=== PATIENT | female | born 1980 | race Caucasian/White ===

== ENCOUNTER 2019-12-24 16:45 | Emergency (ER) | payer SELFPAY ==
[2019-12-24 17:07] VITALS: BP 245/173; PULSE 89; RESP 20; TEMP 36.9; O2SAT 98; BMI 44.1
[2019-12-24 17:27] VITALS: O2SAT 95
--- NOTE | 2019-12-24 17:38 | ED_ITS ---
Entered by Melissa Rocha, acting as scribe for Nava Emmanuel MD, [facility] Dec 24, 2019 16:45 HPI - General Adult General: Chief complaint: General Medical Stated complaint: HIGH BLOOD PRESSURE Time Seen by Provider: 12/24/19 17:36 Source: patient Mode of arrival: ambulatory Limitations: no limitations History of Present Illness: HPI narrative: 39 yo Female presents to ED with complaint of elevated blood pressure and anxiety. Pt states that she went to the doctor today because of sciatic pain. Pt states that she hasn't had blood pressure medication since the last time she was in the ED but she lost her insurance and ran out of refills. Pt states that she was given clonidine at the clinic today. Pt states that she is also off of her depression and anxiety m edications for the same reason. Pt states that today is the 3 year anniversary of when her friend shot and killed themselves. Pt states that she has a headache right now and sees floaters. complaint: Elevated blood pressure Onset (ago): month(s) Location: head Radiation: non-radiation Quality: aching Pain Consistency: intermittent Relieving factors: none Exacerbating factors: none Associated symptoms: Reports headache(s); Deny chest pain, dyspnea, nausea, rash, palpitations or vomiting Treatments prior to arrival: other (clonidine) Review of Systems General: Reports: 10 or more systems reviewed and unremarkable except in HPI and below Const: Denies: fever, chills or body aches Eyes: Reports: floaters; Denies: change in vision or blurry vision ENMT: Denies: throat pain, enlarged tonsils, painful swallowing, hoarseness, mouth pain or swelling of lips/tongue Card: Denies: chest pain, palpitations, irregular heart rhythm, edema or swelling of feet/ankles Resp: Denies: shortness of breath, productive cough or non-productive cough GI: Denies: abdominal pain, nausea or vomiting : Denies: flank pain, difficulty urinating, painful urination, urinary frequency, urinary urgency or urinary hesitancy Musc: Denies: neck pain, back pain or extremity swelling Skin/Breast: Denies: rash, itching or redness Neuro: Reports: headache Endo: Denies: excessive urination, excessive thirst or tired all the time [facility] ED PFSH: Social History Smoking and tobacco status: former smoker Physical Exam Const: COMMON NORMALS: no apparent distress, average body habitus, oriented x3, no limitations, healthy appearing, alert and well nourished HENMT: COMMON NORMALS: normocephalic, head/scalp atraumatic and moist oral mucous membranes HEAD & SCALP: normocephalic and atraumatic Eye: COMMON NORMALS: PERRL, EOMs intact bilaterally, conjunctivae normal and no scleral icterus CONJUNCTIVA: Yes conjunctivae normal PUPIL: Yes PERRL Neck/C-Spine: COMMON NORMALS: full ROM, supple, no meningeal signs, no JVD and no carotid bruits Chest: COMMONS NORMALS: inspection of chest normal and palpation of chest normal Resp: COMMON NORMALS: normal respiratory effort, no retractions, no use of accessory muscles, clear to auscultation bilaterally and percussion normal AUSCULTATION: clear to auscultation bilaterally PERCUSSION: percussion normal Cardio: COMMON NORMALS: no JVD, regular rate, regular rhythm, S1 normal heart sound, S2 normal heart sound, no gallops, no clicks, no murmurs, no rub and peripheral pulses 2+ throughout RATE: regular rate RHYTHM: regular rhythm HEART SOUNDS: S1 normal and S2 normal PERIPHERAL PULSES: pulses 2+ throughout GI: COMMON NORMALS: normal to inspection, nondistended, normoactive bowel sounds, soft to palpation, non-tender, no hepatosplenomegaly, no masses and no bruits PALPATION: Yes soft and Yes no hepatosplenomegaly : COMMON NORMALS: Yes no CVA tenderness BLADDER/KIDNEY EXAM: Yes no CVA tenderness and No CVA tenderness Back/Pelvis: COMMON NORMALS: no CVA tenderness GENERAL BACK: No CVA tenderness LUMBAR SPINE/LOWER BACK: Yes lumbar spinal tenderness, Yes paraspinal muscle tenderness and No straight leg raise negative bilaterally Extremity: COMMON NORMALS: normal to inspection, full ROM, normal capillary refill, no calf tenderness and no pedal edema Neuro: COMMON NORMALS: oriented x3 SENSORIUM/ORIENTATION: Yes alert MENINGEAL SIGNS: Yes no meningeal signs Skin: COMMON NORMALS: no rashes or lesions noted, no wounds, skin turgor normal, no jaundice, no petechiae and no mottling GENERAL SKIN EXAM: no rashes or lesions noted and turgor normal Course Vital Signs: Vital signs: Vital Signs Temperature 98.4 F 12/24/19 17:07 Pulse Rate 73 12/24/19 21:00 Respiratory Rate 16 12/24/19 21:00 Blood Pressure 165/101 12/24/19 21:00 Pulse Oximetry 98 12/24/19 21:00 MDM - General Adult MDM Narrative: Medical decision making narrative: 39-year-old female patient who presented to the emergency department with markedly elevated blood pressure. In her primary care provider's office she had blood pressures with systolics in the 260s. After clonidine her blood pressure needed change much so she was sent to the emergency department for evaluation. She has been out of her antihypertensives for at least 2 to 3 months. She also run out of her antianxiety medications, due to losing insurance. In the emergency department evaluation was unremarkable. She required multiple doses of intravenous antihypertensives to bring her blood pressure down which she says usually is what happens. She is discharged home with a new prescription for amlodipine which is what she used to take. She is encouraged to follow-up with her primary care provider Medical Records: Attestation: I reviewed the patient's medical records. Lab Data: Attestation: I reviewed the patient's lab results. Labs: Lab Results 12/24/19 12/24/19 Range/Units 18:15 18:15 WBC 12.4 H (4.0-10.0) 10^3/ uL RBC 5.21 (4.1-5.3) 10^6/u L Hgb 14.4 (11.5-15.3) g/dL Hct 44.0 (37.0-47.0) % MCV 84.5 (81-99) fL MCH 27.6 L (28.0-34.0) pg MCHC 32.7 (30.0-36.0) g/dL RDW 12.3 (12.1-15.1) % Plt Count 387 (130-400) 10^3/c mm MPV 10.1 (7.4-10.4) fL Neut % (Auto) 69.9 % Lymph % (Auto) 23.6 % [place] % (Auto) 5.2 % Eos % (Auto) 0.8 % Baso % (Auto) 0.3 % Neut # (Auto) 8.7 H (1.8-7.7) 10^3/u L Lymph # (Auto) 2.9 (0.8-4.8) 10^3/u L [place] # (Auto) 0.6 (0.2-0.9) 10^3/u L Eos # (Auto) 0.1 (0.0-0.8) 10^3/u L Baso # (Auto) 0.0 (0.0-0.1) 10^3/u L Nucleated RBC % (a uto) 0 % Nucleated RBCs # 0.0 /100WBC Sodium 136 (136-145) mmol/L Potassium 3.7 (3.5-5.1) mmol/L Chloride 100 (98-107) mmol/L Carbon Dioxide 25 (22-29) mmol/L Anion Gap 14.7 (5-19) BUN 16 (6-20) mg/dL Creatinine 0.8 (0.5-0.9) mg/dL GFR Calculation 80.7 L (90-130) mL/min Glucose 111 (65-115) mg/dL Calcium 10.0 (8.5-10.5) mg/dL Total Bilirubin 0.3 (0.15-1.2) mg/dL AST 23 (0-32) U/L ALT 24 (0-33) U/L Alkaline Phosphata se 89 (35-105) IU/L Total Protein 8.1 (6.6-8.7) g/dL Albumin 4.3 (3.5-5.2) g/dL Globulin 3.8 (1.3-4.6) g/dL TSH 2.48 (0.27-4.20) uIU/ mL Discharge Plan Discharge Patient Disposition: Home, Self-Care Clinical Impression: Asymptomatic hypertensive urgency, Anxiety Back pain Qualifiers: Back pain location: low back pain Chronicity: chronic Back pain laterality: unspecified Sciatica presence: without sciatica Qualified Code(s): M54.5 - Low back pain Condition: Stable Prescriptions: New amlodipine 10 mg tablet 10 mg PO DAILY Qty: 30 RF: 0 [place] 5-325 mg tablet 1 tab PO Q8H PRN (Reason: pain) Qty: 10 RF: 0 promethazine 12.5 mg tablet 6.25 mg PO QID PRN (Reason: nausea and vomiting) Qty: 30 RF: 0 Klonopin 0.5 mg tablet 0.5 mg PO DAILY PRN (Reason: anxiety) Qty: 5 RF: 0 Continued ibuprofen 200 mg Tablet 600 mg PO Q4D PRN (Reason: Pain) RF: 0 Discharge Orders: Discharge Order (Routine); Ordered 12/24/19 Ordered By: Nava Emmanuel Referrals: Farida Carpio MD [Family Provider] - 4-7 days Patient Instructions: Hypertensive Crisis (ED), Back Pain (ED), Anxiety (ED) Activity Restrictions/Additional Instructions: Return for any new or worsening symptoms. Follow-up with your primary care provider within 1 week. Follow-up with [facility] as soon as possible. Take your medications as prescribed. It is important to take your blood pressure medicines to keep your blood pressure under control. Discharge Date/Time: 12/24/19 21:59 Coding Level of Care Code ED Market Research Interviewer for Chg Fwd Exam Comprehensive The documentation recorded by the Josefina basurto Carmen, accurately reflects the service I personally performed and the decisions made by Lien redding Adegoke I, MD, [facility] Dec 24, 2019 16:45
[2019-12-24] MEDS: hyDRALAzine 20 mg/mL INJ 1 mL 10 MG IVP (18:18)
[2019-12-24 18:21] VITALS: PULSE 88; RESP 15
[2019-12-24 18:39] LABS: Basophils % 0.3 %; Eosinophils # 0.1 10^3/uL (0.0-0.8); Eosinophils % 0.8 %; Hemoglobin 14.4 g/dL (11.5-15.3); Lymphocytes # 2.9 10^3/uL (0.8-4.8); Lymphocytes % 23.6 %; Mean Corpuscular HGB Conc 32.7 g/dL (30.0-36.0); Mean Corpuscular Hemoglobin 27.6 pg (28.0-34.0); Mean Corpuscular Volume 84.5 fL (81-99); Mean Platelet Volume 10.1 fL (7.4-10.4); Monocytes # 0.6 10^3/uL (0.2-0.9); Monocytes % 5.2 %; Neutrophils # 8.7 10^3/uL (1.8-7.7); Neutrophils % 69.9 %; Nucleated Red Blood Cells % 0 %; Platelet Count 387 10^3/cmm (130-400); Red Blood Count 5.21 10^6/uL (4.1-5.3); Red Cell Distribution Width 12.3 % (12.1-15.1); White Blood Count 12.4 10^3/uL (4.0-10.0)
[2019-12-24] MEDS: LORazepam 2 mg/mL INJ 1 mL 1 MG IVP (18:52)
[2019-12-24] MEDS: labetalol 5 mg/mL SDV 20mL 20 MG IVP ×2 (18:52→20:01)
[2019-12-24 19:02] LABS: Alanine Aminotransferase 24 U/L (0-33); Albumin Level 4.3 g/dL (3.5-5.2); Alkaline Phosphatase 89 IU/L (35-105); Anion Gap 14.7 (5-19); Aspartate Amino Transferase 23 U/L (0-32); Blood Urea Nitrogen 16 mg/dL (6-20); Carbon Dioxide 25 mmol/L (22-29); Chloride 100 mmol/L (98-107); Globulin 3.8 g/dL (1.3-4.6); Glomerular Filtration Rate 80.7 mL/min (90-130); Glucose 111 mg/dL (65-115); Potassium 3.7 mmol/L (3.5-5.1); Sodium 136 mmol/L (136-145); Thyroid Stimulating Hormone 2.48 uIU/mL (0.27-4.20); Total Bilirubin 0.3 mg/dL (0.15-1.2); Total Protein 8.1 g/dL (6.6-8.7)
--- NOTE | 2019-12-24 19:27 | PC.NURSE ---
Introduced self to patient and initiated vital signs. Patient presents A&O x 4. NAD, ABCs intact, MAEW and agreeable to treatment. Respirations are even and unlabored. Pt states that the chief complaint for the ER visit today is due to high blood pressure. Pt also complaining of back pain. IV observed in right AC. Pt denies any vision disturbances or lightheadedness. Bed left in lowest position in semi-fowlers with side rails up.Reassured patient of needs and will continue to monitor.
[2019-12-24 19:55] VITALS: RESP 18
[2019-12-24] MEDS: morphine 4 mg/mL SDV 1 mL 6 MG IVP (19:55)
[2019-12-24] MEDS: ondansetron 2 mg/ML SDV 2 mL 4 MG IVP (19:59)
[2019-12-24 20:00] VITALS: BP 194/101; PULSE 80; O2SAT 98
[2019-12-24] MEDS: metoclopramide 5 mg/mL SDV 2 mL 10 MG IVP (20:53)
[2019-12-24 21:00] VITALS: BP 165/101; PULSE 73; RESP 16; O2SAT 98
== END 2019-12-24 21:20 | disposition home or self-care (01) ==
PROVIDERS: Emergency Provider Family Medicine; Family Provider Family Medicine
DX: I16.0 Hypertensive urgency (principal); F41.9 Anxiety disorder, unspecified; Z87.891 Personal history of nicotine dependence
CPT/HCPCS: 36415; 80053; 84443; 85025; 96374; 96375; 96376; 99283; J0360; J2060; J2270; J2405; J2765; J3490

== ENCOUNTER 2020-01-01 15:16 | Outpatient (CLI) | payer SELFPAY ==
--- NOTE | 2020-01-01 15:26 | XR_ITS ---
WS: [id number] Lumbar spine, 5 views, 01/01/2020 Clinical Data: CHRONIC BACK PAIN, LUMBAGO WITH SCIATICA Comparison: None. Findings: No compression fractures or subluxation is seen. There is degenerative disc narrowing at L5-S1. Minim al anterior osteoarthritic spurring at this level is seen.. The transverse processes and SI joints ar e normal. The oblique films show no spondylolysis. There is an IUD in the region of the uterus. XR/XR lumbar spine min 4V [id number] Impression: 1. Degenerative disc disease at L5-S1. 2. Minimal osteoarthritic spurring at L5-S1.
== END 2020-01-01 15:17 | disposition home or self-care (01) ==
LOC: RADWPI 15:24
PROVIDERS: Family Provider Family Medicine; PCP Family Medicine; Visit Provider Nurse Practitioner Family
DX: M54.40 Lumbago with sciatica, unspecified side (principal); M47.897 Other spondylosis, lumbosacral region; M77.8 Other enthesopathies, not elsewhere classified
CPT/HCPCS: 72114

== ENCOUNTER 2020-03-29 22:11 | Emergency (ER) | payer SELFPAY ==
[2020-03-29] VITALS (7 sets, daily range): BP systolic 179; BP diastolic 130; PULSE 74–92; RESP 13–21; TEMP 36.4; O2SAT 94–96; BMI 43.2
--- NOTE | 2020-03-29 23:11 | XR_ITS ---
WS: [id number] PORTABLE CHEST HISTORY: sob COMPARISON: 10/17/2019 Slight elevation of the RIGHT hemidiaphragm is unchanged. No pneumonia. There is very mild bronchial thickening centrally, greatest on the LEFT. No pleural effusion or pneumothorax. Cardiac size: Normal. Mediastinum/Aorta: Normal mediastinum. No osseous abnormality seen. XR/XR chest 1V portable [id number] IMPRESSION: Mild bronchial wall thickening in the hilar regions, LEFT greater than RIGHT. M ay be related to bronchitis or smoking.
--- NOTE | 2020-03-29 23:12 | ECG_ITS ---
Measurements Intervals [place] Rate: 72 P: 38 NM: 149 QRS: 3 QRSD: 92 T: 6 QT: 389 QTc: 428 SINUS RHYTHM Compared to ECG 10/17/2019 23:08:32 No significant changes Electronically Signed On 03-30-2020 22:04:33 CDT by Yany Bhagat M.D. [id number]
--- NOTE | 2020-03-29 23:18 | ED_ITS ---
HPI - General Adult General: Chief complaint: General Medical Stated complaint: swelling in feet Time Seen by Provider: 03/29/20 23:11 History of Present Illness: HPI narrative: Patient is come back from a trip to [place] where she knows she started have swelling in her feet going down there and never to go away and is still present she has not weighed herself to see if she is actually gained weight but she is at high blood pressure for 10 to 15 years and this first time in her feet has stayed swollen like this MD complaint: Feet swelling Onset (ago): day(s) Associated symptoms: Deny chest pain, dyspnea, headache(s), nausea, rash or vomiting Review of Systems Const: Denies: fever(s), chills or body aches Eyes: Denies: change in vision or blurry vision ENMT: Denies: throat pain or nasal congestion Card: Reports: swelling of feet/ankles and other (Edema in feet, no signif icant shortness of breath); Denies: chest pain or dyspnea on exertion Resp: Denies: dyspnea, productive cough or non-productive cough GI: Denies: abdominal pain, nausea or vomiting Musc: Denies: extremity pain Skin/Breast: Denies: rash Neuro: Denies: headache(s) Psych: Denies: anxiety or depression [place]/Lymph: Denies: easy bruising PFS ED PFSH: Social History Smoking and tobacco status: never smoked Female Reproductive History: Date of last menstrual period: 03/22/20 Physical Exam Const: COMMON NORMALS: no acute distress, average body habitus and patient oriented x3 HENMT: COMMON NORMALS: normocephalic HEAD & SCALP: normal to inspection and normocephalic FACE & SINUS: normal facial exam Eye: COMMON NORMALS: conjunctivae normal GENERAL EYE: appearance normal, both eyes and all related structures CONJUNCTIVA: Yes conjunctivae normal Neck/C-Spine: COMMON NORMALS: no JVD Chest: COMMONS NORMALS: normal inspection of the chest Resp: COMMON NORMALS: normal respiratory effort and clear to auscultation bilaterally AUSCULTATION: clear to auscultation bilaterally Cardio: COMMON NORMALS: no JVD, regular rate and regular rhythm RATE: regular rate RHYTHM: regular rhythm PERIPHERAL PULSES: other (Does have swelling in her feet but not pitting) GI: COMMON NORMALS: Normal to inspection, nondistended, normoactive bowel sounds present Extremity: COMMON NORMALS: normal to inspection and full ROM Neuro: COMMON NORMALS: patient oriented x3 Course Vital Signs: Vital signs: Vital Signs Temperature 97.5 F L 03/29/20 22:53 Pulse Rate 74 03/29/20 23:35 Respiratory Rate 21 H 03/29/20 23:35 Blood Pressure 179/130 03/29/20 22:53 Pulse Oximetry 95 03/29/20 23:35 MDM - General Adult MDM Narrative: Medical decision making narrative: Discussed patient's blood pressure with her and her diastolic In 120s 130s she said that her blood pressure stays like that all the time Dr. Carpio is working with her and she is not concerned about it is wanting get on home and pick her son up from his friends Lab Data: Labs: Lab Results 03/29/20 03/29/20 Range/Units 23:30 23:30 WBC 12.7 H (4.0-10.0) 10^3/ uL RBC 4.53 (4.1-5.3) 10^6/u L Hgb 12.7 (11.5-15.3) g/dL Hct 39.3 (37.0-47.0) % MCV 86.8 (81-99) fL MCH 28.0 (28.0-34.0) pg MCHC 32.3 (30.0-36.0) g/dL RDW 12.7 (12.1-15.1) % Plt Count 391 (130-400) 10^3/c mm MPV 9.4 (7.4-10.4) fL Neut % (Auto) 62.8 % Lymph % (Auto) 29.9 % [place] % (Auto) 4.7 % Eos % (Auto) 2.1 % Baso % (Auto) 0.3 % Neut # (Auto) 8.0 H (1.8-7.7) 10^3/u L Lymph # (Auto) 3.8 (0.8-4.8) 10^3/u L [place] # (Auto) 0.6 (0.2-0.9) 10^3/u L Eos # (Auto) 0.3 (0.0-0.8) 10^3/u L Baso # (Auto) 0.0 (0.0-0.1) 10^3/u L Nucleated RBC % (a uto) 0 % Nucleated RBCs # 0.0 /100WBC Sodium 138 (136-145) mmol/L Potassium 4.0 (3.5-5.1) mmol/L Chloride 103 (98-107) mmol/L Carbon Dioxide 24 (22-29) mmol/L Anion Gap 15.0 (5-19) BUN 17 (6-20) mg/dL Creatinine 0.7 (0.5-0.9) mg/dL GFR Calculation 94.2 (90-130) mL/min Glucose 98 (65-115) mg/dL Calculated Osmolal ity 282 L (285-295) mOsm/k g Calcium 9.5 (8.5-10.5) mg/dL Total Bilirubin 0.2 (0.15-1.2) mg/dL AST 19 (0-32) U/L ALT 25 (0-33) U/L Alkaline Phosphata se 76 (35-105) IU/L NT-Pro-B Natriuret Pep 135 H (0-125) pg/mL Total Protein 7.3 (6.6-8.7) g/dL Albumin 4.0 (3.5-5.2) g/dL Globulin 3.3 (1.3-4.6) g/dL EKG Data^: EKG 1: EKG interpretation date: 03/29/20 EKG interpretation time: 23:24 Interpretation: Normal sinus rhythm 72 bpm NM interval is 149 ms QRS duration is 82 ms Discharge Plan Discharge Patient Disposition: Home, Self-Care Clinical Impression: HTN (hypertension) Qualifiers: Hypertension type: essential hypertension Qualified Code(s): I10 - Essential (primary) hypertension Condition: Stable Prescriptions: No Action ibuprofen 200 mg Tablet 600 mg PO Q4D PRN (Reason: Pain) RF: 0 amlodipine 10 mg tablet 10 mg PO DAILY Qty: 30 RF: 0 [place] 5-325 mg tablet 1 tab PO Q8H PRN (Reason: pain) Qty: 10 RF: 0 promethazine 12.5 mg tablet 6.25 mg PO QID PRN (Reason: nausea and vomiting) Qty: 30 RF: 0 Klonopin 0.5 mg tablet 0.5 mg PO DAILY PRN (Reason: anxiety) Qty: 5 RF: 0 Discharge Orders: Discharge Order (Routine); Ordered 03/30/20 Ordered By: Scott Reis Referrals: Farida Carpio MD [Primary Care Provider] - Discharge Diet: Low Salt Discharge Activity: Increase activity as tolerated Patient Instructions: Chronic Hypertension (ED), Leg Edema (ED) Activity Restrictions/Additional Instructions: Follow-up with medical provider as directed. Take medications as prescribed. Return to the ER or your medical provider if condition worsens. Please read and understand discharge instructions. If any questions ask please. Follow-up Dr. Carpio concerning blood pressure Coding Level of Care Code ED Senior J2E[employer] Developer for Chg Fwd Exam Comprehensive
[2020-03-29 23:36] LABS: Basophils % 0.3 %; Eosinophils # 0.3 10^3/uL (0.0-0.8); Eosinophils % 2.1 %; Hematocrit 39.3 % (37.0-47.0); Hemoglobin 12.7 g/dL (11.5-15.3); Lymphocytes # 3.8 10^3/uL (0.8-4.8); Lymphocytes % 29.9 %; Mean Corpuscular HGB Conc 32.3 g/dL (30.0-36.0); Mean Corpuscular Volume 86.8 fL (81-99); Mean Platelet Volume 9.4 fL (7.4-10.4); Monocytes # 0.6 10^3/uL (0.2-0.9); Monocytes % 4.7 %; Neutrophils % 62.8 %; Nucleated Red Blood Cells % 0 %; Platelet Count 391 10^3/cmm (130-400); Red Blood Count 4.53 10^6/uL (4.1-5.3); Red Cell Distribution Width 12.7 % (12.1-15.1); White Blood Count 12.7 10^3/uL (4.0-10.0)
[2020-03-29] MEDS: cloNIDine 0.1 mg Tablet 0.3 MG PO (23:54)
[2020-03-30] VITALS: BP 202/120; PULSE 75; RESP 19
[2020-03-30 00:05] VITALS: BP 202/120; PULSE 73; RESP 19; O2SAT 95
[2020-03-30 00:09] LABS: Alanine Aminotransferase 25 U/L (0-33); Alkaline Phosphatase 76 IU/L (35-105); Aspartate Amino Transferase 19 U/L (0-32); Blood Urea Nitrogen 17 mg/dL (6-20); Calcium 9.5 mg/dL (8.5-10.5); Carbon Dioxide 24 mmol/L (22-29); Chloride 103 mmol/L (98-107); Globulin 3.3 g/dL (1.3-4.6); Glomerular Filtration Rate 94.2 mL/min (90-130); Glucose 98 mg/dL (65-115); NT Pro B Type Natriuretic Pept 135 pg/mL (0-125); Osmolality Calculated 282 mOsm/kg (285-295); Sodium 138 mmol/L (136-145); Total Bilirubin 0.2 mg/dL (0.15-1.2); Total Protein 7.3 g/dL (6.6-8.7)
[2020-03-30 00:10] VITALS: BP 202/120; PULSE 73; RESP 17; O2SAT 96
[2020-03-30 00:15] VITALS: BP 187/132; PULSE 75; RESP 21; O2SAT 97
[2020-03-30 00:20] VITALS: BP 187/132; PULSE 74; RESP 21; O2SAT 96
[2020-03-30 00:25] VITALS: BP 187/132; PULSE 76; RESP 17; O2SAT 96
== END 2020-03-30 00:30 | disposition home or self-care (01) ==
PROVIDERS: Emergency Provider Nurse Practitioner Family; PCP Family Medicine
DX: I10 Essential (primary) hypertension (principal)
CPT/HCPCS: 12345; 36415; 71045; 80053; 83880; 85025; 93005; 99283

== ENCOUNTER 2021-04-05 15:38 | Emergency (ER) | payer SELFPAY ==
--- NOTE | 2021-04-05 15:58 | ECG_ITS ---
[facility] Test Date: 2021-04-05 Pat Name: Katey Romeo Department: Room: Gender: Female Rigger Up: : 1980 Requested By: Akash Ortez Order Number: [id number] Rj MD: Marcelino Lanza M.D. Measurements Intervals [place] Rate: 92 P: 32 AL: 137 QRS: 35 QRSD: 114 T: 19 QT: 386 QTc: 478 Interpretive Statements SINUS RHYTHM INCOMPLETE RIGHT BUNDLE BRANCH BLOCK [90+ ms QRS DURATION, TERMINAL R IN V1/V2, 40+ ms S IN I/aVL/V4/V5/V6] NONSPECIFIC T-WAVE ABNORMALITY Compared to ECG 03/29/2020 23:26:03 Incomplete right bundle-branch block now present T-wave abnormality now present Electronically Signed On 04-05-2021 18:55:31 CDT by Marcelino Lanza M.D. [id number]
[2021-04-05 16:24] VITALS: BP 221/150; PULSE 91; RESP 18; TEMP 37; O2SAT 98; BMI 41.2
--- NOTE | 2021-04-05 17:26 | PC.PHAR ---
pt states she takes no rx or otc medications-pt states she was taking metoprolol tartrate 100mg 50mg bid,mobic 15mg daily prn,amlodipine 10mg daily and hctz 25mg daily but hasnt taken since dec 2020-ext med history shows last filled on 11/19/20 30d/s
[2021-04-05] MEDS: sodium chloride 0.9% 1,000 ML 999 ML IV (17:42)
--- NOTE | 2021-04-05 17:46 | W.ED.GENADLT ---
Documented by User: Akash Mancia DO 04/06/21 14:38 HPI - General Adult General: Chief complaint: General Medical Stated complaint: HIGH BLOOD PRESSURE HEADACHE CHEST TIGHT Time Seen by Provider: 04/05/21 16:56 History of Present Illness: HPI narrative: 40-year-old female with a history of hypertension comes in with accelerated hypertension headache and chest tightness. The past she has been on hydrochlorothiazide amlodipine lisinopril she stopped taking them due to logistical and financial concerns. She has not noticed any precipitating or relieving factors. She does have a bit of a headache initial blood pressure 221/150. No vomiting or diarrhea no visual changes no focal neurologic deficits noted. Associated symptoms: Reports nausea; Deny chest pain, dyspnea, malaise, rash or vomiting Review of Systems Const: Denies: fever(s), chills, body aches, change in appetite, fatigue or malaise ENMT: Denies: throat pain, ear or mastoid pain, nasal discharge or nasal congestion Card: Denies: chest pain, edema, dyspnea on exertion or orthopnea Resp: Denies: dyspnea, productive cough or non-productive cough GI: Reports: nausea and bloating; Denies: abdominal pain, vomiting, hematemesis, coffee ground emesis, diarrhea, constipation, hematochezia or melena : Denies: flank pain, difficulty voiding, dysuria, urinary frequency or urinary urgency Skin/Breast: Denies: rash or pruritus [facility] ED PFSH: Medical History (Updated 04/06/21 @ 14:37 by Akash Mancia DO) Hypertension Social History Smoking and tobacco status: never smoked Female Reproductive History: Date of last menstrual period: 03/22/20 Course Vital Signs: Vital signs: Vital Signs Temperature 98.6 F 04/05/21 16:24 Pulse Rate 89 04/05/21 20:50 Respiratory Rate 18 04/05/21 20:50 Blood Pressure 179/112 04/05/21 20:50 Pulse Oximetry 97 04/05/21 20:50 MDM - General Adult MDM Narrative: Medical decision making narrative: Care turned over to Dr. Prabhakar at change shift see his notes from diagnosis disposition Lab Data: Labs: Lab Results 04/05/21 04/05/2104/05/21 Range/Units 17:38 17:38 17:38 WBC Cancelled Corrected WBC Cancelled RBC Cancelled Hgb Cancelled Hct Cancelled MCV Cancelled MCH Cancelled MCHC Cancelled RDW Cancelled Plt Count Cancelled MPV Cancelled Gran % Cancelled Neut % (Auto) Cancelled Lymph % (Auto) Cancelled [place] % (Auto) Cancelled Eos % (Auto) Cancelled Baso % (Auto) Cancelled Neut # (Auto) Cancelled Lymph # (Auto) Cancelled [place] # (Auto) Cancelled Eos # (Auto) Cancelled Baso # (Auto) Cancelled Absolute Gran (aut o) Cancelled Nucleated RBC % (a uto) Cancelled Nucleated RBCs # Cancelled Sodium 137 (136-145) mmol/L Potassium 4.1 (3.5-5.1) mmol/L Chloride 100 (98-107) mmol/L Carbon Dioxide 27 (22-29) mmol/L Anion Gap 14.1 (5-19) BUN 12 (6-20) mg/dL Creatinine 0.6 (0.5-0.9) mg/dL GFR Calculation 111.9 (90-130) mL/min Glucose 101 (65-115) mg/dL Calculated Osmolal ity 284 L (285-295) mOsm/k g Calcium 9.1 (8.5-10.5) mg/dL Total Bilirubin 0.3 (0.15-1.2) mg/dL AST 21 (0-32) U/L ALT 20 (0-33) U/L Alkaline Phosphata se 92 (35-105) IU/L Troponin T Baselin e Cancelled Troponin T 120 Min [place] (0-10) ng/L Delta Troponin T (0-10) ABS# Total Protein 6.8 (6.6-8.7) g/dL Albumin 4.1 (3.5-5.2) g/dL Globulin 2.7 (1.3-4.6) g/dL 04/05/21 04/05/21 04/05/21 Range/Units 18:12 18:12 19:35 WBC 14.7 H Corrected WBC RBC 5.29 Hgb 15.0 Hct 45.4 MCV 85.8 MCH 28.4 MCHC 33.0 RDW 12.4 Plt Count 377 MPV 10.0 Gran % Neut % (Auto) 68.6 Lymph % (Auto) 24.9 [place] % (Auto) 5.1 Eos % (Auto) 0.7 Baso % (Auto) 0.3 Neut # (Auto) 10.07 H Lymph # (Auto) 3.7 [place] # (Auto) 0.8 Eos # (Auto) 0.1 Baso # (Auto) 0.1 Absolute Gran (aut o) Nucleated RBC % (a uto) 0 Nucleated RBCs # 0.0 Sodium (136-145) mmol/L Potassium (3.5-5.1) mmol/L Chloride (98-107) mmol/L Carbon Dioxide (22-29) mmol/L Anion Gap (5-19) BUN (6-20) mg/dL Creatinine (0.5-0.9) mg/dL GFR Calculation (90-130) mL/min Glucose (65-115) mg/dL Calculated Osmolal ity (285-295) mOsm/k g Calcium (8.5-10.5) mg/dL Total Bilirubin (0.15-1.2) mg/dL AST (0-32) U/L ALT (0-33) U/L Alkaline Phosphata se (35-105) IU/L Troponin T Baselin e 6 Troponin T 120 Min [place] 6.00 (0-10) ng/L Delta Troponin T 0 (0-10) ABS# Total Protein (6.6-8.7) g/dL Albumin (3.5-5.2) g/dL Globulin (1.3-4.6) g/dL Discharge Plan Discharge Patient Disposition: Home Clinical Impression: Hypertension Qualifiers: Hypertension type: essential hypertension Qualified Code(s): I10 - Essential (primary) hypertension Vomiting Qualifiers: Vomiting type: unspecified Condition: Stable Prescriptions: New ondansetron 4 mg tablet,disintegrating 4 mg PO Q6H PRN (Reason: nausea and vomiting) Qty: 14 RF: 0 metoprolol succinate 100 mg tablet extended release 24 hr 100 mg PO DAILY Qty: 60 RF: 0 amlodipine 10 mg tablet 10 mg PO DAILY Qty: 60 RF: 0 hydrochlorothiazide 25 mg tablet 25 mg PO BID Qty: 120 RF: 0 Discharge Orders: Discharge ED (Routine); Ordered 04/05/21 Ordered By: Korby Aki Referrals: Farida Carpio MD [Primary Care Provider] - Discharge Diet: Advance as tolerated Discharge Activity: Resume usual activity Patient Instructions: Acute Nausea and Vomiting (ED), Hypertension (ED) Coding Level of Care Code ED Spray Machine Operator for Chg Fwd Exam Comprehensive Documented by User: Johnny Prabhakar MD 04/05/21 20:42 HPI - General Adult General: Chief complaint: General Medical Stated complaint: HIGH BLOOD PRESSURE HEADACHE CHEST TIGHT Time Seen by Provider: 04/05/21 16:56 PFSH ED PFSH: Medical History (Updated 04/06/21 @ 14:37 by Akash Mancia DO) Hypertension Social History Smoking and tobacco status: never smoked Physical Exam Const: COMMON NORMALS: no acute distress, patient oriented x3 and healthy appearing HENMT: COMMON NORMALS: normocephalic and atraumatic HEAD & SCALP: normocephalic and atraumatic Eye: COMMON NORMALS: Equal, round and reactive pupils present and EOMs intact bilaterally PUPIL: Yes Equal, round and reactive pupils present Neck/C-Spine: COMMON NORMALS: full ROM and supple Chest: COMMONS NORMALS: normal inspection of the chest and normal palpation of entire chest wall Resp: COMMON NORMALS: normal respiratory effort, No retractions, No use of accessory muscles and clear to auscultation bilaterally AUSCULTATION: clear to auscultation bilaterally Cardio: COMMON NORMALS: regular rate, regular rhythm and No murmurs present (Cardio) RATE: regular rate RHYTHM: regular rhythm GI: COMMON NORMALS: Normal to inspection, nondistended, normoactive bowel sounds present, Soft to palpation, non-tender and no masses PALPATION: Yes Soft to palpation Extremity: COMMON NORMALS: normal to inspection and full ROM Neuro: COMMON NORMALS: patient oriented x3, moves all extremities and no focal motor deficits Psych: COMMON NORMALS: mental status grossly normal, Normal thought process present and cooperative THOUGHT PROCESS: Normal thought process present Skin: COMMON NORMALS: no rashes or lesions noted and no wounds GENERAL SKIN EXAM: no rashes or lesions noted Course Vital Signs: Vital signs: Vital Signs Temperature 98.6 F 04/05/21 16:24 Pulse Rate 89 04/05/21 20:50 Respiratory Rate 18 04/05/21 20:50 Blood Pressure 179/112 04/05/21 20:50 Pulse Oximetry 97 04/05/21 20:50 MDM - General Adult MDM Narrative: Medical decision making narrative: Patient presents with hypertension due to noncompliance. She has not been taking her meds for months. We will refill her medicines. Her blood work here is all normal and her blood pressure is improved here. She is to follow-up with PCP in 2 to 3 days return to ER if worsening. She is to log her blood pressures at home. She understands agrees to plan. Lab Data: Labs: Lab Results 04/05/21 04/05/21 04/05/21 Range/Units 17:38 17:38 17:38 WBC Cancelled Corrected WBC Cancelled RBC Cancelled Hgb Cancelled Hct Cancelled MCV Cancelled MCH Cancelled MCHC Cancelled RDW Cancelled Plt Count Cancelled MPV Cancelled Gran % Cancelled Neut % (Auto) Cancelled Lymph % (Auto) Cancelled [place] % (Auto) Cancelled Eos % (Auto) Cancelled Baso % (Auto) Cancelled Neut # (Auto) Cancelled Lymph # (Auto) Cancelled [place] # (Auto) Cancelled Eos # (Auto) Cancelled Baso # (Auto) Cancelled Absolute Gran (aut o) Cancelled Nucleated RBC % (a uto) Cancelled Nucleated RBCs # Cancelled Sodium 137 (136-145) mmol/L Potassium 4.1 (3.5-5.1) mmol/L Chloride 100 (98-107) mmol/L Carbon Dioxide 27 (22-29) mmol/L Anion Gap 14.1 (5-19) BUN 12 (6-20) mg/dL Creatinine 0.6 (0.5-0.9) mg/dL GFR Calculation 111.9 (90-130) mL/min Glucose 101 (65-115) mg/dL Calculated Osmolal ity 284 L (285-295) mOsm/k g Calcium 9.1 (8.5-10.5) mg/dL Total Bilirubin 0.3 (0.15-1.2) mg/dL AST 21 (0-32) U/L ALT 20 (0-33) U/L Alkaline Phosphata se 92 (35-105) IU/L Troponin T Baselin e Cancelled Troponin T 120 Min [place] (0-10) ng/L Delta Troponin T (0-10) ABS# Total Protein 6.8 (6.6-8.7) g/dL Albumin 4.1 (3.5-5.2) g/dL Globulin 2.7 (1.3-4.6) g/dL 04/05/21 04/05/21 04/05/21 Range/Units 18:12 18:12 19:35 WBC 14.7 H Corrected WBC RBC 5.29 Hgb 15.0 Hct 45.4 MCV 85.8 MCH 28.4 MCHC 33.0 RDW 12.4 Plt Count 377 MPV 10.0 Gran % Neut % (Auto) 68.6 Lymph % (Auto) 24.9 [place] % (Auto) 5.1 Eos % (Auto) 0.7 Baso % (Auto) 0.3 Neut # (Auto) 10.07 H Lymph # (Auto) 3.7 [place] # (Auto) 0.8 Eos # (Auto) 0.1 Baso # (Auto) 0.1 Absolute Gran (aut o) Nucleated RBC % (a uto) 0 Nucleated RBCs # 0.0 Sodium (136-145) mmol/L Potassium (3.5-5.1) mmol/L Chloride (98-107) mmol/L Carbon Dioxide (22-29) mmol/L Anion Gap (5-19) BUN (6-20) mg/dL Creatinine (0.5-0.9) mg/dL GFR Calculation (90-130) mL/min Glucose (65-115) mg/dL Calculated Osmolal ity (285-295) mOsm/k g Calcium (8.5-10.5) mg/dL Total Bilirubin (0.15-1.2) mg/dL AST (0-32) U/L ALT (0-33) U/L Alkaline Phosphata se (35-105) IU/L Troponin T Baselin e 6 Troponin T 120 Min [place] 6.00 (0-10) ng/L Delta Troponin T 0 (0-10) ABS# Total Protein (6.6-8.7) g/dL Albumin (3.5-5.2) g/dL Globulin (1.3-4.6) g/dL EKG Data^: EKG 1: Attestation: I personally reviewed and interpreted this EKG as follows: EKG interpretation date: 04/05/21 EKG interpretation time: 18:58 Interpretation: nsr hr [address] or t wave abnormalities qrs 93 qtc 423 Discharge Plan Discharge Patient Disposition: Home Clinical Impression: Hypertension Qualifiers: Hypertension type: essential hypertension Qualified Code(s): I10 - Essential (primary) hypertension Vomiting Qualifiers: Vomiting type: unspecified Condition: Stable Prescriptions: New ondansetron 4 mg tablet,disintegrating 4 mg PO Q6H PRN (Reason: nausea and vomiting) Qty: 14 RF: 0 metoprolol succinate 100 mg tablet extended release 24 hr 100 mg PO DAILY Qty: 60 RF: 0 amlodipine 10 mg tablet 10 mg PO DAILY Qty: 60 RF: 0 hydrochlorothiazide 25 mg tablet 25 mg PO BID Qty: 120 RF: 0 Discharge Orders: Discharge ED (Routine); Ordered 04/05/21 Ordered By: Johnny Prabhakar Referrals: Farida Carpio MD [Primary Care Provider] - Discharge Diet: Advance as tolerated Discharge Activity: Resume usual activity Patient Instructions: Acute Nausea and Vomiting (ED), Hypertension (ED) Coding Level of Care Code ED Spray Machine Operator for Chg Fwd Exam Comprehensive
--- NOTE | 2021-04-05 17:58 | ECG_ITS ---
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 Measurements Intervals [place] Rate: 81 P: 10 RI: 136 QRS: 22 QRSD: 93 T: 62 QT: 385 QTc: 449 Interpretive Statements SINUS RHYTHM NONSPECIFIC T-WAVE ABNORMALITY Compared to ECG 04/05/2021 16:54:25 Incomplete right bundle-branch block no longer present T-wave abnormality still present Electronically Signed On 04-05-2021 19:12:09 CDT by Marcelino Lanza M.D. [id number]
[2021-04-05] MEDS: amlodipine 10 mg Tablet PO (18:07)
[2021-04-05] MEDS: lisinopril 10 mg Tablet 20 MG PO (18:08)
[2021-04-05] MEDS: hyDRALAzine 20 mg/mL INJ 1 mL IVP (18:09)
[2021-04-05] MEDS: labetalol 5 mg/mL SDV 20mL 10 MG IVP (18:10)
[2021-04-05 18:11] LABS: Alanine Aminotransferase 20 U/L (0-33); Albumin Level 4.1 g/dL (3.5-5.2); Alkaline Phosphatase 92 IU/L (35-105); Blood Urea Nitrogen 12 mg/dL (6-20); Calcium 9.1 mg/dL (8.5-10.5); Carbon Dioxide 27 mmol/L (22-29); Chloride 100 mmol/L (98-107); Globulin 2.7 g/dL (1.3-4.6); Glomerular Filtration Rate 111.9 mL/min (90-130); Glucose 101 mg/dL (65-115); Osmolality Calculated 284 mOsm/kg (285-295); Sodium 137 mmol/L (136-145); Total Bilirubin 0.3 mg/dL (0.15-1.2); Total Protein 6.8 g/dL (6.6-8.7)
[2021-04-05] MEDS: nitroglycerin 1 gm/inch oint Pkt 1 INCH TOPICAL (18:12)
[2021-04-05 18:14] LABS: Anion Gap 14.1 (5-19); Aspartate Amino Transferase 21 U/L (0-32); Potassium 4.1 mmol/L (3.5-5.1)
[2021-04-05 18:22] LABS: Basophils # 0.1 10^3/uL (0.0-0.1); Basophils % 0.3 %; Eosinophils # 0.1 10^3/uL (0.0-0.8); Eosinophils % 0.7 %; Hematocrit 45.4 % (37.0-47.0); Lymphocytes # 3.7 10^3/uL (0.8-4.8); Lymphocytes % 24.9 %; Mean Corpuscular Hemoglobin 28.4 pg (28.0-34.0); Mean Corpuscular Volume 85.8 fL (81-99); Monocytes # 0.8 10^3/uL (0.2-0.9); Monocytes % 5.1 %; Neutrophils # 10.07 10^3/uL (1.8-7.7); Neutrophils % 68.6 %; Nucleated Red Blood Cells % 0 %; Platelet Count 377 10^3/cmm (130-400); Red Blood Count 5.29 10^6/uL (4.1-5.3); Red Cell Distribution Width 12.4 % (12.1-15.1); White Blood Count 14.7 10^3/uL (4.0-10.0)
[2021-04-05 18:36] LABS: Troponin(5th) Baseline 6 ng/L (0-10)
[2021-04-05] MEDS: metoprolol succinate ER (24 HR) 50 mg Tablet PO (18:37)
[2021-04-05] MEDS: LORazepam 2 mg/mL INJ 1 mL IVP (19:48)
[2021-04-05] MEDS: labetalol 5 mg/mL SDV 20mL 20 MG IVP (19:53)
[2021-04-05 19:58] LABS: Troponin 5 2HR Delta 0 ABS# (0-10)
[2021-04-05 20:24] VITALS: PULSE 87; RESP 16; O2SAT 97
[2021-04-05 20:25] VITALS: BP 151/110; PULSE 86; RESP 18; O2SAT 98
[2021-04-05 20:50] VITALS: BP 179/112; PULSE 89; RESP 18; O2SAT 97
== END 2021-04-05 20:51 | disposition home or self-care (01) ==
PROVIDERS: Family Medicine; Emergency Provider Emergency Medicine; PCP Family Medicine
DX: R11.2 Nausea with vomiting, unspecified (principal); I10 Essential (primary) hypertension; Z91.14 Patient's other noncompliance with medication regimen
CPT/HCPCS: 36415; 80053; 84484; 85025; 93005; 96361; 96374; 96375; 96376; 99284; J0360; J2060; J3490; J7030

== ENCOUNTER 2021-05-09 00:18 | Emergency (ER) | payer SELFPAY ==
[2021-05-09 01:04] VITALS: BP 235/135; PULSE 85; RESP 17; TEMP 36.6; O2SAT 95; BMI 43.0
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
[2021-05-09 02:33] VITALS: BP 184/92; PULSE 86; RESP 16; O2SAT 96
--- NOTE | 2021-05-09 02:37 | PC.NURSE ---
approx 2cm strip of steri-strip applied by JOANNE
== END 2021-05-09 02:37 | disposition home or self-care (01) ==
PROVIDERS: Emergency Provider Nurse Practitioner Family; PCP Family Medicine
DX: S01.511A Laceration without foreign body of lip, initial encounter (principal); I10 Essential (primary) hypertension; Y04.2XXA Assault by strike against or bumped into by another person, initial encounter
CPT/HCPCS: 12011; 99281

== ENCOUNTER 2022-01-17 20:56 | Observation (INO) | payer MEDICAID, SELFPAY ==
[2022-01-17 21:01] VITALS: PULSE 91; RESP 18; TEMP 36.6; O2SAT 97; BMI 38.0
[2022-01-17 21:10] VITALS: BP 210/130
--- NOTE | 2022-01-17 21:11 | XRR_ITS ---
PROCEDURE INFORMATION: Exam: XR Chest Exam date and time: 01/17/2022 9:11 PM Age: 41 years old Clinical indication: Pain; Angina pectoris; Additional info: Chest pain TECHNIQUE: Imaging protocol: XR of the chest. Views: 1 view. COMPARISON: CR XR chest 1V portable [id number] 03/29/2020 11:49 PM FINDINGS: Lungs: Lungs are clear bilaterally. Pleural spaces: No pleural effusion. No pneumothorax. Heart/Mediastinum: Stable mild enlargement of the cardiac silhouette. Mediastinal contours are unremarkable. Bones/joints: Unremarkable for age. XR/XR chest 1V portable [id number] IMPRESSION: 1. No acute cardiopulmonary process. 2. Stable mild enlargement of the cardiac silhouette.
--- NOTE | 2022-01-17 21:11 | ECG_ITS ---
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 Measurements Intervals [place] Rate: 68 P: 15 SC: 151 QRS: 1 QRSD: 112 T: -2 QT: 381 QTc: 407 Interpretive Statements SINUS RHYTHM MODERATE INTRAVENTRICULAR CONDUCTION DELAY [110+ ms QRS DURATION] NONSPECIFIC T-WAVE ABNORMALITY Compared to ECG 04/05/2021 18:58:29 Intraventricular conduction delay now present T-wave abnormality still present Electronically Signed On 01-17-2022 22:19:16 CDT by Marcelino Lanza M.D. [id number]
[2022-01-17 21:27] LABS: Basophils # 0.1 10^3/uL (0.0-0.1); Basophils % 0.4 %; Eosinophils # 0.3 10^3/uL (0.0-0.8); Hematocrit 45.7 % (37.0-47.0); Hemoglobin 15.3 g/dL (11.5-15.3); Lymphocytes # 4.6 10^3/uL (0.8-4.8); Mean Corpuscular HGB Conc 33.5 g/dL (30.0-36.0); Mean Corpuscular Hemoglobin 29.7 pg (28.0-34.0); Mean Corpuscular Volume 88.7 fl (81-99); Mean Platelet Volume 9.7 fL (7.4-10.4); Monocytes # 0.8 10^3/uL (0.2-0.9); Monocytes % 5.8 %; Neutrophils # 8.18 10^3/uL (1.8-7.7); Neutrophils % 58.5 %; Nucleated Red Blood Cells % 0 %; Platelet Count 321 10^3/cmm (130-400); Red Blood Count 5.15 10^6/uL (4.1-5.3); Red Cell Distribution Width 12.4 % (12.1-15.1)
--- NOTE | 2022-01-17 21:27 | W.ED.GENADLT ---
HPI - General Adult General: Chief complaint: Anxiety Stated complaint: Panic Attack\ High Blood Pressure Time Seen by Provider: 01/17/22 20:58 History of Present Illness: CC: Chest Pain HPI: This is a 41yo patient hx of HTN not currently on medication presenting to the ED complaining of acute sudden onset intermittent sharp chest pain and pressure like x 1 week with radiation to the left arm and left back. Patient has associated with shortness of breath, chest pain or dyspnea on exertion. Pain is not tearing in nature and does not radiate to the back. Pain not associated with vomiting or PO intake. Denies any recent sympathomimetic drug use. Patient denies any cough. Denies palpitations, dysphagia, diaphoresis, radiation of pain to bilateral arms, jaw. Denies F/N/V/D. Patient denies any recent immobility, surgery, unilateral leg swelling, or prior PE. Patient denies any orthopnea. Patient reports a family history of cardiac issues. Patient reports smoking. Onset: 1 week ago Duration: ongoing for the last 7 days Location: home Severity: moderate Associated symptoms: Reports chest pain; Deny dyspnea, nausea, rash, palpitations or vomiting Review of Systems Const: Denies: fever(s) or chills Eyes: Denies: change in vision ENMT: Denies: mouth pain Card: Reports: chest pain; Denies: palpitations Resp: Denies: dyspnea or non-productive cough GI: Denies: abdominal pain, nausea, vomiting or diarrhea : Denies: dysuria Musc: Denies: extremity pain Skin/Breast: Denies: rash or new lesions Neuro: Denies: weakness in extremities Psych: Reports: other (Normal mood) Jackson/Lymph: Denies: easy bruising PFS ED PFSH: Medical History Hypertension Smoking addiction Surgical History History of Social History Smoking and tobacco status: current every day smoker Alcohol intake: never Substance/Drug Use: never Household members: significant other Marital status: Life Partner Marital status details: Fiance Female Reproductive History: Date of last menstrual period: 03/22/20 Physical Exam Const: COMMON NORMALS: alert HENMT: COMMON NORMALS: atraumatic HEAD & SCALP: atraumatic MOUTH: moist mucous membranes not abnormal Eye: COMMON NORMALS: EOMs intact bilaterally and conjunctivae normal CONJUNCTIVA: Yes conjunctivae normal Neck/C-Spine: COMMON NORMALS: full ROM and supple Resp: COMMON NORMALS: normal respiratory effort and clear to auscultation bilaterally AUSCULTATION: clear to auscultation bilaterally Cardio: COMMON NORMALS: regular rate RATE: regular rate OTHER: 2+ radial pulses b/l GI: COMMON NORMALS: Soft to palpation and non-tender PALPATION: Yes Soft to palpation Extremity: COMMON NORMALS: full ROM Neuro: SENSORIUM/ORIENTATION: Yes alert MOTOR EXAM: No Abnormal motor strength present and Other motor observations present (no focal motor deficits) Psych: COMMON NORMALS: speech normal SPEECH: Yes normal speech MOOD & AFFECT: Yes euthymic mood Course Vital Signs: Vital signs: Vital Signs Temperature 97.6 F 01/18/22 07:49 Pulse Rate 77 01/18/22 11:16 Respiratory Rate 18 01/18/22 07:49 Blood Pressure 199/108 01/18/22 11:16 Pulse Oximetry 90 01/18/22 07:49 MDM - General Adult Medical Decision Making [41]yo patient w/ hx of HTN, smoking presenting to the ED with evaluation of new onset sharp/ pressure like chest pain x 7 days now present at rest and with exertion. HDS, pulse 2+ radially bilaterally, no signs of fluid overload, AAOx3, neuro exam intact. Given History and Exam today I have no suspicion for ACS, Pneumothorax, Pneumonia, Pulmonary Embolus, Tamponade, Aortic Dissection or other emergent problems as a cause for this presentation. Workup: ECG, CXR, CBC, BMP, Troponin Interventions: ASA, nitro, labetolol, hydraalzine, nifedipine Findings: ECG: No overt evidence of STEMI, hyperacute T waves, localizable STD or T wave inversions. No evidence of Brugada?s sign, delta wave, epsilon wave, significantly prolonged QTc, or malignant arrhythmia. No Q waves. Other Labs unremarkable for emergent problems. CXR: Without PTX, PNA, or widened mediastinum Last Stress Test: never Last Heart Catheterization: never Dimer: wnl [9:30pm] On reassessment, the patient is HDS, no complaints of persistent chest pain in the ED after evaluation. ECG is non-ischemic, but shows LVH. Given the fact the patient has uncontrolled blood pressure with diastolic greater than 135, we given patient labetalol, nifedipine, and hydralazine with significant improvement in blood pressure. Patient has a normal D-dimer, 2+ radial pulses bilaterally, systolic blood pressure difference of less than 20 mmHg in the upper arms, I do not suspect the patient has an acute dissection. However, given no anginal-like chest pain now present at rest, smoking history, high blood pressure which is uncontrolled uncontrolled, patient will be admitted to hospital for further work-up for ACS. Disposition: admission Lab Data : 01/18/22 03:14 01/18/22 03:14 Radiology Impressions Chest X-Ray 01/17/22 21:11 IMPRESSION: 1. No acute cardiopulmonary process. 2. Stable mild enlargement of the cardiac silhouette. Laboratory Results WBC 14.0 10^3/uL (4.0-10.0) H 01/17/22 21:18 RBC 5.15 10^6/uL (4.1-5.3) 01/17/22 21:18 Hgb 15.3 g/dL (11.5-15.3) 01/17/22 21:18 Hct 45.7 % (37.0-47.0) 01/17/22 21:18 MCV 88.7 fl (81-99) 01/17/22 21:18 MCH 29.7 pg (28.0-34.0) 01/17/22:18 MCHC 33.5 g/dL (30.0-36.0) 01/17/22 21:18 RDW 12.4 % (12.1-15.1) 01/17/22 21:18 Plt Count 321 10^3/cmm (130-400) 01/17/22 21:18 MPV 9.7 fL (7.4-10.4) 01/17/22 21:18 Neut % (Auto) 58.5 % 01/17/22 21:18 Lymph % (Auto) 33.0 % 01/17/22 21:18 [place] % (Auto) 5.8 % 01/17/22 21:18 Eos % (Auto) 2.0 % 01/17/22 21:18 Baso % (Auto) 0.4 % 01/17/22 21:18 Neut # (Auto) 8.18 10^3/uL (1.8-7.7) H 01/17/22 21:18 Lymph # (Auto) 4.6 10^3/uL (0.8-4.8) 01/17/22 21:18 [place] # (Auto) 0.8 10^3/uL (0.2-0.9) 01/17/22 21:18 Eos # (Auto) 0.3 10^3/uL (0.0-0.8) 01/17/22 21:18 Baso # (Auto) 0.1 10^3/uL (0.0-0.1) 01/17/22 21:18 Nucleated RBC % (auto) 0 % 01/17/22 21:18 Nucleated RBCs # 0.0 /100WBC 01/17/22 21:18 D-Dimer 0.29 ug/mIFEU (0-0.59) 01/17/22 21:34 Sodium 137 mmol/L (136-145) 01/17/22 21:18 Potassium 3.9 mmol/L (3.5-5.1) 01/17/22 21:18 Chloride 103 mmol/L (98-107) 01/17/22 21:18 Carbon Dioxide 24 mmol/L (22-29) 01/17/22 21:18 Anion Gap 13.9 (5-19) 01/17/22 21:18 BUN 14 mg/dL (6-20) 01/17/22 21:18 Creatinine 0.8 mg/dL (0.5-0.9) 01/17/22 21:18 GFR Calculation 79.9 mL/min (90-130) L 01/17/22 21:18 Glucose 80 mg/dL (65-115) 01/17/22 21:18 Estimat Average Glucose 105 01/17/22 21:18 Hemoglobin A1c 5.3 % (4.0-6.0) 01/17/22 21:18 Calculated Osmolality 283 mOsm/kg (285-295) L 01/17/22 21:18 Calcium 9.2 mg/dL (8.5-10.5) 01/17/22 21:18 Troponin T Baseline 7 ng/L (0-10) 01/17/22 21:18 HCG, Qual Negative (Negative) 01/17/22 21:18 Imaging Data Other Imaging: Radiologist's impression: [email or web address] [address] XRay Report Signed Patient: Katey Romeo Unit #: [id number] : 1980 Age/Sex: 41 / F ADM Date: 01/17/22 Loc: ER Room/Bed: Attending Dr: Ordering Provider/Ordering MD: Rolando Moura MD Date of Service: 01/17/22 Procedure(s): XR chest 1V portable [id number] Accession Number(s): [id number] Report Number: [id number] PROCEDURE INFORMATION: Exam: XR Chest Exam date and time: 01/17/2022 9:11 PM Age: 41 years old Clinical indication: Pain; Angina pectoris; Additional info: Chest pain TECHNIQUE: Imaging protocol: XR of the chest. Views: 1 view. COMPARISON: CR XR chest 1V portable [id number] 03/29/2020 11:49 PM FINDINGS: Lungs: Lungs are clear bilaterally. Pleural spaces: No pleural effusion. No pneumothorax. Heart/Mediastinum: Stable mild enlargement of the cardiac silhouette. Mediastinal contours are unremarkable. Bones/joints: Unremarkable for age. XR/XR chest 1V portable [id number] IMPRESSION: 1. No acute cardiopulmonary process. 2. Stable mild enlargement of the cardiac silhouette. ? Dictated By: Natali Jimenez MD Signed By: Natali Jimenez MD Signed Date/Time: 01/17/222154 DD/ 10 Discharge Plan Discharge Admit Provider: Agapito Nguyen Condition: Stable Coding Level of Care Code ED Collection Development Librarian for Chg Fwd Exam Comprehensive
[2022-01-17] MEDS: sodium chloride 0.9% 1,000 ML 999 ML IV (21:47)
[2022-01-17] MEDS: acetaminophen 500 mg Tablet PO (21:47)
[2022-01-17] MEDS: NIFEdipine ER (24 hr) 30 mg Tablet 60 MG PO (21:47)
[2022-01-17 21:50] LABS: Anion Gap 13.9 (5-19); Blood Urea Nitrogen 14 mg/dL (6-20); Calcium 9.2 mg/dL (8.5-10.5); Carbon Dioxide 24 mmol/L (22-29); Chloride 103 mmol/L (98-107); Creatinine Clr Calc Pharmacy 105.0005; Glomerular Filtration Rate 79.9 mL/min (90-130); Glucose 80 mg/dL (65-115); Osmolality Calculated 283 mOsm/kg (285-295); Potassium 3.9 mmol/L (3.5-5.1); Sodium 137 mmol/L (136-145)
[2022-01-17 21:51] LABS: Troponin(5th) Baseline 7 ng/L (0-10)
[2022-01-17 22:03] VITALS: BP 232/138; PULSE 78; RESP 16; O2SAT 97
[2022-01-17] MEDS: aspirin 325 mg Tablet PO (22:03)
[2022-01-17] MEDS: hyDRALAzine 20 mg/mL INJ 1 mL IVP (22:03)
[2022-01-17 22:09] LABS: D Dimer 0.29 ug/mIFEU (0-0.59)
[2022-01-17] MEDS: labetalol 5 mg/mL SDV 20mL 20 MG IVP (22:24)
[2022-01-17 22:27] VITALS: BP 176/96; PULSE 85; RESP 16; O2SAT 98
[2022-01-17 23:28] LABS: Troponin 5 2HR 7.49 ng/L (0-10)
[2022-01-17 23:34] LABS: Troponin 5 2HR Delta 0.49 ABS# (0-10)
[2022-01-17 23:35] VITALS: BP 172/96; PULSE 87; RESP 16; O2SAT 98
[2022-01-17 23:41] VITALS: BMI 40.6
[2022-01-17 23:56] VITALS: PULSE 83
--- NOTE | 2022-01-17 23:56 | P.HP_ITS ---
Providers/Chief Complaint Admitting Physician: Agapito Nguyen Primary Care Provider: Farida Carpio MD Chief Complaint: Panic Attack\ High Blood Pressure History of Present Illness 41-year-old lady with history of hypertension, current smoker, with history of CAD in her family, reports her father had an NV at age 55, presented to the hospital due to recurrent pain in the left side of the chest, left arm, radiating to the left side neck at rest or with exertion. In ER noted very hypertensive, as high as 238/148, required multiple medications with blood pressure improved after nitroglycerin, 2 doses of labetalol, clonidine, hydralazine, nifedipine. She reports she had taken amlodipine at home, does not take other medications. Reports blood pressures have been running high at home. Denies past known history of NV, denies ever having a stress test. In ER she is also having chills, which she reports started just now after receiving IV infusions and feels it was due to cold IV fluids. She otherwise denies shortness of breath, cough, any headache, any GI symptoms. She is convinced that she is not having Covid and has not had any exposure. Her chest pain has gone away, she is still having some discomfort in the left arm. She is left-handed. She denies, however, that the pain is related to her shoulder. She denies any pain on movement of the shoulder or the arm. Has not had any erythema, fever, or other signs of infection. Review of Systems Const: Reports: chills (after IVs); Denies: fever(s), body aches or malaise Eyes: Denies: change in vision or eye redness ENMT: Denies: throat pain, oral sores or ear or mastoid pain Card: Reports: chest pain; Denies: edema or pre-syncope Resp: Denies: dyspnea, productive cough, change in phlegm color or hemoptysis GI: Denies: abdominal pain, nausea, vomiting, diarrhea, constipation, hematochezia or melena : Denies: flank pain, urinary frequency or hematuria Musc: Denies: back pain, joint swelling or joint redness Skin/Breast: Denies: rash, sores or new lesions Neuro: Denies: headache(s), numbness in extremities, weakness in extremities, dizziness, confusion or seizure-like activity Endo: Denies: polyuria or polydipsia Jackson/Lymph: Denies: easy bleeding or purpura All/Imm: Denies: urticaria, throat swelling or tongue swelling Medications/Allergies Home Medications Medication Instructions Recorded Confirmed Last Taken Type amlodipine 10 mg tablet 10 mg PO DAILY #60 tab 04/05/21 Unknown Rx hydrochlorothiazide 25 mg tablet 25 mg PO BID #120 tab 04/05/21 Unknown Rx metoprolol succinate 100 mg 100 mg PO DAILY #60 tab 04/05/21 Unknown Rx tablet,extended release 24 hr ondansetron 4 mg disintegrating 4 mg PO Q6H PRN #14 tab 04/05/21 Unknown Rx tablet Allergies Allergy/AdvReac Type Severity Reaction Status Date / Time Penicillins Allergy ALGY-Rash Verified 04/05/21 17:24 PFSH Acute PFSH: Medical History Hypertension Smoking addiction Surgical History History of Social History Smoking and tobacco status: current every day smoker Alcohol intake: never Substance/Drug Use: never Household members: significant other Marital status: Life Partner Marital status details: Fiance Female Reproductive History: Date of last menstrual period: 03/22/20 Vitals/I&O/Wt Last Vital Signs Temp 97.8 F 01/17/22 21:01 Pulse 87 01/17/22 23:35 Resp 16 01/17/22 23:35 BP 172/96 01/17/22 23:35 Pulse Ox 98 01/17/22 23:35 Weight last 48 hrs Weight 97.522 kg Physical Exam Narrative: Fianc? at bedside Const: COMMON NORMALS: no acute distress and patient oriented x3 GENERAL APPEARANCE: anxious NUTRITIONAL APPEARANCE: overweight HENMT: COMMON NORMALS: oropharynx normal Neck/C-Spine: COMMON NORMALS: no JVD Resp: COMMON NORMALS: normal respiratory effort and clear to auscultation bilaterally AUSCULTATION: clear to auscultation bilaterally Cardio: COMMON NORMALS: no JVD, regular rhythm, S1 normal heart sound present, S2 normal heart sound present and No murmurs present (Cardio) RHYTHM: regular rhythm HEART SOUNDS: S1 normal heart sound present and S2 normal heart sound present GI: COMMON NORMALS: Normal to inspection, nondistended, normoactive bowel sounds present, Soft to palpation and non-tender PALPATION: Yes Soft to palpation Extremity: COMMON NORMALS: no joint enlargement and no pedal edema Neuro: COMMON NORMALS: patient oriented x3 and moves all extremities Skin: COMMON NORMALS: no rashes or lesions noted GENERAL SKIN EXAM: no rashes or lesions noted Data : 01/17/22 21:18 01/17/22 21:18 A&P Assessment and plan (1) Chest pain: Your chest pain, left side, radiating into the left arm, into the left side neck. He has been having some left arm pain for some time. She is convinced she is not having any problems with her left shoulder. Denies any pain on movement of the arm. Has been trying to sleep on her left side thinking it may help reduce the blood pressure. Risk factors of CAD include current smoking, hypertension, obesity, family history of NV in her father at age 55. Complete troponin EKG series. Will assess by TTE. She is currently doing better in terms of her symptoms, discussed with her also additional assessment by stress testing tomorrow. Check lipid profile, A1c. She denies any mobilization. D-dimer low. Discussed with her and her fianc? low probability of PE. BPs checked in both arms reported within 20 mmHg of each other. Great vessel dissection was considered and excluded per discussion with ER physician. Status: Acute (2) Left arm pain: Status: Acute (3) Leukocytosis: Leukocytosis noted in ER, 14,000. Chest x-ray not suggestive of pneumonia, she denies respiratory symptoms. She reports chills after receiving IV fluids which she attributes to IVs being cold. She is afebrile, monitor for change in symptoms. We will also assess UA. In case spiking fever, consider additional assessment including COVID-19. She is adamant she is not having Covid symptoms currently and has not had any exposure. Requested blood cultures. Status: Acute (4) Chills: In ER report started after infusions. Status: Acute (5) Hypertensive urgency: On presentation blood pressure as high as 232/148. CV nitroglycerin, labetalol x2, clonidine, hydralazine, nifedipine. Blood pressure down to 172/96. Hold off any additional treatment. Resume amlodipine. She previously was also on HCTZ and metoprolol, but says is no longer taking those. Discussed with her blood pressure medication likely will need to be escalated depending on her blood pressures. Monitor. Status: Acute (6) Smoking addiction: Discussed with her smoking cessation for 6 minutes. She states she did not feel it is a risk factor for her as she is smoking less than a pack a day. Discussed with her elevated cardiovascular risk with smoking, especially in the setting of her other risk factors, among other risks from smoking. Continue to encourage cessation. Nicotine replacement as needed for cravings. Status: Acute Attestations Medical Necessity Statement*: Place in observation for additional assessment of episodes of chest and left arm pain. Coding Level of Care Code Acute Radiator Tester for Desiree Gaxiola Diagnoses Chest pain R07.9 Left arm pain M79.602 Leukocytosis D72.829 Chills R68.83 Hypertensive urgency I16.0 Smoking addiction F17.200
[2022-01-18] VITALS (9 sets, daily range): BP systolic 128–199; BP diastolic 76–121; PULSE 70–99; RESP 17–22; TEMP 36.4–36.7; O2SAT 90–98
--- NOTE | 2022-01-18 00:16 | PC.NURSE ---
i reported high reps 22 to nurse
[2022-01-18 00:17] LABS: Chol HDL Ratio 3.92 mg/dL (0.0-4.40); Cholesterol 196 mg/dL (0-200); HDL Cholesterol 50 mg/dL (60-100); LDL Cholesterol Calculated 127 mg/dL (50-129); Triglycerides 97 mg/dL (0-150); VLDL Cholestrol Calculation 19 mg/dL (0-30)
--- NOTE | 2022-01-18 00:17 | USCV_ITS ---
Transthoracic Echo Katey Romeo Age: 41 Gender: F : 1980 Exam Date: 01/18/2022 00:31 Ordering Phys: Agapito Nguyen MD Technologist: Francisco Posey Exam Location: [facility] [place] Indication: chest pain, risk of CAD BP: 178 / 96 HR: 81 Rhythm: Sinus Technical Quality: Adequate MEASUREMENTS (Male / Female) Normal Values 2D ECHO LV Diastolic Diameter PLAX 3.6 cm 4.2 - 5.9 / 3.9 - 5.3 cm LV Systolic Diameter PLAX 2.5 cm IVS Diastolic Thickness 1.8 cm 0.6 - 1.0 / 0.6 - 0.9 cm IVS Systolic Thickness 2.0 cm LVPW Diastolic Thickness 2.0 cm 0.6 - 1.0 / 0.6 - 0.9 cm LVPW Systolic Thickness 2.6 cm LVOT Diameter 2.1 cm LV Ejection Fraction 2D Teich 56.2 % LV Ejection Fraction MOD 2C 57.2 % LV Ejection Fraction 2C AL 58.2 % LA Diameter 4.1 cm LA Width 3.5 cm LA Height 5.4 cm RA Width 3.7 cm RA Height 4.5 cm Aorta at Sinotubular Diameter 2.9 cm M-MODE Aortic Annulus Diameter 2.8 cm LA Ao Ratio MM 1.5 MV E Point Septal Separation 0.9 cm DOPPLER AV Peak Velocity 157.8 cm/s LVOT Peak Velocity 92.0 cm/s AV Area Cont Eq vti 2.0 cm squared AV Area Cont Eq pk 2.0 cm squared MV Peak Velocity 107.0 cm/s MV Area PHT 3.1 cm squared Mitral E to A Ratio 0.8 MV E' Velocity 45.5 cm/s Mitral E to MV E' Ratio 9.8 Mitral E to LV E' Lateral Ratio 10.3 Mitral E to LV E' Septal Ratio 9.5 TR Peak Velocity 157.8 cm/s TR Peak Gradient 10.0 mmHg TR Mean Velocity 140.1 cm/s TR Mean Gradient 8.3 mmHg TR Velocity Time Integral 43.2 cm Right Atrial Pressure 3.0 mmHg Pulmonary Artery Systolic Pressu 13.0 mmHg PV Peak Velocity 117.3 cm/s RV Acceleration Time 0.1 s RV Ejection Time 0.3 s RV AcT/ET 0.4 FINDINGS Left Ventricle Normal left ventricular size. LV systolic function is normal with EF of 55-60%.No regional wall motion abnormalities. Moderate left ventricular dysfunction. Grade 1 diastolic dysfunction Right Ventricle The right ventricle is normal in size and function. Right Atrium The right atrium is normal in size. Left Atrium The left atrium is normal in size. Mitral Valve Structurally normal mitral valve without significant stenosis or prolapse. There is no mitral regurgitation. Aortic Valve Structurally normal aortic valve without significant sclerosis or stenosis. There is no aortic regurgitation. Tricuspid Valve Structurally normal tricuspid valve without significant stenosis or regurgitation. Insufficient TR jet to calculate RVSP Pulmonic Valve Structurally normal pulmonic valve without significant stenosis. There is no pulmonic regurgitation. Pericardium Trivial Pericardial effusion is noted Aorta Normal ascending aorta dimension. CONCLUSIONS LV systolic function is normal with EF of 55-60% Moderate left ventricular dysfunction Grade 1 diastolic dysfunction Trivial pericardial effusion No comparison studies are avaialable Marcelino Lanza MD (Electronically Signed) Final Date: 18 January 2022 17:40 S
[2022-01-18 00:41] LABS: Estmated Average Glucose 105; Hemoglobin A1C 5.3 % (4.0-6.0)
[2022-01-18] MEDS: ALPRAZolam 0.5 mg Tablet PO ×5 (01:28→23:48)
--- NOTE | 2022-01-18 03:11 | ECG_ITS ---
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 Measurements Intervals [place] Rate: 73 P: 53 OH: 136 QRS: 46 QRSD: 109 T: -32 QT: 415 QTc: 459 Interpretive Statements SINUS RHYTHM MODERATE INTRAVENTRICULAR CONDUCTION DELAY [105+ ms QRS DURATION, 80+ ms Q/S IN V1/V2, NO Q AND 60+ ms R IN I/aVL/V5/V6] NONSPECIFIC T-WAVE ABNORMALITY Compared to ECG 01/17/2022 21:41:07 No significant changes Electronically Signed On 01-18-2022 18:54:17 CDT by Marcelino Lanza M.D. [id number]
[2022-01-18 03:25] LABS: Basophils # 0.1 10^3/uL (0.0-0.1); Basophils % 0.4 %; Eosinophils # 0.3 10^3/uL (0.0-0.8); Eosinophils % 1.9 %; Hematocrit 42.6 % (37.0-47.0); Hemoglobin 14.1 g/dL (11.5-15.3); Lymphocytes # 4.8 10^3/uL (0.8-4.8); Lymphocytes % 34.1 %; Mean Corpuscular HGB Conc 33.1 g/dL (30.0-36.0); Mean Corpuscular Hemoglobin 29.1 pg (28.0-34.0); Mean Platelet Volume 9.7 fL (7.4-10.4); Monocytes # 0.8 10^3/uL (0.2-0.9); Monocytes % 5.7 %; Neutrophils % 57.6 %; Nucleated Red Blood Cells % 0 %; Platelet Count 321 10^3/cmm (130-400); Red Blood Count 4.84 10^6/uL (4.1-5.3); Red Cell Distribution Width 12.5 % (12.1-15.1); White Blood Count 13.9 10^3/uL (4.0-10.0)
[2022-01-18 03:42] LABS: Troponin 5 6HR 9.36 ng/L (0-10)
[2022-01-18 03:44] LABS: Alanine Aminotransferase 8 U/L (0-33); Albumin Level 3.6 g/dL (3.5-5.2); Alkaline Phosphatase 69 IU/L (35-105); Anion Gap 12.5 (5-19); Aspartate Amino Transferase 16 U/L (0-32); Blood Urea Nitrogen 15 mg/dL (6-20); Calcium 8.9 mg/dL (8.5-10.5); Carbon Dioxide 23 mmol/L (22-29); Chloride 107 mmol/L (98-107); Globulin 3.4 g/dL (1.3-4.6); Glomerular Filtration Rate 111.3 mL/min (90-130); Glucose 98 mg/dL (65-115); Osmolality Calculated 289 mOsm/kg (285-295); Potassium 3.5 mmol/L (3.5-5.1); Sodium 139 mmol/L (136-145); Total Bilirubin 0.3 mg/dL (0.15-1.2)
[2022-01-18 04:04] LABS: Troponin 5 6HR Delta 2.36 ng/L (0-12)
[2022-01-18 06:07] LABS: HCG, Serum Qual Negative (Negative)
--- NOTE | 2022-01-18 08:00 | ECG_ITS ---
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 Interpretive Statements NAME OF STUDY: LEXISCAN SESTAMIBI STRESS TEST INDICATION: Chest Pain, PROCEDURE: At the baseline, the EKG revealed normal sinus rhythm both nonspecific T wave changes in the anterolateral and inferior leads. The baseline blood pressure was 193/106 mm Hg with a heart rate of 68 beats/min. Lexiscan was infused over a period of 20 seconds. A total of 0.4 milligrams of Lexiscan was infused. The stress phase was continued for a total of 5 minutes. Heart rate at the end of the stress phase was 95 with a blood pressure 230/113. The EKG at the peak infusion revealed no significant changes. Sestamibi was injected 20 seconds after the Lexiscan infusion. Blood pressure at the end of the recovery phase was 199/108 with a heart rate of 83 per minute. CONCLUSION: 1. No significant EKG changes with the LexiScan infusion 2. No LexiScan induced chest pain or cardiac arrhythmia 3. Normal blood pressure and heart rate response 4. Sestamibi/sestamibi perfusion scan pending; see separate report. Electronically Signed On 01-21-2022 13:13:25 CDT by Jose Beauchamp M.D. [id number]
[2022-01-18] MEDS: aspirin 325 mg Tablet PO (09:08)
[2022-01-18] MEDS: acetaminophen 325 mg Tablet 650 MG PO ×2 (09:46→23:19)
[2022-01-18] MEDS: regadenoson 0.4 Mg/5 ml Syringe IVP (10:57)
[2022-01-18] MEDS: ondansetron 2 mg/ML SDV 2 mL 4 MG IVP (11:18)
--- NOTE | 2022-01-18 12:13 | PC.CHAP ---
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 driver visit [] Patient/Family/Request visit [] Outpatient visit [] Follow-up visit [] Physician referral [] Code/Alert [x] Routine visit [] Staff referral [] Actively dying [] Patient sleeping [] Family support [] [] Out of room [] Palliative care [] [] Receiving care in room [] Pre-surgical visit [] Trauma [] Long length of stay [] ICU visit [] Other: Relational/Emotional Strength [x] Patient feels connected with others/family/visitors/staff [x] Distress [] Loneliness/isolation [] Abandonment Spirituality of Patient [x] Person of Lizbet [] Attends Episcopal of their [place] [x] Believes in Prayer [] Reads Bible or Jew materials [] There are Spiritual issues to be addressed Incident Coordinator Interventions [x] Prayer [x] Active listening [x] Non-anxious presence []x Spiritual/emotional support [x] Crisis/trauma care [] Spiritual counseling [] Bereavement support [] Provided bereavement packet [] Provided Bible/devotional materials [] Provided toy/stuffed animal, coloring book to patient or family member [] Provided Communion [] Anointing/[place] [] Salvation [] Completed spiritual assessment [] Other: Impact on Illness or Injury [] Angry []x Fearful [] Anxious [] Often cries [] Exhaustion [] Unable to work [] Unable to attend tenriism [] Unable to walk/stand [] Unable to read [] Unable to drive [] Unable to eat/drink [] Unable to sleep [] Unable to be with family [] Patient intubated [] Other: Summary Time spent with patient 10 min
[2022-01-18] MEDS: amlodipine 5 mg Tablet PO ×2 (14:01→16:40)
--- NOTE | 2022-01-18 18:14 | P.PN_ITS ---
Subjective Subjective: CP is less today. Had stress test today. Very anxious. Burnett a heated argument with her boy stephani in the room. Her BP became high after this.Wants to go home. 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 Stress Test pending. 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 ACS being r/o since pt has a h/o HTN, smoker. Stress test and ECHO are pending. D/C if they are neg for ACS Coding Level of Care Code Acute Wire Dropper for [facility] Fwd Diagnoses Hypertensive urgency I16.0 Chest pain R07.9 Left arm pain M79.602 Leukocytosis D72.829 Smoking addiction F17.200 Chills R68.83
[2022-01-18] MEDS: hyDRALAzine 20 mg/mL INJ 1 mL 10 MG IVP (20:04)
--- NOTE | 2022-01-18 23:57 | NMCV_ITS ---
NM vera perf SPECT r/s* [id number] Katey Romeo Age: 41 Gender: F : 1980 Exam Date: 01/18/2022 23:57 Ordering Phys: Agapito Nguyen MD Technologist: SLADE Christiansen Exam Location: [facility] Indications: CHEST PAIN STRESS TEST Please see separate stress test report in [facility] for full findings IMAGE PROTOCOL Rest/Stress 1 Radiopharmaceutical Dose (mCi) Administration Site Administered by Rest: Tc-99m 10.7 IV SLADE Christiansen Sestamibi Stress:Tc-99m 32.8 IV SLADE Hughes Sestamibi Rest: 18-Jan-2022 60 Discovery 630 Stress: 18-Jan-2022 30 Discovery 630 Images obtained in supine and prone position. Images obtained in supine and prone position. SPECT RESULTS Technical Quality: Excellent Raw Data Analysis: Normal Image Corrections: No attenuation or motion correction applied Summed Stress Score: 0 Summed Rest Score: 6 Summed Difference Score: 0 PERFUSION FINDINGS Patchy areas of decreased tracer uptake were noted in the anteroseptal and inferolateral lateral regions. No significant reversibility was noted in these regions. FUNCTIONAL RESULTS (calculated via Gated SPECT) Stress Image LV EF (%): 53 Stress EDV (mL):189 TID: 1.09 Stress ESV (mL):88 FUNCTIONAL FINDINGS: Segmental wall motion analysis revealing no gross wall motion normalities. IMPRESSIONS 1. Myocardial perfusion imaging revealing patchy areas of persistent decreased tracer uptake in the anteroseptal and inferolateral regions, most likely represent attenuation artifacts. 2. Normal LV ejection fraction 53%. 3. LV wall motion analysis revealing no gross wall motion abnormalities. 4. Normal LV volume. No significant coronary ischemia, based on the above findings Dr Jose Beauchamp MD FACC (Electronically Signed) Final Date: 18 January 2022 17:30 S
[2022-01-19] VITALS (12 sets, daily range): BP systolic 146–220; BP diastolic 82–123; PULSE 72–96; RESP 16–25; TEMP 36.6–36.9; O2SAT 95–100
--- NOTE | 2022-01-19 01:06 | ECG_ITS ---
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 Measurements Intervals Badger Rate: 103 P: 52 NC: 156 QRS: 10 QRSD: 100 T: 35 QT: 320 QTc: 420 Interpretive Statements SINUS TACHYCARDIA LEFT VENTRICULAR HYPERTROPHY AND ST-T CHANGE [VOLTAGE CRITERIA PLUS ST/T ABNORMALITY] INTERPRETATION BASED ON A DEFAULT AGE OF 40 YEARS Compared to ECG 01/18/2022 03:33:03 Left ventricular hypertrophy now present ST (T wave) deviation now present Sinus rhythm no longer present Intraventricular conduction delay no longer present T-wave abnormality no longer present Electronically Signed On 01-19-2022 21:43:48 CDT by Jose Beauchamp M.D. [id number]
[2022-01-19] MEDS: morphine 4 mg/mL SDV 1 mL IVP (01:12)
[2022-01-19] MEDS: ondansetron 2 mg/ML SDV 2 mL 4 MG IVP (01:12)
--- NOTE | 2022-01-19 01:14 | CTR_ITS ---
PROCEDURE INFORMATION: Exam: CTA Chest Without And With Contrast Exam date and time: 01/19/2022 1:14 AM Age: 41 years old Clinical indication: Other: Hypertensive; Chest pressure; Patient HX: Sudden onset of severe left sided chest pain with hypertension. ; Additional info: Assess for dissection TECHNIQUE: Imaging protocol: Computed tomographic angiography of the chest without and with contrast. 3D rendering (Not supervised by radiologist): MIP and/or 3D reconstructed images were created by the technologist. Radiation optimization: All CT scans at this facility use at least one of these dose optimization techniques: automated exposure control; mA and/or kV adjustment per patient size (includes targeted exams where dose is matched to clinical indication); or iterative reconstruction. Contrast material: OMNI 350; Contrast volume: 95 ml; Contrast route: INTRAVENOUS (IV); COMPARISON: CR (CHEST, ) 01/17/2022 8:16 PM RADIATION DOSE METRICS: Total DLP (mGy-cm): 1452.76 FINDINGS: Pulmonary arteries: No pulmonary embolus or aortic dissection. Aorta: See Pulmonary arteries finding. Lungs: See Lymph nodes finding. Pleural spaces: Unremarkable. No pneumothorax. No pleural effusion. Heart: Unremarkable. No cardiomegaly. No pericardial effusion. Lymph nodes: Calcified bilateral hilar nodes and/or mediastinal nodes and/or lung granulomas consistent with old granulomatous disease. Bones/joints: Unremarkable. No acute fracture. Soft tissues: Unremarkable. Other findings: Examination is limited secondary to motion artifact. CT/CT angio chest [id number] IMPRESSION: 1. Examination is limited secondary to motion artifact. 2. No pulmonary embolus or aortic dissection.
--- NOTE | 2022-01-19 01:26 | P.EN_ITS ---
Event Note Event Note: Response around 1 AM in the morning due to severe left-sided chest pain, left arm pain, numbness, tingling, pain radiating to the left neck. Good pulses noted in the arm. No cyanosis. Good oxygen saturation. Stat EKG obtained with noted intraventricular conduction delay, she declined to draw l abs. Blood pressure assessed and very high 220/123. She is in pain, very anxious. Requested morphine, Ativan for her, as well as Zofran. Reviewed results of stress test done earlier today with noted likely attenuation artifact with patchy areas of persistent decreased tracer uptake, LV wall motion without gross abnormalities. D-dimer and presentation noted normal with low likelihood of VTE. Discussed with lab, they will attempt to come back to draw the labs little bit later and she currently declines. We will reassess her blood pressure which may be contributing to her symptoms, although I think this is more reactive to her anxiety. Anticipate that she will improve with pain medication and diuretic. We will additional work-up for more life-threatening causes with CTA to exclude dissection. Discussed with her possible risks as well and she is in agreement to proceed.
[2022-01-19] MEDS: iohexol 350 mg/mL 100 mL Btl IV (01:39)
[2022-01-19] MEDS: LORazepam 2 mg/mL INJ 1 mL 1 MG IVP (02:09)
[2022-01-19 08:14] LABS: Basophils # 0.1 10^3/uL (0.0-0.1); Basophils % 0.6 %; Eosinophils # 0.2 10^3/uL (0.0-0.8); Eosinophils % 1.9 %; Hematocrit 44.9 % (37.0-47.0); Hemoglobin 14.8 g/dL (11.5-15.3); Lymphocytes % 28.2 %; Mean Corpuscular Hemoglobin 29.6 pg (28.0-34.0); Mean Corpuscular Volume 89.8 fl (81-99); Mean Platelet Volume 9.7 fL (7.4-10.4); Monocytes # 0.8 10^3/uL (0.2-0.9); Monocytes % 7.2 %; Neutrophils # 6.59 10^3/uL (1.8-7.7); Neutrophils % 61.8 %; Nucleated Red Blood Cells % 0 %; Platelet Count 329 10^3/cmm (130-400); Red Cell Distribution Width 12.6 % (12.1-15.1); White Blood Count 10.7 10^3/uL (4.0-10.0)
[2022-01-19] MEDS: aspirin 325 mg Tablet PO (08:23)
[2022-01-19] MEDS: lidocaine 5% Patch 1 PATCH TOPICAL (08:23)
[2022-01-19 08:32] LABS: Troponin T (5th) Once 14 ng/L (0-10)
[2022-01-19 08:35] LABS: Alanine Aminotransferase 10 U/L (0-33); Albumin Level 3.7 g/dL (3.5-5.2); Alkaline Phosphatase 71 IU/L (35-105); Aspartate Amino Transferase 12 U/L (0-32); Blood Urea Nitrogen 19 mg/dL (6-20); Calcium 9.3 mg/dL (8.5-10.5); Carbon Dioxide 21 mmol/L (22-29); Chloride 105 mmol/L (98-107); Globulin 3.3 g/dL (1.3-4.6); Glomerular Filtration Rate 93.2 mL/min (90-130); Glucose 88 mg/dL (65-115); Osmolality Calculated 282 mOsm/kg (285-295); Sodium 135 mmol/L (136-145); Total Bilirubin 0.4 mg/dL (0.15-1.2)
[2022-01-19] MEDS: amlodipine 10 mg Tablet PO (09:40)
[2022-01-19] MEDS: LORazepam 1 mg Tablet PO ×2 (09:40→18:09)
--- NOTE | 2022-01-19 13:00 | PC.NURSE ---
Notified Dr. Mast of BP 146/82. Dr. Mast said not to give losartan.
--- NOTE | 2022-01-19 16:29 | PM.DCS ---
Discharge Providers Date of Admission: 01/17/22 22:21 Date of Discharge: January 19, 2022 Attending Provider at Admission: Agapito Nguyen Attending Provider at Discharge: Aby Mast MD Primary Care Provider: Farida Carpio MD Diagnoses at Discharge Discharge Diagnosis (1) Hypertensive urgency: Details from hospital stay: improved. Status: Acute (2) Chest pain: Status: Acute (3) Left arm pain: Status: Acute (4) Leukocytosis: Status: Acute (5) Smoking addiction: Status: Acute (6) Chills: Status: Acute Reason for Visit Reason for Visit: Panic Attack\ High Blood Pressure Hospital Course Hospital Course 41-year-old lady with history of hypertension, current smoker, with history of CAD in her family, reports her father had an IA at age 55, presented to the hospital due to recurrent pain in the left side of the chest, left arm, radiating to the left side neck at rest or with exertion.? In ER noted very hypertensive, as high as 238/148, required multiple medications with blood pressure improved after nitroglycerin, 2 doses of labetalol, clonidine, hydralazine, nifedipine.? She reports she had taken amlodipine at home, does not take other medications.? Reports blood pressures have been running high at home.? Denies past known history of IA, denies ever having a stress test. In ER she is also having chills, which she reports started just now after receiving IV infusions and feels it was due to cold IV fluids.? She otherwise denies shortness of breath, cough, any headache, any GI symptoms.? She is convinced that she is not having Covid and has not had any exposure.? Her chest pain has gone away, she is still having some discomfort in the left arm.? She is left-handed.? She denies, however, that the pain is related to her shoulder.? She denies any pain on movement of the shoulder or the arm.? Has not had any erythema, fever, or other signs of infection Pt was admitted to [facility]. Pt continued to have intermittent Lt upper CP w/ associated rise in BP. The later was worse when she was stressed and anxious. Ativan did help to lower her BP some. Pt had a negative cardiac stress test, Pulm CT for PE, PNA. ECHO showed some lt ventricular wall motion abnormality. She had tenderness over lt upper costochondral area. My Most likely her CP was due to Ac Costochondritis. Has associated anxiety disorder. 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 echo complete* [id number] Routine Ultrasound 01/18/22 00:17 Completed Pending at discharge Category Date Time Status Blood Culture Stat Lab 01/17/22 23:56 Results Complete Blood Count w/Auto AM LABS Lab 01/20/22 04:00 Ordered Comprehensive Metabolic Panel AM LABS Lab 01/20/22 04:00 Ordered UA w/Reflex to Microscope [Urinalysis] Routine Lab 01/17/22 23:43 Uncollected Radiology Impressions Chest X-Ray 01/17/22 21:11 IMPRESSION: 1. No acute cardiopulmonary process. 2. Stable mild enlargement of the cardiac silhouette. Chest CTA 01/19/22 01:14 IMPRESSION: 1. Examination is limited secondary to motion artifact. 2. No pulmonary embolus or aortic dissection. Laboratory Results WBC 10.7 10^3/uL (4.0-10.0) H 01/19/22 08:06 RBC 5.00 10^6/uL (4.1-5.3) 01/19/22 08:06 Hgb 14.8 g/dL (11.5-15.3) 01/19/22 08:06 Hct 44.9 % (37.0-47.0) 01/19/22 08:06 MCV 89.8 fl (81-99) 01/19/22 08:06 MCH 29.6 pg (28.0-34.0) 01/19/22 08:06 MCHC 33.0 g/dL (30.0-36.0) 01/19/22 08:06 RDW 12.6 % (12.1-15.1) 01/19/22 08:06 Plt Count 329 10^3/cmm (130-400) 01/19/22 08:06 MPV 9.7 fL (7.4-10.4) 01/19/22 08:06 Neut % (Auto) 61.8 % 01/19/22 08:06 Lymph % (Auto) 28.2 % 01/19/22 08:06 [place] % (Auto) 7.2 % 01/19/22 08:06 Eos % (Auto) 1.9 % 01/19/22 08:06 Baso % (Auto) 0.6 % 01/19/22 08:06 Neut # (Auto) 6.59 10^3/uL (1.8-7.7) 01/19/22 08:06 Lymph # (Auto) 3.0 10^3/uL (0.8-4.8) 01/19/22 08:06 [place] # (Auto) 0.8 10^3/uL (0.2-0.9) 01/19/22 08:06 Eos # (Auto) 0.2 10^3/uL (0.0-0.8) 01/19/22 08:06 Baso # (Auto) 0.1 10^3/uL (0.0-0.1) 01/19/22 08:06 Nucleated RBC % (auto) 0 % 01/19/22 08:06 Nucleated RBCs # 0.0 /100WBC 01/19/22 08:06 D-Dimer 0.29 ug/mIFEU (0-0.59) 01/17/22 21:34 Sodium 135 mmol/L (136-145) L 01/19/22 08:06 Potassium 4.0 mmol/L (3.5-5.1) 01/19/22 08:06 Chloride 105 mmol/L (98-107) 01/19/22 08:06 Carbon Dioxide 21 mmol/L (22-29) L 01/19/22 08:06 Anion Gap 13.0 (5-19) 01/19/22 08:06 BUN 19 mg/dL (6-20) 01/19/22 08:06 Creatinine 0.7 mg/dL (0.5-0.9) 01/19/22 08:06 GFR Calculation 93.2 mL/min (90-130) 01/19/22 08:06 Glucose 88 mg/dL (65-115) 01/19/22 08:06 Estimat Average Glucose 105 01/17/22 21:18 Hemoglobin A1c 5.3 % (4.0-6.0) 01/17/22 21:18 Calculated Osmolality 282 mOsm/kg (285-295) L 01/19/22 08:06 Calcium 9.3 mg/dL (8.5-10.5) 01/19/22 08:06 Total Bilirubin 0.4 mg/dL (0.15-1.2) 01/19/22 08:06 AST 12 U/L (0-32) 01/19/22 08:06 ALT 10 U/L (0-33) 01/19/22 08:06 Alkaline Phosphatase 71 IU/L (35-105) 01/19/22 08:06 Troponin T Gen 5 ng/L 14 ng/L (0-10) H 01/19/22 08:06 Troponin T Baseline 7 ng/L (0-10) 01/17/22 21:18 Troponin T 120 Minute 7.49 ng/L (0-10) 01/17/22 23:02 Delta Troponin T 0.49 ABS# (0-10) 01/17/22 23:02 Troponin T Hi Sens 6Hr 9.36 ng/L (0-10) 01/18/22 03:14 Troponin T Hi Sens 6Hr Delta 2.36 ng/L (0-12) 01/18/22 03:14 Total Protein 7.0 g/dL (6.6-8.7) 01/19/22 08:06 Albumin 3.7 g/dL (3.5-5.2) 01/19/22 08:06 Globulin 3.3 g/dL (1.3-4.6) 01/19/22 08:06 Triglycerides 97 mg/dL (0-150) 01/17/22 23:02 Cholesterol 196 mg/dL (0-200) 01/17/22 23:02 LDL Cholesterol, Calc 127 mg/dL (50-129) 01/17/22 23:02 Total VLDL Cholesterol 19 mg/dL (0-30) 01/17/22 23:02 HDL Cholesterol 50 mg/dL (60-100) L 01/17/22 23:02 Cholesterol/HDL Ratio 3.92 mg/dL (0.0-4.40) 01/17/22 23:02 HCG, Qual Negative (Negative) 01/17/22 21:18 Vitals Last Vital Signs Temp 98.1 F 01/19/22 15:42 Pulse 75 01/19/22 15:42 Resp 16 01/19/22 15:42 BP 158/100 01/19/22 15:42 Pulse Ox 97 01/19/22 15:42 Discharge Plan Discharge Patient Disposition: Home Condition: Stable Prescriptions: New losartan 50 mg Tablet 50 mg PO DAILY 30 Days 0RF acetaminophen 325 mg Tablet 650 mg PO Q6H PRN (Reason: Mild/Mod Pain Or Temp >/= 101) 100 Days 0RF amlodipine 10 mg Tablet 10 mg PO DAILY 30 Days 0RF lorazepam 1 mg Tablet 1 mg PO BID 15 Days Qty: 30 0RF tramadol 50 mg tablet 50 mg PO Q8H PRN (Reason: pain) Qty: 20 0RF Discharge Orders: Discharge Order (Routine); Ordered 01/19/22 Ordered By: Aby Mast Referrals: Farida Carpio MD [Primary Care Provider] - 7-10 days ([facility] can make appointment ) Discharge Diet: Cardiac Discharge Activity: Resume usual activity Patient Instructions: Lorazepam (By mouth) (Ativan, Lorazepam Intensol, Loreev XR), Amlodipine (By mouth) (Hypertenipine-2.5, Norvasc), Tramadol (By mouth) (Ultram, Ultram ER, Ryzolt, Theratramadol-60, Qdolo), Losartan (By mouth) (Cozaar), Leukocytosis (DC), Hypertensive Crisis (DC), Opioid Safety Discharge Attestations Time Spent in Discharge Care*: greater than 30 min Quality Metrics Clinical Quality Measures [ No reported AMI, CVA or VTE this stay] Coding Level of Care Code Acute Chg FW DC note Diagnoses Hypertensive urgency I16.0 Chest pain R07.9 Left arm pain M79.602 Leukocytosis D72.829 Smoking addiction F17.200 Chills R68.83
[2022-01-19] MEDS: hydroCHLOROthiazide 25 mg Tablet PO (18:43)
--- NOTE | 2022-01-19 19:41 | PC.NURSE ---
pt discharged home at this time with significant other to transport. IV removed and discharge instructions reviewed with pt and SO prior to discharge with understanding verbalized and teach back given by pt regarding medications and home care instructions. BP at time of discharge 203/119. pt states intent to take prescribed medications upon arrival home after picking up meds from pharmacy and to follow up with PCP and other MDs as recommended.
--- NOTE | 2022-01-19 19:52 | PC.NURSE ---
Several conversations were made to Dr. Mast about patient, blood pressure and patient results on January 18 and . On January 19 at [address] Mast of patient upset because he had not been in to see her and her blood pressure was 186/[address] Mast ordered Losartan 50 mg qd. Order put in, went to give medication to patient and this nurse took patients blood pressure. Pressure was down to 146/82. Notified of pressure. He stated not to give medications. Dr. Mast put in discharge orders for patient and for her to see primary care physician. If primary care physician wants a licensed insurance agent consult, the primary care physician can refer her. Patient is very upset with Dr. Mast and not giving her diagnosis of what is going on. Vitals taken again at 1737 with BP of 164/102. Dr. Mast notified again of BP. This nurse stated that patient was not comfortable being discharged with pressure still high. Ask if it would be okay to put in a cardiology consult. Dr. Mast response, What are they going to address? She just started honey BP meds yesterday. It takes time for the body to adjust . This nurse stared, Okay, but BP is high. She is wanting a cardiology consult . Dr. Mast answered, Adding HCTZ should improve the diastolic. 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 I wll add HCTZ and can be d/c. Gvie her a dose of Hydrochlorothiazide 25 mg once now. This will improve her diastolic bp. I will also call it in . This nurse notified Lelia, Nurse [employer]oples[employer] Functional Analyst this am about the issue with patient and Dr. Mast. The frustration of not being told about test results and arguing with patient yesterday. This nurse also communicated with Lelia all day about patient. This nurse also communicated with patient as much as possible.
--- NOTE | 2022-01-20 10:37 | PC.NURSE ---
I called and spoke with [facility] Dr. Keenan's nurse, Avi, and she states that patient hasn't been seen since 11/2020. Dr. Keenan is out of office until Sunday, 01/24. I expressed the urgency of hospital follow up d/t hypertension and angina and was provided an appointment on 01/[address] Kwan at 1230. I spoke with the patient and informed her of this appointment. She verbalizes understanding.
--- NOTE | 2022-01-20 10:42 | PC.NURSE ---
I spoke with patient and she states that she didn't have any new BP medications. I spoke with Essence on behalf of [facility] pharmacy and the Rx for Losartan, Amlodipine, and HCTZ were not received electronically. I provided verbal order as written in the d/c instructions to [facility] pharmacist. I spoke with patient again and informed her of this. She verbalizes understanding and states she will pick those up when they are filled.
== END 2022-01-19 19:35 | disposition home or self-care (01) ==
LOC: ER 22:32 → ICU 22:46 → MEDSURG 22:53
PROVIDERS: Admitting Provider Internal Medicine; Emergency Provider Emergency Medicine; PCP Family Medicine; Visit Provider Internal Medicine
DX: I16.0 Hypertensive urgency (principal); R07.9 Chest pain, unspecified; M79.602 Pain in left arm; D72.829 Elevated white blood cell count, unspecified; F17.210 Nicotine dependence, cigarettes, uncomplicated; R68.83 Chills (without fever); Z82.49 Family history of ischemic heart disease and other diseases of the circulatory system
CPT/HCPCS: 36415; 71045; 71275; 78452; 80048; 80053; 80061; 83036; 84484; 84703; 85025; 85378; 87040; 93005; 93017; 93306; 96374; 96375; 99285; A9500; G0378; J0360; J2060; J2270; J2405; J2785; J3490; J7030; Q9967

== ENCOUNTER → 2022-04-04 16:05 | Outpatient (BNVA) | payer MEDICAID, SELFPAY | PROVIDERS: PCP Family Medicine; Visit Provider Internal Medicine Cardiovascular Disease | DX: R07.9 Chest pain, unspecified (principal); I10 Essential (primary) hypertension; R00.2 Palpitations; F17.210 Nicotine dependence, cigarettes, uncomplicated; R55 Syncope and collapse; I49.3 Ventricular premature depolarization; I49.1 Atrial premature depolarization | CPT/HCPCS: 93005; 93270; 99203; 99204 ==

== ENCOUNTER 2022-07-24 15:09 | Outpatient (CLI) | payer MEDICAID, SELFPAY ==
--- NOTE | 2022-07-24 15:27 | XRR_ITS ---
PROCEDURE INFORMATION: Exam: XR Lumbosacral Spine Exam date and time: 07/24/2022 3:36 PM Age: 42 years old Clinical indication: Pain and condition or disease; Disc degeneration; Lumbar region; Low back pain; Additional info: Degenerative disc disease TECHNIQUE: Imaging protocol: Radiologic exam of the lumbosacral spine. Views: 2 or 3 views. AP Lateral and [place] down lateral COMPARISON: CR XR lumbar spine min 4V [id number] 01/01/2020 3:46 PM FINDINGS: Bones/joints: There are 5 nonrib-bearing lumbar-type vertebrae. No radiographically evident fracture or subluxation. Unchanged degenerative facet disease changes are seen in the lumbar spine, severe at the L5-S1 level. The spinous processes and transverse processes appear unremarkable. Soft tissues: Paraspinal soft tissues are unremarkable. Worsened severe L5-S1 disc space narrowing is seen with vacuum phenomenon. Small anterior and tiny posterior degenerative osteophytes are seen. Other findings: The limited flexion and extension views show no abnormal motion. Notes: If there is further concern or neurological abnormalities on clinical exam, CT or MRI of the lumbar spine may be performed for complete assessment. XR/XR lumbar spine f/e only [id number] IMPRESSION: Worsened degenerative disc disease changes at the L5-S1 level, as noted above. Associated degenerative facet disease changes.
== END 2022-07-24 15:10 | disposition home or self-care (01) ==
LOC: RAD 15:14
PROVIDERS: PCP Family Medicine; Visit Provider Family Medicine
DX: M47.897 Other spondylosis, lumbosacral region (principal); M54.50 Low back pain, unspecified
CPT/HCPCS: 72120

== ENCOUNTER → 2022-07-25 15:02 | Outpatient (BNVA) | payer MEDICAID, SELFPAY | PROVIDERS: PCP Family Medicine; Visit Provider Nurse Practitioner Women's Health | DX: Z01.419 Encounter for gynecological examination (general) (routine) without abnormal findings (principal); N92.6 Irregular menstruation, unspecified; Z11.3 Encounter for screening for infections with a predominantly sexual mode of transmission; L73.2 Hidradenitis suppurativa; Z30.431 Encounter for routine checking of intrauterine contraceptive device | CPT/HCPCS: 81025; 86592; 86695; 86696; 86803; 87340; 87491; 87591; 87624; 87661; 87806 ==

== ENCOUNTER → 2022-08-08 13:42 | Outpatient (BNVA) | payer MEDICAID, SELFPAY | PROVIDERS: PCP Family Medicine; Visit Provider Orthopaedic Surgery | DX: M48.062 Spinal stenosis, lumbar region with neurogenic claudication (principal); M41.9 Scoliosis, unspecified | CPT/HCPCS: 72020 ==

== ENCOUNTER 2022-10-03 06:00 | Outpatient (RCR) | payer MEDICAID, SELFPAY | END 2022-10-04 23:59 | disposition home or self-care (01) | LOC: SPT 06:00 | PROVIDERS: PCP Family Medicine; Visit Provider Orthopaedic Surgery | DX: M54.50 Low back pain, unspecified (principal); G89.29 Other chronic pain | CPT/HCPCS: 97110; 97161 ==

== ENCOUNTER 2022-10-17 12:52 | Outpatient (CLI) | payer MEDICAID, SELFPAY ==
--- NOTE | 2022-10-17 13:00 | MR_ITS ---
WS: [id number] MRI LUMBAR SPINE NONCONTRAST HISTORY: pain COMPARISON: None available. TECHNIQUE: Sagittal and axial multisequence imaging is submitted. Small central disc protrusions at T6-7 and T7-8. Normal lumbar alignment with no compression fractures or marrow edema. Mild disc desiccation and narrowing at L5-S1. Conus terminates normally at L1-2 disc level. L1-L2: Normal. L2-L3: Mild annular disc bulging and osteophytic ridging. Central to LEFT paracentral disc protrusion with mild deformity the ventral thecal sac. Bilateral ligamentum flavum and facet arthritis. No sten osis. L3-L4: Mild facet and ligamentum flavum hypertrophy. L4-L5: Mild annular disc bulge with encroachment upon the ventral thecal sac and subarticular recesse s. Mild ligamentum flavum and facet arthritis. Mild bilateral foraminal narrowing. L5-S1: Mild osteophytic ridging and annular disc bulging. Slightly greater facet joint arthritis on t he LEFT. There is mild facet joint arthritis contacting the LEFT S1 nerve root. Mild bilateral forami nal stenosis. MR/MR lumbar spine wo con* [id number] IMPRESSION: 1. Mild degenerative disc disease at L5-S1. 2. Mild bilateral facet joint arthritis and foraminal stenosis at L5-S1. Very minimal contact on the LEFT S1 nerve root. 3. Mild bilateral foraminal stenosis at L4-5. 4. Central to LEFT paracentral disc protrusion at L2-3 without nerve root cont act.
--- NOTE | 2022-10-17 14:40 | XR_ITS ---
WS: [id number] Left hand, 2 views, 10/17/2022 Clinical Data: LEFT HAND PAIN Comparison: None. Findings: No fractures or dislocations are seen. The soft tissues are unremarkable. The joint spaces are normal No periarticular demineralization or calcifications are seen. XR/XR hand LT 2V [id number] Impression: Negative left hand.
== END 2022-10-17 12:53 | disposition home or self-care (01) ==
LOC: RAD 12:53
PROVIDERS: PCP Family Medicine; Visit Provider Orthopaedic Surgery
DX: M79.642 Pain in left hand (principal); M51.37 Other intervertebral disc degeneration, lumbosacral region; M48.07 Spinal stenosis, lumbosacral region; M48.061 Spinal stenosis, lumbar region without neurogenic claudication; M51.26 Other intervertebral disc displacement, lumbar region
CPT/HCPCS: 72148; 73120

== ENCOUNTER 2024-05-30 07:13 | Inpatient (IN) | payer SELFPAY ==
[2024-05-30] VITALS (73 sets, daily range): BP systolic 114–217; BP diastolic 70–120; PULSE 76–98; RESP 11–29; TEMP 36.3–37.4; O2SAT 90–99; BMI 37.8; BMI 36.4
[2024-05-30 07:20] LABS: Glucose Point of Care 163 mg/dL (70-110)
--- NOTE | 2024-05-30 07:20 | XR_ITS ---
WS: [id number] PORTABLE CHEST HISTORY: dyspnea/cough COMPARISON: 01/17/2022 Lungs are well aerated. There are a few scattered granulomata. No pleural effusion or pneumothorax. Cardiac size: Minimal enlargement of the heart. Mediastinum/Aorta: Normal mediastinum. No osseous abnormality seen. XR/XR chest 1V portable [id number] IMPRESSION: Stable chest. Minimal enlargement of the heart.
--- NOTE | 2024-05-30 07:21 | CTR_ITS ---
PROCEDURE INFORMATION: Exam: CT Head Without Contrast Exam date and time: 05/30/2024 7:25 AM Age: 44 years old Clinical indication: Stroke-like symptoms; Speech disturbance; Left facial droop; Additional info: Symptoms of acute stroke TECHNIQUE: Imaging protocol: Computed tomography of the head without contrast. Total images: 297 Radiation optimization: All CT scans at this facility use at least one of these dose optimization techniques: automated exposure control; mA and/or kV adjustment per patient size (includes targeted exams where dose is matched to clinical indication); or iterative reconstruction. Other technique: STROKE PROTOCOL was implemented. COMPARISON: Noncontrast head CT of 11/13/2017 RADIATION DOSE METRICS: Total DLP (mGy-cm): 1001.68 FINDINGS: Brain: No midline shift. The ventricular system is open . Within the brain parenchyma, there is diminished cormier-white matter differentiation within the left frontal lobe anteriorly at the centrum semiovale level, with no evidence of associated hemorrhage. Cerebral sulci are not effaced. No acute intra-axial hemorrhage identified. No extra-axial fluid collection is demonstrated. Cerebral ventricles: No Hydrocephalus. Paranasal sinuses: Visualized paranasal sinuses are clear. Mastoid air cells: Visualized mastoid air cells are clear. Bones: No acute osseous abnormality identified. Soft tissues: No acute abnormality identified. Notes: Please note CT does not detect all acute ischemic abnormalities; if indicated, consider MRI with diffusion, or follow-up Head CT CT/CT head thrombolytic [id number] IMPRESSION: Loss of cormier-white matter differentiation in the anterior left frontal lobe at the centrum semiovale level, concerning for acute ischemia. No evidence of associated hemorrhage. ASSESSMENT: ASPECTS ([place] Stroke Program Early CT Score) is 9.
--- NOTE | 2024-05-30 07:27 | ED_ITS ---
HPI - Neuro Symptoms/Deficit 2 General: Chief Complaint: Neuro Symptoms/Deficit Stated Complaint: high bp, slurring words, facial droop Time Seen by Provider: 05/30/24 07:15 History of Present Illness: 44-year-old female presents to the emerg ency room with complaints of left-sided facial droop that began yesterday morning when she first woke up her last known well would have been greater than 36 hours ago. Her blood pressure has been elevated she has a solitary left-sided facial droop some discomfort and odd sensation in her tongue and some watering of her left eye. She stated all initially began with some pain in her left ear. She has no vision changes. She has not taken her blood pressure medications this morning. She is not noticing difficulty with speech, vision or balance. Onset (ago): hour(s) (+36) Time: 07:13 Last Observed Normal: 21:00 (05/28) Location: left face On Anticoagulants: No Associated symptoms: Deny chest pain Review of Systems 2 Const: Denies: fever(s) or chills Card: Denies: chest pain Resp: Denies: dyspnea GI: Denies: abdominal pain : Denies: dysuria, urinary frequency or urinary urgency Musc: Denies: neck pain or back pain Skin/Breast: Denies: rash PFSH ED 2 PFSH: Medical History (Updated 05/30/24 @ 13:02 by Akash Mancia DO) GERD (gastroesophageal reflux disease) No pertinent past medical history neghx: dm,thyroid,dvt/pe PCP: Lupe Kwan Hx of hyperlipidemia Anxiety Smoking addiction Hypertension Surgical History Hx of section 06/17/2002 01/05/2010 Hx of laparoscopy (~07/30/12) Diagnostic Laparoscopy perfomed by Dr. Nabor Ernst at [facility] in [place], [place]. Diagnosis: abdominal pain, pelvic pain Family History Father CAD (coronary artery disease) quadruple bypass Stroke before 60 Heart disease Hypertension Mother CAD (coronary artery disease) DE and stents Stroke before the age of 60 Heart disease Hypertension Family/Other No problems noted. Denies family history of Colon cancer Ovarian cancer Diabetes Breast cancer Uterine cancer Thyroid disease Social History (Updated 05/30/24 @ 11:27 by Frantz Clark MD) Smoking and tobacco/nicotine status: current every day tobacco/nicotine user Alcohol intake: current Alcohol intake frequency: 0-2 Drinks per Day Substance/Drug Use: current Substance/Drug use type: Amphetamines NIH stroke score 2 NIHSS: Level Of Consciousness - 1a: 0 Level Of Consciousness Questions - 1b: Both Correct Level Of Consciousness Commands - 1c: Both Correct Best Gaze - 2: Normal Visual Mcgee - 3: No Visual Loss Facial Palsy - 4: P artial Paralysis Motor Arm Right - 5: No Drift Motor Arm Left - 5: No Drift Motor Leg Right - 6: No Drift Motor Leg Left - 6: No Drift Limb Ataxia - 7: Absent Sensory - 8: Normal Best Language - 9: No Aphasia D ysarthia - 10: Normal Extinction And Inattention - 11: 0 Score: Total Score: 2 Physical Exam 2 Const: COMMON NORMALS: no acute distress GENERAL APPEARANCE: cooperative and comfortable ORIENTATION/CONSCIOUSNESS: Yes awake, Yes oriented to person, Yes oriented to place and Yes oriented to time HENMT: COMMON NORMALS: normocephalic, atraumatic and hearing grossly normal bilaterally HEAD & SCALP: normocephalic and atraumatic OTHER: Left-sided facial droop Resp: COMMON NORMALS: normal respiratory effort, No retractions, No use of accessory muscles and clear to auscultation bilaterally AUSCULTATION: clear to auscultation bilaterally Cardio: COMMON NORMALS: regular rate, regular rhythm and No murmurs present (Cardio) RATE: regular rate RHYTHM: regular rhythm GI: COMMON NORMALS: Soft to palpation and No hepatosplenomegaly present A USCULTATION: Yes normoactive bowel sounds PALPATION: Yes Soft to palpation, No Tenderness to palpation present (GI), No Guarding due to palpation present (GI) and Yes No hepatosplenomegaly present Extremity: COMMON NORMALS: normal to inspection, capillary refill normal, no clubbing, cyanosis or edema, no calf tenderness and no pedal edema Neuro: SENSORIUM/ORIENTATION: Yes oriented to person, Yes oriented to place and Yes oriented to time Skin: COMMON NORMALS: no rashes or lesions noted GENERAL SKIN EXAM: no rashes or lesions noted Course 2 Vital Signs: Vital signs: Vital Signs Temperature 97.4 F L 05/30/24 07:33 Pulse Rate 90 07/26/24 12:17 Respiratory Rate 20 H 05/30/24 12:17 Blood Pressure 166/96 05/30/24 12:17 Pulse Oximetry 94 05/30/24 12:17 Oxygen Delivery Me thod Room Air 05/30/24 08:50 MDM - Neuro Symptoms/Deficit Medical Decision Making 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 On her CT she has a left frontal lobe area that appears to be a subacute stroke. Onset of symptoms is outside the window for any anticoagulants he is not a candidate for embolectomy because her stroke score is not high enough. Visit. 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 Additionally she has accelerated hypertension. Her usual blood pressure medications were given she continues to have elevated blood pressure. Will discuss with neurology and admit to hospitalist. CTA of the head and neck was compromised slightly by motion artifact but otherwise did not show any large vessel occlusion. Discussed with Dr. Duckworth. She is concerned about press syndrome possible other things including MS. The lesion she is on the CT does not correlate with her other symptoms and still believe the facial droop seems more likely associated with a Cassidy's palsy. Discussed Dr. Foley will admit we have started nicardipine for blood pressure control. Medical Records I reviewed the patient's medical records. Lab Data 05/30/24 08:09 05/30/24 08:09 Radiology Impressions Chest X-Ray 05/30/24 07:20 IMPRESSION: Stable chest. Minimal enlargement of the heart. Head CT 05/30/24 07:21 IMPRESSION: Loss of cormier-white matter differentiation in the anterior left frontal lobe at the centrum semiovale level, concerning for acute ischemia. No evidence of associated hemorrhage. ASSESSMENT: ASPECTS ([place] Stroke Program Early CT Score) is 9. ADDENDUM: 05/30/24 0754 COMMENT: THIS REPORT CONTAINS FINDINGS THAT MAY BE CRITICAL TO PATIENT CARE. The exam findings were verbally communicated via telephone by myself to AKASH MANCIA at 7:52 AM CDT on 05/30/2024. The findings were acknowledged and understood. Head/Neck CTA 05/30/24 07:54 IMPRESSION: 1. No significant cervical carotid artery stenosis at the bifurcation. 2. There is significant motion and breathing artifact through the thorax. The proximal carotid arteries are not adequately visualized. 3. Mild atherosclerosis of the distal intracranial carotid arteries and the M1 segments. No occlusions or thrombus identified. Laboratory Results WBC 11.96 10^3/uL (3.29-11.43) H 05/30/24 08:09 RBC 4.99 10^6/uL (3.85-5.65) 05/30/24 08:09 Hgb 15.10 g/dL (11.27-16.99) 05/30/24 08:09 Hct 45.1 % (36-47) 05/30/24 08:09 MCV 90.4 fl (85-98) 05/30/24 08:09 MCH 30.3 pg (27-33) 05/30/24 08:09 MCHC 33.5 g/dL (30-55) 05/30/24 08:09 RDW 13.1 % (12.1-15.1) 05/30/24 08:09 Plt Count 358 10^3/cmm (157-399) 05/30/24 08:09 MPV 10.4 fL (7.4-10.4) 05/30/24 08:09 Neut % (Auto) 69.5 % 05/30/24 08:09 Lymph % (Auto) 22.0 % 05/30/24 08:09 [place] % (Auto) 6.6 % 05/30/24 08:09 Eos % (Auto) 1.1 % 05/30/24 08:09 Baso % (Auto) 0.4 % 05/30/24 08:09 Neut # (Auto) 8.31 10^3/uL (1.8-7.7) H 05/30/24 08:09 Lymph # (Auto) 2.6 10^3/uL (0.8-4.8) 05/30/24 08:09 [place] # (Auto) 0.8 10^3/uL (0.2-0.9) 05/30/24 08:09 Eos # (Auto) 0.1 10^3/uL (0.0-0.8) 05/30/24 08:09 Baso # (Auto) 0.1 10^3/uL (0.0-0.1) 05/30/24 08:09 Nucleated RBC % (auto) 0 % 05/30/24 08:09 Nucleated RBCs # 0.0 /100WBC 05/30/24 08:09 PT 13.10 SECONDS (12.1-14.9) 05/30/24 08:09 INR 0.96 (0.8-1.2) 05/30/24 08:09 APTT 32.1 SECONDS (23.9-36.7) 05/30/24 08:09 Sodium 141 mmol/L (136-145) 05/30/24 08:09 Potassium 3.4 mmol/L (3.5-5.1) L 05/30/24 08:09 Chloride 103 mmol/L (98-107) 05/30/24 08:09 Carbon Dioxide 27 mmol/L (22-29) 05/30/24 08:09 Anion Gap 14.4 (5-19) 05/30/24 08:09 BUN 18 mg/dL (6-20) 05/30/24 08:09 Creatinine 0.8 mg/dL (0.5-0.9) 05/30/24 08:09 GFR Calculation 78.7 mL/min (90-130) L 05/30/24 08:09 Glucose 67 mg/dL (65-115) 05/30/24 08:09 POC Glucose 163 mg/dL (70-110) H 05/30/24 07:18 Estimat Average Glucose 108 05/30/24 08:09 Hemoglobin A1c 5.4 % (4.0-6.0) 05/30/24 08:09 Calculated Osmolality 292 mOsm/kg (285-295) 05/30/24 08:09 Calcium 9.0 mg/dL (8.5-10.5) 05/30/24 08:09 Total Bilirubin 0.4 mg/dL (0.15-1.2) 05/30/24 08:09 AST 14 U/L (0-32) 05/30/24 08:09 ALT 11 U/L (0-33) 05/30/24 08:09 Alkaline Phosphatase 72 U/L (35-105) 05/30/24 08:09 Total Protein 7.4 g/dL (6.6-8.7) 05/30/24 08:09 Albumin 4.1 g/dL (3.5-5.2) 05/30/24 08:09 Globulin 3.3 g/dL (1.3-4.6) 05/30/24 08:09 TSH 3.32 uIU/mL (0.27-4.20) 05/30/24 08:09 HCG, Qual Negative (Negative) 05/30/24 08:09 Urine Color Yellow (Yellow) 05/30/24 08:35 Urine Appearance Clear (CLEAR) 05/30/24 08:35 Urine pH 5 (5-7) 05/30/24 08:35 Ur Specific [place] 1.010 (1.005-1.030) 05/30/24 08:35 Urine Protein Trace (Negative) 05/30/24 08:35 Urine Glucose (UA) Norm (Normal) 05/30/24 08:35 Urine Ketones Negative (Negative) 05/30/24 08:35 Urine Blood Neg (Negative) 05/30/24 08:35 Urine Nitrate Negative (Negative) 05/30/24 08:35 Urine Bilirubin Neg (Negative) 05/30/24 08:35 Urine Urobilinogen Norm mg/dL (Negative) 05/30/24 08:35 Ur Leukocyte Esterase Negative (Negative) 05/30/24 08:35 Urine RBC None /hpf (0-2) 05/30/24 08:35 Urine WBC 0-4 /hpf (0-5) H 05/30/24 08:35 Ur Squamous Epith Cells 0-4 /hpf (0-5) H 05/30/24 08:35 Amorphous Sediment Not Reportable 05/30/24 08:35 Urine Bacteria Trace /hpf (NONE) 05/30/24 08:35 Urine Opiates Screen Negative ng/mL (Negative) 05/30/24 08:35 Ur Barbiturates Screen Negative ng/mL (Negative) 05/30/24 08:35 Ur Phencyclidine Scrn Negative ng/mL (Negative) 05/30/24 08:35 Ur Amphetamines Screen Positive ng/mL (Negative) H 05/30/24 08:35 U Benzodiazepines Scrn Negative ng/mL (Negative) 05/30/24 08:35 Urine Cocaine Screen Positive ng/mL (Negative) H 05/30/24 08:35 U Marijuana (THC) Screen Positive ng/mL (Negative) H 05/30/24 08:35 All radiology interpretation(s) finalized by discharge Discharge Plan Discharge Patient Disposition: Admitted As Inpatient Admit Provider: Frantz Clark Clinical Impression: PRES (posterior reversible encephalopathy syndrome), Cerebrovascular accident, Cassidy's palsy Condition: Stable Coding Level of Care Code ED Coupon Manifest Clerk for eDsiree Gaxiola
--- NOTE | 2024-05-30 07:46 | ECG_ITS ---
[facility] Test Date: 2024-05-30 Pat Name: Katey Romeo Department: Room: Gender: Female Adult Neuropsychologist: : 1980 Requested By: Akash Ortez Order Number: [id number] Rj MD: Jose Beauchamp M.D. Measurements Intervals [place] Rate: 80 P: 18 MA: 142 QRS: 16 QRSD: 92 T: 246 QT: 387 QTc: 448 Interpretive Statements SINUS RHYTHM MODERATE T-WAVE ABNORMALITY, CONSIDER LATERAL ISCHEMIA [-0.1+ mV T-WAVE IN I/aVL/V5/V6] MODERATE T-WAVE ABNORMALITY, CONSIDER INFERIOR ISCHEMIA [-0.1+ mV T-WAVE IN II/aVF] Compared to ECG 01/19/2022 01:00:11 T-wave abnormality now present Possible ischemia now present Sinus tachycardia no longer present Left ventricular hypertrophy no longer present ST (T wave) deviation no longer present Electronically Signed On 05-30-2024 9:18:52 CDT by Jose Beauchamp M.D. [id number]
--- NOTE | 2024-05-30 07:54 | CT_ITS ---
WS: [id number] CT ANGIOGRAM CEREBRAL AND CAROTID ARTERIES HISTORY: semi-acute CVA TECHNIQUE: CT angiogram is performed of the carotid and cerebral arteries. During arterial injection imaging is obtained from the skull vertex to the aortic arch in 1.25 mm imaging. Coronal and sagittal reformats are submitted. Additional multi planar reformats of the carotid and cerebral arteries are submitted, MIP imaging also reviewed. NASCET criteria utilized. [facility] at least one of these dose optimization techniques: automated exposure control; mA and/or kV adjust ment per patient size (includes targeted exams where dose is matched to clinical indication); or iter ative reconstruction. CONTRAST: Omnipaque 350; 100 mL IV. DLP: 468.71 mGy.cm COMPARISON: Noncontrast CT head 05/30/2024 Significant motion artifact involving the upper thorax and lower neck. Carotid Angiogram: Right carotid: Common carotid artery: There is a small portion of the proximal RIGHT cervical carotid artery which i s completely obscured by motion. Internal carotid artery: No plaque or stenosis. External carotid artery: Patent. Left carotid: Common carotid artery: Proximal cervical carotid artery is obscured by motion. There is significant a rtifact with variable density in the lumen. This may be due to artifact but thrombus or dissection ca nnot be excluded. Towards the distal cervical carotid artery there is a normal appearance. Internal carotid artery: No plaque or stenosis. External carotid artery: Patent. Right vertebral artery: Mildly dominant RIGHT vertebral artery. Patent. Left vertebral artery: Unremarkable. Arises normally from the subclavian artery. Subclavian arteries: No stenosis or significant abnormality. Upper thorax: Motion artifact. Thyroid gland: Normal. Osseous structures: Unremarkable. CEREBRAL ANGIOGRAM: Intracranial vertebral arteries: Normal with no significant atherosclerosis. Basilar artery: No significant stenosis or occlusion. No aneurysm. Intracranial Internal carotid arteries: Small amount of plaque in the cavernous sinuses with no occlu kirsten. Middle cerebral arteries: M1 segments bilaterally are slightly narrowed but patent. Anterior cerebral arteries and ACOM: Normal. Posterior cerebral arteries and PCOM's: Normal. Dural venous sinuses are normally enhancing. Mastoid air cells: Normal. Paranasal sinuses: Mucoperiosteal cysts LEFT sphenoid. No air-fluid levels in the sinuses. Calvarium: Normal. CT/CT angio headneck* [id number] IMPRESSION: 1. No significant cervical carotid artery stenosis at the bifurcation. 2. There is significant motion and breathing artifact through the thorax. The proximal carotid arteries are not adequately visualized. 3. Mild atherosclerosis of the distal intracranial carotid arteries and the M1 segments. No occlusions or thrombus identified.
[2024-05-30] MEDS: amlodipine 10 mg Tablet PO (07:57)
[2024-05-30] MEDS: losartan 50 mg Tablet 100 MG PO (07:57)
[2024-05-30] MEDS: chlorthalidone 25 mg Tablet PO (07:57)
[2024-05-30 08:17] LABS: Basophils # 0.1 10^3/uL (0.0-0.1); Basophils % 0.4 %; Eosinophils % 1.1 %; Nucleated Red Blood Cells % 0 %
[2024-05-30] MEDS: iohexol 350 mg/mL 500 mL Btl (per mL) IV (08:27)
[2024-05-30 08:32] LABS: INR 0.96 (0.8-1.2)
[2024-05-30 08:33] LABS: Partial Thromboplastin Time 32.1 SECONDS (23.9-36.7)
[2024-05-30 08:39] LABS: HCG, Serum Qual Negative (Negative)
[2024-05-30 08:40] LABS: Alanine Aminotransferase 11 U/L (0-33); Albumin Level 4.1 g/dL (3.5-5.2); Alkaline Phosphatase 72 U/L (35-105); Anion Gap 14.4 (5-19); Aspartate Amino Transferase 14 U/L (0-32); Blood Urea Nitrogen 18 mg/dL (6-20); Carbon Dioxide 27 mmol/L (22-29); Chloride 103 mmol/L (98-107); Creatinine Clr Calc Pharmacy 105.1894; Globulin 3.3 g/dL (1.3-4.6); Glomerular Filtration Rate 78.7 mL/min (90-130); Glucose 67 mg/dL (65-115); Osmolality Calculated 292 mOsm/kg (285-295); Potassium 3.4 mmol/L (3.5-5.1); Sodium 141 mmol/L (136-145); Total Bilirubin 0.4 mg/dL (0.15-1.2); Total Protein 7.4 g/dL (6.6-8.7)
--- NOTE | 2024-05-30 08:57 | PC.PHAR ---
PT STATES HER MEDICATIONS ARE OUT OF DATE BUT SHE HAD STOPPED TAKING THEM UNTIL LAST NIGHT.
[2024-05-30 09:02] LABS: Add Urine Culture? No; Add Urine Microscopic? YES; Bacteria Urine TRACE /hpf; Bilirubin Urine Neg (Negative); Blood Urine Neg (Negative); Glucose Urine UA Norm (Normal); Ketones Urine Negative (Negative); Leukocyte Esterase Urine Negative (Negative); Nitrate Urine Negative (Negative); Protein Urine Trace (Negative); Squamous Epithelial Cell Urine 0-4 /hpf (0-5); Urine Appearance Clear (CLEAR); Urine Color Yellow (Yellow); Urobilinogen Urine Norm (Negative); WBC Urine 0-4 /hpf (0-5); pH Urine 5 (5-7)
[2024-05-30 09:04] LABS: Eosinophils # 0.1 10^3/uL (0.0-0.8); Hematocrit 45.1 % (36-47); Lymphocytes # 2.6 10^3/uL (0.8-4.8); Mean Corpuscular HGB Conc 33.5 g/dL (30-55); Mean Corpuscular Hemoglobin 30.3 pg (27-33); Mean Corpuscular Volume 90.4 fl (85-98); Mean Platelet Volume 10.4 fL (7.4-10.4); Monocytes # 0.8 10^3/uL (0.2-0.9); Monocytes % 6.6 %; Neutrophils # 8.31 10^3/uL (1.8-7.7); Neutrophils % 69.5 %; Platelet Count 358 10^3/cmm (157-399); Red Blood Count 4.99 10^6/uL (3.85-5.65); Red Cell Distribution Width 13.1 % (12.1-15.1); White Blood Count 11.96 10^3/uL (3.29-11.43)
[2024-05-30 09:05] LABS: Amphetamines Screen Urine Positive (Negative); Barbiturates Screen Urine Negative (Negative); Benzodiazepines Screen Urine Negative (Negative); Cocaine Screen Urine Positive (Negative); Opiate Screen Urine Negative (Negative); PCP Screen Urine Negative (Negative); THC Screen Urine Positive (Negative)
[2024-05-30] MEDS: LORazepam 2 mg/mL INJ 1 mL 1 MG IVP (10:34)
--- NOTE | 2024-05-30 11:12 | PC.NURSE ---
THIS NURSE PRESENTED TO PATIENT ROOM ONCE BEFORE DUE TO DISRUPTION BY FAMILY MEMBER. FAMILY MEMBER YELLING AT PATIENT FROM THE DOOR WAY TO JUST LAY THERE AND BE QUIET. NURSE ASSESSED PATIENT AFTER FAMILY MEMBER LEFT. PATIENT STATED I'M UPSET AND I'M FREAKING OUT. NURSE VERBALIZED THAT SHE RECEIVED AN UNWANTED DIAGNOSIS AND THAT IT IS OK TO BE UPSET AND PANIC. FAMILY RE-ENTERED THE ROOM LATER AND THIS NURSE ENTERED THE ROOM AND CALMLY EXPLAINED THAT THIS IS AN AREA OF HEALING AND YELLING AT THE PATIENT IS DISRESPECTFUL TO BOTH THE PATIENT AND OTHER PATIENTS AND FAMILY MEMBERS. FAMILY MEMBER STATED THAT I'M NOT PUTTING UP WITH THIS FUCKING BULLSHIT AND WANTED TO BE LET OUT. NURSE RETURNED TO THE ROOM WITH PATIENT. PATIENT STATES THAT SHE IS ALONE IN HERE. THIS NURSE SPENT TIME WITH THE PATIENT AND TOLD HER THAT THIS IS HEALING ENVIRONMENT AND THAT DOES NOT HELP THE SITUATION. PATIENT BECAME TEARFUL. THIS NURSE STATED THAT HE IS ALLOWED BACK BUT IF HE YELLS AT THE PATIENT OR STAFF HE WILL BE ASKED TO LEAVE AND NOT ALLOWED BACK. NURSE ALSO STATED THAT FAMILY MEMBER BEHAVIOR WAS ALSO REPORTED TO STAFF ON THE NEXT FLOOR AND SECURITY. PATIENT VERBALIZED UNDERSTANDING.
--- NOTE | 2024-05-30 11:22 | P.HP_ITS ---
Providers/Chief Complaint 2 Admitting Physician: Frantz Clark MD, hospitalist Primary Care Provider: Audelia Kwan DO Chief Complaint: high bp, slurring words, facial droop History of Present Illness Katey Romeo is a 44 year old female who presents to the hospital worried about her left facial droop. She states she has had at least since Sunday p.m. She reports it is no better, no worse. Really no headache. Does use methamphetamine, with last use 3 to 4 days ago. No nausea, vomiting, peripheral weakness. No fever. Denies any IV drug use. Notes that her blood pressure is quite high at times, and previous hospital stay she was told she has diastolic dysfunction and required an IV medication to lower blood pressure in the ICU. NIHSS score in the ER was 2 Review of Systems 2 General: Reports: 10 or more systems reviewed and unremarkable except in HPI and below Card: Denies: chest pain Resp: Denies: dyspnea GI: Denies: abdominal pain, nausea or vomiting Medications/Allergies Home Medications Medication Instructions Recorded Confirmed Last Taken Type amlodipine 10 mg tablet 10 mg PO DAILY 04/05/22 05/30/24 05/29/24 History famotidine 20 mg tablet (Pepcid) 20 mg PO DAILY PRN Acid Reflux 04/05/22 05/30/24 Unknown History losartan 100 mg tablet 100 mg PO DAILY 04/05/22 05/30/24 05/29/24 History levonorgestrel 21 mcg/24 hr (up to 20 mcg intrauterine .Q7Y 07/25/22 05/30/24 Unknown History 8 years) 52 mg intrauterine device (Mirena) baclofen 10 mg tablet 10 mg PO BID PRN MUSCLE SPASMS 05/30/24 05/30/24 Unknown History chlorthalidone 25 mg tablet 25 mg PO DAILY 05/30/24 05/30/24 Unknown History Allergies Allergy/AdvReac Type Severity Reaction Status Date / Time morphine Allergy Severe vomiting Verified 03/23/23 12:54 Penicillins Allergy ALGY-Rash Verified 03/23/23 12:54 PFSH Acute 2 PFSH: Medical History (Updated 05/30/24 @ 11:33 by Frantz Clark MD) GERD (gastroesophageal reflux disease) No pertinent past medical history neghx: dm,thyroid,dvt/pe PCP: Lupe Kwan Hx of hyperlipidemia Anxiety Smoking addiction Hypertension Surgical History Hx of section 06/17/2002 01/05/2010 Hx of laparoscopy (~07/30/12) Diagnostic Laparoscopy perfomed by Dr. Nabor Ernst at [facility] in [place], [place]. Diagnosis: abdominal pain, pelvic pain Family History Father CAD (coronary artery disease) quadruple bypass Stroke before 60 Heart disease Hypertension Mother CAD (coronary artery disease) SD and stents Stroke before the age of 60 Heart disease Hypertension Family/Other No problems noted. Denies family history of Colon cancer Ovarian cancer Diabetes Breast cancer Uterine cancer Thyroid disease Social History (Updated 05/30/24 @ 11:27 by Frantz Clark MD) Smoking and tobacco/nicotine status: current every day tobacco/nicotine user Alcohol intake: current Alcohol intake frequency: 0-2 Drinks per Day Substance/Drug Use: current Vitals/I&O/Wt Last Vital Signs Temp 97.4 F L 05/30/24 07:33 Pulse 83 05/30/24 09:57 Resp 11 L 05/30/24 09:57 BP 200/110 05/30/24 09:57 Pulse Ox 96 05/30/24 09:57 O2 Del Method Room Air 05/30/24 08:50 Weight last 48 hrs Weight 99.79 kg Physical Exam 2 Narrative: General exam is an emotional white female, crying intermittently during the exam, asking repetitive questions of what is wrong. She calms down easily with reassurance. HEENT: Atraumatic normocephalic, oropharynx clear Neck is supple no lymphadenopathy thyromegaly Cardiovascular regular rate and rhythm, heart sounds distant, no murmur Lungs clear no wheezing or crackles Abdomen is soft with positive bowel sounds Extremities no cyanosis clubbing or edema, cap refill brisk Skin. Scattered seborrheic keratosis which she asked me about, concerned they might be skin cancer Neuro left facial droop. Some decrease sensation left cheek. Some weakness opening left eye all possibly consistent with Cassidy's but to be confirmed. Denies hyperacusis. No evidence of peripheral weakness, swallowing difficulty on observation with bedside swallowing. No cerebellar dysfunction. Data 05/30/24 08:09 05/30/24 08:09 Other Labs: Echo in 2021 demonstrated an EF of 55 to 60%, grade 1/4 diastolic dysfunction, nuclear imaging study at that time demonstrated no reversible ischemia and only attenuation artifact. Head CT which I reviewed demonstrated concern of acute ischemia left frontal lobe with loss of cormier-white matter differentiation Chest x-ray by my review no infiltrate Head neck CTA demonstrated no significant flow limitations but she did have mild atherosclerosis distal intracranial carotid arteries and M1 segments. No thrombus EKG by my review demonstrates sinus rhythm, normal axis, nonspecific ST-T wave changes with flipped T waves noted V5 through 6 as well as lead I. Micro: Microbiology 05/30/24 11:14 Blood Culture - Preliminary Blood SPECIMEN COLLECTED 05/30/24 11:10 Blood Culture - Preliminary Blood SPECIMEN COLLECTED A&P Assessment and plan (1) Hypertensive emergency: Patient with hypertensive emergency Has a left facial droop, but this does not correlate with her CT findings of concern of left frontal lobe ischemia. Therefore concern of neurologic symptoms secondary to this. Cannot completely rule out hypertensive emergency causing symptoms, as well as PRES, methamphetamine use ICU admission Nicardipine drip Goal blood pressure lowering to 180, no lower in the next 24 hours considering admission pressures. Neurologic checks every 4 hours Check TSH Check echocardiogram (2) Facial droop: Doubt CVA No evidence of any other neurologic deficits Await MR for further delineation of cause. Likely Cassidy's but could go along with documentation as above. In the interim low risk for aspirin, statin and will initiate. Lipid profile in the morning If MRI does not show any abnormalities, patient still with facial droop could consider treatment for Cassidy's. (3) Hypokalemia: Supplement (4) Amphetamine use: Encourage abstinence With no history of fever, no history of IV drug use patient admits to doubt bacteremia with embolization but blood culture was obtained (5) Anxiety: Ativan as needed Plan Hyperglycemia, check hemoglobin A1c Other medical problems as outlined in past medical history Full code Lovenox for DVT prophylaxis Attestations 2 Medical Necessity Statement*: Will require greater than 2 midnight stay for evaluation and treatment of hypertensive emergency with neurologic symptoms Critical Care Time: The high probability of a clinically significant, sudden or life threatening deterioration of the patient's [neurologic, vascular] system(s) required my full and direct attention, intervention and personal management. The critical care time is as shown. This time is in addition to time spent performing any reported procedures but includes the following: [x] Data and vital sign review and interpretation [x] Patient assessment, examination and intervention [x] Documentation [x] Medication orders and management Critical Care Time (min): 56 Coding Level of Care Code Critical Care >/= 30 minutes Diagnoses Hypertensive emergency I16.1 Facial droop R29.810 Hypokalemia E87.6 Amphetamine use F15.90 Anxiety F41.9
--- NOTE | 2024-05-30 11:34 | MR_ITS ---
WS: [id number] MRI HEAD WITH CONTRAST TECHNIQUE: Sagittal T1, T2 axial, T2 axial FLAIR, axial susceptibility weighted imaging, axial diffus ion weighted images, and coronal T2 images were obtained. Pre and post-T1 axial and post T1 coronal i mages. ADC and FSPGR images. CLINICAL INFORMATION: facial droop, severe hypertension COMPARISON: CT 05/30/2024 FINDINGS: Patchy restricted diffusion compatible with acute ischemia involving the RIGHT borrero radiata the lar gest focus measuring 8 mm compatible with acute ischemia. No significant mass effect or midline shift . No other foci of acute ischemia. Moderate patchy supratentorial white matter changes nonspecific in a patient this age but can be seen with hypertension, diabetes, collagen vascular disease, and small vessel disease. Less likely demyel inating disease. Advanced chronic white matter changes in the manuelito. No significant parenchymal volume loss. Normal vascular flow voids at the skull base. No extra-axial fluid collections. No evidence of mass or mass effect. Mild mucosal thickening in the paranasal sinuses. Retention cyst in the LEFT sp henoid sinus. Mastoid air cells are well aerated. No abnormal gadolinium enhancement. MR/MR head wo/w con [id number] IMPRESSION: 1. 2 foci of restricted diffusion compatible with acute ischemia in the RIGHT centrum semiovale the largest measuring 8 mm. Mild associated edema. 2. No mass effect or midline shift. 3. Moderate to advanced patchy supratentorial and pontine white matter changes advanced for patient this age likely due to hypertension and small vessel dise ase based on history. 4. No hemosiderin on the susceptibility weighted images. 5. No other acute findings. Notified Frantz Clark MD at 05/30/2024 4:26 PM.
--- NOTE | 2024-05-30 11:34 | MR_ITS ---
WS: [id number] MRA HEAD TECHNIQUE: Axial 3-D TOF images obtained with axial images and axial, sagittal, and coronal 2-D refor matted images. CLINICAL INFORMATION: severe tn, abnormal CT head FINDINGS: Distal vertebral arteries are patent. Basilar artery is patent. Normal vascularity to the BULL LADLE TENDER territo ry bilaterally. Patent posterior communicating arteries. Mild atheromatous disease in the bilateral P CA territories with mild segmental irregularity Both ICAs are patent at the skull base. Mild atheromatous disease in the distal supraclinoid ICAs. Mi ld atheromatous disease in the LEFT greater than RIGHT M1 segments with mild segmental stenosis. No e vidence of proximal flow-limiting stenosis. Distal SHIVAM and MCA vessels appear patent. MR/MR angio head wo con [id number] IMPRESSION: 1. Mild intracranial atheromatous disease more prominent in the distal supracl inoid ICAs and LEFT greater than RIGHT M1 segments. 2. No proximal flow-limiting stenosis. 3. No other acute findings.
[2024-05-30] MEDS: atorvastatin 40 mg Tablet PO (11:48)
[2024-05-30] MEDS: potassium chloride ER 20 mEq Tablet 40 MEQ PO (11:49)
[2024-05-30] MEDS: aspirin 81 mg EC Tablet PO (11:49)
[2024-05-30 12:10] LABS: Thyroid Stimulating Hormone 3.32 uIU/mL (0.27-4.20)
[2024-05-30] MEDS: nicardipine 20 MG/200 ML PREMIX 50 MG IV ×2 (12:13→15:22)
[2024-05-30 12:14] LABS: Estmated Average Glucose 108; Hemoglobin A1C 5.4 % (4.0-6.0)
--- NOTE | 2024-05-30 13:33 | USCV_ITS ---
Katey Romeo Age: 44 Gender: F : 1980 Exam Date: 05/30/2024 17:59 Ordering Phys: Frantz Clark MD Technologist: Joao Dhaliwal [place] [facility] [place]: htn BP: 124 / 72 HR: 79 Rhythm: Sinus Technical Quality: Adequate MEASUREMENTS (Male / Female) Normal Values 2D ECHO LV Diastolic Diameter PLAX 5.7 cm 4.2 - 5.9 / 3.9 - 5.3 cm IVS Diastolic Thickness 1.7 cm 0.6 - 1.0 / 0.6 - 0.9 cm IVS Systolic Thickness 1.9 cm LVPW Diastolic Thickness 1.7 cm 0.6 - 1.0 / 0.6 - 0.9 cm LVPW Systolic Thickness 2.9 cm LVOT Diameter 2.2 cm LV Ejection Fraction 2D Teich 56.4 % LV Ejection Fraction MOD 4C 63.8 % LV Ejection Fraction MOD 2C 53.2 % LV Ejection Fraction 2C AL 53.0 % LA Diameter 3.8 cm RA Systolic Volume 4C AL 40.1 ml RA Systolic Volume 4C MOD 41.2 ml Aorta at Sinotubular Diameter 2.3 cm IVC Diameter 1.8 cm M-MODE LA Ao Ratio MM 1.4 AV Cusp Separation MM 2.2 cm DOPPLER AV Peak Velocity 160.0 cm/s LVOT Peak Velocity 115.0 cm/s AV Area Cont Eq vti 2.8 cm squared AV Area Cont Eq pk 2.6 cm squared MV Peak Velocity 142.0 cm/s MV Area PHT 3.4 cm squared Mitral E to A Ratio 1.0 TV Peak Velocity 195.0 cm/s TR Peak Velocity 246.0 cm/s TR Peak Gradient 24.2 mmHg TR Mean Velocity 193.0 cm/s TR Mean Gradient 16.2 mmHg TR Velocity Time Integral 56.5 cm Right Atrial Pressure 3.0 mmHg Pulmonary Artery Systolic Pressu 27.2 mmHg PV Peak Velocity 121.0 cm/s RV Ejection Time 0.3 s FINDINGS Left Ventricle Moderate left ventricular hypertrophy. Normal LV systolic function. LVEF estimated normal at 60%. Right Ventricle Normal right ventricular size and systolic function. Right Atrium Normal right atrial size. Left Atrium Normal left atrial size. Mitral Valve Structurally normal mitral valve. No mitral valve regurgitation. Aortic Valve Structurally normal trileaflet aortic valve. No aortic valve stenosis. Tricuspid Valve Structurally normal tricuspid valve. Pulmonic Valve Structurally normal pulmonic valve. Trace pulmonary valve regurgitation. Pericardium No pericardial effusion. Aorta Normal size aortic root and proximal ascending aorta. IVC Normal inferior vena cava. CONCLUSIONS Moderate concentric LVH. Normal LV systolic function. Normal LVEF estimated at 60%. No significant valvular abnormality noted. Normal right heart and pulmonary pressures. Aby Mccauley MD (Electronically Signed) Final Date: 31 May 2024 18:04 S
[2024-05-30] MEDS: gadobenate dimeglumine 20 mL vial IV (15:27)
[2024-05-30] MEDS: sodium chloride 0.9% 1,000 ML 75 ML IV (16:45)
[2024-05-30] MEDS: LORazepam 2 mg/mL INJ 1 mL 0.5 MG IVP (16:53)
--- NOTE | 2024-05-30 19:05 | PC.NURSE ---
Charge nurse was notified that this nurse saw a cloud of smoke coming from the patient's mouth when they walked in the room. Patient was asked what they were smoking and they said that it was a vape pen. This nurse educated the patient on the policies of the hospital about not smoking in property and that they will either have to either send the vape pen home with their friend or that they would have to lock it up in the nurse's pyxis. They gave the pen to their friend and said they would send it home with them.
--- NOTE | 2024-05-30 20:09 | PC.NURSE ---
This nurse entered the patient's room to find patient with another vape pen in their hand. Charge nurse was notified and with the permission of the patient the room was searched for anymore paraphernalia. There was no more paraphernalia and the patient decided to put their vape pen in the nurse's station until the son came and picked it up.
[2024-05-31] VITALS (48 sets, daily range): BP systolic 114–204; BP diastolic 67–137; PULSE 73–107; RESP 0–42; TEMP 36.3–36.9; O2SAT 90–99; BMI 36.4
[2024-05-31] MEDS: LORazepam 2 mg/mL INJ 1 mL 0.5 MG IVP ×3 (01:12→15:21)
[2024-05-31 03:57] LABS: Basophils # 0.1 10^3/uL (0.0-0.1); Basophils % 0.5 %; Eosinophils # 0.2 10^3/uL (0.0-0.8); Eosinophils % 1.5 %; Hematocrit 43.8 % (36-47); Lymphocytes # 3.7 10^3/uL (0.8-4.8); Lymphocytes % 33.6 %; Mean Corpuscular HGB Conc 32.6 g/dL (30-55); Mean Corpuscular Hemoglobin 30.4 pg (27-33); Monocytes # 0.7 10^3/uL (0.2-0.9); Neutrophils # 6.41 10^3/uL (1.8-7.7); Nucleated Red Blood Cells % 0 %; Platelet Count 301 10^3/cmm (157-399); Red Blood Count 4.71 10^6/uL (3.85-5.65); Red Cell Distribution Width 13.2 % (12.1-15.1); White Blood Count 11.02 10^3/uL (3.29-11.43)
[2024-05-31 04:19] LABS: Chol HDL Ratio 3.76 mg/dL (0.0-4.40); Cholesterol 188 mg/dL (0-200); HDL Cholesterol 50 mg/dL (60-100); LDL Cholesterol Calculated 123 mg/dL (50-129); LDL HDL Ratio 2.46 RATIO (0.00-3.22); Triglycerides 76 mg/dL (0-150)
[2024-05-31 04:25] LABS: Alanine Aminotransferase 10 U/L (0-33); Albumin Level 3.4 g/dL (3.5-5.2); Alkaline Phosphatase 61 U/L (35-105); Anion Gap 12.2 (5-19); Aspartate Amino Transferase 12 U/L (0-32); Blood Urea Nitrogen 15 mg/dL (6-20); Calcium 8.9 mg/dL (8.5-10.5); Carbon Dioxide 25 mmol/L (22-29); Chloride 105 mmol/L (98-107); Creatinine Clr Calc Pharmacy 117.9112; Globulin 2.8 g/dL (1.3-4.6); Glomerular Filtration Rate 91.8 mL/min (90-130); Glucose 91 mg/dL (65-115); Magnesium 2.1 mg/dL (1.7-2.3); Osmolality Calculated 286 mOsm/kg (285-295); Potassium 4.2 mmol/L (3.5-5.1); Sodium 138 mmol/L (136-145); Total Bilirubin 0.2 mg/dL (0.15-1.2); Total Protein 6.2 g/dL (6.6-8.7)
[2024-05-31] MEDS: atorvastatin 40 mg Tablet PO (10:01)
[2024-05-31] MEDS: aspirin 81 mg EC Tablet PO (10:01)
[2024-05-31] MEDS: losartan 50 mg Tablet 100 MG PO (10:02)
[2024-05-31] MEDS: chlorthalidone 25 mg Tablet PO (10:03)
[2024-05-31] MEDS: pantoprazole DR 40 mg Tablet PO (10:03)
[2024-05-31] MEDS: amlodipine 10 mg Tablet PO (11:19)
[2024-05-31 11:33] LABS: Iron 49 ug/dL (37-145); Percent Saturation 19.1 % (20-50); Total Iron Binding Capacity 256 mcg/dl; Unsaturated Iron Binding 207 ug/dL (112-347)
[2024-05-31 11:49] LABS: Vitamin B12 232 pg/mL (232-1245)
--- NOTE | 2024-05-31 14:22 | P.PN_ITS ---
Subjective 2 Subjective: Hospital course, labs appreciated. On examination laying comfortably in bed. Patient states she is feeling pretty sluggish. Asking when can she go home. Overnight she has been on and off on nicardipine drip. Currently off nicardipine drip but systolic blood pressure of 170 mmHg. Complaining of mild headache. Asking for when her next dose of Ativan is due. Vitals/I&O/Wt Last Vital Signs Temp 98.2 F 05/31/24 13:30 Pulse 82 05/31/24 13:30 Resp 16 05/31/24 13:30 BP 164/110 05/31/24 13:30 Pulse Ox 91 05/31/24 13:30 O2 Del Method Room Air 05/31/24 13:30 05/30/24 05/31/24 05/31/24 22:59 06:59 14:59 Intake Total 591.250 / 204.787 7606.167 / 1564.167 Balance 591.250 / 790.486 2052.167 / 1564.167 Weight last 48 hrs Weight 96.303 kg Weight 96.303 kg Weight 96.303 kg Weight 99.79 kg Physical Exam 2 Narrative: General exam anxious female, no acute distress HEENT: Atraumatic normocephalic, oropharynx clear Neck is supple no lymphadenopathy thyromegaly Cardiovascular regular rate and rhythm, heart sounds distant, no murmur Lungs clear no wheezing or crackles Abdomen is soft with positive bowel sounds Extremities no cyanosis clubbing or edema, cap refill brisk Skin. Scattered seborrheic keratosis which she asked me about, concerned they might be skin cancer Neuro left facial droop. Some decrease sensation left cheek. Some weakness opening left eye all possibly consistent with Cassidy's but to be confirmed. Denies hyperacusis. No evidence of peripheral weakness, swallowing difficulty on observation with bedside swallowing. No cerebellar dysfunction. Data 05/31/24 03:40 05/31/24 03:40 Micro: Microbiology 05/30/24 11:14 Blood Culture - Preliminary Blood NEGATIVE TO DATE 05/30/24 11:10 Blood Culture - Preliminary Blood NEGATIVE TO DATE A&P Assessment and plan (1) Hypertensive emergency: Patient with hypertensive emergency. Off and on nicardipine drip. Has a left facial droop, but this does not correlate with her CT findings of concern of left frontal lobe ischemia. Therefore concern of neurologic symptoms secondary to this. Goal blood pressure less than 140/90 mmHg. Continue with home dose of losartan, chlorthalidone. Add home dose of amlodipine 10 mg oral daily. Hydralazine 10 mg every 4 hours as needed for systolic blood pressure more than 160 mmHg. Blood pressure remained elevated will add hydralazine oral 3 times a day as well. Urine drug screen from admission positive for amphetamines. Cannot rule out elevated blood pressure in setting of mild withdrawal. Continue with Ativan 0.5 every 8 hours as needed. Echocardiogram done. Results awaited. (2) Right sided cerebral hemisphere cerebrovascular accident: Appreciate MRI results. Concerning for acute ischemia in right centrum semiovale. PT/OT/speech evaluation. Aspirin 81 mg daily, statin. Appreciate A1c, lipid panel. (3) Facial droop: (4) Hypokalemia: Supplement (5) Amphetamine use: Encourage abstinence With no history of fever, no history of IV drug use patient admits to doubt bacteremia with embolization but blood culture was obtained (6) Anxiety: Ativan as needed (7) Cerebrovascular accident: Plan Full code Cardiac diet Lovenox for DVT prophylaxis Attestations 2 Medical Necessity Statement*: Requires further hospitalization for management of hypertensive emergency while nicardipine drip was weaned off, right cerebral stroke Critical Care Time: The high probability of a clinically significant, sudden or life threatening deterioration of the patient's [cardiac, neurological] system(s) required my full and direct attention, intervention and personal management. The critical care time is as shown. This time is in addition to time spent performing any reported procedures but includes the following: [x] Data and vital sign review and interpretation [x] Patient assessment, examination and intervention [x] Documentation [x] Medication orders and management Critical Care Time (min): 60 Coding Level of Care Code Acute Code for Chg Fwd Diagnoses Hypertensive emergency I16.1 Right sided cerebral hemisphere cerebrovascular accident I63.9 Facial droop R29.810 Hypokalemia E87.6 Amphetamine use F15.90 Anxiety F41.9 Cerebrovascular accident I63.9
[2024-05-31] MEDS: hyDRALAzine 25 mg Tablet 50 MG PO ×2 (15:21→21:14)
--- NOTE | 2024-05-31 18:25 | PC.NURSE ---
SHift SUmmary: uneventful shift. patient rested in bed throughout the day, but was up frequently to use the restroom, no assistance needed. SLight facial droop still present when patient smiles. Nicardipine drip stopped, started on PO losartan, amlodipine, and hydralazine. Blood pressures have decreased, but not yet to goal of less than 140/90. PRN hydralazine available.
[2024-06-01] VITALS (24 sets, daily range): BP systolic 129–189; BP diastolic 74–120; PULSE 67–105; RESP 15–30; TEMP 36.7–36.9; O2SAT 93–98; BMI 36.4
[2024-06-01] MEDS: hyDRALAzine 20 mg/mL INJ 1 mL 10 MG IVP (00:52)
[2024-06-01] MEDS: LORazepam 2 mg/mL INJ 1 mL 0.5 MG IVP ×2 (01:26→08:37)
--- NOTE | 2024-06-01 06:27 | PC.NURSE ---
Pt refused morning labs, states she is ready to go home and see her son. Dr. Crowley notified.
[2024-06-01] MEDS: atorvastatin 40 mg Tablet PO (08:05)
[2024-06-01] MEDS: aspirin 81 mg EC Tablet PO (08:05)
[2024-06-01] MEDS: hyDRALAzine 25 mg Tablet 50 MG PO (08:05)
[2024-06-01] MEDS: pantoprazole DR 40 mg Tablet PO (08:05)
[2024-06-01] MEDS: amlodipine 10 mg Tablet PO (08:05)
[2024-06-01] MEDS: losartan 50 mg Tablet 100 MG PO (08:05)
[2024-06-01] MEDS: chlorthalidone 25 mg Tablet PO (08:05)
[2024-06-01 08:35] LABS: Basophils % 0.4 %; Eosinophils # 0.1 10^3/uL (0.0-0.8); Eosinophils % 1.1 %; Hematocrit 46.4 % (36-47); Lymphocytes # 2.5 10^3/uL (0.8-4.8); Lymphocytes % 24.3 %; Mean Corpuscular HGB Conc 33.2 g/dL (30-55); Mean Corpuscular Hemoglobin 30.1 pg (27-33); Mean Corpuscular Volume 90.8 fl (85-98); Monocytes # 0.7 10^3/uL (0.2-0.9); Monocytes % 6.5 %; Neutrophils # 6.99 10^3/uL (1.8-7.7); Neutrophils % 67.4 %; Nucleated Red Blood Cells % 0 %; Platelet Count 328 10^3/cmm (157-399); Red Blood Count 5.11 10^6/uL (3.85-5.65); Red Cell Distribution Width 13.1 % (12.1-15.1); White Blood Count 10.36 10^3/uL (3.29-11.43)
[2024-06-01 08:54] LABS: Alanine Aminotransferase 10 U/L (0-33); Albumin Level 3.7 g/dL (3.5-5.2); Alkaline Phosphatase 73 U/L (35-105); Anion Gap 12.8 (5-19); Aspartate Amino Transferase 11 U/L (0-32); Blood Urea Nitrogen 15 mg/dL (6-20); Calcium 9.1 mg/dL (8.5-10.5); Carbon Dioxide 25 mmol/L (22-29); Chloride 104 mmol/L (98-107); Creatinine Clr Calc Pharmacy 117.9078; Globulin 3.3 g/dL (1.3-4.6); Glomerular Filtration Rate 91.8 mL/min (90-130); Glucose 88 mg/dL (65-115); Osmolality Calculated 286 mOsm/kg (285-295); Potassium 3.8 mmol/L (3.5-5.1); Sodium 138 mmol/L (136-145); Total Bilirubin 0.3 mg/dL (0.15-1.2)
[2024-06-01 09:17] LABS: Folate Level 5.4 ng/mL (4.8-37.3)
--- NOTE | 2024-06-01 10:53 | P.DS_ITS ---
Discharge Providers Date of Admission: 05/30/24 11:53 Date of Discharge: June 01, 2024 Attending Provider at Admission: Frantz Clark MD Attending Provider at Discharge: Sadi Nava MD Primary Care Provider: Audelia Kwan DO Diagnoses at Discharge Discharge Diagnosis (1) Hypertensive emergency: Status: Acute (2) Right sided cerebral hemisphere cerebrovascular accident: Status: Acute (3) Facial droop: Status: Acute (4) Hypokalemia: Status: Acute (5) Amphetamine use: Status: Acute (6) Anxiety: Status: Acute (7) Cerebrovascular accident: Status: Acute Reason for Visit Reason for Visit: high bp, slurring words, facial droop Brief History: History as per HPI: Katey Romeo is a 44 year old female who presents to the hospital worried about her left facial droop. She states she has had at least since Sunday p.m. She reports it is no better, no worse. Really no headache. Does use methamphetamine, with last use 3 to 4 days ago. No nausea, vomiting, peripheral weakness. No fever. Denies any IV drug use. Notes that her blood pressure is quite high at times, and previous hospital stay she was told she has diastolic dysfunction and required an IV medication to lower blood pressure in the ICU. NIHSS score in the ER was 2 Hospital Course Hospital Course Patient was admitted to the hospital further evaluation and management of symptoms concerning for possible stroke versus Cassidy's palsy along with hypertensive emergency. She was admitted to ICU on nicardipine drip. She gives history of stopping her medication since November. Neurology was consulted who requested for MRI which showed acute ischemia in right cerebral region. Her home antihypertensives were restarted after which nicardipine drip was discontinued. Her antihypertensive further adjusted. She worked well with speech and occupational therapy. Patient was yet to be seen by physical therapy though she was able to move around in the room by herself. Patient was advised to stay for physical therapy evaluation but she insisted on being discharged. She is been discharged home in hemodynamically stable condition on oral antihypertensive. Hydralazine 50 mg 3 times a day has been added to her medication list. She is to take aspirin atorvastatin along with oral medications. She will follow-up with a primary care provider within next 1 week and with neurologist within next 2 weeks. Patient was counseled in detail to make sure she continues to take her medications regularly with goal blood pressure of less than 140/90 mmHg. Physical Exam Narrative: General exam anxious female, no acute distress HEENT: Atraumatic normocephalic, oropharynx clear Neck is supple no lymphadenopathy thyromegaly Cardiovascular regular rate and rhythm, heart sounds distant, no murmur Lungs clear no wheezing or crackles Abdomen is soft with positive bowel sounds Extremities no cyanosis clubbing or edema, cap refill brisk Skin. Scattered seborrheic keratosis which she asked me about, concerned they might be skin cancer Neuro left facial droop. Some decrease sensation left cheek. Some weakness opening left eye all possibly consistent with Cassidy's but to be confirmed. Denies hyperacusis. No evidence of peripheral weakness, swallowing difficulty on observation with bedside swallowing. No cerebellar dysfunction. Discharge Data Studies Completed and Pending Completed Studies During Hospitalization Category Date Time Status CT head thrombolytic 46754 Stat Cat Scan 05/30/24 07:21 Completed CTA head neck [CT angio headneck* [id number]/54047] Stat Cat Scan 05/30/24 07:54 Completed XR chest 1V portable [id number] Stat Exams 05/30/24 07:20 Completed MR head wo/w con [id number] Routine MRI 05/30/24 11:34 Completed MRA head [MR angio head wo con [id number]] Routine MRI 05/30/24 11:34 Completed CV. echo complete* [id number] Routine Ultrasound 05/30/24 13:33 Completed Pending at discharge Category Date Time Status Blood Culture Stat Lab 05/30/24 11:14 Results MAG [Magnesium] AM LABS Lab 06/02/24 04:00 Ordered MAG [Magnesium] AM LABS Lab 06/03/24 04:00 Ordered Radiology Impressions Chest X-Ray 05/30/24 07:20 IMPRESSION: Stable chest. Minimal enlargement of the heart. Head CT 05/30/24 07:21 IMPRESSION: Loss of cormier-white matter differentiation in the anterior left frontal lobe at the centrum semiovale level, concerning for acute ischemia. No evidence of associated hemorrhage. ASSESSMENT: ASPECTS ([place] Stroke Program Early CT Score) is 9. ADDENDUM: 05/30/24 0754 COMMENT: THIS REPORT CONTAINS FINDINGS THAT MAY BE CRITICAL TO PATIENT CARE. The exam findings were verbally communicated via telephone by myself to MCKENZIE SARGENT at 7:52 AM CDT on 05/30/2024. The findings were acknowledged and understood. Head/Neck CTA 05/30/24 07:54 IMPRESSION: 1. No significant cervical carotid artery stenosis at the bifurcation. 2. There is significant motion and breathing artifact through the thorax. The proximal carotid arteries are not adequately visualized. 3. Mild atherosclerosis of the distal intracranial carotid arteries and the M1 segments. No occlusions or thrombus identified. Head MRI 05/30/24 11:34 IMPRESSION: 1. 2 foci of restricted diffusion compatible with acute ischemia in the RIGHT centrum semiovale the largest measuring 8 mm. Mild associated edema. 2. No mass effect or midline shift. 3. Moderate to advanced patchy supratentorial and pontine white matter changes advanced for patient this age likely due to hypertension and small vessel disease based on history. 4. No hemosiderin on the susceptibility weighted images. 5. No other acute findings. Notified Frantz Clark MD at 05/30/2024 4:26 PM. Head MRA 05/30/24 11:34 IMPRESSION: 1. Mild intracranial atheromatous disease more prominent in the distal supraclinoid ICAs and LEFT greater than RIGHT M1 segments. 2. No proximal flow-limiting stenosis. 3. No other acute findings. Laboratory Results WBC 10.36 10^3/uL (3.29-11.43) 06/01/24 08:24 RBC 5.11 10^6/uL (3.85-5.65) 06/01/24 08:24 Hgb 15.40 g/dL (11.27-16.99) 06/01/24 08:24 Hct 46.4 % (36-47) 06/01/24 08:24 MCV 90.8 fl (85-98) 06/01/24 08:24 MCH 30.1 pg (27-33) 06/01/24 08:24 MCHC 33.2 g/dL (30-55) 06/01/24 08:24 RDW 13.1 % (12.1-15.1) 06/01/24 08:24 Plt Count 328 10^3/cmm (157-399) 06/01/24 08:24 MPV 10.0 fL (7.4-10.4) 06/01/24 08:24 Neut % (Auto) 67.4 % 06/01/24 08:24 Lymph % (Auto) 24.3 % 06/01/24 08:24 [place] % (Auto) 6.5 % 06/01/24 08:24 Eos % (Auto) 1.1 % 06/01/24 08:24 Baso % (Auto) 0.4 % 06/01/24 08:24 Neut # (Auto) 6.99 10^3/uL (1.8-7.7) 06/01/24 08:24 Lymph # (Auto) 2.5 10^3/uL (0.8-4.8) 06/01/24 08:24 [place] # (Auto) 0.7 10^3/uL (0.2-0.9) 06/01/24 08:24 Eos # (Auto) 0.1 10^3/uL (0.0-0.8) 06/01/24 08: Baso # (Auto) 0.0 10^3/uL (0.0-0.1) 06/01/24 08:24 Nucleated RBC % (auto) 0 % 06/01/24 08:24 Nucleated RBCs # 0.0 /100WBC 06/01/24 08:24 PT 13.10 SECONDS (12.1-14.9) 05/30/24 08:09 INR 0.96 (0.8-1.2) 05/30/24 08:09 APTT 32.1 SECONDS (23.9-36.7) 05/30/24 08:09 Sodium 138 mmol/L (136-145) 06/01/24 08:24 Potassium 3.8 mmol/L (3.5-5.1) 06/01/24 08:24 Chloride 104 mmol/L (98-107) 06/01/24 08:24 Carbon Dioxide 25 mmol/L (22-29) 06/01/24 08:24 Anion Gap 12.8 (5-19) 06/01/24 08:24 BUN 15 mg/dL (6-20) 06/01/24 08:24 Creatinine 0.7 mg/dL (0.5-0.9) 06/01/24 08:24 GFR Calculation 91.8 mL/min (90-130) 06/01/24 08:24 Glucose 88 mg/dL (65-115) 06/01/24 08:24 POC Glucose 163 mg/dL (70-110) H 05/30/24 07:18 Estimat Average Glucose 108 05/30/24 08:09 Hemoglobin A1c 5.4 % (4.0-6.0) 05/30/24 08:09 Calculated Osmolality 286 mOsm/kg (285-295) 06/01/24 08:24 Calcium 9.1 mg/dL (8.5-10.5) 06/01/24 08:24 Magnesium 2.0 mg/dL (1.7-2.3) 06/01/24 08:24 Iron 49 ug/dL (37-145) 05/31/24 03:40 TIBC 256 mcg/dl 05/31/24 03:40 % Saturation 19.1 % (20-50) L 05/31/24 03:40 Unsat Iron Binding 207 ug/dL (112-347) 05/31/24 03:40 Total Bilirubin 0.3 mg/dL (0.15-1.2) 06/01/24 08:24 AST 11 U/L (0-32) 06/01/24 08:24 ALT 10 U/L (0-33) 06/01/24 08:24 Alkaline Phosphatase 73 U/L (35-105) 06/01/24 08:24 Total Protein 7.0 g/dL (6.6-8.7) 06/01/24 08:24 Albumin 3.7 g/dL (3.5-5.2) 06/01/24 08:24 Globulin 3.3 g/dL (1.3-4.6) 06/01/24 08:24 Triglycerides 76 mg/dL (0-150) 05/31/24 03:40 Cholesterol 188 mg/dL (0-200) 05/31/24 03:40 LDL Cholesterol, Calc 123 mg/dL (50-129) 05/31/24 03:40 HDL Cholesterol 50 mg/dL (60-100) L 05/31/24 03:40 LDL/HDL Ratio 2.46 RATIO (0.00-3.22) 05/31/24 03:40 Cholesterol/HDL Ratio 3.76 mg/dL (0.0-4.40) 05/31/24 03:40 Vitamin B12 232 pg/mL (232-1245) 05/31/24 03:40 Folate 5.4 ng/mL (4.8-37.3) 06/01/24 08:24 TSH 3.32 uIU/mL (0.27-4.20) 05/30/24 08:09 HCG, Qual Negative (Negative) 05/30/24 08:09 Urine Color Yellow (Yellow) 05/30/24 08:35 Urine Appearance Clear (CLEAR) 05/30/24 08:35 Urine pH 5 (5-7) 05/30/24 08:35 Ur Specific [place] 1.010 (1.005-1.030) 05/30/24 08:35 Urine Protein Trace (Negative) 05/30/24 08:35 Urine Glucose (UA) Norm (Normal) 05/30/24 08:35 Urine Ketones Negative (Negative) 05/30/24 08:35 Urine Blood Neg (Negative) 05/30/24 08:35 Urine Nitrate Negative (Negative) 05/30/24 08:35 Urine Bilirubin Neg (Negative) 05/30/24 08:35 Urine Urobilinogen Norm mg/dL (Negative) 05/30/24 08:35 Ur Leukocyte Esterase Negative (Negative) 05/30/24 08:35 Urine RBC None /hpf (0-2) 05/30/24 08:35 Urine WBC 0-4 /hpf (0-5) H 05/30/24 08:35 Ur Squamous Epith Cells 0-4 /hpf (0-5) H 05/30/24 08:35 Amorphous Sediment Not Reportable 05/30/24 08:35 Urine Bacteria Trace /hpf (NONE) 05/30/24 08:35 Urine Opiates Screen Negative ng/mL (Negative) 05/30/24 08:35 Ur Barbiturates Screen Negative ng/mL (Negative) 05/30/24 08:35 Ur Phencyclidine Scrn Negative ng/mL (Negative) 05/30/24 08:35 Ur Amphetamines Screen Positive ng/mL (Negative) H 05/30/24 08:35 U Benzodiazepines Scrn Negative ng/mL (Negative) 05/30/24 08:35 Urine Cocaine Screen Positive ng/mL (Negative) H 05/30/24 08:35 U Marijuana (THC) Screen Positive ng/mL (Negative) H 05/30/24 08:35 Vitals Last Vital Signs Temp 98.4 F 06/01/24 08:00 Pulse 98 06/01/24 09:30 Resp 18 06/01/24 09:30 BP 153/82 06/01/24 10:30 Pulse Ox 93 06/01/24 10:30 O2 Del Method Room Air 06/01/24 06:00 Discharge Plan Discharge Patient Disposition: Home Condition: Stable Prescriptions: New atorvastatin 40 mg Tablet 40 mg PO DAILY Qty: 30 0RF hydralazine 25 mg Tablet 50 mg PO TID 30 Days Qty: 180 0RF aspirin 81 mg Tablet,Delayed Release (Dr/Ec) 81 mg PO DAILY Qty: 30 0RF Continued Mirena 20 mcg/24 hours (7 yrs) 52 mg intrauterine device 20 mcg intrauterine .Q7Y Rx Instructions: 7 YEAR DOSE GIVEN 07/25/22 famotidine [Pepcid] 20 mg tablet 20 mg PO DAILY PRN (Reason: Acid Reflux) amlodipine 10 mg tablet 10 mg PO DAILY losartan 100 mg tablet 100 mg PO DAILY chlorthalidone 25 mg tablet 25 mg PO DAILY baclofen 10 mg tablet 10 mg PO BID PRN (Reason: MUSCLE SPASMS) Discharge Orders: Discharge Order (Routine); Ordered 06/01/24 Ordered By: Sadi Nava Referrals: Fiona Duckworth MD [Physician] - 2 weeks Audelia Kwan DO [Primary Care Provider] - 1 week Discharge Diet: Cardiac Discharge Activity: Resume usual activity and Increase activity as tolerated Patient Instructions: Opioid Safety Discharge Attestations Time Spent in Discharge Care*: greater than 30 min Specific Discharge Activities: educating patient, discussing with pcp/other providers, discussing with showcase maker/social workers/dc planners, documenting/other paperwork and evaluating patient/reviewing data Status at Discharge: Cognitive status at discharge: cognitively intact , Behavioral status at discharge: cooperative , Functional status at discharge: independent ambulation , Overall status at discharge: patient is progressing back to baseline Quality Metrics Clinical Quality Measures [ No reported AMI, CVA or VTE this stay] Coding Level of Care Code 25318 Total time (in minutes) for Discharge: 60 Diagnoses Hypertensive emergency I16.1 Right sided cerebral hemisphere cerebrovascular accident I63.9 Facial droop R29.810 Hypokalemia E87.6 Amphetamine use F15.90 Anxiety F41.9 Cerebrovascular accident I63.9
--- NOTE | 2024-06-01 11:26 | PC.NURSE ---
Discharge Note Patient discharged to home accompanied by self. Discharge instructions reviewed with patient, verbalized understanding of teaching. Prescriptions sent to the patient preferred pharmacy. Belongings sent home with patient upon discharge. Upon discharge patient is alert/oriented x4 on room air. No wounds or skin issues noted upon discharge.
== END 2024-06-01 11:18 | disposition home or self-care (01) | DRG 65 ==
LOC: ER 09:48 → ICU 11:53
PROVIDERS: Admitting Provider Internal Medicine; Emergency Provider Family Medicine; PCP Family Medicine; Visit Provider Student in an Organized Health Care Education/Training Program
DX: I63.9 Cerebral infarction, unspecified (principal); I16.1 Hypertensive emergency; R29.810 Facial weakness; I10 Essential (primary) hypertension; R29.702 NIHSS score 2; Z72.0 Tobacco use; E87.6 Hypokalemia; F15.90 Other stimulant use, unspecified, uncomplicated; F41.9 Anxiety disorder, unspecified; R73.9 Hyperglycemia, unspecified; K21.9 Gastro-esophageal reflux disease without esophagitis
CPT/HCPCS: 36415; 36416; 70450; 70496; 70498; 70544; 70553; 71045; 80053; 80061; 80306; 81001; 82607; 82746; 82962; 83036; 83540; 83550; 83735; 84443; 84703; 85025; 85610; 85730; 87040; 92523; 92610; 93005; 93306; 96374; 96375; 96376; 97110; 97165; 99285; A9577; J0360; J2060; J7030; Q9967

== ENCOUNTER 2025-03-11 10:20 | Emergency (ER) | payer SELFPAY ==
[2025-03-11] VITALS (12 sets, daily range): BP systolic 184–210; BP diastolic 130–159; PULSE 82–99; RESP 16–33; TEMP 36.4; O2SAT 93; BMI 34.7
--- NOTE | 2025-03-11 10:27 | ECG_ITS ---
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 Measurements Intervals [place] Rate: 94 P: 15 AR: 127 QRS: 53 QRSD: 94 T: 78 QT: 388 QTc: 487 Interpretive Statements SINUS RHYTHM NONSPECIFIC T-WAVE ABNORMALITY Compared to ECG 05/30/2024 07:46:35 Possible ischemia no longer present T-wave abnormality still present Electronically Signed On 03-11-2025 17:41:15 CDT by Jose Beauchamp M.D. [id number] [id number]
--- NOTE | 2025-03-11 10:30 | PC.NURSE ---
pt very hateful, agitated after arriving to room. raising voice to nurse, stating to be fucking easy during IV insertion; demanding the blood pressure cuff be taken off and refusing to keep on. pt did not cooperate with IV insertion, forcefully removed arm from nurse during IV stick. pt family cooperative, assisting nurse. pt continuously removing monitor leads, b/p cuff.
--- NOTE | 2025-03-11 10:35 | PC.NURSE ---
pt refusing to keep pulse ox on
--- NOTE | 2025-03-11 10:42 | CT_ITS ---
WS: [id number] CT HEAD TECHNIQUE: Noncontrast CT of the head obtained from the skullbase to the vertex. CLINICAL INFORMATION: Symptoms of acute stroke COMPARISON: MR 05/30/2024 DLP: [address] scans at [facility] use at least one of these dose optimization techniques: automated exposure control; mA and/or kV adjustment per patient size (includes targeted exams where dose is matched to clinical indication); or iterative reconstruction. FINDINGS: No evidence of intracranial hemorrhage or mass effect. Ventricular system and basal cisterns are patent. No extra-axial fluid collections. No evidence of mass or mass effect. Chronic lacunar infarcts in the RIGHT borrero radiata described on the prior MRI Paranasal sinuses and mastoid air cells are well aerated. .Normal visualized soft tissues. CT/CT head thrombolytic [id number] IMPRESSION: 1. No evidence of intracranial hemorrhage or mass effect. 2. Chronic infarcts in the RIGHT borrero radiata previously described. 3. Vascular calcification. 4. No acute intracranial findings. Notified Akahs Mancia DO at 03/11/2025 1058AM.
--- NOTE | 2025-03-11 10:42 | XR_ITS ---
WS: [id number] XR chest 1V portable [id number] REASON FOR EXAM: chest pain FINDINGS: Mild tortuosity of the thoracic aorta. Moderate cardiomegaly. Central pulmonary vein congestion. Reticular interstitial lung opacities in both lower lung rivas with JOHNSON B lines. Accentuation of the minor fissure on the right. No focal lung abnormality. Bony thorax intact without significant focal abnormality. XR/XR chest 1V portable [id number] IMPRESSION: Congestive heart failure.
--- NOTE | 2025-03-11 10:43 | ED_ITS ---
HPI - Chest Pain 2 General: Chief Complaint: Chest Pain Stated Complaint: chest pain Time Seen by Provider: 03/11/25 10:41 History of Present Illness: 44-year-old female presents emergency ro om with history of previous stroke per her report she has had a bit of a headache. She also has a history hypertension. She has had some slurring of speech been going on for several days. She is also complaining of chest discomfort. She is very restless. No radiation of the symptoms to the neck arms or back. Associated symptoms: Deny abdominal pain, dyspnea or fever(s) Related Data Home Medications ?Medication ?Instructions ?Recorded ?Confirmed No Known Home Medications 03/11/25 0505/29 Allergies Allergy/AdvReac Type Severity Reaction Status Date / Time morphine Allergy Severe vomiting Verified 03/23/23 12:54 Penicillins Allergy ALGY-Rash Verified 03/23/23 12:54 Review of Systems 2 Const: Denies: fever(s) or chills Card: Denies: chest pain Resp: Denies: dyspnea GI: Denies: abdominal pain : Denies: dysuria, urinary frequency or urinary urgency Musc: Denies: neck pain or back pain Skin/Breast: Denies: rash PFSH ED 2 PFSH: Medical History Sinus tachycardia Lumbar stenosis with neurogenic claudication GERD (gastroesophageal reflux disease) No pertinent past medical history neghx: dm,thyroid,dvt/pe PCP: Lupe Kwan Hx of hyperlipidemia Anxiety Smoking addiction Hypertension Surgical History Hx of section 06/17/2002 01/05/2010 Hx of laparoscopy (~07/30/12) Diagnostic Laparoscopy perfomed by Dr. Nabor Ernst at [facility] in [place], [place]. Diagnosis: abdominal pain, pelvic pain Family History Father CAD (coronary artery disease) quadruple bypass Stroke before 60 Heart disease Hypertension Mother CAD (coronary artery disease) [place] and stents Stroke before the age of 60 Heart disease Hypertension Family/Other No problems noted. Denies family history of Colon cancer Ovarian cancer Diabetes Breast cancer Uterine cancer Thyroid disease Social History (Reviewed 03/11/25 @ 10:44 by GRAEME Malhotra Smoking and tobacco/nicotine status: current every day tobacco/nicotine user Alcohol intake: current Alcohol intake frequency: 0-2 Drinks per Day Substance/Drug Use: current Physical Exam 2 Const: COMMON NORMALS: no acute distress GENERAL APPEARANCE: cooperative and comfortable ORIENTATION/CONSCIOUSNESS: Yes awake, Yes oriented to person, Yes oriented to place and Yes oriented to time HENMT: COMMON NORMALS: normocephalic, atraumatic and hearing grossly normal bilaterally HEAD & SCALP: normocephalic and atraumatic Resp: COMMON NORMALS: normal respiratory effort, No retractions, No use of accessory muscles and clear to auscultation bilaterally AUSCULTATION: clear to auscultation bilaterally Cardio: COMMON NORMALS: regular rate, regular rhythm and No murmurs present (Cardio) RATE: regular rate RHYTHM: regular rhythm GI: COMMON NORMALS: Soft to palpation and No hepatosplenomegaly present A USCULTATION: Yes normoactive bowel sounds PALPATION: Yes Soft to palpation, No Tenderness to palpation present (GI), No Guarding due to palpation present (GI) and Yes No hepatosplenomegaly present Extremity: COMMON NORMALS: normal to inspection, capillary refill normal, no clubbing, cyanosis or edema, no calf tenderness and no pedal edema Neuro: SENSORIUM/ORIENTATION: Yes oriented to person, Yes oriented to place and Yes oriented to time Skin: COMMON NORMALS: no rashes or lesions noted GENERAL SKIN EXAM: no rashes or lesions noted Course 2 Vital Signs: Vital signs: Vital Signs Temperature 97.5 F L 03/11/25 10:21 Pulse Rate 82 03/11/25 11:45 Respiratory Rate 25 H 03/11/25 11:45 Blood Pressure 210/159 03/11/25 11:29 Pulse Oximetry 93 03/11/25 10:21 Oxygen Delivery Me thod Room Air 03/11/25 10:21 MDM - Chest Pain Medical Decision Making CT of the head unremarkable. We are awaiting completion of the cardiac workup. Patient had received medications for blood pressure. She became very agitated and trying to dissuade her from leaving and discussed with her that we are treating her blood pressure as well as waiting on a second troponin. Did not that this this head CT so far was unremarkable and neurologic exam did not show signs of a stroke. Patient was belligerent with staff tearing off monitors and refused to stay. Attempted to get her discharge summary completed to give her discharge paperwork she left without signing AMA or receiving her discharge paperwork despite the nurses best efforts to dissuade her. We did advise her she could return at any time if she wished Medical Records I reviewed the patient's medical records. Lab Data I reviewed the patient's lab results. 03/11/25 10:40 03/11/25 10:40 Radiology Impressions Chest X-Ray 03/11/25 10:42 IMPRESSION: Congestive heart failure. Head CT 03/11/25 10:42 IMPRESSION: 1. No evidence of intracranial hemorrhage or mass effect. 2. Chronic infarcts in the RIGHT borrero radiata previously described. 3. Vascular calcification. 4. No acute intracranial findings. Notified Akash Mancia DO at 03/11/2025 1058AM. Laboratory Results WBC 10.08 10^3/uL (3.29-11.43) 03/11/25 10:40 RBC 5.54 10^6/uL (3.85-5.65) 03/11/25 10:40 Hgb 16.10 g/dL (11.27-16.99) 03/11/25 10:40 Hct 49.7 % (36-47) H 03/11/25 10:40 MCV 89.7 fl (85-98) 03/11/25 10:40 MCH 29.1 pg (27-33) 03/11/25 10:40 MCHC 32.4 g/dL (30-55) 03/11/25 10:40 RDW 12.9 % (12.1-15.1) 03/11/25 10:40 Plt Count 404 10^3/cmm (157-399) H 03/11/25 10:40 MPV 10.2 fL (7.4-10.4) 03/11/25 10:40 Neut % (Auto) 66.9 % 03/11/25 10:40 Lymph % (Auto) 27.5 % 03/11/25 10:40 [place] % (Auto) 3.3 % 03/11/25 10:40 Eos % (Auto) 1.4 % 03/11/25 10:40 Baso % (Auto) 0.5 % 03/11/25 10:40 Neut # (Auto) 6.75 10^3/uL (1.8-7.7) 03/11/25 10:40 Lymph # (Auto) 2.8 10^3/uL (0.8-4.8) 03/11/25 10:40 [place] # (Auto) 0.3 10^3/uL (0.2-0.9) 03/11/25 10:40 Eos # (Auto) 0.1 10^3/uL (0.0-0.8) 03/11/25 10:40 Baso # (Auto) 0.1 10^3/uL (0.0-0.1) 03/11/25 10:40 Nucleated RBC % (auto) 0 % 03/11/25 10:40 Nucleated RBCs # 0.0 /100WBC 03/11/25 10:40 PT 12.90 SECONDS (12.1-14.9) 03/11/25 10:40 INR 0.91 (0.8-1.2) 03/11/25 10:40 APTT 29.6 SECONDS (23.9-36.7) 03/11/25 10:40 Sodium 137 mmol/L (136-145) 03/11/25 10:40 Potassium 4.5 mmol/L (3.5-5.1) 03/11/25 10:40 Chloride 99 mmol/L (98-107) 03/11/25 10:40 Carbon Dioxide 28 mmol/L (22-29) 03/11/25 10:40 Anion Gap 14.5 (5-19) 03/11/25 10:40 BUN 19 mg/dL (6-20) 03/11/25 10:40 Creatinine 1.1 mg/dL (0.5-0.9) H 03/11/25 10:40 GFR Calculation 54.5 mL/min (90-130) L 03/11/25 10:40 Glucose 101 mg/dL (65-115) 03/11/25 10:40 POC Glucose 104 mg/dL (70-110) 03/11/25 10:44 Calculated Osmolality 286 mOsm/kg (285-295) 03/11/25 10:40 Calcium 9.5 mg/dL (8.5-10.5) 03/11/25 10:40 Total Bilirubin 0.3 mg/dL (0.15-1.2) 03/11/25 10:40 AST 18 U/L (0-32) 03/11/25 10:40 ALT 14 U/L (0-33) 03/11/25 10:40 Alkaline Phosphatase 91 U/L (35-105) 03/11/25 10:40 Troponin T Baseline 76 ng/L (0-10) H 03/11/25 10:40 Total Protein 7.3 g/dL (6.6-8.7) 03/11/25 10:40 Albumin 3.9 g/dL (3.5-5.2) 03/11/25 10:40 Globulin 3.4 g/dL (1.3-4.6) 03/11/25 10:40 Urine Color Yellow (Yellow) 03/11/25 11:55 Urine Appearance Clear (CLEAR) 03/11/25 11:55 Urine pH 7.0 (5-7) 03/11/25 11:55 Ur Specific [place] 1.008 (1.005-1.030) 03/11/25 11:55 Urine Protein Negative (Negative) 03/11/25 11:55 Urine Glucose (UA) Negative (Normal) 03/11/25 11:55 Urine Ketones Negative (Negative) 03/11/25 11:55 Urine Blood Negative (Negative) 03/11/25 11:55 Urine Nitrate Negative (Negative) 03/11/25 11:55 Urine Bilirubin Negative (Negative) 03/11/25 11:55 Urine Urobilinogen 0.2 mg/dL (Negative) 03/11/25 11:55 Ur Leukocyte Esterase Negative (Negative) 03/11/25 11:55 Urine RBC 0-2 /hpf (0-2) 03/11/25 11:55 Urine WBC 0-5 /hpf (0-5) 03/11/25 11:55 Ur Squamous Epith Cells 0-5 /hpf (0-5) 03/11/25 11:55 Amorphous Sediment Not Reportable 03/11/25 11:55 Urine Bacteria None seen /hpf (NONE) 03/11/25 11:55 Hyaline Casts 0-4 /lpf H 03/11/25 11:55 Urine Opiates Screen Negative ng/mL (Negative) 03/11/25 11:55 Ur Barbiturates Screen Negative ng/mL (Negative) 03/11/25 11:55 Ur Phencyclidine Scrn Negative ng/mL (Negative) 03/11/25 11:55 Ur Amphetamines Screen Positive ng/mL (Negative) H 03/11/25 11:55 U Benzodiazepines Scrn Positive ng/mL (Negative) H 03/11/25 11:55 Urine Cocaine Screen Negative ng/mL (Negative) 03/11/25 11:55 U Marijuana (THC) Screen Positive ng/mL (Negative) H 03/11/25 11:55 All radiology interpretation(s) finalized by discharge Discharge Plan Discharge Patient Disposition: Home Clinical Impression: History of CVA (cerebrovascular accident), Chest pain, Hypertension Condition: Stable Prescriptions: No Action No Known Home Medications Discharge Orders: Discharge ED (Routine); Ordered 03/11/25 Ordered By: Akash Mancia Referrals: Audelia Kwan DO [Primary Care Provider, [employer] DYEING MACHINE OPERATOR] Patient Instructions: Opioid Safety, Pain Management Activity Restrictions/Additional Instructions: Thank you for choosing [facility] for your healthcare needs today. It is very important that you follow up as instructed or that you return to the Emergency Department should you have concerns or if your condition changes or worsens in any way. You are seen in the emergency room with complaints of change in your speech that began within the last [address] of your head showed previous stroke but nothing new or acute. Your initial cardiac enzyme was elevated your EKG did not show any acute changes. You elected to leave the emergency room before finishing the workup so we were not able to get a second cardiac enzyme. You are welcome to return at any point to complete the workup. Print Language: Syriac Coding Level of Care Code ED Healthcare Financial Analyst for Desiree Gaxiola NIH stroke score NIHSS Level Of Consciousness - 1a: 0 Level Of Consciousness Questions - 1b: Both Correct Level Of Consciousness Commands - 1c: Both Correct Best Gaze - 2: Normal Visual Mcgee - 3: No Visual Loss Facial Palsy - 4: Normal Motor Arm Right - 5: No Drift Motor Arm Left - 5: No Drift Motor Leg Right - 6: No Drift Motor Leg Left - 6: No Drift Limb Ataxia - 7: Absent Sensory - 8: Normal Best Language - 9: No Aphasia Dysarthia - 10: Mild/Moderate Dysarthia Extinction And Inattention - 11: 0 Score Total Score: 1
[2025-03-11 10:48] LABS: Glucose Point of Care 104 mg/dL (70-110)
[2025-03-11 10:52] LABS: Basophils # 0.1 10^3/uL (0.0-0.1); Basophils % 0.5 %; Eosinophils # 0.1 10^3/uL (0.0-0.8); Eosinophils % 1.4 %; Hematocrit 49.7 % (36-47); Lymphocytes # 2.8 10^3/uL (0.8-4.8); Lymphocytes % 27.5 %; Mean Corpuscular HGB Conc 32.4 g/dL (30-55); Mean Corpuscular Hemoglobin 29.1 pg (27-33); Mean Corpuscular Volume 89.7 fl (85-98); Mean Platelet Volume 10.2 fL (7.4-10.4); Monocytes # 0.3 10^3/uL (0.2-0.9); Monocytes % 3.3 %; Neutrophils # 6.75 10^3/uL (1.8-7.7); Neutrophils % 66.9 %; Nucleated Red Blood Cells % 0 %; Platelet Count 404 10^3/cmm (157-399); Red Blood Count 5.54 10^6/uL (3.85-5.65); Red Cell Distribution Width 12.9 % (12.1-15.1); White Blood Count 10.08 10^3/uL (3.29-11.43)
[2025-03-11 11:09] LABS: Troponin(5th) Baseline 76 ng/L (0-10)
[2025-03-11 11:11] LABS: Alanine Aminotransferase 14 U/L (0-33); Albumin Level 3.9 g/dL (3.5-5.2); Alkaline Phosphatase 91 U/L (35-105); Anion Gap 14.5 (5-19); Aspartate Amino Transferase 18 U/L (0-32); Blood Urea Nitrogen 19 mg/dL (6-20); Calcium 9.5 mg/dL (8.5-10.5); Carbon Dioxide 28 mmol/L (22-29); Chloride 99 mmol/L (98-107); Creatinine Clr Calc Pharmacy 67.8739; Globulin 3.4 g/dL (1.3-4.6); Glomerular Filtration Rate 54.5 mL/min (90-130); Glucose 101 mg/dL (65-115); Osmolality Calculated 286 mOsm/kg (285-295); Potassium 4.5 mmol/L (3.5-5.1); Sodium 137 mmol/L (136-145); Total Bilirubin 0.3 mg/dL (0.15-1.2); Total Protein 7.3 g/dL (6.6-8.7)
[2025-03-11 11:13] LABS: INR 0.91 (0.8-1.2); Partial Thromboplastin Time 29.6 SECONDS (23.9-36.7)
--- NOTE | 2025-03-11 11:25 | PC.NURSE ---
pt refusing to give urine sample. this nurse offered assistance to bathroom, commode, and cath. pt refusing all options; Dr. Mancia notified.
[2025-03-11] MEDS: labetalol 5 mg/mL SDV 20mL 10 MG IVP (11:31)
[2025-03-11] MEDS: FUROsemide 10 mg/mL SDV 4mL 40 MG IVP (11:31)
[2025-03-11 12:01] LABS: Bilirubin Urine Negative (Negative); Blood Urine Negative (Negative); Glucose Urine UA Negative (Normal); Ketones Urine Negative (Negative); Leukocyte Esterase Urine Negative (Negative); Nitrate Urine Negative (Negative); Protein Urine Negative (Negative); Specific Gravity, Urine 1.008 (1.005-1.030); Urine Appearance Clear (CLEAR); Urine Color Yellow (Yellow); Urobilinogen Urine 0.2 mg/dL (Negative)
[2025-03-11 12:06] LABS: Add Urine Microscopic? YES; Bacteria Urine None Seen /hpf; Hyaline Casts Urine 0-4 /lpf; RBC Urine 0-2 /hpf (0-2); Squamous Epithelial Cell Urine 0-5 /hpf (0-5); WBC Urine 0-5 /hpf (0-5)
[2025-03-11 12:10] LABS: Amphetamines Screen Urine Positive (Negative); Barbiturates Screen Urine Negative (Negative); Benzodiazepines Screen Urine Positive (Negative); Cocaine Screen Urine Negative (Negative); Opiate Screen Urine Negative (Negative); PCP Screen Urine Negative (Negative); THC Screen Urine Positive (Negative)
--- NOTE | 2025-03-11 12:28 | PC.NURSE ---
pt extremely agitated, states she did not have call light in reach and was about to have panic attack. call light wrapped around bed rail and hanging over by floor; pt requesting to leave. Dr. Mancia notified and at bedside. pt c/o not being hooked up to monitor but unhooked self to use restroom; pt also refusing to keep b/p cuff on, see previous notes. pt was not alert during most of visit, was sleeping. pt family member who was at bedside on arrival was very calm, appropriate and apologetic of pt behavior. pt demanding IV be removed and refusing to wait for d/c or AMA form. IV removed by this nurse, pt exited ER approx @1230
== END 2025-03-11 12:45 | disposition home or self-care (01) ==
PROVIDERS: Emergency Provider Family Medicine; PCP Family Medicine
DX: R07.9 Chest pain, unspecified (principal); I10 Essential (primary) hypertension; Z86.73 Personal history of transient ischemic attack (TIA), and cerebral infarction without residual deficits; Z72.0 Tobacco use; E78.5 Hyperlipidemia, unspecified
CPT/HCPCS: 36416; 70450; 71045; 80053; 80306; 81001; 82962; 84484; 85025; 85610; 85730; 93005; 96374; 96375; 99285; J1940; J3490

== ENCOUNTER 2025-04-26 22:00 | Inpatient (IN) | payer MEDICAID, SELFPAY ==
[2025-04-26 22:00] VITALS: BP 195/121; PULSE 98; RESP 17; TEMP 36.4; O2SAT 94
--- NOTE | 2025-04-26 22:09 | ECG_ITS ---
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 Measurements Intervals [place] Rate: 96 P: 47 AK: 159 QRS: -42 QRSD: 98 T: 91 QT: 372 QTc: 472 Interpretive Statements SINUS RHYTHM LEFT ATRIAL ENLARGEMENT [-0.15mV P-WAVE IN V1/V2] LEFT AXIS DEVIATION [QRS AXIS < -30] POSSIBLE LEFT VENTRICULAR HYPERTROPHY [VOLTAGE CRITERIA PLUS LAE OR QRS WIDENING] POSSIBLE ANTEROSEPTAL MYOCARDIAL INFARCTION , OF INDETERMINATE AGE [30 ms Q WAVE IN V1-V4] Compared to ECG 03/11/2025 10:27:43 Atrial abnormality now present Left-axis deviation now present Myocardial infarct finding now present T-wave abnormality no longer present Electronically Signed On 04-28-2025 17:29:20 CDT by Marcelino Lanza M.D. [email or web address]
--- NOTE | 2025-04-26 22:19 | ED_ITS ---
HPI - Chest Pain 2 General: Chief Complaint: Chest Pain Stated Complaint: SOB Time Seen by Provider: 04/26/25 22:04 History of Present Illness: Patient is a 44-year-old female not on medications notes 4-5 hours of increasing chest pain associated with shortness of breath. This is the central left area of her chest. It is worse with activity. Denies previous cardiac workup. Denies previous coronary artery disease. Risk factors include smoking. No early family history. Blood pressure is quite elevated in triage. Denies fever, cough. Denies nausea, vomiting. Associated symptoms: Reports dyspnea; Deny abdominal pain, fever(s), nausea, palpitations or vomiting Related Data Previous Rx's ?Medication ?Instructions ?Recorded azithromycin 500 mg tablet See Rx Instructions PO .COM PLEX #3 04/27/25 tabs furosemide 40 mg tablet (Lasix) 40 mg PO QAM #30 tabs 04/27/25 potassium chloride 10 mEq 10 meq PO DAILY 30 days #30 caps 04/27/25 capsule,extended release Allergies Allergy/AdvReac Type Severity Reaction Status Date / Time morphine Allergy Severe vomiting Verified 03/23/23 12:54 Penicillins Allergy ALGY-Rash Verified 03/23/23 12:54 Review of Systems 2 General: Reports: 10 or more systems reviewed and unremarkable except in HPI and below Const: Denies: fever(s) or chills Eyes: Denies: change in vision or blurry vision ENMT: Denies: throat pain or mouth pain Card: Reports: chest pain; Denies: palpitations Resp: Reports: dyspnea and non-productive cough GI: Denies: abdominal pain, nausea or vomiting : Denies: flank pain or difficulty voiding Musc: Denies: neck pain or back pain Skin/Breast: Denies: rash or pruritus Neuro: Denies: headache(s), numbness in extremities or sensory changes Psych: Denies: anxiety or depression Endo: Denies: polyuria or polydipsia [place]/Lymph: Denies: easy bruising or easy bleeding All/Imm: Denies: urticaria or throat swelling PFSH ED 2 PFSH: Medical History Sinus tachycardia Lumbar stenosis with neurogenic claudication GERD (gastroesophageal reflux disease) No pertinent past medical history neghx: dm,thyroid,dvt/pe PCP: Lupe Kwan Hx of hyperlipidemia Anxiety Smoking addiction Hypertension Surgical History Hx of section 06/17/2002 01/05/2010 Hx of laparoscopy (~07/30/12) Diagnostic Laparoscopy perfomed by Dr. Nabor Ernst at [facility] in [place], [place]. Diagnosis: abdominal pain, pelvic pain Family History Father CAD (coronary artery disease) quadruple bypass Stroke before 60 Heart disease Hypertension Mother CAD (coronary artery disease) [place] and stents Stroke before the age of 60 Heart disease Hypertension Family/Other No problems noted. Denies family history of Colon cancer Ovarian cancer Diabetes Breast cancer Uterine cancer Thyroid disease Social History Smoking and tobacco/nicotine status: current every day tobacco/nicotine user Alcohol intake: current Alcohol intake frequency: 0-2 Drinks per Day Substance/Drug Use: current Physical Exam 2 Const: COMMON NORMALS: patient oriented x3 HENMT: COMMON NORMALS: normocephalic and atraumatic HEAD & SCALP: n ormocephalic and atraumatic FACE & SINUS: normal facial exam MOUTH: Normal oral and palatal mucosa present and lip normal THROAT: posterior oropharynx normal and tonsils normal Lymph: LYMPHATIC: no lymphadenopathy noted Chest: COMMONS NORMALS: normal inspection of the chest and normal palpation of entire chest wall Resp: COMMON NORMALS: normal respiratory effort, No retractions and No use of accessory muscles EFFORT & INSPECTION: Yes able to speak in complete sentences AUSCULTATION: crackles Laterality: right and posterior Cardio: COMMON NORMALS: regular rate and regular rhythm RATE: regular rate RHYTHM: regular rhythm GI: COMMON NORMALS: Normal to inspection, nondistended, normoactive bowel sounds present, Soft to palpation and non-tender PALPATION: Yes Soft to palpation : COMMON NORMALS: Yes no CVA tenderness and Yes normal external appearance BLADDER/KIDNEY EXAM: Yes no CVA tenderness Back/Pelvis: COMMON NORMALS: no CVA tenderness and thoracic and lumbar spine normal to inspection Extremity: COMMON NORMALS: normal to inspection, full ROM and capillary refill normal Neuro: GOLDY COMA SCALE: GCS not evaluated COMMON NORMALS: patient oriented x3 and CN's II-XII intact bilaterally Psych: COMMON NORMALS: mental status grossly normal and Normal thought process present THOUGHT PROCESS: Normal thought process present Skin: COMMON NORMALS: no rashes or lesions noted and no wounds GENERAL SKIN EXAM: no rashes or lesions noted Course 2 Consultations: Consultation #1: Dr. Nieto accepted at 0142 Consultation #2: Dr. Mccauley accepted at 0139 Vital Signs: Vital signs: Vital Signs Temperature 97.5 F L 04/26/25 22:00 Pulse Rate 92 04/26/25 23:40 Respiratory Rate 20 H 04/26/25 23:40 Blood Pressure 182/131 04/26/25 23:40 Pulse Oximetry 97 04/26/25 23:40 Oxygen Delivery Me thod Room Air 04/26/25 23:40 MDM - Chest Pain Medical Decision Making Patient is 44-year-old female that presents to ED due to chest pain and shortness of breath. On physical examination right lower lobes were heard with association of crackles. On workup, her D-dimer was elevated which prompted a CTA of the chest. On CTA pulmonary edema versus infiltrate was noted. I do suspect an association of pulmonary edema with systolic heart failure given her cardiomegaly. Additional differentials would be diastolic dysfunction given her elevation of blood pressure. In any event she will need diuresis, so I have ordered her Lasix, potassium replacement, and also antibiotics for possible infectious infiltrate. Second troponin is pending. Second troponin is elevated in her 48. EKG does not show ST segment elevation, however LVH, nonspecific ST segment changes were noted. Currently, second EKG is pending. Discussed with cardiology that excepted as consultation tomorrow. Discussed with hospitalist that excepted admission. Oxygen saturation decreased to 85% however patient was asleep. Initially oxygen was placed on patient, however when she is awake she is running 95%. I suspect this is chronic. She did ask for Ativan by name, however I declined due to her hypoxia during sleep, most likely a chronic sleep apnea issue. Lab Data 04/26/25 21:36 04/26/25 21:36 Radiology Impressions Chest X-Ray 04/26/25 22:19 IMPRESSION: No acute cardiopulmonary disease. Chest CTA 04/26/25 23:43 IMPRESSION: 1. No evidence of pulmonary embolism. 2. Focal area of ground-glass and interstitial opacification central left upper lobe may represent focal pulmonary edema or atypical infection. 3. Areas of interlobular septal thickening and diffuse ground-glass opacification are nonspecific. Differential diagnosis includes pulmonary edema atypical infection. 4. Small right pleural effusion. 5. Marked cardiomegaly. Additional findings above could all be related to CHF. Laboratory Results WBC 12.80 10^3/uL (3.29-11.43) H 04/26/25 21:36 RBC 4.89 10^6/uL (3.85-5.65) 04/26/25 21:36 Hgb 14.10 g/dL (11.27-16.99) 04/26/25 21:36 Hct 42.9 % (36-47) 04/26/25 21:36 MCV 87.7 fl (85-98) 04/26/25 21:36 MCH 28.8 pg (27-33) 04/26/25 21:36 MCHC 32.9 g/dL (30-55) 04/26/25 21:36 RDW 13.8 % (12.1-15.1) 04/26/25 21:36 Plt Count 370 10^3/cmm (157-399) 04/26/25 21:36 MPV 10.5 fL (7.4-10.4) H 04/26/25 21:36 Neut % (Auto) 80.2 % 04/26/25 21:36 Lymph % (Auto) 16.3 % 04/26/25 21:36 [place] % (Auto) 2.6 % 04/26/25 21:36 Eos % (Auto) 0.1 % 04/26/25: Baso % (Auto) 0.4 % 04/26/25 21:36 Neut # (Auto) 10.28 10^3/uL (1.8-7.7) H 04/26/25 21:36 Lymph # (Auto) 2.1 10^3/uL (0.8-4.8) 04/26/25 21:36 [place] # (Auto) 0.3 10^3/uL (0.2-0.9) 04/26/25 21:36 Eos # (Auto) 0.0 10^3/uL (0.0-0.8) 04/26/25 21:36 Baso # (Auto) 0.1 10^3/uL (0.0-0.1) 04/26/25 21:36 Nucleated RBC % (auto) 0 % 04/26/25 21:36 Nucleated RBCs # 0.0 /100WBC 04/26/25 21:36 D-Dimer 5.11 ug/mLFEU (0-0.59) H 04/26/25 21:36 Sodium 137 mmol/L (136-145) 04/26/25 21:36 Potassium 3.6 mmol/L (3.5-5.1) 04/26/25 21:36 Chloride 99 mmol/L (98-107) 04/26/25 21:36 Carbon Dioxide 20 mmol/L (22-29) L 04/26/25 21:36 Anion Gap 21.6 (5-19) H 04/26/25 21:36 BUN 18 mg/dL (6-20) 04/26/25 21:36 Creatinine 1.1 mg/dL (0.5-0.9) H 04/26/25 21:36 GFR Calculation 54.5 mL/min (90-130) L 04/26/25 21:36 Glucose 107 mg/dL (65-115) 04/26/25 21:36 Calculated Osmolality 286 mOsm/kg (285-295) 04/26/25 21:36 Calcium 9.5 mg/dL (8.5-10.5) 04/26/25 21:36 Total Bilirubin 0.6 mg/dL (0.15-1.2) 04/26/25 21:36 AST 26 U/L (0-32) 04/26/25 21:36 ALT 26 U/L (0-33) 04/26/25 21:36 Alkaline Phosphatase 124 U/L (35-105) H 04/26/25 21:36 Troponin T Baseline 55 ng/L (0-10) H 04/26/25 21:36 Troponin T 120 Minute 848.4 ng/L (0-10) H 04/27/25 00:55 Delta Troponin T 793.4 ABS# (0-10) H* 04/27/25 00:55 NT-Pro-B Natriuret Pep 98473 pg/mL (0-125) H 04/26/25 21:36 Total Protein 7.8 g/dL (6.6-8.7) 04/26/25 21:36 Albumin 3.9 g/dL (3.5-5.2) 04/26/25 21:36 Globulin 3.9 g/dL (1.3-4.6) 04/26/25 21:36 Influenza A (PCR) Negative (Negative) 04/26/25 22:41 Influenza Type B (PCR) Negative (Negative) 04/26/25 22:41 RSV (PCR) Negative (Negative) 04/26/25 22:41 SARS-CoV-2 (PCR) Negative (Negative) 04/26/25 22:41 All radiology interpretation(s) finalized by discharge ED provider radiology interpretation(s): xray-no acute CT-cardiomegaly, infiltrate on right with pulmonary edema associated Discharge Plan Discharge Patient Disposition: Admitted As Inpatient Clinical Impression: Non-ST elevation (NSTEMI) myocardial infarction, Acute congestive heart failure, Bacterial pneumonia, unspecified Condition: Stable Discharge Diet: Low Salt Discharge Activity: Limit activity as instructed Coding Level of Care Code ED Assignment Desk Assistant for Desiree Gaxiola
--- NOTE | 2025-04-26 22:19 | XRR_ITS ---
PROCEDURE INFORMATION: Exam: XR Chest Exam date and time: 04/26/2025 10:29 PM Age: 44 years old Clinical indication: Shortness of breath; Chest pressure; C/O chest pain with SOB. ; Additional info: Short of breath TECHNIQUE: Imaging protocol: Radiologic exam of the chest. Views: 1 view. COMPARISON: CR XR chest 1V portable [id number] 03/11/2025 10:47 AM FINDINGS: Lungs: No pulmonary consolidation. Pleural spaces: No pleural effusion or pneumothorax. Heart/Mediastinum: Moderate cardiomegaly. Diaphragm: Stable elevation of the right hemidiaphragm. Decreased interstitial prominence. Bones/joints: No acute osseous abnormalities are seen. XR/XR chest 1V portable [id number] IMPRESSION: No acute cardiopulmonary disease.
[2025-04-26 22:32] LABS: Basophils # 0.1 10^3/uL (0.0-0.1); Basophils % 0.4 %; Eosinophils % 0.1 %; Hematocrit 42.9 % (36-47); Lymphocytes # 2.1 10^3/uL (0.8-4.8); Lymphocytes % 16.3 %; Mean Corpuscular HGB Conc 32.9 g/dL (30-55); Mean Corpuscular Hemoglobin 28.8 pg (27-33); Mean Corpuscular Volume 87.7 fl (85-98); Mean Platelet Volume 10.5 fL (7.4-10.4); Monocytes # 0.3 10^3/uL (0.2-0.9); Monocytes % 2.6 %; Neutrophils # 10.28 10^3/uL (1.8-7.7); Neutrophils % 80.2 %; Nucleated Red Blood Cells % 0 %; Platelet Count 370 10^3/cmm (157-399); Red Blood Count 4.89 10^6/uL (3.85-5.65); Red Cell Distribution Width 13.8 % (12.1-15.1)
[2025-04-26 22:42] VITALS: PULSE 99; RESP 16; O2SAT 98
[2025-04-26 22:42] LABS: Troponin(5th) Baseline 55 ng/L (0-10)
[2025-04-26 22:45] LABS: Alanine Aminotransferase 26 U/L (0-33); Albumin Level 3.9 g/dL (3.5-5.2); Alkaline Phosphatase 124 U/L (35-105); Aspartate Amino Transferase 26 U/L (0-32); Blood Urea Nitrogen 18 mg/dL (6-20); Calcium 9.5 mg/dL (8.5-10.5); Carbon Dioxide 20 mmol/L (22-29); Chloride 99 mmol/L (98-107); Globulin 3.9 g/dL (1.3-4.6); Glomerular Filtration Rate 54.5 mL/min (90-130); Glucose 107 mg/dL (65-115); Osmolality Calculated 286 mOsm/kg (285-295); Sodium 137 mmol/L (136-145); Total Bilirubin 0.6 mg/dL (0.15-1.2); Total Protein 7.8 g/dL (6.6-8.7)
[2025-04-26 22:46] LABS: Anion Gap 21.6 (5-19); Potassium 3.6 mmol/L (3.5-5.1)
[2025-04-26] MEDS: OLANZapine 5 mg ODT PO (23:01)
[2025-04-26 23:09] LABS: D Dimer 5.11 ug/mLFEU (0-0.59)
[2025-04-26 23:21] LABS: Influenza A NEGATIVE (Negative); Influenza B NEGATIVE (Negative); Respiratory Syncytial Virus Ce NEGATIVE (Negative); SARS-CoV-2 PCR NEGATIVE (Negative)
[2025-04-26 23:34] LABS: NT Pro B Type Natriuretic Pept 37730 pg/mL (0-125)
[2025-04-26 23:40] VITALS: BP 182/131; PULSE 92; RESP 20; O2SAT 97
[2025-04-26] MEDS: hyDROXYzine 25 mg Capsule 50 MG PO (23:40)
[2025-04-26] MEDS: hyDRALAzine 25 mg Tablet PO (23:40)
--- NOTE | 2025-04-26 23:43 | CTR_ITS ---
PROCEDURE INFORMATION: Exam: CTA Chest With Contrast Exam date and time: 04/27/2025 12:13 AM Age: 44 years old Clinical indication: Pain and abnormal findings; Abnormal diagnostic tests; Elevated d-dimer; Shortness of breath; Chest pressure; C/O chest pain with SOB. Dimer 5.11. ; Additional info: Chest pain with elevated d dimer TECHNIQUE: Imaging protocol: Computed tomographic angiography of the chest with contrast. Exam focused on the arteries. 3D rendering (Not supervised by radiologist): MIP and/or 3D reconstructed images were created by the technologist. Radiation optimization: All CT scans at this facility use at least one of these dose optimization techniques: automated exposure control; mA and/or kV adjustment per patient size (includes targeted exams where dose is matched to clinical indication); or iterative reconstruction. Contrast material: OMNI 350; Contrast volume: 80 ml; Contrast route: INTRAVENOUS (IV); COMPARISON: CT angio chest [id number] 01/19/2022 1:35 AM RADIATION DOSE METRICS: Total DLP (mGy-cm): 400 FINDINGS: Limitations: Breathing artifact. Pulmonary arteries: The pulmonary arteries are adequately visualized to the segmental level and in some cases the subsegmental. Streak artifact is noted in the proximal right upper lobe pulmonary arteries. No filling defects are identified to suggest pulmonary artery embolism. The main pulmonary artery is normal in size. Aorta: The aorta is normal in course and caliber. No significant atherosclerotic calcifications are present. Lungs: Focal area of ground-glass and interstitial opacification central left upper lobe may represent focal pulmonary edema or atypical infection. Areas of interlobular septal thickening and diffuse ground-glass opacification are nonspecific. Pleural spaces: Small right pleural effusion. No left pleural effusion. No pneumothorax Heart: Marked cardiomegaly. No pericardial effusion. Breathing artifact limits evaluation of the pulmonary parenchyma. There is mosaic attenuation. Coronary arteries: No coronary artery calcification. Lymph nodes: No enlarged lymph nodes are identified. Bones/joints: No acute osseous abnormalities are seen. Soft tissues: The soft tissues are within normal limits. CT/CT angio chest PE protcl [id number] IMPRESSION: 1. No evidence of pulmonary embolism. 2. Focal area of ground-glass and interstitial opacification central left upper lobe may represent focal pulmonary edema or atypical infection. 3. Areas of interlobular septal thickening and diffuse ground-glass opacification are nonspecific. Differential diagnosis includes pulmonary edema atypical infection. 4. Small right pleural effusion. 5. Marked cardiomegaly. Additional findings above could all be related to CHF.
[2025-04-27] VITALS (126 sets, daily range): BP systolic 96–201; BP diastolic 57–144; PULSE 66–97; RESP 10–34; TEMP 36.8–37.3; O2SAT 86–100
[2025-04-27] MEDS: iohexol 350 mg/mL 500 mL Btl (per mL) IV (00:13)
--- NOTE | 2025-04-27 00:19 | ECG_ITS ---
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 Measurements Intervals [place] Rate: 92 P: 62 MN: 148 QRS: -58 QRSD: 93 T: 82 QT: 385 QTc: 477 Interpretive Statements SINUS RHYTHM POSSIBLE RIGHT ATRIAL ENLARGEMENT [0.25mV P-WAVE] LEFT ATRIAL ENLARGEMENT [-0.15mV P-WAVE IN V1/V2] LEFT AXIS DEVIATION [QRS AXIS < -30] LEFT VENTRICULAR HYPERTROPHY AND ST-T CHANGE [VOLTAGE CRITERIA PLUS ST/T ABNORMALITY] POSSIBLE ANTEROSEPTAL MYOCARDIAL INFARCTION , OF INDETERMINATE AGE [30 ms Q WAVE IN V1-V4] Compared to ECG 04/26/2025 22:10:15 ST (T wave) deviation now present Myocardial infarct finding still present Electronically Signed On 04-28-2025 17:51:41 CDT by Marcelino Lanza M.D. [id number]
[2025-04-27 01:24] LABS: Troponin 5 2HR 848.4 ng/L (0-10); Troponin 5 2HR Delta 793.4 ABS# (0-10)
[2025-04-27] MEDS: azithromycin 250 mg Tablet 500 MG PO (02:05)
--- NOTE | 2025-04-27 02:05 | USCV_ITS ---
Katey Romeo Age: 44 Gender: F : 1980 Exam Date: 04/27/2025 09:24 Ordering Phys: Geri Nieto MD Technologist: Exam Location: [facility] [place] Indication: nstimi BP: 134 / 73 HR: 78 Rhythm: Sinus Technical Quality: MEASUREMENTS (Male / Female) Normal Values 2D ECHO LV Diastolic Diameter PLAX 5.5 cm 4.2 - 5.9 / 3.9 - 5.3 cm IVS Diastolic Thickness 1.6 cm 0.6 - 1.0 / 0.6 - 0.9 cm IVS Systolic Thickness 1.6 cm LVPW Diastolic Thickness 1.8 cm 0.6 - 1.0 / 0.6 - 0.9 cm LVPW Systolic Thickness 2.1 cm LVOT Diameter 2.3 cm LV Ejection Fraction 2D Teich 13.3 % LV Ejection Fraction MOD 2C 30.5 % LV Ejection Fraction 2C AL 29.7 % LA Diameter 4.7 cm RA Systolic Volume 4C AL 63.9 ml RA Systolic Volume 4C MOD 61.4 ml LA Sys Volume AL 107.3 cm cubed LA Sys Volume Index AL 54.3 cm cubed/m squared IVC Diameter 2.1 cm M-MODE LA Ao Ratio MM 1.6 AV Cusp Separation MM 2.3 cm DOPPLER AV Peak Velocity 98.0 cm/s LVOT Peak Velocity 64.0 cm/s AV Area Cont Eq vti 2.7 cm squared AV Area Cont Eq pk 2.6 cm squared MV Peak Velocity 109.0 cm/s TV Peak Velocity 126.0 cm/s TR Peak Velocity 178.0 cm/s TR Peak Gradient 12.7 mmHg FINDINGS Left Ventricle Left ventricle is dilated. LV systolic function is severely reduced with EF of 20-25%. Severe global hypokinesis. Right Ventricle Grossly hypokinetic Right Atrium Normal in size Left Atrium Dilated Mitral Valve Mild mitral annular calcification. Mild mitral regurgitation Aortic Valve Structurally normal aortic valve. Tricuspid Valve Mild tricuspid regurgitation. RVSP is 35-40 mmHg. This is consistent with mild pulmonary hypertension Pulmonic Valve Not well visualized Pericardium Normal Aorta Normal in size IVC Appears to be dilated CONCLUSIONS Left ventricle is dilated. LV systolic function is severely reduced with EF of 20-25%. Left atrial dilation. RV is grossly hypokinetic. Mild mitral regurgitation. Mild tricuspid regurgitation. Mild pulmonary hypertension. IVC appears to be dilated. Marcelino Lanza MD (Electronically Signed) Final Date: 27 April 2025 10:08 S
[2025-04-27] MEDS: aspirin 81 mg Chew Tablet 324 MG PO (02:06)
[2025-04-27] MEDS: clopidogrel 300 mg Tablet PO (02:06)
[2025-04-27] MEDS: nitroglycerin 1 gm/inch oint Pkt 0.5 INCH TOPICAL (02:06)
[2025-04-27] MEDS: FUROsemide 10 mg/mL SDV 4mL 40 MG IVP (02:06)
[2025-04-27] MEDS: cefTRIAXone 2,000 mg SDV 2000 MG IVP (02:07)
--- NOTE | 2025-04-27 02:08 | P.HP_ITS ---
Providers/Chief Complaint 2 Admitting Physician: Patient seen after 12 midnight Primary Care Provider: Audelia Kwan DO Chief Complaint: SOB History of Present Illness Katey Romeo is a 44 year old female with medical history significant for nicotine addiction congestive heart failure, methamphetamine use who presented to the emergency room just 3 hours prior with complaints of chest pain at home but the chest pain resolved at the time patient presented to the emergency room. Workup we are initiated by the attending ED physician. Initial troponin was 54 and second troponin was 848. The cardiology Dr. Mccauley was consulted by the emergency room department and he instructed to start patient on heparin drip and give patient aspirin and some Lasix. Patient indeed at this time is in no acute heart failure. And patient definitely it is non-STEMI. Cardiology on case and will be following up with the patient. Patient is going to be going to stepdown unit. Review of Systems 2 Narrative: Generally patient is in no apparent distress I have seen and evaluated patient in the emergency room. Sister reviewed open 10 organ system review entirely unremarkable at this time patient had no shortness of breath no chest pains and denies any complaints at the moment. Medications/Allergies Home Medications ?Medication ?Instructions ?Recorded ?Confirmed ?Last Taken ?Type azithromycin 500 mg tablet See Rx Instructions PO .COM PLEX #3 04/27/25 Unknown Rx tabs furosemide 40 mg tablet (Lasix) 40 mg PO QAM #30 tabs 04/27/25 Unknown Rx potassium chloride 10 mEq 10 meq PO DAILY 30 days #30 caps 04/27/25 Unknown Rx capsule,extended release Allergies Allergy/AdvReac Type Severity Reaction Status Date / Time morphine Allergy Severe vomiting Verified 03/23/23 12:54 Penicillins Allergy ALGY-Rash Verified 03/23/23 12:54 PFSH Acute 2 PFSH: Medical History Sinus tachycardia Lumbar stenosis with neurogenic claudication GERD (gastroesophageal reflux disease) No pertinent past medical history neghx: dm,thyroid,dvt/pe PCP: Lupe Kwan Hx of hyperlipidemia Anxiety Smoking addiction Hypertension Surgical History Hx of section 06/17/2002 01/05/2010 Hx of laparoscopy (~07/30/12) Diagnostic Laparoscopy perfomed by Dr. Nabor Ernst at [facility] in [place], [place]. Diagnosis: abdominal pain, pelvic pain Family History Father CAD (coronary artery disease) quadruple bypass Stroke before 60 Heart disease Hypertension Mother CAD (coronary artery disease) [place] and stents Stroke before the age of 60 Heart disease Hypertension Family/Other No problems noted. Denies family history of Colon cancer Ovarian cancer Diabetes Breast cancer Uterine cancer Thyroid disease Social History Smoking and tobacco/nicotine status: current every day tobacco/nicotine user Alcohol intake: current Alcohol intake frequency: 0-2 Drinks per Day Substance/Drug Use: current Vitals/I&O/Wt Last Vital Signs Temp 97.5 F L 04/26/25 22:00 Pulse 91 04/27/25 02:06 Resp 20 H 04/26/25 23:40 BP 154/94 04/27/25 02:06 Pulse Ox 97 04/26/25 23:40 O2 Del Method Room Air 04/26/25 23:40 Weight last 48 hrs Weight 89.176 kg Physical Exam 2 Narrative: Generally patient is in no apparent distress HEENT normocephalic/atraumatic neck neck is supple cardiovascular heart rate is regular lungs are pretty coarse breath sounds. Abdomen soft nontender nondistended unremarkable extremities are intact no edema has good pulses neurology has no focality lab studies lab studies reviewed admitted. Data 04/26/25 21:36 04/26/25 21:36 A&P Assessment and plan (1) Non-ST elevation (NSTEMI) myocardial infarction: Patient is with NSTEMI with rising troponin from a 54 to 848 - Admit to stepdown unit on telemetry - Initiate heparin drip cardiology protocol for NSTEMI - Full aspirin given and to continue daily aspirin - Nitro 1 inch Q6 to anterior chest wall - Supplemental oxygen - Cardiology consultation with Dr. Mccauley who is going to be seeing the patient on consultation (2) History of congestive heart failure: This is a history of patient does not have any radiographic signs of volume overload or congestive heart failure at this moment. Patient may continue home medication of oral Lasix. - Patient was given IV Lasix in the emergency room by the emergency room attending - Continue and maintain with home medication. 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 Smoking cessation discussed patient verbalized that he does not smoke much hardly smoke half a pack of cigarette per still does a lot. Case discussed about disease process and the setting of NSTEMI. Plan GI and DVT prophylaxis in place PDMP PDMP Reviewed: Last Reviewed 04/27/25 02:38 by Geri Nieto MD Attestations 2 Medical Necessity Statement*: Patient is with chest pain resulting in NSTEMI and requiring further care and optimization that we will need at least 2 midnights making patient inpatient. Coding Level of Care Code 58858 Diagnoses Non-ST elevation (NSTEMI) myocardial infarction I21.4 History of congestive heart failure Z86.79 Amphetamine use F15.90 Anxiety F41.9 Smoking addiction F17.200 Time Spent (min) 60
[2025-04-27] MEDS: pantoprazole 40 mg SDV IVP (02:27)
[2025-04-27] MEDS: HYDROmorphone 0.5 MG/0.5 ML INJ 1 MG IVP (02:28)
[2025-04-27] MEDS: heparin 5,000 unit/mL INJ 1 mL IVP (02:28)
[2025-04-27] MEDS: heparin drip 25,000 UNIT/500 ML PREMIX 25 UNIT IV (02:32)
[2025-04-27] MEDS: AZITHROMYCIN ADD-Vantage 500 MG in 0.9% NaCl ADD-Vantage 250 ML 250 MG IV (04:08)
[2025-04-27] MEDS: nitroglycerin 1 gm/inch oint Pkt 1 INCH TOPICAL ×3 (04:08→16:14)
--- NOTE | 2025-04-27 04:09 | PC.NURSE ---
1/2 inch nitro paste removed and replaced with 1 inch nitrl paste. pt sleeping but able to be awoken via verbal stimuli. new iv placed to right forearm at this time. pt states pain improved
--- NOTE | 2025-04-27 04:41 | ECG_ITS ---
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 Measurements Intervals [place] Rate: 79 P: 74 NC: 152 QRS: -61 QRSD: 103 T: 80 QT: 442 QTc: 509 Interpretive Statements SINUS RHYTHM LEFT ATRIAL ENLARGEMENT [-0.15mV P-WAVE IN V1/V2] LEFT AXIS DEVIATION [QRS AXIS < -30] Compared to ECG 04/27/2025 01:58:53 Left ventricular hypertrophy no longer present ST (T wave) deviation no longer present Myocardial infarct finding still present Electronically Signed On 04-28-2025 17:51:34 CDT by Marcelino Lanza M.D. [email or web address] [id number]
--- NOTE | 2025-04-27 05:18 | PC.NURSE ---
0500- checking on patient and noted to agitated in bed. pt asked whats wrong and only nod of head return. asked pt if needed to urinate and patient states nod of head , yes. retrieved bedside commode and patient helped onto bedside. pt stating feeling of nausea. pt given 4 mg zofran approx 0510. pt helped back on bed and placed back on monitor. pt not wanting to communicate. pt given fan for comfort.
--- NOTE | 2025-04-27 05:26 | PC.NURSE ---
20 checked on patient. pt unwilling to answer nurse if feeling better but will nod head yes . pt on monitor technician.
[2025-04-27 06:56] LABS: Troponin 5 6HR 3046 ng/L (0-10); Troponin 5 6HR Delta 2991 ng/L (0-12)
--- NOTE | 2025-04-27 07:28 | PC.NURSE ---
ASSUMED CARE OF PATIENT AT 0700 FROM ALINE COTE.
--- NOTE | 2025-04-27 07:36 | PC.NURSE ---
THIS NURSE WAS NOTIFIED THAT BY NURSE TECH THAT PT WAS NOT WEARING HER OXYGEN. PT OXYGEN SATURATION WAS DROPPING AND NURSE TECH WAS EDUCATING PT THAT SHE NEEDED TO WEAR HER OXYGEN. NURSE TECH STATED THAT PT REFUSED TO ANSWER HER. THIS NURSE VERBALIZED UNDERSTANDING FROM NURSE TECH. THIS NURSE WENT TO ASSESS THE PT AND INFORMED PT THAT SHE NEEDED TO WEAR HER OXYGEN DUE TO OXYGEN SATURATIONS DROPPING. PT REFUSED TO ANSWER. THIS NURSE INFORMED PT THAT SHE NEEDED TO PUT THE OXYGEN ON AND PT STAYED SILENT AGAIN. THIS NURSE EDUCATED PT THAT SHE WOULD NEED TO SPEAK TO THIS NURSE SO SHE COULD PROVIDE APPROPRIATE CARE. PT ALLOWED THIS NURSE TO PUT NASAL CANNULA BACK ON PT. THIS NURSE ASKED PT IF SHE NEEDED ANYTHING. PT DENIED ANY FURTHER QUESTIONS OR NEEDS AT THIS TIME.
--- NOTE | 2025-04-27 08:05 | PC.NURSE ---
UNABLE TO COMPLETE PHYSICAL AND ADMISSION ASSESSMENT AT THIS TIME DUE TO PT REFUSING TO VERBALLY ANSWER QUESTIONS.
--- NOTE | 2025-04-27 08:45 | PC.NURSE ---
LAB NOTIFIED THIS NURSE THAT PT WAS REFUSING A REPEAT PTT DRAWN. CHARGE NURSE, ALINE ANTONIO, WENT INTO PT ROOM AND INFORMED PT THAT DUE TO HER IV NOT BEING ABLE TO DRAW, SHE WOULD NEED TO LET LAB DRAW THE REPEAT PTT. PT NODDED IN AGREEMENT. NO VERBAL RESPONSE MADE.
[2025-04-27 09:33] LABS: Partial Thromboplastin Time 163.4 SECONDS (23.9-36.7)
--- NOTE | 2025-04-27 09:38 | PC.NURSE ---
LAB NOTIFIED THIS NURSE OF CRITICAL PTT VALUE. THIS NURSE ATTEMPTED TO NOTIFY DR. SHAFFER. NO ANSWER. MESSAGE LEFT.
[2025-04-27 09:44] LABS: HCG, Serum Qual Negative (Negative)
--- NOTE | 2025-04-27 09:54 | PC.NURSE ---
TELEPHONE ORDERS FOR THIS NURSE TO STOP HEPARIN DRIP DUE TO CRITICAL PTT VALUE AND IF PT IS NOT TAKEN TO WIRE MESH GATE ASSEMBLER WITHIN AN HOUR TO NOTIFY HER.
--- NOTE | 2025-04-27 10:03 | PC.NURSE ---
DURING MEDICATION ADMINISTRATION, PT AWAKE AND TALKING ON THE PHONE. THIS NURSE INFORMS PT OF ORDERED MEDICATIONS. PT LOOKED AT THIS NURSE, VOICED THAT SHE DID NOT WANT THE STOOL SOFTENER, AND CONTINUED TO TALK ON THE PHONE. PT CONTINUED TO TALK ON THE PHONE DURING THE ENCOUNTER WITH THIS NURSE.
--- NOTE | 2025-04-27 10:28 | W.PM.OPSUD ---
Surgery/Procedure H&P Update DATE OF PROCEDURE: April 27, 2025 DATE H&P PERFORMED: 04/27/25 H&P UPDATE INFORMATION: I have reviewed H&P completed within last 30 days, I have examined patient prior to procedure and No changes to prior documentation PREOP DIAGNOSIS: NSTEMI/ LV dysfunction PRIMARY INDICATION FOR PROCEDURE: NSTEMI/ LV dysfunction PLANNED PROCEDURE: Left heart cath with possible percutaneous coronary intervention PATIENT REASSESSED PRIOR TO SEDATION, WITH NO CHANGE NOTED: Yes PHYSICAL EXAM: alert, oriented x 3, clear to auscultation bilaterally and regular rate & rhythm AIRWAY EVAL/ANESTHESIA PLAN: normal airway, ASA III, Local Anesthesia, Risks, benefits & alternatives of sedation and/or procedure discussed and Patient agrees to continue as planned ADDITIONAL INFORMATION: Moderate sedation
--- NOTE | 2025-04-27 10:37 | P.CONIM_ITS ---
<Statement entered by Marcelino Lanza M.D - 05/04/25 13:47> Patient was evaluated and cared for in conjunction with an advanced practice practitioner.? I personally examined the patient and reviewed the chart and all pertinent data including imaging, telemetry, and laboratory results.? I discussed the patient in detail with the advanced practice practitioner.? Please see? their note for complete consult note, testing results and agreed upon plan of care for the patient. Plan for coronary angiogram with possible PCI. GENERAL: Patient is drowsy HEART: Regular S1 and S2 LUNGS: Clear to auscultate bilaterally. CENTRAL NERVOUS SYSTEM: Grossly nonfocal. EXTREMITIES: Lower extremities without edema bilaterally. Providers/Reason For Consult 2 Consulting Physician/Specialty*: Dr. Lanza Reason for Consult*: Chest pain, NSTEMI Requesting Physician: Dr. Nieto Attending Physician: Johanna Amaya MD Primary Care Provider: Audelia Kwan DO History of Present Illness History of Present Illness Katey Romeo is a 44 year old female with a hx of sinus tachycardia, hyperlipidemia, family hx of heart disease, nicotine addiction and methamphetamine use who presented to the ER with complaints of chest pain at home. At this time, she is resting comfortably without any chest pain. She is a poor historian and does not hold a conversation very well. She states she has this happen all the time . She states she has no family for us to call and notify of the situation. Initial troponin on workup was [phone]. EKG showed sinus rhythm with no acute ST elevation or T wave abnormalities. Q waves were seen in anteroseptal leads. Dimer was high, and CTA chest ruled out PE. She had marked cardiomegaly with small right pleural effusion. Clinically, she appears well compensated. Creatinine was 1.1. Probnp was 77791. Echo was done but has not been read. BP is high at 175/125. She denies shortness of breath. Review of Systems 2 Narrative: Card: Denies chest pain, palpitations, irregular heart rhythm, edema, syncope, shortness of breath, orthopnea Resp: Denies shortness of breath GI: denies nausea or voimting Medications/Allergies Home Medications ?Medication ?Instructions ?Recorded ?Confirmed ?Last Taken ?Type azithromycin 500 mg tablet See Rx Instructions PO .COM PLEX #3 04/27/25 Unknown Rx tabs furosemide 40 mg tablet (Lasix) 40 mg PO QAM #30 tabs 04/27/25 Unknown Rx potassium chloride 10 mEq 10 meq PO DAILY 30 days #30 caps 04/27/25 Unknown Rx capsule,extended release Allergies Allergy/AdvReac Type Severity Reaction Status Date / Time morphine Allergy Severe vomiting Verified 03/23/23 12:54 Penicillins Allergy ALGY-Rash Verified 03/23/23 12:54 Current Medications Generic Name Dose Route Start Last Admin Trade Name Dong PRN Reason Stop Dose Admin Docusate Sodium 100 mg 04/27/25 09:00 04/27/25 09:52 Docusate Sodium 100 Mg Capsule PO Not Given BID MAX Heparin Sodium/Sodium Chloride 25,000 unit in 500 mls @ 0 mls/hr 04/27/25 02:15 04/27/25 09:58 Heparin Drip IV 0 unit/kg/hr CONT MAX 0 mls/hr Protocol Titration Per Protocol Nitroglycerin 1 inch 04/27/25 04:00 04/27/25 09:50 Nitroglycerin 1 Gm/Inch Oint Pkt TOPICAL 1 inch Q6H MAX Administration Pantoprazole Sodium 40 mg 04/27/25 02:15 04/27/25 02:27 Pantoprazole 40 Mg Sdv IVP 40 mg Q24H MAX Administration PFSH Acute 2 PFSH: Medical History Sinus tachycardia Lumbar stenosis with neurogenic claudication GERD (gastroesophageal reflux disease) No pertinent past medical history neghx: dm,thyroid,dvt/pe PCP: Lupe Kwan Hx of hyperlipidemia Anxiety Smoking addiction Hypertension Surgical History Hx of section 06/17/2002 01/05/2010 Hx of laparoscopy (~07/30/12) Diagnostic Laparoscopy perfomed by Dr. Nabor Ernst at [facility] in [place], [place]. Diagnosis: abdominal pain, pelvic pain Family History Father CAD (coronary artery disease) quadruple bypass Stroke before 60 Heart disease Hypertension Mother CAD (coronary artery disease) [place] and stents Stroke before the age of 60 Heart disease Hypertension Family/Other No problems noted. Denies family history of Colon cancer Ovarian cancer Diabetes Breast cancer Uterine cancer Thyroid disease Social History Smoking and tobacco/nicotine status: current every day tobacco/nicotine user Alcohol intake: current Alcohol intake frequency: 0-2 Drinks per Day Substance/Drug Use: current Vitals/I&O/Wt Last Vital Signs Temp 97.5 F L 04/26/25 22:00 Pulse 97 04/27/25 09:50 Resp 19 H 04/27/25 06:00 BP 175/125 04/27/25 09:50 Pulse Ox 100 04/27/25 09:49 O2 Del Method Nasal Cannula 04/27/25 09:59 O2 Flow Rate 2 04/27/25 09:49 04/26/25 04/27/25 04/27/25 22:59 06:59 14:59 Intake Total 250 / 250 185.833 / 185.833 Balance 250 / 250 185.833 / 185.833 Weight last 48 hrs Weight 196 lb 9.6 oz Physical Exam 2 Narrative: General: No apparent distress, healthy appearing, well nourished HENMT: normoceophalic Respiratory: Normal respiratory effort, clear to auscultation bilaterally throughout all lung rivas, no use of accessory muscles Cardio: No JVD, regular rate, regular rhythm, S1 S2 normal, no murmurs, peripheral pulses 2+ radial palpated bilaterally GI: Normal to inspection, nondistended Extremities: Full ROM, normal, normal capillary refill, no cyanosis or edema Neuro: Alert and oriented x4 Psych: Affect normal, mental status grossly normal Skin: No rashes or lesions noted, no wounds Data 04/26/25 21:36 04/26/25 21:36 A&P Assessment and plan (1) Chest pain: (2) Intermittent palpitations: (3) Benign essential hypertension with target blood pressure below 140/90: (4) Hypertensive emergency: (5) Acute congestive heart failure: (6) Non-ST elevation (NSTEMI) myocardial infarction: (7) History of congestive heart failure: Plan At this time, patient has had evidence of NSTEMI with high troponins up to over 3000. Chest pain was severe prior to arrival, but has not resolved. We recommend taking patient to the engineer [facility]ophysical laboratory for coronary angiogram with possible PCI for unstable angina. Patient was educated on the procedure as well as the risks by Dr. Lanza, and she fully agrees to proceed. We will be taking her this morning. Further recommendations to follow. Thank you, Dr. Nieto, for allowing us to care for this very pleasant 44 year old female. PDMP PDMP Reviewed: Not Reviewed Coding Level of Care Code Acute Code for [facility] Fwd Diagnoses Chest pain, unspecified type R07.9 Chest pain type: unspecified Intermittent palpitations R00.2 Benign essential hypertension with target blood pressure below 140/90 I10 Hypertensive emergency I16.1 Acute congestive heart failure I50.9 Heart failure type: unspecified Non-ST elevation (NSTEMI) myocardial infarction I21.4 History of congestive heart failure Z86.79
--- NOTE | 2025-04-27 11:58 | PM.PROC ---
Procedure Note: Date of procedure: 04/27/25 Pre-procedure diagnosis: NSTEMI Post-procedure diagnosis: other (Severe proximal to mid LAD stenosis s/p PCI with 2 stents) Procedure: Severe proximal to mid LAD stenosis status post PCI with 2 stents. RCA has significant stenosis. Plan for staged PCI. Aspirin and plavix Blood pressure control. Performing Provider: Marcelino Lanza Estimated blood loss (mL): 10 Complications: None Condition: stable Disposition: floor Coding [facility] Care [facility]
[2025-04-27] MEDS: sodium chloride 0.9% 1,000 ML 50 ML IV (12:00)
--- NOTE | 2025-04-27 12:00 | PC.NURSE ---
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 pt alert and oriented once awakened. pt very drowsy after moderate sedation. pt complains of no pain. tr band on right wrist with no hematoma or bruise noted. pt and family educated on restrictions of right wrist. pt and family both acknowledged understanding. pt to be monitored per protocol. nurse to educate pt throughout recovery regarding restrictions.
[2025-04-27] MEDS: amlodipine 10 mg Tablet PO (12:55)
--- NOTE | 2025-04-27 14:01 | PM.MISC ---
Miscellaneous Note Purpose of Documentation: Overnight labs and H&P reviewed. Patient is status post PCI With findings of severe proximal to mid LAD stenosis. Status post 2 stents. RCA has significant stenosis and its plan for a staged PCI. Continue aspirin and Plavix. Discontinue heparin drip. Echocardiogram reviewed, EF 20 to 25%. CT chest with areas of interlobular septal thickening and diffuse GGO's, likely pulmonary edema. Small right pleural effusion. Patient has been placed on a nitroprusside drip which will be continued. Awaiting transfer from ER to CSU
--- NOTE | 2025-04-27 15:02 | PC.NURSE ---
Patient transferred from [facility] to [facility] with a right radial TR-band at 1500. Currently has Nitropress running at 2.5mcg.
--- NOTE | 2025-04-27 15:43 | PC.NURSE ---
Patient is currently sleeping from mild sedation in the [facility], unable to wake enough to take her 1500 carvedilol.
[2025-04-27] MEDS: carvedilol 6.25 mg Tablet PO (17:52)
--- NOTE | 2025-04-27 21:29 | PC.NURSE ---
Paused Nitroprusside gtt at around 2044. Unable to titrate gtt on JAN.
--- NOTE | 2025-04-27 21:42 | PC.NURSE ---
Addendum entered by Tamara Schilling RN 04/28/25 01:19: Around 2155 nitroprusside gtt turned paused. Original Note: 2142 titrated to 2.5
--- NOTE | 2025-04-27 22:09 | PC.NURSE ---
Addendum entered by Tamara Schilling RN 04/28/25 01:26: Behavior changes started shortly after visitors left. brush fabrication supervisor was at bedside to further investigate situation. At this time will monitor for any other changes to neuro status and will perform frequent neuro exams. Original Note: Patient called complaining that she can not see out of her left eye. Attempted to do through neuro exam and stroke scale assessment but half way through patient stated I need a drink of water this is more important. Both eye are about a 2 briskly reactive. No asymmetry noticed in facial features or insert operator. Notifed Dr. Boyer of situation and per doctor she is already on aspirin and plavix. Since her pupils are symmetrical, if any other symptoms develop please notifiy and will obtain imaging.
[2025-04-28] VITALS (29 sets, daily range): BP systolic 111–177; BP diastolic 66–126; PULSE 66–84; RESP 10–25; TEMP 36.3–37; O2SAT 90–97; BMI 37.5
--- NOTE | 2025-04-28 01:38 | PC.NURSE ---
TR band deflated completely around 2200. Applied gauze and tegaderm around site. No hematoma or bleeding noted. Per patient is slightly tender but denies any numbness or tingling.
[2025-04-28 02:48] LABS: Basophils % 0.3 %; Eosinophils % 0.4 %; Hematocrit 36.5 % (36-47); Lymphocytes # 2.9 10^3/uL (0.8-4.8); Lymphocytes % 25.9 %; Mean Corpuscular HGB Conc 32.6 g/dL (30-55); Mean Corpuscular Hemoglobin 29.7 pg (27-33); Mean Platelet Volume 9.8 fL (7.4-10.4); Monocytes # 0.5 10^3/uL (0.2-0.9); Monocytes % 4.5 %; Neutrophils # 7.69 10^3/uL (1.8-7.7); Neutrophils % 68.5 %; Nucleated Red Blood Cells % 0 %; Platelet Count 318 10^3/cmm (157-399); Red Blood Count 4.01 10^6/uL (3.85-5.65); White Blood Count 11.22 10^3/uL (3.29-11.43)
[2025-04-28 03:19] LABS: Alanine Aminotransferase 38 U/L (0-33); Albumin Level 3.2 g/dL (3.5-5.2); Alkaline Phosphatase 94 U/L (35-105); Anion Gap 14.8 (5-19); Aspartate Amino Transferase 141 U/L (0-32); Blood Urea Nitrogen 17 mg/dL (6-20); Calcium 8.6 mg/dL (8.5-10.5); Carbon Dioxide 23 mmol/L (22-29); Chloride 98 mmol/L (98-107); Creatinine Clr Calc Pharmacy 70.5845; Globulin 2.9 g/dL (1.3-4.6); Glomerular Filtration Rate 54.5 mL/min (90-130); Glucose 103 mg/dL (65-115); Magnesium 1.9 mg/dL (1.7-2.3); Osmolality Calculated 276 mOsm/kg (285-295); Phosphorus 3.3 mg/dL (2.5-4.5); Potassium 3.8 mmol/L (3.5-5.1); Sodium 132 mmol/L (136-145); Total Bilirubin 0.3 mg/dL (0.15-1.2); Total Protein 6.1 g/dL (6.6-8.7)
[2025-04-28] MEDS: carvedilol 6.25 mg Tablet PO (03:27)
[2025-04-28] MEDS: pantoprazole 40 mg SDV IVP (03:27)
[2025-04-28] MEDS: aspirin 81 mg EC Tablet PO (08:53)
[2025-04-28] MEDS: amlodipine 10 mg Tablet PO (08:53)
[2025-04-28] MEDS: clopidogrel 75 mg Tablet PO (08:53)
[2025-04-28] MEDS: carvedilol 12.5 mg Tablet PO ×2 (08:54→21:41)
[2025-04-28] MEDS: losartan 50 mg Tablet 75 MG PO (08:54)
[2025-04-28] MEDS: FUROsemide 10 mg/mL SDV 2mL 20 MG IVP ×2 (08:55→21:41)
--- NOTE | 2025-04-28 09:51 | P.PN_ITS ---
<Statement entered by Marcelino Lanza M.D - 05/04/25 14:19> Patient was evaluated and cared for in conjunction with an advanced practice practitioner.? I personally examined the patient and reviewed the chart and all pertinent data including imaging, telemetry, and laboratory results.? I discussed the patient in detail with the advanced practice practitioner.? Please see? their note for complete progress note, testing results and agreed upon plan of care for the patient. Overall doing well. No chest pain GENERAL: Patient is alert, awake and oriented x3. HEART: Regular S1 and S2 LUNGS: Clear to auscultate bilaterally. CENTRAL NERVOUS SYSTEM: Grossly nonfocal. EXTREMITIES: Lower extremities without edema bilaterally. Subjective 2 Subjective: Patient is doing well no complaints of chest pain or shortness of breath. She is currently on room air. Creatinine is stable at 1.1. She is status post stenting to the LAD x 2. Vitals/I&O/Wt Last Vital Signs Temp 97.8 F 04/28/25 07:20 Pulse 67 04/28/25 07:20 Resp 21 H 04/28/25 07:20 BP 165/113 04/28/25 08:54 Pulse Ox 91 04/28/25 07:20 O2 Del Method Room Air 04/28/25 03:28 O2 Flow Rate 2 04/27/25 16:00 04/27/25 04/28/25 04/28/25 22:59 06:59 14:59 Intake Total 1176.000 / 1577.474 4251 / 1000 Balance 1176.000 / 6843.753 1435 / 1000 Weight last 48 hrs Weight 212 lb 2 oz Weight 196 lb 9.6 oz Physical Exam 2 Narrative: General: No apparent distress, healthy appearing, well nourished HENMT: normoceophalic Respiratory: Normal respiratory effort, clear to auscultation bilaterally throughout all lung rivas, no use of accessory muscles Cardio: No JVD, regular rate, regular rhythm, S1 S2 normal, no murmurs, peripheral pulses 2+ radial palpated bilaterally GI: Normal to inspection, nondistended Extremities: Full ROM, normal, normal capillary refill, trace edema bilateral lower extremities Neuro: Alert and oriented x4 Psych: Affect normal, mental status grossly normal Skin: No rashes or lesions noted, no wounds Data 04/28/25 02:20 04/28/25 02:20 A&P Assessment and plan (1) Chest pain: (2) Intermittent palpitations: (3) Benign essential hypertension with target blood pressure below 140/90: (4) Hypertensive emergency: (5) Acute congestive heart failure: (6) Non-ST elevation (NSTEMI) myocardial infarction: (7) History of congestive heart failure: Plan EF is 20 to 25%. Discussed with patient our recommendation of a LifeVest. Patient would like to wear this. Will order at this time. Blood pressure is still uncontrolled currently on nitro drip. Will add losartan 75 mg, increase Coreg to 12.5 twice daily, continue amlodipine 10 mg daily. Continue to wean off of nitro drip as tolerated to maintain SBP less than or equal to 160s. Patient's LVEDP was elevated. Will add Lasix 20 mg every 12. Continue to monitor I&O's and creatinine. Continue aspirin and Plavix. Will hold statin at this time due to AST and ALT are slightly elevated. PDMP PDMP Reviewed: Not Reviewed Attestations 2 Medical Necessity Statement*: Deferred to primary. Coding Level of Care Code Acute Code for g Fwd Diagnoses Chest pain, unspecified type R07.9 Chest pain type: unspecified Intermittent palpitations R00.2 Benign essential hypertension with target blood pressure below 140/90 I10 Hypertensive emergency I16.1 Acute congestive heart failure I50.9 Heart failure type: unspecified Non-ST elevation (NSTEMI) myocardial infarction I21.4 History of congestive heart failure Z86.79
--- NOTE | 2025-04-28 11:28 | PC.NURSE ---
Patient is refusing to wear telemetry and have vitals taken.
[2025-04-28] MEDS: ALPRAZolam 0.5 mg Tablet PO ×2 (12:05→23:17)
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
--- NOTE | 2025-04-28 19:14 | PC.NURSE ---
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
[2025-04-28] MEDS: sennosides 8.6 mg Tablet 17.2 MG PO (21:41)
--- NOTE | 2025-04-29 01:18 | PC.NURSE ---
three vape pens found in patient's room. Patient educated regarding not to use while here. Offered to have them locked in [facility] and refused. Patient to place in [facility].
[2025-04-29 03:18] VITALS: BP 157/84; PULSE 70; RESP 19; TEMP 36.9; O2SAT 93
--- NOTE | 2025-04-29 04:20 | PC.NURSE ---
Around 0300 nurse tech in patient room to get vitals. When nurse faye came out of the room, she notified nurse that patient stated she was drunk. Patient is also sharing text message content with staff about intercourse such as her wanting to on that d . Patient then came down the [place] to the nurses station asking about the soonest for visiting hours. When asked who was coming to visit her the patient stated a friend thats in town . Patient is stating she wants cuddles . Educated patient that visiting hours start at 0800. This nurse question patient about her comment of being drunk. Patient denies stating she was drunk. This nurse checked the bedside table and only found snacks. Vapes were place in ziplock bag and put into patient purse. hot strip mill supervisor notified about the patient request for a friend to come visit. Registration called and was told to notify RN before sending anybody back. Patient asking about when she is to be discharge and was educated about time of rounds.
[2025-04-29 08:00] VITALS: BP 137/96; PULSE 76; RESP 18; TEMP 36.7; O2SAT 94
[2025-04-29] MEDS: docusate sodium 100 mg Capsule PO (08:45)
[2025-04-29] MEDS: carvedilol 12.5 mg Tablet PO (08:45)
[2025-04-29] MEDS: FUROsemide 10 mg/mL SDV 2mL 20 MG IVP (08:45)
[2025-04-29] MEDS: amlodipine 10 mg Tablet PO (08:45)
[2025-04-29] MEDS: aspirin 81 mg EC Tablet PO (08:45)
[2025-04-29] MEDS: losartan 50 mg Tablet 75 MG PO (08:45)
[2025-04-29] MEDS: clopidogrel 75 mg Tablet PO (08:46)
[2025-04-29] MEDS: isosorbide mononitrate ER 30 mg Tablet PO (08:46)
--- NOTE | 2025-04-29 09:23 | P.PN_ITS ---
<Statement entered by Marcelino Lanza M.D - 05/04/25 14:22> Patient was cared for in conjunction with an advanced practice practitioner.? I reviewed the chart and all pertinent data including imaging, telemetry, and laboratory results.? I discussed the patient in detail with the advanced practice practitioner.? Please see?their note for progress note, testing results and agreed upon plan of care for the patient. Subjective 2 Subjective: Patient doing well. Denies any chest pain or shortness of breath. Right radial cath site clean dry intact no signs of hematoma present. Labs were attempted this morning and stick was unsuccessful and patient refuses further lab work. She states she would like to wait until she gets her LifeVest prior to discharge. She does need staged PCI to the RCA. BP much better controlled. Vitals/I&O/Wt Last Vital Signs Temp 98.1 F 04/29/25 08:00 Pulse 76 04/29/25 08:00 Resp 18 04/29/25 08:00 BP 137/96 04/29/25 08:00 Pulse Ox 94 04/29/25 08:00 O2 Del Method Room Air 04/29/25 08:00 O2 Flow Rate 2 04/27/25 16:00 04/28/25 04/29/25 04/29/25 22:59 06:59 14:59 Intake Total 480 / 2440 520 / 2960 Balance 480 / 2440 520 / 2960 Weight last 48 hrs Weight 207 lb Weight 212 lb 2 oz Physical Exam 2 Narrative: General: No apparent distress, healthy appearing, well nourished HENMT: normoceophalic Respiratory: Normal respiratory effort, clear to auscultation bilaterally throughout all lung rivas, no use of accessory muscles Cardio: No JVD, regular rate, regular rhythm, S1 S2 normal, no murmurs, peripheral pulses 2+ radial palpated bilaterally GI: Normal to inspection, nondistended Extremities: Full ROM, normal, normal capillary refill, trace edema bilateral lower extremities Neuro: Alert and oriented x4 Psych: Affect normal, mental status grossly normal Skin: Right radial cath site clean dry intact no signs of hematoma Data 04/28/25 02:20 04/28/25 02:20 A&P Assessment and plan (1) Chest pain: (2) Intermittent palpitations: (3) Benign essential hypertension with target blood pressure below 140/90: (4) Hypertensive emergency: (5) Acute congestive heart failure: (6) Non-ST elevation (NSTEMI) myocardial infarction: (7) History of congestive heart failure: Plan EF is 20 to 25%. Discussed with patient our recommendation of a LifeVest. Patient would like to wear this. She would like to wait to get this until discharge. Blood pressure is much improved. Will continue losartan 75 mg, Coreg to 12.5 twice daily, continue amlodipine 10 mg daily. Patient's LVEDP was elevated. Unable to check labwork due to patient refuses any further blood draws. She does understand the risk of NARCISO. Recommend transition to oral Lasix 20 mg every 12. Continue aspirin and Plavix. I had a long conversation with the patient concerning the importance of compliance with this medication. She does understand that if she misses a dose of these that she could have a major heart attack resulting in . She does understand she still has a significant stenosis in the RCA that requires intervention as well and it is important to follow-up. Will hold statin at this time due to AST and ALT were previously elevated. From cardiology perspective, may be discharged when life vest is in place. F/U in 1 week. 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 No driving for 3 days. Monitor for and report signs or symptoms of bleeding. Monitor for and report s/s of infection such as fever 101 or greater, swelling, redness or pain to the wrist. PDMP PDMP Reviewed: Not Reviewed Attestations 2 Medical Necessity Statement*: Deferred to primary. Coding Level of Care Code Acute Code for [facility] Diagnoses Chest pain, unspecified type R07.9 Chest pain type: unspecified Intermittent palpitations R00.2 Benign essential hypertension with target blood pressure below 140/90 I10 Hypertensive emergency I16.1 Acute congestive heart failure I50.9 Heart failure type: unspecified Non-ST elevation (NSTEMI) myocardial infarction I21.4 History of congestive heart failure Z86.79
[2025-04-29 10:45] LABS: Basophils % 0.3 %; Eosinophils # 0.1 10^3/uL (0.0-0.8); Hematocrit 36.6 % (36-47); Lymphocytes # 1.9 10^3/uL (0.8-4.8); Lymphocytes % 21.4 %; Mean Corpuscular HGB Conc 32.2 g/dL (30-55); Mean Corpuscular Hemoglobin 29.4 pg (27-33); Mean Platelet Volume 9.9 fL (7.4-10.4); Monocytes # 0.6 10^3/uL (0.2-0.9); Monocytes % 7.1 %; Neutrophils # 6.25 10^3/uL (1.8-7.7); Neutrophils % 69.9 %; Nucleated Red Blood Cells % 0 %; Platelet Count 292 10^3/cmm (157-399); Red Blood Count 4.02 10^6/uL (3.85-5.65); White Blood Count 8.96 10^3/uL (3.29-11.43)
[2025-04-29 11:07] LABS: Alanine Aminotransferase 27 U/L (0-33); Albumin Level 2.9 g/dL (3.5-5.2); Alkaline Phosphatase 86 U/L (35-105); Anion Gap 15.1 (5-19); Blood Urea Nitrogen 12 mg/dL (6-20); Calcium 8.5 mg/dL (8.5-10.5); Carbon Dioxide 25 mmol/L (22-29); Chloride 100 mmol/L (98-107); Creatinine Clr Calc Pharmacy 79.8264; Glomerular Filtration Rate 60.8 mL/min (90-130); Glucose 118 mg/dL (65-115); Osmolality Calculated 283 mOsm/kg (285-295); Potassium 4.1 mmol/L (3.5-5.1); Sodium 136 mmol/L (136-145); Total Bilirubin 0.2 mg/dL (0.15-1.2); Total Protein 5.9 g/dL (6.6-8.7)
[2025-04-29 11:16] LABS: Aspartate Amino Transferase 51 U/L (0-32)
[2025-04-29] MEDS: ALPRAZolam 0.5 mg Tablet PO (11:59)
[2025-04-29 12:00] VITALS: BP 137/95; PULSE 76; RESP 20; TEMP 36.7; O2SAT 97
--- NOTE | 2025-04-29 13:03 | PM.DCS ---
Discharge Providers Date of Admission: 04/27/25 01:52 Date of Discharge: April 29, 2025 Attending Provider at Admission: Geri Nieto MD Attending Provider at Discharge: Johanna Amaya MD Primary Care Provider: Audelia Kwan DO Diagnoses at Discharge Discharge Diagnosis (1) Chest pain: Status: Acute Qualifiers: Chest pain type: unspecified Qualified Code(s): R07.9 - Chest pain, unspecified (2) Intermittent palpitations: Status: Acute (3) Benign essential hypertension with target blood pressure below 140/90: Status: Acute (4) Hypertensive emergency: Status: Acute (5) Acute congestive heart failure: Status: Acute Qualifiers: Heart failure type: unspecified Qualified Code(s): I50.9 - Heart failure, unspecified (6) Non-ST elevation (NSTEMI) myocardial infarction: Status: Acute (7) History of congestive heart failure: Status: Acute Reason for Visit Reason for Visit: SOB Brief History: 44 year old female with medical history significant for nicotine addiction who complains of chest pain that started on the day of admission. Patient states that she has been really stressed recently related to her mother's illness and family problems. She started experiencing chest discomfort which she initially attributed to stress. Eventually when symptoms did not resolve she came into the emergency room. She was found to have an NSTEMI and underwent coronary angiogram on April 27, 2025.she was found to have severe proximal to mid LAD stenosis for which she underwent PCI with 2 stents. She was also found to have significant stenosis in the RCA which is planned for a staged PCI down the line. Afterwards started on aspirin and Plavix. This has been continued at discharge. Also started on atorvastatin 40 mg p.o. daily. LFTs were noted to be mildly elevated on April 28, 2025 but improving by April 29, 2025 therefore statins have been continued. Hospital course also marked by uncontrolled hypertension for which patient required nitroprusside infusion. She has now been started on antihypertensives including amlodipine 10 mg p.o. daily, carvedilol 12.5 mg p.o. every 12, and losartan 75 mg p.o. daily and Imdur 30 mg p.o. daily. With starting these medications her blood pressure is much better controlled now ranging at 130 over 70 mmHg. Patient reported daily anxiety and panic episodes for which she variably takes Klonopin, hydroxyzine, Xanax, Ativan at home. Reports frequency to be daily. I discussed starting SSRIs however patient is wary of this class of medication stating she has had side effects before. Instead has been started on Wellbutrin at discharge. Requesting prescription also for Xanax for panic attacks. As needed alprazolam 0.5 mg twice daily for 5 days has been ordered at discharge. Patient is to follow-up with her primary care doctor for further management of anxiety and panic attacks. Physical Exam Narrative: General: No acute distress, AO x3 HEENT: PERRLA, pupils bilaterally equal and reactive, pallors not present Chest: Normal vesicular breath sounds, no added sounds, equal good air entry bilaterally CVS: S1-S2 regular, no murmurs, no tachycardia, no gallops, no rubs Abdomen: Soft, nontender, no organomegaly, bowel sounds present Neuro: No focal deficits, no facial deformity, AO x3, power 5/5 in all limbs Discharge Data Studies Completed and Pending Completed Studies During Hospitalization Category Date Time Status CTA chest [CT angio chest PE protcl [id number]] Stat Cat Scan 04/26/25 23:43 Completed XR chest 1V portable [id number] Stat Exams 04/26/25 22:19 Completed CV. echo complete* [id number] Stat Ultrasound 04/27/25 02:05 Completed Pending at discharge Category Date Time Status PRODUCT DESIGN SPECIALIST request for service Routine Exams 04/27/25 09:34 Taken Radiology Impressions Chest X-Ray 04/26/25 22:19 IMPRESSION: No acute cardiopulmonary disease. Chest CTA 04/26/25 23:43 IMPRESSION: 1. No evidence of pulmonary embolism. 2. Focal area of ground-glass and interstitial opacification central left upper lobe may represent focal pulmonary edema or atypical infection. 3. Areas of interlobular septal thickening and diffuse ground-glass opacification are nonspecific. Differential diagnosis includes pulmonary edema atypical infection. 4. Small right pleural effusion. 5. Marked cardiomegaly. Additional findings above could all be related to CHF. Laboratory Results WBC 8.96 10^3/uL (3.29-11.43) 04/29/25 10:38 RBC 4.02 10^6/uL (3.85-5.65) 04/29/25 10:38 Hgb 11.80 g/dL (11.27-16.99) 04/29/25 10:38 Hct 36.6 % (36-47) 04/29/25 10:38 MCV 91.0 fl (85-98) 04/29/25 10:38 MCH 29.4 pg (27-33) 04/29/25 10:38 MCHC 32.2 g/dL (30-55) 04/29/25 10:38 RDW 14.0 % (12.1-15.1) 04/29/25 10:38 Plt Count 292 10^3/cmm (157-399) 04/29/25 10:38 MPV 9.9 fL (7.4-10.4) 04/29/25 10:38 Neut % (Auto) 69.9 % 04/29/25 10:38 Lymph % (Auto) 21.4 % 04/29/25 10:38 [place] % (Auto) 7.1 % 04/29/25 10:38 Eos % (Auto) 1.0 % 04/29/25 10:38 Baso % (Auto) 0.3 % 04/29/25 10:38 Neut # (Auto) 6.25 10^3/uL (1.8-7.7) 04/29/25 10:38 Lymph # (Auto) 1.9 10^3/uL (0.8-4.8) 04/29/25 10:38 [place] # (Auto) 0.6 10^3/uL (0.2-0.9) 04/29/25 10:38 Eos # (Auto) 0.1 10^3/uL (0.0-0.8) 04/29/25 10:38 Baso # (Auto) 0.0 10^3/uL (0.0-0.1) 04/29/25 10:38 Nucleated RBC % (auto) 0 % 04/29/25 10:38 Nucleated RBCs # 0.0 /100WBC 04/29/25 10:38 APTT 163.4 SECONDS (23.9-36.7) H* 04/27/25 08:54 D-Dimer 5.11 ug/mLFEU (0-0.59) H 04/26/25 21:36 Sodium 136 mmol/L (136-145) 04/29/25 10:38 Potassium 4.1 mmol/L (3.5-5.1) 04/29/25 10:38 Chloride 100 mmol/L (98-107) 04/29/25 10:38 Carbon Dioxide 25 mmol/L (22-29) 04/29/25 10:38 Anion Gap 15.1 (5-19) 04/29/25 10:38 BUN 12 mg/dL (6-20) 04/29/25 10:38 Creatinine 1.0 mg/dL (0.5-0.9) H 04/29/25 10:38 GFR Calculation 60.8 mL/min (90-130) L 04/29/25 10:38 Glucose 118 mg/dL (65-115) H 04/29/25 10:38 Calculated Osmolality 283 mOsm/kg (285-295) L 04/29/25 10:38 Calcium 8.5 mg/dL (8.5-10.5) 04/29/25 10:38 Phosphorus 3.3 mg/dL (2.5-4.5) 04/28/25 02:20 Magnesium 1.9 mg/dL (1.7-2.3) 04/28/25 02:20 Total Bilirubin 0.2 mg/dL (0.15-1.2) 04/29/25 10:38 AST 51 U/L (0-32) H 04/29/25 10:38 ALT 27 U/L (0-33) 04/29/25 10:38 Alkaline Phosphatase 86 U/L (35-105) 04/29/25 10:38 Troponin T Baseline 55 ng/L (0-10) H 04/26/25 21:36 Troponin T 120 Minute 848.4 ng/L (0-10) H 04/27/25 00:55 Delta Troponin T 793.4 ABS# (0-10) H* 04/27/25 00:55 Troponin T Hi Sens 6Hr 3046 ng/L (0-10) H 04/27/25 06:26 Troponin T Hi Sens 6Hr Delta 2991 ng/L (0-12) H* 04/27/25 06:26 NT-Pro-B Natriuret Pep 82099 pg/mL (0-125) H 04/26/25 21:36 Total Protein 5.9 g/dL (6.6-8.7) L 04/29/25 10:38 Albumin 2.9 g/dL (3.5-5.2) L 04/29/25 10:38 Globulin 3.0 g/dL (1.3-4.6) 04/29/25 10:38 HCG, Qual Negative (Negative) 04/26/25 21:36 Influenza A (PCR) Negative (Negative) 04/26/25 22:41 Influenza Type B (PCR) Negative (Negative) 04/26/25 22:41 RSV (PCR) Negative (Negative) 04/26/25 22:41 SARS-CoV-2 (PCR) Negative (Negative) 04/26/25 22:41 Vitals Last Vital Signs Temp 98.1 F 04/29/25 12:00 Pulse 76 04/29/25 12:00 Resp 20 H 04/29/25 12:00 BP 137/95 04/29/25 12:00 Pulse Ox 97 04/29/25 12:00 O2 Del Method Room Air 04/29/25 12:00 O2 Flow Rate 2 04/27/25 16:00 Discharge Plan Discharge Patient Disposition: Home Condition: Stable Prescriptions: New azithromycin 500 mg tablet See Rx Instructions .ROUTE .COMPLEX Qty: 3 0RF Rx Instructions: For 250 mg dose pack: take 500 mg today (day 1), then 250 mg for 4 days (days 2-5) furosemide [Lasix] 40 mg tablet 40 mg PO QAM Qty: 30 0RF potassium chloride 10 mEq capsule, extended release 10 meq PO DAILY 30 Days Qty: 30 0RF amlodipine 10 mg Tablet 10 mg PO DAILY 30 Days Qty: 30 0RF losartan 50 mg Tablet 75 mg PO DAILY 30 Days Qty: 30 0RF carvedilol 12.5 mg Tablet 12.5 mg PO Q12H 30 Days Qty: 60 0RF isosorbide mononitrate 30 mg Tablet Extended Release 24 Hr 30 mg PO DAILY 30 Days Qty: 30 0RF clopidogrel 75 mg Tablet 75 mg PO DAILY 30 Days Qty: 30 0RF aspirin 81 mg Tablet,Delayed Release (Dr/Ec) 81 mg PO DAILY 30 Days Qty: 30 0RF pantoprazole [Protonix] 40 mg tablet,delayed release (DR/EC) 40 mg PO DAILY 28 Days Qty: 30 0RF bupropion HCl [Wellbutrin XL] 150 mg tablet extended release 24 hr 150 mg PO DAILY Qty: 30 0RF alprazolam [Xanax] 0.5 mg tablet 0.5 mg PO BID PRN (Reason: anxiety) 5 Days Qty: 10 0RF Discharge Orders: Discharge Order (Routine); Ordered 04/29/25 Ordered By: Johanna Amaya Referrals: Allyson Gregorio NP [Nurse Practitioner, Cardiology] - 05/07/25 8:30 am Audelia Kwan DO [Primary Care Provider, SCUBA INSTRUCTOR] - 05/07/25 2:30 pm Discharge Diet: Low Salt Discharge Activity: Limit activity as instructed Patient Instructions: Coronary Angioplasty (DC), Pulmonary Edema (ED), Bacterial Pneumonia (ED), DASH Eating Plan (ED), CHF Stoplight, Opioid Safety, Post Angiogram Home Care Instructions, Pain Management, Patient Portal & Polina Instructions Activity Restrictions/Additional Instructions: You need follow-up with driver license agent due to your fluid overload. You also need primary care follow-up due to your pneumonia. Take medication as prescribed. You will need a follow-up check in the next 1 week on your kidneys. Your new primary care physician, or if you have a primary care physician, show them this paperwork and they will help you. Case management has received a referral and will call you to set up an appointment/help assist you with follow-up It is important to take all your medication as prescribed. Take a probiotic [id number] or active culture yogurt to avoid infectious diarrhea Return to ED for worsening shortness of breath and chest pain Discharge Attestations Time Spent in Discharge Care*: greater than 30 min Status at Discharge: Cognitive status at discharge: cognitively intact, Behavioral status at discharge: cooperative, Quality Metrics Clinical Quality Measures [ Acute Myocardial Infaction { Clinical Trial Participant: No; Contraindication to aspirin: None; Aspirin prescribed; Contraindication to statin: None; Statin prescribed; Contraindication to PCI: None; PCI performed;}] Coding Level of Care Code Acute Code for [facility] Fwd Diagnoses Chest pain, unspecified type R07.9 Chest pain type: unspecified Intermittent palpitations R00.2 Benign essential hypertension with target blood pressure below 140/90 I10 Hypertensive emergency I16.1 Acute congestive heart failure I50.9 Heart failure type: unspecified Non-ST elevation (NSTEMI) myocardial infarction I21.4 History of congestive heart failure Z86.79
--- NOTE | 2025-04-29 15:26 | PC.NURSE ---
Patient was called regarding leaving her discharge paperwork and her lifevest in the room. Patient answered and said oh shit I forogt. Can you mail them to me? Wildlife Ecologist responded that we could mail the discharge paperwork but could not mail the LifeVest. Patient requested that we leave it at the test deskman so that she could stop by and get it when she could .
--- NOTE | 2025-04-29 15:50 | PC.NURSE ---
Addendum entered by Martha Ward RN 04/29/25 15:57: Sakina from [employer] stated she would not take it to the patient, and in fact, they are not even cousins. Original Note: patient was called again regarding lifevest. She was told that he Zoll is registered under her name and that she needs to claim responsibility of it or she will be charged the full amount for the vest and all the parts. Patient stated no one reminded her to take it . Patient instructed report writer to give it to her cousin Sakina, who works in [employer] at [employer].
--- NOTE | 2025-04-29 16:06 | PC.NURSE ---
Patient has been very non-compliant and resistant to education. Upon discharge patient left her discharge papers and her zoll life vest box. Patient was notified and refused to come back to the hospital to come get it.
== END 2025-04-29 15:00 | disposition home or self-care (01) | DRG 321 ==
LOC: ER 04-27 02:21 → ER IP 04-27 08:18 → CSU 04-27 14:54
PROVIDERS: Internal Medicine; Admitting Provider Internal Medicine; Emergency Provider Physician Assistant; PCP Family Medicine; Visit Provider Student in an Organized Health Care Education/Training Program
PROC: 02703EZ Dilation of Coronary Artery, One Artery with Two Intraluminal Devices, Percutaneous Approach (ICD-10-PCS; principal; 2025-04-27 10:00)
PROC: 02703EZ Dilation of Coronary Artery, One Artery with Two Intraluminal Devices, Percutaneous Approach (ICD-10-PCS; 2025-04-27 10:00)
DX: I21.4 Non-ST elevation (NSTEMI) myocardial infarction (principal); J18.9 Pneumonia, unspecified organism; I16.1 Hypertensive emergency; F41.9 Anxiety disorder, unspecified; E78.5 Hyperlipidemia, unspecified; K21.9 Gastro-esophageal reflux disease without esophagitis; F17.200 Nicotine dependence, unspecified, uncomplicated; I11.0 Hypertensive heart disease with heart failure; I50.9 Heart failure, unspecified; F15.90 Other stimulant use, unspecified, uncomplicated; I25.10 Atherosclerotic heart disease of native coronary artery without angina pectoris; Z88.5 Allergy status to narcotic agent; Z88.0 Allergy status to penicillin; Z11.52 Encounter for screening for COVID-19
CPT/HCPCS: 36415; 71045; 71275; 80053; 83735; 83880; 84100; 84484; 84703; 85025; 85347; 85378; 85730; 87637; 92978; 93005; 93306; 93458; 96365; 96367; 96375; 96376; 99152; 99153; 99291; C1725; C1753; C1769; C1874; C1887; C1894; C9600; J0360; J0456; J0696; J1171; J1644; J1938; J2250; J2470; J3010; J3490; J7030; J7050; J7060; J9999; Q0144; Q9967

== ENCOUNTER 2025-05-03 15:34 | Emergency (ER) | payer MEDICAID, SELFPAY ==
[2025-05-03 15:41] VITALS: BP 109/82; PULSE 90; TEMP 36.6; O2SAT 98
--- NOTE | 2025-05-03 15:53 | ECG_ITS ---
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 Measurements Intervals [place] Rate: 88 P: 7 VA: 138 QRS: -38 QRSD: 106 T: 120 QT: 384 QTc: 467 Interpretive Statements SINUS RHYTHM POSSIBLE LEFT ATRIAL ENLARGEMENT [-0.1mV P-WAVE IN V1/V2] LEFT AXIS DEVIATION [QRS AXIS < -30] LEFT VENTRICULAR HYPERTROPHY AND ST-T CHANGE [VOLTAGE CRITERIA PLUS ST/T ABNORMALITY] POSSIBLE ANTEROSEPTAL MYOCARDIAL INFARCTION , OF INDETERMINATE AGE [30 ms Q WAVE IN V1-V4] Compared to ECG 04/27/2025 06:14:03 Left ventricular hypertrophy now present ST (T wave) deviation now present Myocardial infarct finding now present Electronically Signed On 05-07-2025 09:11:27 CDT by Marcelino Lanza M.D. [email or web address]
--- NOTE | 2025-05-03 16:12 | XRR_ITS ---
PROCEDURE INFORMATION: Exam: XR Chest Exam date and time: 05/03/2025 4:15 PM Age: 45 years old Clinical indication: Other: Hypertension; Prior surgery; Surgery date: <1 month; Surgery type: Coronary stents; Additional info: HTN TECHNIQUE: Imaging protocol: Radiologic exam of the chest. Views: 1 view. COMPARISON: CT angio chest PE protcl [id number] 04/27/2025 12:13 AM FINDINGS: Lungs: Minimal focal atelectasis in the left lower lung field. No consolidation. Pleural spaces: Unremarkable. No pleural effusion. No pneumothorax. Heart/Mediastinum: Moderate cardiomegaly. Bones/joints: Unremarkable. XR/XR chest 1V portable [id number] IMPRESSION: Moderate cardiomegaly. Minimal focal atelectasis in the left lower lung field. Otherwise unremarkable chest x-ray.
[2025-05-03 16:35] LABS: Basophils # 0.1 10^3/uL (0.0-0.1); Basophils % 0.6 %; Eosinophils # 0.2 10^3/uL (0.0-0.8); Eosinophils % 2.3 %; Hematocrit 44.3 % (36-47); Lymphocytes # 2.4 10^3/uL (0.8-4.8); Lymphocytes % 22.6 %; Mean Corpuscular HGB Conc 32.1 g/dL (30-55); Mean Corpuscular Hemoglobin 28.5 pg (27-33); Mean Corpuscular Volume 88.8 fl (85-98); Mean Platelet Volume 9.2 fL (7.4-10.4); Monocytes # 0.6 10^3/uL (0.2-0.9); Neutrophils # 7.17 10^3/uL (1.8-7.7); Neutrophils % 68.2 %; Nucleated Red Blood Cells % 0 %; Platelet Count 400 10^3/cmm (157-399); Red Blood Count 4.99 10^6/uL (3.85-5.65); Red Cell Distribution Width 14.1 % (12.1-15.1)
--- NOTE | 2025-05-03 16:58 | ED_ITS ---
HPI - Extremity Problem 2 General: Chief complaint: Extremity Problem,Nontraumatic Stated complaint: memory issues, leg and feet swelling Time Seen by Provider: 05/03/25 16:14 History of Present Illness: Patient is a 45-year-old female today, with history of NSTEMI 04/26, that has not yet taken her Plavix today, presents to ED with lower extremity edema x2 day. She admits to increasing pain. She denies any chest discomfort. She states she has been compliant to her Plavix other than today. Denies increasing shortness of breath. Unknown if weight gain per patient. Patient consumes [place] food yesterday. She states she is eating low-sodium, however choices appear to be consistent with a sodium dense diet. No fevers. No cough. No nausea, vomiting, early satiety Echocardiogram from 04/27 indicates 20-25% EF, RVSP 35-40%, and association global hypokinesis. Associated symptoms: Deny chest pain, fever(s) or rash Related Data Previous Rx's ?Medication ?Instructions ?Recorded azithromycin 500 mg tablet See Rx Instructions PO .COM PLEX #3 04/27/25 tabs furosemide 40 mg tablet (Lasix) 40 mg PO QAM #30 tabs 04/27/25 potassium chloride 10 mEq 10 meq PO DAILY 30 days #30 caps 04/27/25 capsule,extended release alprazolam 0.5 mg tablet (Xanax) 0.5 mg PO BID PRN anx iety 5 days 04/29/25 #10 tabs amlodipine 10 mg tablet 10 mg PO DAILY 30 days #30 t abs 04/29/25 aspirin 81 mg tablet,delayed 81 mg PO DAILY 30 days #3 0 tabs 04/29/25 release bupropion HCl 150 mg 24 hr tablet, 150 mg PO DAILY #30 tabs 04/29/25 extended release (Wellbutrin XL) carvedilol 12.5 mg tablet 12.5 mg PO Q12H 30 days #60 tabs 04/29/25 clopidogrel 75 mg tablet 75 mg PO DAILY 30 days #30 t abs 04/29/25 isosorbide mononitrate 30 mg 30 mg PO DAILY 30 days #3 0 tabs 04/29/25 tablet,extended release 24 hr losartan 50 mg tablet 75 mg (1.5 x 50 mg) PO DAILY 30 04/29/25 days #30 tabs pantoprazole 40 mg tablet,delayed 40 mg PO DAILY 4 wee ks #30 tabs 04/29/25 release (Protonix) furosemide 40 mg tablet (Lasix) 40 mg PO QAM PRN edema #30 tabs 05/03/25 hydroxyzine pamoate 25 mg capsule 25 mg PO BID PRN anx iety #30 caps 05/03/25 Allergies Allergy/AdvReac Type Severity Reaction Status Date / Time morphine Allergy Severe vomiting Verified 05/03/25 15:53 Penicillins Allergy ALGY-Rash Verified 05/03/25 15:53 Review of Systems 2 Const: Denies: fever(s) or chills Eyes: Denies: change in vision or blurry vision ENMT: Denies: throat pain or mouth pain Card: Denies: chest pain or palpitations Resp: Denies: dyspnea or non-productive cough GI: Denies: abdominal pain, nausea or vomiting : Denies: flank pain or dysuria Musc: Reports: extremity swelling and limited range of motion (due to pain); Denies: neck pain, back pain, extremity pain, joint pain or joint stiffness Skin/Breast: Denies: rash or pruritus Neuro: Denies: headache(s) or numbness in extremities Psych: Denies: anxiety or depression Endo: Denies: polyuria or polydipsia PFSH ED 2 PFSH: Medical History Sinus tachycardia Lumbar stenosis with neurogenic claudication GERD (gastroesophageal reflux disease) No pertinent past medical history neghx: dm,thyroid,dvt/pe PCP: Lupe Kwan Hx of hyperlipidemia Anxiety Smoking addiction Hypertension Surgical History Hx of section 06/17/2002 01/05/2010 Hx of laparoscopy (~07/30/12) Diagnostic Laparoscopy perfomed by Dr. Nabor Ernst at [facility] in [place], [place]. Diagnosis: abdominal pain, pelvic pain Family History Father CAD (coronary artery disease) quadruple bypass Stroke before 60 Heart disease Hypertension Mother CAD (coronary artery disease) LA and stents Stroke before the age of 60 Heart disease Hypertension Family/Other No problems noted. Denies family history of Colon cancer Ovarian cancer Diabetes Breast cancer Uterine cancer Thyroid disease Social History Smoking and tobacco/nicotine status: current every day tobacco/nicotine user Alcohol intake: current Alcohol intake frequency: 0-2 Drinks per Day Substance/Drug Use: current Physical Exam 2 Const: COMMON NORMALS: no acute distress, average body habitus and patient oriented x3 HENMT: COMMON NORMALS: normocephalic and atraumatic HEAD & SCALP: n ormocephalic and atraumatic Lymph: LYMPHATIC: no lymphadenopathy noted Chest: COMMONS NORMALS: normal inspection of the chest CHEST: Yes Symmetrical chest wall rise Resp: AUSCULTATION: crackles Laterality: bilateral and posterior Cardio: COMMON NORMALS: regular rate and regular rhythm RATE: regular rate RHYTHM: regular rhythm GI: COMMON NORMALS: Normal to inspection, nondistended, normoactive bowel sounds present and Soft to palpation PALPATION: Yes Soft to palpation : COMMON NORMALS: Yes no CVA tenderness BLADDER/KIDNEY EXAM: Yes no CVA tenderness Back/Pelvis: COMMON NORMALS: no CVA tenderness THORACIC SPINE/UPPER BACK: Y es normal to inspection LUMBAR SPINE/LOWER BACK: Yes normal to inspection and Yes lumbar ROM normal PELVIS: Yes buttocks normal Extremity: GENERAL: Yes edema (+3 bilat) Neuro: COMMON NORMALS: patient oriented x3 Psych: COMMON NORMALS: mental status grossly normal and Normal thought process present THOUGHT PROCESS: Normal thought process present Skin: COMMON NORMALS: no rashes or lesions noted and no wounds GENERAL SKIN EXAM: no rashes or lesions noted Course 2 Vital Signs: Vital signs: Vital Signs Temperature 97.8 F 05/03/25 15:41 Pulse Rate 90 05/03/25 15:41 Blood Pressure 109/82 05/03/25 15:41 Pulse Oximetry 98 05/03/25 15:41 Oxygen Delivery Me thod Room Air 05/03/25 15:41 MDM - Extremity (Nontraumatic) Medical Decision Making Patient is a DNR history is consistent with CHF, suspect systolic with recent NSTEMI, however diastolic component noted with slight elevation 35-40mmhg right ventricular systolic pressure, or a secondary pulmonary hypertension. Last EF was 20-25% on recent echocardiogram with global hypokinesis. I will give Lasix and see if this helps and have patient compress, and follow low-sodium diet. She does appear to not follow a low-sodium diet, as she picks foods that are dense in sodium. I have explained this to patient. As well, patient ordered [employer] bowl from the waiting room and attempted to eat this in the emergency room. Patient educated on low-sodium diet. She did require antianxiety due to decline in dense sodium food delivery to her emergency room. Lab Data 05/03/25 16:20 05/03/25 16:20 Radiology Impressions Chest X-Ray 05/03/25 16:12 IMPRESSION: Moderate cardiomegaly. Minimal focal atelectasis in the left lower lung field. Otherwise unremarkable chest x-ray. Laboratory Results WBC 10.50 10^3/uL (3.29-11.43) 05/03/25 16:20 RBC 4.99 10^6/uL (3.85-5.65) 05/03/25 16:20 Hgb 14.20 g/dL (11.27-16.99) 05/03/25 16:20 Hct 44.3 % (36-47) 05/03/25 16:20 MCV 88.8 fl (85-98) 05/03/25 16:20 MCH 28.5 pg (27-33) 05/03/25 16:20 MCHC 32.1 g/dL (30-55) 05/03/25 16:20 RDW 14.1 % (12.1-15.1) 05/03/25 16:20 Plt Count 400 10^3/cmm (157-399) H 05/03/25 16:20 MPV 9.2 fL (7.4-10.4) 05/03/25 16:20 Neut % (Auto) 68.2 % 05/03/25 16:20 Lymph % (Auto) 22.6 % 05/03/25 16:20 Wright % (Auto) 6.0 % 05/03/25 16:20 Eos % (Auto) 2.3 % 05/03/25 16:20 Baso % (Auto) 0.6 % 05/03/25 16:20 Neut # (Auto) 7.17 10^3/uL (1.8-7.7) 05/03/25 16:20 Lymph # (Auto) 2.4 10^3/uL (0.8-4.8) 05/03/25 16:20 Wright # (Auto) 0.6 10^3/uL (0.2-0.9) 05/03/25 16:20 Eos # (Auto) 0.2 10^3/uL (0.0-0.8) 05/03/25 16:20 Baso # (Auto) 0.1 10^3/uL (0.0-0.1) 05/03/25 16:20 Nucleated RBC % (auto) 0 % 05/03/25 16:20 Nucleated RBCs # 0.0 /100WBC 05/03/25 16:20 Sodium 139 mmol/L (136-145) 05/03/25 16:20 Potassium 3.9 mmol/L (3.5-5.1) 05/03/25 16:20 Chloride 103 mmol/L (98-107) 05/03/25 16:20 Carbon Dioxide 23 mmol/L (22-29) 05/03/25 16:20 Anion Gap 16.9 (5-19) 05/03/25 16:20 BUN 11 mg/dL (6-20) 05/03/25 16:20 Creatinine 0.8 mg/dL (0.5-0.9) 05/03/25 16:20 GFR Calculation 78.3 mL/min (90-130) L 05/03/25 16:20 Glucose 99 mg/dL (65-115) 05/03/25 16:20 Calculated Osmolality 287 mOsm/kg (285-295) 05/03/25 16:20 Calcium 9.1 mg/dL (8.5-10.5) 05/03/25 16:20 Total Bilirubin 0.5 mg/dL (0.15-1.2) 05/03/25 16:20 AST 25 U/L (0-32) 05/03/25 16:20 ALT 15 U/L (0-33) 05/03/25 16:20 Alkaline Phosphatase 96 U/L (35-105) 05/03/25 16:20 NT-Pro-B Natriuret Pep 76386 pg/mL (0-125) H 05/03/25 16:20 Total Protein 7.5 g/dL (6.6-8.7) 05/03/25 16:20 Albumin 3.5 g/dL (3.5-5.2) 05/03/25 16:20 Globulin 4.0 g/dL (1.3-4.6) 05/03/25 16:20 All radiology interpretation(s) finalized by discharge Discharge Plan Discharge Patient Disposition: Home Clinical Impression: Acute systolic congestive heart failure Condition: Stable Prescriptions: New furosemide [Lasix] 40 mg tablet 40 mg PO QAM PRN (Reason: edema) Qty: 30 0RF hydroxyzine pamoate 25 mg capsule 25 mg PO BID PRN (Reason: anxiety) Qty: 30 0RF No Action azithromycin 500 mg tablet See Rx Instructions .ROUTE .COMPLEX Qty: 3 0RF Rx Instructions: For 250 mg dose pack: take 500 mg today (day 1), then 250 mg for 4 days (days 2-5) furosemide [Lasix] 40 mg tablet 40 mg PO QAM Qty: 30 0RF potassium chloride 10 mEq capsule, extended release 10 meq PO DAILY 30 Days Qty: 30 0RF amlodipine 10 mg Tablet 10 mg PO DAILY 30 Days Qty: 30 0RF losartan 50 mg Tablet 75 mg PO DAILY 30 Days Qty: 30 0RF carvedilol 12.5 mg Tablet 12.5 mg PO Q12H 30 Days Qty: 60 0RF isosorbide mononitrate 30 mg Tablet Extended Release 24 Hr 30 mg PO DAILY 30 Days Qty: 30 0RF clopidogrel 75 mg Tablet 75 mg PO DAILY 30 Days Qty: 30 0RF aspirin 81 mg Tablet,Delayed Release (Dr/Ec) 81 mg PO DAILY 30 Days Qty: 30 0RF pantoprazole [Protonix] 40 mg tablet,delayed release (DR/EC) 40 mg PO DAILY 28 Days Qty: 30 0RF bupropion HCl [Wellbutrin XL] 150 mg tablet extended release 24 hr 150 mg PO DAILY Qty: 30 0RF alprazolam [Xanax] 0.5 mg tablet 0.5 mg PO BID PRN (Reason: anxiety) 5 Days Qty: 10 0RF Discharge Orders: Discharge ED (Routine); Ordered 05/03/25 Ordered By: Nichelle Berger Referrals: Audelia Kwan DO [Primary Care Provider, [employer]ELOPER] Discharge Diet: Low Salt Discharge Activity: Resume usual activity Patient Instructions: Heart Failure (ED), DASH Eating Plan (ED), Patient Portal & Polina Instructions Activity Restrictions/Additional Instructions: Follow a low-sodium/Mediterranean diet. Foods that are dense in sodium are breads, lunch meats, soups, canned items that may need to be washed, chips, gravies. Compress lower extremities. Obtain compression socks at local store. Weigh daily. If you gain 2 pounds, you will need additional Lasix/furosemide. Caution on fluid intake. Do not exceed greater than 1800 mL/day Follow-up with cardiology for CHF as well as your recent stents. 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
[2025-05-03 17:00] LABS: Alanine Aminotransferase 15 U/L (0-33); Albumin Level 3.5 g/dL (3.5-5.2); Alkaline Phosphatase 96 U/L (35-105); Anion Gap 16.9 (5-19); Aspartate Amino Transferase 25 U/L (0-32); Blood Urea Nitrogen 11 mg/dL (6-20); Calcium 9.1 mg/dL (8.5-10.5); Carbon Dioxide 23 mmol/L (22-29); Chloride 103 mmol/L (98-107); Glomerular Filtration Rate 78.3 mL/min (90-130); Glucose 99 mg/dL (65-115); NT Pro B Type Natriuretic Pept 14336 pg/mL (0-125); Osmolality Calculated 287 mOsm/kg (285-295); Potassium 3.9 mmol/L (3.5-5.1); Sodium 139 mmol/L (136-145); Total Bilirubin 0.5 mg/dL (0.15-1.2); Total Protein 7.5 g/dL (6.6-8.7)
[2025-05-03] MEDS: LORazepam 1 MG/0.5 ML injection 0.5 MG IVP (17:01)
[2025-05-03] MEDS: clopidogrel 75 mg Tablet PO (17:02)
[2025-05-03] MEDS: FUROsemide 10 mg/mL SDV 4mL 40 MG IVP (17:04)
[2025-05-03] MEDS: potassium chloride ER 20 mEq Tablet 40 MEQ PO (17:04)
== END 2025-05-03 17:36 | disposition home or self-care (01) ==
PROVIDERS: Emergency Medicine; Emergency Provider Physician Assistant; PCP Family Medicine
DX: I11.0 Hypertensive heart disease with heart failure (principal); I50.21 Acute systolic (congestive) heart failure; E78.5 Hyperlipidemia, unspecified; Z72.0 Tobacco use; Z79.02 Long term (current) use of antithrombotics/antiplatelets; Z79.82 Long term (current) use of aspirin
CPT/HCPCS: 71045; 80053; 83880; 85025; 93005; 96374; 96375; 99285; J1938; J2060; J9999

== ENCOUNTER 2025-05-28 00:44 | Inpatient (IN) | payer MEDICAID, SELFPAY ==
[2025-05-28] VITALS (62 sets, daily range): BP systolic 130–206; BP diastolic 89–153; PULSE 88–120; RESP 11–37; TEMP 37.7; O2SAT 85–99; BMI 31.8
--- NOTE | 2025-05-28 00:50 | ECG_ITS ---
[facility] [employer] Test Date: 2025-05-28 Pat Name: Katey Romeo Department: Room: Gender: Female Intelligence Chief: : 1980 Requested By: Michele Helms Order Number: [id number] Rj MD: Marcelino Lanza M.D. Measurements Intervals [place] Rate: 87 P: 48 CT: 180 QRS: -52 QRSD: 139 T: 55 QT: 397 QTc: 478 Interpretive Statements SINUS RHYTHM WITH FREQUENT VENTRICULAR PREMATURE COMPLEXES IN A BIGEMINAL PATTERN POSSIBLE LEFT ATRIAL ENLARGEMENT [-0.1mV P-WAVE IN V1/V2] LEFT AXIS DEVIATION [QRS AXIS < -30] INTRAVENTRICULAR CONDUCTION DELAY [130+ ms QRS DURATION] POSSIBLE LEFT VENTRICULAR HYPERTROPHY [VOLTAGE CRITERIA PLUS LAE OR QRS WIDENING] POSSIBLE SEPTAL MYOCARDIAL INFARCTION , AGE INDETERMINATE Compared to ECG 05/03/2025 15:57:39 ST (T wave) deviation no longer present Myocardial infarct finding still present Electronically Signed On 05-28-2025 09:01:38 CDT by Marcleino Lanza M.D. [email or web address]
--- NOTE | 2025-05-28 00:55 | ED_ITS ---
Documented by User: Michele Helms DO 05/28/25 06:24 HPI - Chest Pain 2 General: Chief Complaint: Chest Pain Stated Complaint: cp Time Seen by Provider: 05/28/25 00:46 History of Present Illness: 45 year old female patient presents to [facility] Emergency Department with altered mental status and a variety of complaints including chest pain. The patient reports hurting but does not elaborate on the specific nature or location of the pain. When questioned about substance use, the patient admits to consuming a little bit of alcohol, later clarified as not even a glass or one glass. Patient denies drug use when directly questioned. Communication with the patient appears difficult, with fragmented responses and possible confusion, suggesting potential intoxication or other altered mental status despite the patient's claim of minimal alcohol consumption. Related Data Previous Rx's ?Medication ?Instructions ?Recorded azithromycin 500 mg tablet See Rx Instructions PO .COM PLEX #3 04/27/25 tabs furosemide 40 mg tablet (Lasix) 40 mg PO QAM #30 tabs 04/27/25 bupropion HCl 150 mg 24 hr tablet, 150 mg PO DAILY #30 tabs 04/29/25 extended release (Wellbutrin XL) furosemide 40 mg tablet (Lasix) 40 mg PO QAM PRN edema #30 tabs 05/03/25 hydroxyzine pamoate 25 mg capsule 25 mg PO BID PRN anx iety #30 caps 05/03/25 amlodipine 10 mg tablet 10 mg PO DAILY #90 tabs 05/05 02/27 aspirin 81 mg tablet,delayed 81 mg PO DAILY 90 days #9 0 tabs 05/18/25 release carvedilol 12.5 mg tablet 12.5 mg PO Q12H #180 tabs clopidogrel 75 mg tablet 75 mg PO DAILY #90 tabs 05/05 02/27 isosorbide mononitrate 30 mg 30 mg PO DAILY #90 tabs 0 05/18/25 tablet,extended release 24 hr losartan 50 mg tablet 75 mg (1.5 x 50 mg) PO DAILY #90 05/18/25 tabs potassium chloride 10 mEq 10 meq PO DAILY #90 caps capsule,extended release Allergies Allergy/AdvReac Type Severity Reaction Status Date / Time morphine Allergy Severe vomiting Verified 05/18/25 13:37 Penicillins Allergy ALGY-Rash Verified 05/18/25 13:37 Review of Systems 2 General: Reports: ROS unobtainable due to medical condition and ROS unobtainable due to mental status PFSH ED 2 PFSH: Medical History (Updated 05/28/25 @ 07:39 by Akash Mancia DO) Sinus tachycardia Lumbar stenosis with neurogenic claudication GERD (gastroesophageal reflux disease) No pertinent past medical history neghx: dm,thyroid,dvt/pe PCP: Lupe Kwan Hx of hyperlipidemia Anxiety Smoking addiction Hypertension Surgical History Hx of section 06/17/2002 01/05/2010 Hx of laparoscopy (~07/30/12) Diagnostic Laparoscopy perfomed by Dr. Nabor Ernst at [facility] in [place], [place]. Diagnosis: abdominal pain, pelvic pain Family History Father CAD (coronary artery disease) quadruple bypass Stroke before 60 Heart disease Hypertension Mother CAD (coronary artery disease) MD and stents Stroke before the age of 60 Heart disease Hypertension Family/Other No problems noted. Denies family history of Colon cancer Ovarian cancer Diabetes Breast cancer Uterine cancer Thyroid disease Social History Smoking and tobacco/nicotine status: current some day tobacco/nicotine user (Social) Alcohol intake: current Alcohol intake frequency: 0-2 Drinks per Day Substance/Drug Use: current Physical Exam 2 Const: COMMON NORMALS: no acute distress and alert HENMT: COMMON NORMALS: normocephalic HEAD & SCALP: normocephalic Eye: COMMON NORMALS: Equal, round and reactive pupils present, EOMs intact bilaterally and conjunctivae normal CONJUNCTIVA: Yes conjunctivae normal P UPIL: Yes Equal, round and reactive pupils present Neck/C-Spine: COMMON NORMALS: full ROM, no lymphadenopathy, supple, no meningeal signs, no JVD and Thyroid normal THYROID: Thyroid normal Chest: COMMONS NORMALS: normal inspection of the chest and normal palpation of entire chest wall Resp: COMMON NORMALS: normal respiratory effort, No retractions, No use of accessory muscles, clear to auscultation bilaterally and percussion normal A USCULTATION: clear to auscultation bilaterally PERCUSSION: percussion normal Cardio: COMMON NORMALS: no JVD, regular rate and regular rhythm RATE: r egular rate RHYTHM: regular rhythm GI: COMMON NORMALS: Normal to inspection, nondistended, normoactive bowel sounds present, Soft to palpation, non-tender, No hepatosplenomegaly present, no masses and no bruits PALPATION: Yes Soft to palpation and Yes No hepatosplenomegaly present : COMMON NORMALS: Yes no CVA tenderness BLADDER/KIDNEY EXAM: Yes no CVA tenderness Back/Pelvis: COMMON NORMALS: no CVA tenderness Extremity: COMMON NORMALS: normal to inspection, full ROM, capillary refill normal, no joint enlargement, no clubbing, cyanosis or edema, no calf tenderness and no pedal edema Neuro: SENSORIUM/ORIENTATION: Yes alert MENINGEAL SIGNS: Yes no meningeal signs Skin: COMMON NORMALS: no rashes or lesions noted, turgor normal and no jaundice GENERAL SKIN EXAM: no rashes or lesions noted and turgor normal Course 2 Vital Signs: Vital signs: Vital Signs Pulse Rate 118 H 05/28/25 06:45 Respiratory Rate 27 H 05/28/25 06:45 Blood Pressure 175/141 05/28/25 06:45 Pulse Oximetry 91 05/28/25 06:45 Oxygen Delivery Me thod Room Air 05/28/25 00:45 MDM - Chest Pain Medical Decision Making 1. Altered Mental Status - Etiology unclear; differential includes alcohol intoxication (despite patient's claim of minimal consumption), other substance use not disclosed, metabolic derangement, head injury, or psychiatric condition - Will obtain toxicology screen including blood alcohol level - Consider head CT if mental status does not improve with observation - Monitor vital signs 2. Reported Pain - Location and character not specified by patient. History difficult. Start empiric chest pain w/u given history. - Will perform complete physical examination when patient is more cooperative - Consider appropriate imaging based on examination findings 3. Disposition - Patient to remain in Emergency Department for observation and further evaluation - Will reassess after laboratory results return - Consider psychiatric consultation if altered mental status persists after medical causes ruled out Patient's urine drug screen came back positive for several things including amphetamines and marijuana my guess is this is likely methamphetamines. The patient remained agitated and altered necessitating medications for her safety, as well as staff and to facilitate workup. 0550 - Patient remains with some altered mental status but improving. Will turn patient over to oncoming emergency room physician for admission / further work up. Patient had a abnormal EKG but her troponin never appreciably elevated her 2- hour delta was down by almost 5. The patient was eventually sedated and cardiology consulted to determine that the patient was a little risky to perform any procedures or intervene at this point we will see what her 6-hour troponin is but at this point with just mild troponin elevation I think the risks outweigh the benefits at this point of taking her immediately to the [facility] the vp outcomes on-call agreed that I talked to the hospitalist about admission for altered mental status and ongoing treatment and observation and she was agreeable Bridge orders were placed we decided to place her in the ICU. Lab Data 05/28/25 00:54 05/28/25 00:54 Radiology Impressions Chest X-Ray 05/28/25 05:46 IMPRESSION: Mild bilateral pulmonary infiltrates suspicious for pulmonary edema, pneumonia is a consideration. Laboratory Results WBC 12.65 10^3/uL (3.29-11.43) H 05/28/25 00:54 RBC 5.38 10^6/uL (3.85-5.65) 05/28/25 00:54 Hgb 15.30 g/dL (11.27-16.99) 05/28/25 00:54 Hct 47.7 % (36-47) H 05/28/25 00:54 MCV 88.7 fl (85-98) 05/28/25 00:54 MCH 28.4 pg (27-33) 05/28/25 00:54 MCHC 32.1 g/dL (30-55) 05/28/25 00:54 RDW 14.3 % (12.1-15.1) 05/28/25 00:54 Plt Count 416 10^3/cmm (157-399) H 05/28/25 00:54 MPV 10.1 fL (7.4-10.4) 05/28/25 00:54 Neut % (Auto) 53.0 % 05/28/25 00:54 Lymph % (Auto) 37.8 % 05/28/25 00:54 [place] % (Auto) 7.0 % 05/28/25 00:54 Eos % (Auto) 1.4 % 05/28/25 00:54 Baso % (Auto) 0.5 % 05/28/25 00:54 Neut # (Auto) 6.71 10^3/uL (1.8-7.7) 05/28/25 00:54 Lymph # (Auto) 4.8 10^3/uL (0.8-4.8) 05/28/25 00:54 [place] # (Auto) 0.9 10^3/uL (0.2-0.9) 05/28/25 00:54 Eos # (Auto) 0.2 10^3/uL (0.0-0.8) 05/28/25 00:54 Baso # (Auto) 0.1 10^3/uL (0.0-0.1) 05/28/25 00:54 Nucleated RBC % (auto) 0 % 05/28/25 00:54 Nucleated RBCs # 0.0 /100WBC 05/28/25 00:54 Sodium 142 mmol/L (136-145) 05/28/25 00:54 Potassium 3.6 mmol/L (3.5-5.1) 05/28/25 00:54 Chloride 103 mmol/L (98-107) 05/28/25 00:54 Carbon Dioxide 25 mmol/L (22-29) 05/28/25 00:54 Anion Gap 17.6 (5-19) 05/28/25 00:54 BUN 24 mg/dL (6-20) H 05/28/25 00:54 Creatinine 1.0 mg/dL (0.5-0.9) H 05/28/25 00:54 GFR Calculation 60.5 mL/min (90-130) L 05/28/25 00:54 Glucose 66 mg/dL (65-115) 05/28/25 00:54 POC Glucose 120 mg/dL (70-110) H 05/28/25 00:58 Calculated Osmolality 296 mOsm/kg (285-295) H 05/28/25 00:54 Calcium 9.9 mg/dL (8.5-10.5) 05/28/25 00:54 Troponin T Baseline 80 ng/L (0-10) H 05/28/25 00:54 Troponin T 120 Minute 75.98 ng/L (0-10) H 05/28/25 02:45 Delta Troponin T -4.02 ABS# (0-10) L 05/28/25 02:45 Troponin T Hi Sens 6Hr 1639 ng/L (0-10) H 05/28/25 06:43 Troponin T Hi Sens 6Hr Delta 1559 ng/L (0-12) H* 05/28/25 06:43 NT-Pro-B Natriuret Pep 1998 pg/mL (0-125) H 05/28/25 02:45 HCG, Qual Negative (Negative) 05/28/25 01:05 Urine Opiates Screen Negative ng/mL (Negative) 05/28/25 01:05 Ur Barbiturates Screen Negative ng/mL (Negative) 05/28/25 01:05 Ur Phencyclidine Scrn Negative ng/mL (Negative) 05/28/25 01:05 Ur Amphetamines Screen Positive ng/mL (Negative) H 05/28/25 01:05 U Benzodiazepines Scrn Positive ng/mL (Negative) H 05/28/25 01:05 Urine Cocaine Screen Negative ng/mL (Negative) 05/28/25 01:05 U Marijuana (THC) Screen Positive ng/mL (Negative) H 05/28/25 01:05 Ethyl Alcohol < 10 mg/dL (0-10) 05/28/25 00:54 XR interpretation done by ED provider, pending radiology final review ED provider radiology interpretation(s): Chest xray reviewed and shows pulmonary edema and mutliple devices overlying. EKG show hyperacute T waves and T wave changes with some CLAUDIO. Repeat EKG remains abnormal but troponins are not significantly elevated. Discharge Plan Discharge Patient Disposition: Admitted As Inpatient Admit Provider: Johanna Amaya Clinical Impression: Amphetamine use, Hypertensive emergency, History of coronary artery disease, Abnormal ECG, Acute alteration in mental status, Combative behavior, AMI (acute myocardial infarction) Condition: Stable Sign Out Sign Out Data: Patient Sign Out occurred on 05/28/25 at 07:37. Patient's care was discussed, and care was transferred from Michele Helms DO to Akash Mancia DO. Coding Level of Care Code ED Brassiere Cup Mold Cutter for Chg Fwd Documented by User: Akash Mancia DO 05/28/25 07:39 HPI - Chest Pain 2 General: Chief Complaint: Chest Pain Stated Complaint: cp Time Seen by Provider: 05/28/25 00:46 Related Data Previous Rx's ?Medication ?Instructions ?Recorded azithromycin 500 mg tablet See Rx Instructions PO .COM PLEX #3 04/27/25 tabs furosemide 40 mg tablet (Lasix) 40 mg PO QAM #30 tabs 04/27/25 bupropion HCl 150 mg 24 hr tablet, 150 mg PO DAILY #30 tabs 04/29/25 extended release (Wellbutrin XL) furosemide 40 mg tablet (Lasix) 40 mg PO QAM PRN edema #30 tabs 05/03/25 hydroxyzine pamoate 25 mg capsule 25 mg PO BID PRN anx iety #30 caps 05/03/25 amlodipine 10 mg tablet 10 mg PO DAILY #90 tabs 05/05 02/27 aspirin 81 mg tablet,delayed 81 mg PO DAILY 90 days #9 0 tabs 05/18/25 release carvedilol 12.5 mg tablet 12.5 mg PO Q12H #180 tabs clopidogrel 75 mg tablet 75 mg PO DAILY #90 tabs 05/05 02/27 isosorbide mononitrate 30 mg 30 mg PO DAILY #90 tabs 0 05/18/25 tablet,extended release 24 hr losartan 50 mg tablet 75 mg (1.5 x 50 mg) PO DAILY #90 05/18/25 tabs potassium chloride 10 mEq 10 meq PO DAILY #90 caps capsule,extended release Allergies Allergy/AdvReac Type Severity Reaction Status Date / Time morphine Allergy Severe vomiting Verified 05/18/25 13:37 Penicillins Allergy ALGY-Rash Verified 05/18/25 13:37 PFSH ED 2 PFSH: Medical History (Updated 05/28/25 @ 07:39 by Akash Mancia DO) Sinus tachycardia Lumbar stenosis with neurogenic claudication GERD (gastroesophageal reflux disease) No pertinent past medical history neghx: dm,thyroid,dvt/pe PCP: Lupe Kwan Hx of hyperlipidemia Anxiety Smoking addiction Hypertension Surgical History Hx of section 06/17/2002 01/05/2010 Hx of laparoscopy (~07/30/12) Diagnostic Laparoscopy perfomed by Dr. Nabor Ernst at [facility] in [place], [place]. Diagnosis: abdominal pain, pelvic pain Family History Father CAD (coronary artery disease) quadruple bypass Stroke before 60 Heart disease Hypertension Mother CAD (coronary artery disease) MD and stents Stroke before the age of 60 Heart disease Hypertension Family/Other No problems noted. Denies family history of Colon cancer Ovarian cancer Diabetes Breast cancer Uterine cancer Thyroid disease Social History Smoking and tobacco/nicotine status: current some day tobacco/nicotine user (Social) Alcohol intake: current Alcohol intake frequency: 0-2 Drinks per Day Substance/Drug Use: current Course 2 Vital Signs: Vital signs: Vital Signs Pulse Rate 118 H 05/28/25 06:45 Respiratory Rate 27 H 05/28/25 06:45 Blood Pressure 175/141 05/28/25 06:45 Pulse Oximetry 91 05/28/25 06:45 Oxygen Delivery Me thod Room Air 05/28/25 00:45 MDM - Chest Pain Medical Decision Making 1. Altered Mental Status - Etiology unclear; differential includes alcohol intoxication (despite patient's claim of minimal consumption), other substance use not disclosed, metabolic derangement, head injury, or psychiatric condition - Will obtain toxicology screen including blood alcohol level - Consider head CT if mental status does not improve with observation - Monitor vital signs 2. Reported Pain - Location and character not specified by patient. History difficult. Start empiric chest pain w/u given history. - Will perform complete physical examination when patient is more cooperative - Consider appropriate imaging based on examination findings 3. Disposition - Patient to remain in Emergency Department for observation and further evaluation - Will reassess after laboratory results return - Consider psychiatric consultation if altered mental status persists after medical causes ruled out Patient's urine drug screen came back positive for several things including amphetamines and marijuana my guess is this is likely methamphetamines. The patient remained agitated and altered necessitating medications for her safety, as well as staff and to facilitate workup. 0550 - Patient remains with some altered mental status but improving. Will turn patient over to oncoming emergency room physician for admission / further work up. Patient had a abnormal EKG but her troponin never appreciably elevated her 2- hour delta was down by almost 5. The patient was eventually sedated and cardiology consulted to determine that the patient was a little risky to perform any procedures or intervene at this point we will see what her 6-hour troponin is but at this point with just mild troponin elevation I think the risks outweigh the benefits at this point of taking her immediately to the [facility] the vp outcomes on-call agreed that I talked to the hospitalist about admission for altered mental status and ongoing treatment and observation and she was agreeable Bridge orders were placed we decided to place her in the ICU. Care assumed at change of shift EKGs reviewed forwarded to cardiology. Also discussed with the hospitalist patient's 6-hour delta Trope is +1559 is already on heparin. She is given labetalol for blood pressure and tachycardia. Transfer order placed in the chart other orders are already in place. Dr. Graves is down in the department seeing the patient as he is discussing with Dr. Sy. Dr. Garland has assumed patient's care. Lab Data 05/28/25 00:54 05/28/25 00:54 Radiology Impressions Chest X-Ray 05/28/25 05:46 IMPRESSION: Mild bilateral pulmonary infiltrates suspicious for pulmonary edema, pneumonia is a consideration. Laboratory Results WBC 12.65 10^3/uL (3.29-11.43) H 05/28/25 00:54 RBC 5.38 10^6/uL (3.85-5.65) 05/28/25 00:54 Hgb 15.30 g/dL (11.27-16.99) 05/28/25 00:54 Hct 47.7 % (36-47) H 05/28/25 00:54 MCV 88.7 fl (85-98) 05/28/25 00:54 MCH 28.4 pg (27-33) 05/28/25 00:54 MCHC 32.1 g/dL (30-55) 05/28/25 00:54 RDW 14.3 % (12.1-15.1) 05/28/25 00:54 Plt Count 416 10^3/cmm (157-399) H 05/28/25 00:54 MPV 10.1 fL (7.4-10.4) 05/28/25 00:54 Neut % (Auto) 53.0 % 05/28/25 00:54 Lymph % (Auto) 37.8 % 05/28/25 00:54 [place] % (Auto) 7.0 % 05/28/25 00:54 Eos % (Auto) 1.4 % 05/28/25 00:54 Baso % (Auto) 0.5 % 05/28/25 00:54 Neut # (Auto) 6.71 10^3/uL (1.8-7.7) 05/28/25 00:54 Lymph # (Auto) 4.8 10^3/uL (0.8-4.8) 05/28/25 00:54 [place] # (Auto) 0.9 10^3/uL (0.2-0.9) 05/28/25 00:54 Eos # (Auto) 0.2 10^3/uL (0.0-0.8) 05/28/25 00:54 Baso # (Auto) 0.1 10^3/uL (0.0-0.1) 05/28/25 00:54 Nucleated RBC % (auto) 0 % 05/28/25 00:54 Nucleated RBCs # 0.0 /100WBC 05/28/25 00:54 Sodium 142 mmol/L (136-145) 05/28/25 00:54 Potassium 3.6 mmol/L (3.5-5.1) 05/28/25 00:54 Chloride 103 mmol/L (98-107) 05/28/25 00:54 Carbon Dioxide 25 mmol/L (22-29) 05/28/25 00:54 Anion Gap 17.6 (5-19) 05/28/25 00:54 BUN 24 mg/dL (6-20) H 05/28/25 00:54 Creatinine 1.0 mg/dL (0.5-0.9) H 05/28/25 00:54 GFR Calculation 60.5 mL/min (90-130) L 05/28/25 00:54 Glucose 66 mg/dL (65-115) 05/28/25 00:54 POC Glucose 120 mg/dL (70-110) H 05/28/25 00:58 Calculated Osmolality 296 mOsm/kg (285-295) H 07/24/25 00:54 Calcium 9.9 mg/dL (8.5-10.5) 05/28/25 00:54 Troponin T Baseline 80 ng/L (0-10) H 05/28/25 00:54 Troponin T 120 Minute 75.98 ng/L (0-10) H 05/28/25 02:45 Delta Troponin T -4.02 ABS# (0-10) L 05/28/25 02:45 Troponin T Hi Sens 6Hr 1639 ng/L (0-10) H 05/28/25 06:43 Troponin T Hi Sens 6Hr Delta 1559 ng/L (0-12) H* 05/28/25 06:43 NT-Pro-B Natriuret Pep 1998 pg/mL (0-125) H 05/28/25 02:45 HCG, Qual Negative (Negative) 05/28/25 01:05 Urine Opiates Screen Negative ng/mL (Negative) 05/28/25 01:05 Ur Barbiturates Screen Negative ng/mL (Negative) 05/28/25 01:05 Ur Phencyclidine Scrn Negative ng/mL (Negative) 05/28/25 01:05 Ur Amphetamines Screen Positive ng/mL (Negative) H 05/28/25 01:05 U Benzodiazepines Scrn Positive ng/mL (Negative) H 05/28/25 01:05 Urine Cocaine Screen Negative ng/mL (Negative) 05/28/25 01:05 U Marijuana (THC) Screen Positive ng/mL (Negative) H 05/28/25 01:05 Ethyl Alcohol < 10 mg/dL (0-10) 05/28/25 00:54 Discharge Plan Discharge Patient Disposition: Admitted As Inpatient Admit Provider: Johanna Amaya Clinical Impression: Amphetamine use, Hypertensive emergency, History of coronary artery disease, Abnormal ECG, Acute alteration in mental status, Combative behavior, AMI (acute myocardial infarction) Condition: Stable Sign Out Sign Out Data: Patient Sign Out occurred on 05/28/25 at 07:37. Patient's care was discussed, and care was transferred from Michele Helms DO to Akash Mancia DO. Coding Level of Care Code ED Brassiere Cup Mold Cutter for Desiree Gaxiola
[2025-05-28 01:01] LABS: Hematocrit 47.7 % (36-47); Hemoglobin 15.30 g/dL (11.27-16.99); Mean Corpuscular HGB Conc 32.1 g/dL (30-55); Mean Corpuscular Hemoglobin 28.4 pg (27-33); Mean Corpuscular Volume 88.7 fl (85-98); Nucleated Red Blood Cells % 0 %; Platelet Count 416 10^3/cmm (157-399); Red Blood Count 5.38 10^6/uL (3.85-5.65); White Blood Count 12.65 10^3/uL (3.29-11.43)
[2025-05-28 01:16] LABS: Alcohol Level < 10 mg/dL (0-10); Anion Gap 17.6 (5-19); Blood Urea Nitrogen 24 mg/dL (6-20); Calcium 9.9 mg/dL (8.5-10.5); Carbon Dioxide 25 mmol/L (22-29); Chloride 103 mmol/L (98-107); Creatinine Clr Calc Pharmacy 73.4020; Glucose 66 mg/dL (65-115); Osmolality Calculated 296 mOsm/kg (285-295); Potassium 3.6 mmol/L (3.5-5.1); Sodium 142 mmol/L (136-145)
[2025-05-28 01:17] LABS: HCG Qualitative Urine. Negative (Negative)
[2025-05-28 01:17] LABS: Troponin(5th) Baseline 80 ng/L (0-10)
[2025-05-28 01:23] LABS: PCP Screen Urine Negative (Negative)
[2025-05-28] MEDS: LORazepam 1 MG/0.5 ML injection 2 MG IVP (02:09)
--- NOTE | 2025-05-28 02:31 | PC.NURSE ---
Pt requiring significant assistance and encouragement for compliance, pt c/o chest pain and nausea which has been addressed with the provider multiple times, elevated BP has also been addressed with provider, no meds given for those specific complaints but did receive a VORB for Ativan 2mg IV x1. Pt is yelling, restless, trying to climb out of bed and requiring 1:1 care from PSA, even after the Ativan administration. Pt has had multiple changes to her heart rhythm, changes have been addressed with the provider. Pt arrived with a Quenchpack in place however there is no power to the unit.
[2025-05-28 03:08] LABS: Troponin 5 2HR 75.98 ng/L (0-10)
[2025-05-28 03:09] LABS: Troponin 5 2HR Delta -4.02 ABS# (0-10)
--- NOTE | 2025-05-28 03:31 | ECG_ITS ---
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 Measurements Intervals [place] Rate: 111 P: 53 [place]: 129 QRS: -80 QRSD: 210 T: 87 QT: 374 QTc: 508 Interpretive Statements SINUS TACHYCARDIA POSSIBLE LEFT ATRIAL ENLARGEMENT [-0.1mV P-WAVE IN V1/V2] LEFT AXIS DEVIATION [QRS AXIS < -30] RIGHT BUNDLE BRANCH BLOCK [120+ ms QRS DURATION, UPRIGHT V1, 40+ ms S IN I/aVL/V4/V5/V6] LEFT VENTRICULAR HYPERTROPHY AND ST-T CHANGE [VOLTAGE CRITERIA PLUS ST/T ABNORMALITY] ANTEROSEPTAL MYOCARDIAL INFARCTION ,AGE INDETERMINATE Compared to ECG 05/28/2025 00:50:53 Right bundle-branch block now present Sinus rhythm no longer present Myocardial infarct finding still present Electronically Signed On 05-28-2025 09:09:38 CDT by Marcelino Lanza M.D. [email or web address]
[2025-05-28] MEDS: haloperidol inj 5 mg/mL INJ 1 mL IVP (03:42)
--- NOTE | 2025-05-28 03:45 | PC.NURSE ---
Pt continuing being restless, yelling out, and trying to get out of bed, PSA still at the bedside. Provider notified of pt condition, given the 2hr EKG, and 2hr trop reviewed with provider, given VORB for Haldol 5mg IV x1. This technical proposal writer addressed the continued elevated BP with provider and no orders given.
--- NOTE | 2025-05-28 04:53 | PC.NURSE ---
Pt resting with eyes closed, even breathing, still moving a little in bed but otherwise calm. vitals continue to be elevated despite pt being calm. addressed with provider, no orders received.
--- NOTE | 2025-05-28 05:46 | XRR_ITS ---
PROCEDURE INFORMATION: Exam: XR Chest Exam date and time: 05/28/2025 5:47 AM Age: 45 years old Clinical indication: Pain; Chest pressure; Wearing life vest; Additional info: Cp TECHNIQUE: Imaging protocol: Radiologic exam of the chest. Views: 1 view. COMPARISON: CR (CHEST, ) 05/03/2025 4:15 PM FINDINGS: Lungs: Very poor inspiratory effort. Hazy opacity throughout the lungs bilaterally represents an infiltrate, probably pulmonary edema. These are accentuated by a poor inspiratory effort. Pleural spaces: Unremarkable. No pleural effusion. No pneumothorax. Heart/Mediastinum: See Vasculature finding. Vasculature: Borderline cardiomegaly and uncoiling of the thoracic aorta each accentuated by the AP positioning. Bones/joints: Unremarkable. XR/XR chest 1V portable [id number] IMPRESSION: Mild bilateral pulmonary infiltrates suspicious for pulmonary edema, pneumonia is a consideration.
--- NOTE | 2025-05-28 06:36 | ECG_ITS ---
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 Measurements Intervals [place] Rate: 118 P: 58 [place]: 131 QRS: -82 QRSD: 199 T: 87 QT: 339 QTc: 477 Interpretive Statements SINUS TACHYCARDIA RIGHT BUNDLE BRANCH BLOCK [120+ ms QRS DURATION, UPRIGHT V1, 40+ ms S IN I/aVL/V4/V5/V6] LEFT ANTERIOR FASCICULAR BLOCK [QRS AXIS <= -45, QR IN I, RS IN II] LEFT VENTRICULAR HYPERTROPHY AND ST-T CHANGE [VOLTAGE CRITERIA PLUS ST/T ABNORMALITY] ANTEROSEPTAL MYOCARDIAL INFARCTION , AGE INDETERMINATE Compared to ECG 05/28/2025 03:31:38 Left anterior fascicular block now present Left-axis deviation no longer present ST (T wave) deviation still present Myocardial infarct finding still present Electronically Signed On 05-28-2025 09:01:15 CDT by Marcelino Lanza M.D. [email or web address]
[2025-05-28] MEDS: labetalol 5 mg/mL SDV 20mL 10 MG IVP (06:45)
[2025-05-28] MEDS: LORazepam 1 MG/0.5 ML injection IVP (06:45)
[2025-05-28] MEDS: D5-NS 0.45% + KCL 20 mEq 20 MEQ/1,000 ML BAG 100 MEQ IV (06:46)
--- NOTE | 2025-05-28 06:46 | PM.HP ---
Providers/Chief Complaint Admitting Physician: Johanna Amaya MD Primary Care Provider: Audelia Kwan DO Chief Complaint: cp History of Present Illness Katey Romeo is a 45 year old female with medical history significant for polysustance abuse, anxiety, nicotine addiction who was recently admitted here in April 2025 for NSTEMI and underwent coronary angiogram on April 27, 2025.she was found to have severe proximal to mid LAD stenosis for which she underwent PCI with 2 stents. Additionally she was also found to have significant stenosis in the RCA which was planned for a staged PCI Hospital course was marked by uncontrolled hypertension for which patient required nitroprusside infusion at that time. She has a life vest in place for last known EF 20-25%. She presented to the ER overnight with chief complaints of altered mental status and complaining of chest pain. She reported alcohol use though alcohol level eventually was negative. Urine drug screen was positive for methamphetamines, marijuana and benzodiazepines. EKGs obatined overnight reveiwed. at 0050, EKG shows bigeminy with VPCs , ST deviation noted on I,AVL. Serial EKGs showing sinus tachycardia with a heart rate of 118 mmHg,noted ST depression involving leads II to III, aVR, V1, V2. Baseline troponin returned at 80, downtrending to 75 at 2 hrs . SHe was noted to be hypertensive with blood pressure 183/121 mmHg , currently at 120/104 after having received labetalol. Review of Systems General: Reports: ROS unobtainable due to medical condition Medications/Allergies Home Medications ?Medication ?Instructions ?Recorded ?Confirmed ?Last Taken ?Type azithromycin 500 mg tablet See Rx Instructions PO .COMPLEX #3 04/27/25 05/18/25 Unknown Rx tabs furosemide 40 mg tablet (Lasix) 40 mg PO QAM #30 tabs 04/27/25 05/18/25 Unknown Rx bupropion HCl 150 mg 24 hr tablet, 150 mg PO DAILY #30 tabs 04/29/25 05/18/25 Unknown Rx extended release (Wellbutrin XL) furosemide 40 mg tablet (Lasix) 40 mg PO QAM PRN edema #30 tabs 05/03/25 05/18/25 Unknown Rx hydroxyzine pamoate 25 mg capsule 25 mg PO BID PRN anxiety #30 caps 05/03/25 05/18/25 Unknown Rx amlodipine 10 mg tablet 10 mg PO DAILY #90 tabs 05/18/25 05/18/25 Unknown Rx aspirin 81 mg tablet,delayed 81 mg PO DAILY 90 days #90 tabs 05/18/25 05/18/25 Unknown Rx release carvedilol 12.5 mg tablet 12.5 mg PO Q12H #180 tabs 05/18/25 05/18/25 Unknown Rx clopidogrel 75 mg tablet 75 mg PO DAILY #90 tabs 05/18/25 05/18/25 Unknown Rx isosorbide mononitrate 30 mg 30 mg PO DAILY #90 tabs 05/18/25 05/18/25 Unknown Rx tablet,extended release 24 hr losartan 50 mg tablet 75 mg (1.5 x 50 mg) PO DAILY #90 05/18/25 05/18/25 Unknown Rx tabs potassium chloride 10 mEq 10 meq PO DAILY #90 caps 05/18/25 05/18/25 Unknown Rx capsule,extended release Allergies Allergy/AdvReac Type Severity Reaction Status Date / Time morphine Allergy Severe vomiting Verified 05/18/25 13:37 Penicillins Allergy ALGY-Rash Verified 05/18/25 13:37 PFSH Acute PFSH: Medical History Sinus tachycardia Lumbar stenosis with neurogenic claudication GERD (gastroesophageal reflux disease) No pertinent past medical history neghx: dm,thyroid,dvt/pe PCP: Lupe Kwan Hx of hyperlipidemia Anxiety Smoking addiction Hypertension Surgical History Hx of section 06/17/2002 01/05/2010 Hx of laparoscopy (~07/30/12) Diagnostic Laparoscopy perfomed by Dr. Nabor Ernst at [facility] in [place], [place]. Diagnosis: abdominal pain, pelvic pain Family History Father CAD (coronary artery disease) quadruple bypass Stroke before 60 Heart disease Hypertension Mother CAD (coronary artery disease) [place] and stents Stroke before the age of 60 Heart disease Hypertension Family/Other No problems noted. Denies family history of Colon cancer Ovarian cancer Diabetes Breast cancer Uterine cancer Thyroid disease Social History Smoking and tobacco/nicotine status: current some day tobacco/nicotine user (Social) Alcohol intake: current Alcohol intake frequency: 0-2 Drinks per Day Substance/Drug Use: current Vitals/I&O/Wt Last Vital Signs Pulse 120 H 05/28/25 06:00 Resp 26 H 05/28/25 03:15 BP 183/121 05/28/25 06:00 Pulse Ox 92 05/28/25 06:00 O2 Del Method Room Air 05/28/25 00:45 Weight last 48 hrs Weight 81.647 kg Physical Exam Narrative: General: laying in bed, wakes up to calling name, disoriented, disheveled, AO x1 HEENT: PERRLA, pupils bilaterally equal and reactive, pallors not present Chest: Crackles B/L basal lung rivas CVS: S1-S2 regular, tachycardic Abdomen: Soft, non distended, non tender Neuro: moving all extremities while laying in bed, follows simple commands to move exremities, unable to have a conversation Data 05/28/25 00:54 05/28/25 00:54 Other data: Laboratory Results WBC 12.65 10^3/uL (3.29-11.43) H 05/28/25 00:54 RBC 5.38 10^6/uL (3.85-5.65) 05/28/25 00:54 Hgb 15.30 g/dL (11.27-16.99) 05/28/25 00:54 Hct 47.7 % (36-47) H 05/28/25 00:54 MCV 88.7 fl (85-98) 05/28/25 00:54 MCH 28.4 pg (27-33) 05/28/25 00:54 MCHC 32.1 g/dL (30-55) 05/28/25 00:54 RDW 14.3 % (12.1-15.1) 05/28/25 00:54 Plt Count 416 10^3/cmm (157-399) H 05/28/25 00:54 MPV 10.1 fL (7.4-10.4) 05/28/25 00:54 Neut % (Auto) 53.0 % 05/28/25 00:54 Lymph % (Auto) 37.8 % 05/28/25 00:54 [place] % (Auto) 7.0 % 05/28/25 00:54 Eos % (Auto) 1.4 % 05/28/25 00:54 Baso % (Auto) 0.5 % 05/28/25 00:54 Neut # (Auto) 6.71 10^3/uL (1.8-7.7) 05/28/25 00:54 Lymph # (Auto) 4.8 10^3/uL (0.8-4.8) 05/28/25 00:54 [place] # (Auto) 0.9 10^3/uL (0.2-0.9) 05/28/25 00:54 Eos # (Auto) 0.2 10^3/uL (0.0-0.8) 05/28/25 00:54 Baso # (Auto) 0.1 10^3/uL (0.0-0.1) 05/28/25 00:54 Nucleated RBC % (auto) 0 % 05/28/25 00:54 Nucleated RBCs # 0.0 /100WBC 05/28/25 00:54 Sodium 142 mmol/L (136-145) 05/28/25 00:54 Potassium 3.6 mmol/L (3.5-5.1) 05/28/25 00:54 Chloride 103 mmol/L (98-107) 05/28/25 00:54 Carbon Dioxide 25 mmol/L (22-29) 05/28/25 00:54 Anion Gap 17.6 (5-19) 05/28/25 00:54 BUN 24 mg/dL (6-20) H 05/28/25 00:54 Creatinine 1.0 mg/dL (0.5-0.9) H 05/28/25 00:54 GFR Calculation 60.5 mL/min (90-130) L 05/28/25 00:54 Glucose 66 mg/dL (65-115) 05/28/25 00:54 POC Glucose 120 mg/dL (70-110) H 05/28/25 00:58 Calculated Osmolality 296 mOsm/kg (285-295) H 05/28/25 00:54 Calcium 9.9 mg/dL (8.5-10.5) 05/28/25 00:54 Troponin T Baseline 80 ng/L (0-10) H 05/28/25 00:54 Troponin T 120 Minute 75.98 ng/L (0-10) H 05/28/25 02:45 Delta Troponin T -4.02 ABS# (0-10) L 05/28/25 02:45 HCG, Qual Negative (Negative) 05/28/25 01:05 Urine Opiates Screen Negative ng/mL (Negative) 05/28/25 01:05 Ur Barbiturates Screen Negative ng/mL (Negative) 05/28/25 01:05 Ur Phencyclidine Scrn Negative ng/mL (Negative) 05/28/25 01:05 Ur Amphetamines Screen Positive ng/mL (Negative) H 05/28/25 01:05 U Benzodiazepines Scrn Positive ng/mL (Negative) H 05/28/25 01:05 Urine Cocaine Screen Negative ng/mL (Negative) 05/28/25 01:05 U Marijuana (THC) Screen Positive ng/mL (Negative) H 05/28/25 01:05 Ethyl Alcohol < 10 mg/dL (0-10) 05/28/25 00:54 A&P Assessment and plan 1. Amphetamine use: 45-year-old lady brought into the emergency room with altered mental status and a history of polysubstance abuse. Urine drug screen is positive for methamphetamines, benzodiazepines and marijuana. Patient was agitated overnight and received multiple doses of Ativan and Haldol following which she is currently calm. Laying in bed. Confused therefore not much history is able to be available. Chart has been reviewed for recent cardiac history. It appears she may have been noncompliant with medications at home. Patient will be admitted to the ICU today in view of her altered mental status, polysubstance abuse. She will need close monitoring of her cardiac and respiratory status. I anticipate she will likely need to start Precedex infusion 2. Non-ST elevation (NSTEMI) myocardial infarction: NSTEMI based on diffuse ST changes seen on EKGs Baseline troponin at 80, downtrending at 2 hours at 75. 6-hour trend is currently pending. Case was discussed by ER physician with cardiology service overnight, she has been started on a heparin infusion at this time which we will continue. Will continue with her home doses of aspirin, Plavix, atorvastatin, carvedilol in addition to heparin drip. 3. Acute alteration in mental status: Likely related to polysubstance abuse 4. Ischemic cardiomyopathy: Ischemic cardiomyopathy with last known ejection fraction of 20 to 25%. Patient has a LifeVest on at this time. Chest x-ray taken in the ER today waiting to be read by radiology. Per personal interpretation showing bilateral infiltrates concerning for pulmonary edema. Lasix 40 mg IV to be given now. 5. Systolic heart failure: Acute on chronic systolic heart failure exacerbation. Chest x-ray showing bilateral infiltrates concerning for pulmonary edema per my interpretation. Patient is supposed to be on Lasix 40 mg p.o. daily at home, however her compliance is questionable at this time. Lasix 40 mg IV now. Saunders catheter to be placed to monitor accurate output. Closely monitor kidney function on IV diuresis. Discontinue IV fluids. Plan: DVT ppx: on heparin drip Full code NPo except meds PDMP PDMP Reviewed: Not Reviewed Attestations Medical Necessity Statement*: Greater than 2 midnight stay is currently anticipated in view of NSTEMI, polysubstance abuse leading to delirium, IV diuresis Critical Care Time: The high probability of a clinically significant, sudden or life threatening deterioration of the patient's [cardiac,respiratory,neuro] system(s) required my full and direct attention, intervention and personal management. The critical care time is as shown. This time is in addition to time spent performing any reported procedures but includes the following: [x] Data and vital sign review and interpretation [x] Patient assessment, examination and intervention [x] Documentation [x] Medication orders and management Critical Care Time (min): 50 Coding Level of Care Code Critical Care >/= 30 minutes Diagnoses Amphetamine use F15.90 Non-ST elevation (NSTEMI) myocardial infarction I21.4 Acute alteration in mental status R41.82 Ischemic cardiomyopathy I25.5 Systolic heart failure I50.20
--- NOTE | 2025-05-28 06:55 | ECG_ITS ---
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 Measurements Intervals [place] Rate: 94 P: 61 TX: 179 QRS: -85 QRSD: 212 T: 87 QT: 491 QTc: 616 Interpretive Statements SINUS RHYTHM RIGHT ATRIAL ENLARGEMENT [0.3mV P-WAVE] LEFT ATRIAL ENLARGEMENT [-0.15mV P-WAVE IN V1/V2] INTRAVENTRICULAR CONDUCTION DELAY [130+ ms QRS DURATION] RIGHT BUNDLE BRANCH BLOCK ANTEROLATERAL MYOCARDIAL INFARCTION, AGE INDETERMINATE Compared to ECG 05/28/2025 06:36:02 Atrial abnormality now present Intraventricular conduction delay now present Right bundle-branch block no longer present ST (T wave) deviation no longer present Myocardial infarct finding still present Electronically Signed On 05-28-2025 09:09:00 CDT by Marcelino Lanza M.D. [id number]
[2025-05-28 07:10] LABS: Troponin 5 6HR 1639 ng/L (0-10); Troponin 5 6HR Delta 1559 ng/L (0-12)
[2025-05-28] MEDS: heparin 5,000 unit/mL INJ 1 mL IVP (07:17)
[2025-05-28 07:27] LABS: NT Pro B Type Natriuretic Pept 1998 pg/mL (0-125)
[2025-05-28] MEDS: FUROsemide 10 mg/mL SDV 4mL 40 MG IVP (07:28)
[2025-05-28] MEDS: heparin drip 25,000 UNIT/500 ML PREMIX 23 UNIT IV (07:32)
--- NOTE | 2025-05-28 08:03 | PC.NURSE ---
Arrived from ED, ao to self and being in hospital, falls asleep during conversation but wakes up with voice stimuli, follows commands at this time
--- NOTE | 2025-05-28 08:30 | P.CONIM_ITS ---
<Statement entered by Marcelino Lanza M.D - 05/30/25 11:06> Patient was evaluated and cared for in conjunction with an advanced practice practitioner.? I personally examined the patient and reviewed the chart and all pertinent data including imaging, telemetry, and laboratory results.? I discussed the patient in detail with the advanced practice practitioner.? Please see? their note for complete consult note, testing results and agreed upon plan of care for the patient. Patient's initial 2 troponins did not trend up. Third troponin has significantly increased. She is denying chest pain. She is noncompliant with medications. Continues using drugs and was positive for amphetamines, benzos and marijuana. EF is known to be 20%. Likely has infarcted LAD territory. EKG has dynamic changes. Echo is pending. Plan was to perform staged PCI of RCA however with the current situation of noncompliance and continued drug abuse, further stenting can cause more harm. She is hemodynamically stable. Denies chest pain. At this time we will continue medical therapy. Unless there is a change in her clinical status, medical therapy will be safer option for her. GENERAL: Patient is sleepy. HEART: Regular S1 and S2 LUNGS: Clear to auscultate bilaterally. CENTRAL NERVOUS SYSTEM: Grossly nonfocal. EXTREMITIES: Lower extremities without edema bilaterally. Providers/Reason For Consult 2 Consulting Physician/Specialty*: Dr Lanza, cardiology Reason for Consult*: NSTEMI Requesting Physician: Johanna Amaya MD Attending Physician: Johanna Amaya MD Primary Care Provider: Audelia Kwan DO History of Present Illness History of Present Illness Katey Romeo is a 45 year old female with past medical history of CAD, hyperlipidemia, uncontrolled hypertension, anxiety, substance abuse including methamphetamine, marijuana and tobacco. She had an NSTEMI 04/27/2025, coronary angiogram showed significant LAD stenosis which was treated with 2 stents, also significant RCA stenosis plan was for staged PCI. When she was seen in the clinic 05/18/2025 for follow-up. It was noted she was not taking any of her medications. She was wearing her LifeVest but battery was . She presented to the emergency room during the night last night with altered mental status and chest pain. History was difficult to elicit given altered mental status. Troponin series: 80-> 75-> 1639. BNP 1997, down from over 14,000 last month. BUN 24, creatinine 1.0. Initial EKG revealed bigeminal PVCs, ischemic changes in the anterolateral leads however did not meet STEMI criteria. Right bundle branch block also present. Review of Systems 2 Narrative: She is minimally responsive verbally. When questioned about chest pain she shook her head no, she does not open her eyes to conversation or when requested. Medications/Allergies Home Medications ?Medication ?Instructions ?Recorded ?Confirmed ?Last Taken ?Type furosemide 40 mg tablet (Lasix) 40 mg PO QAM #30 tabs 04/27/25 05/28/25 Unknown Rx bupropion HCl 150 mg 24 hr tablet, 150 mg PO DAILY #30 tabs 04/29/25 05/28/25 Unknown Rx extended release (Wellbutrin XL) furosemide 40 mg tablet (Lasix) 40 mg PO QAM PRN edema #30 tabs 05/03/25 05/28/25 Unknown Rx hydroxyzine pamoate 25 mg capsule 25 mg PO BID PRN anx iety #30 caps 05/03/25 05/28/25 Unknown Rx amlodipine 10 mg tablet 10 mg PO DAILY #90 tabs 05/0505/28/25 Unknown Rx aspirin 81 mg tablet,delayed 81 mg PO DAILY 90 days #9 0 tabs 05/18/25 05/28/25 Unknown Rx release carvedilol 12.5 mg tablet 12.5 mg PO Q12H #180 tabs 05/28/25 Unknown Rx clopidogrel 75 mg tablet 75 mg PO DAILY #90 tabs 05/0505/28/25 Unknown Rx isosorbide mononitrate 30 mg 30 mg PO DAILY #90 tabs 0 05/18/25 05/28/25 Unknown Rx tablet,extended release 24 hr losartan 50 mg tablet 75 mg (1.5 x 50 mg) PO DAILY #90 05/18/25 05/28/25 Unknown Rx tabs potassium chloride 10 mEq 10 meq PO DAILY #90 caps 05/28/25 Unknown Rx capsule,extended release fluoxetine 10 mg capsule 10 mg PO DAILY 05/28/2505/06 Unknown History Allergies Allergy/AdvReac Type Severity Reaction Status Date / Time morphine Allergy Severe vomiting Verified 05/18/25 13:37 Penicillins Allergy ALGY-Rash Verified 05/18/25 13:37 Current Medications Generic Name Dose Route Start Last Admin Trade Name Dong PRN Reason Stop Dose Admin Aspirin 81 mg 05/28/25 09:00 05/28/25 09:25 Aspirin 81 Mg Ec Tablet PO 81 mg DAILY MAX Administration Carvedilol 12.5 mg 05/28/25 08:03 05/28/25 09:24 Carvedilol 12.5 Mg Tablet PO 12.5 mg Q12H MAX Administration Clopidogrel Bisulfate 75 mg 05/28/25 09:00 05/28/25 09:26 Clopidogrel 75 Mg Tablet PO 75 mg DAILY MAX Administration Heparin Sodium/Sodium Chloride 25,000 unit in 500 mls @ 0 mls/hr 05/28/25 06:30 05/28/25 07:32 Heparin Drip IV 14.09 unit/kg/hr CONT MAX 23 mls/hr Protocol Administration Per Protocol Losartan Potassium 75 mg 05/28/25 09:00 05/28/25 09:25 Losartan 50 Mg Tablet PO 75 mg DAILY MAX Administration Pantoprazole Sodium 40 mg 05/28/25 09:00 05/28/25 09:[address] 40 Mg Tablet PO 40 mg DAILY MAX Administration PFSH Acute 2 PFSH: Medical History Sinus tachycardia Lumbar stenosis with neurogenic claudication GERD (gastroesophageal reflux disease) No pertinent past medical history neghx: dm,thyroid,dvt/pe PCP: Lupe Kwan Hx of hyperlipidemia Anxiety Smoking addiction Hypertension Surgical History Hx of section 06/17/2002 01/05/2010 Hx of laparoscopy (~07/30/12) Diagnostic Laparoscopy perfomed by Dr. Nabor Ernst at [facility] in [place], [place]. Diagnosis: abdominal pain, pelvic pain Family History Father CAD (coronary artery disease) quadruple bypass Stroke before 60 Heart disease Hypertension Mother CAD (coronary artery disease) [place] and stents Stroke before the age of 60 Heart disease Hypertension Family/Other No problems noted. Denies family history of Colon cancer Ovarian cancer Diabetes Breast cancer Uterine cancer Thyroid disease Social History Smoking and tobacco/nicotine status: current some day tobacco/nicotine user (Social) Alcohol intake: current Alcohol intake frequency: 0-2 Drinks per Day Substance/Drug Use: current Vitals/I&O/Wt Last Vital Signs Pulse 94 05/28/25 07:47 Resp 27 H 05/28/25 06:45 BP 172/126 05/28/25 09:25 Pulse Ox 98 05/28/25 09:42 O2 Del Method Nasal Cannula 05/28/25 09:42 O2 Flow Rate 2 05/28/25 09:42 05/27/25 05/28/25 05/28/25 22:59 06:59 14:59 Intake Total 73.333 / 73.333 Balance 73.333 / 73.333 Weight last 48 hrs Weight 180 lb Physical Exam 2 Narrative: She moves her arms and legs in the bed, sometimes turning herself over or raising up her upper body but will not reliably respond to questions regarding presence or absence of chest pain, shortness of breath, abdominal pain etc. She is not thrashing in bed, moaning, reaching for or touching her chest or abdomen. Respiratory effort is normal. Const: COMMON NORMALS: no acute distress; negative for alert GENERAL APPEARANCE: comfortable; not cooperative and not in distress ORIENTATION/CONSCIOUSNESS: Yes awake Chest: COMMONS NORMALS: normal inspection of the chest and normal palpation of entire chest wall CHEST: Yes Symmetrical chest wall rise Resp: COMMON NORMALS: normal respiratory effort, No retractions, No use of accessory muscles and clear to auscultation bilaterally EFFORT & INSPECTION: Yes symmetric chest movement AUSCULTATION: clear to auscultation bilaterally Cardio: COMMON NORMALS: regular rhythm, S1 normal heart sound present, S2 normal heart sound present, No gallops present (Cardio), No clicks present (Cardio), No murmurs present (Cardio) and No rub (Cardio) RATE: tachycardic RHYTHM: regular rhythm HEART SOUNDS: S1 normal heart sound present and S2 normal heart sound present PERIPHERAL PULSES: radial pulses present Extremity: COMMON NORMALS: no pedal edema Neuro: COMMON NORMALS: moves all extremities SENSORIUM/ORIENTATION: No alert Urinary Catheter Management: Saunders: Cath Placed During This Visit: yes Urinary Catheter Date of Insertion: 05/28/25 Urinary Catheter Time of Insertion: 07:42 Data 05/28/25 00:54 05/28/25 00:54 A&P Assessment and plan 1. Non-ST elevation (NSTEMI) myocardial infarction: 2. Hypertensive emergency: 3. Chest pain: 4. Systolic heart failure: 5. History of coronary artery disease: 6. Amphetamine use: 7. Marijuana use: Plan: She presents a challenge diagnostically as well as for management of NSTEMI. We know she is noncompliant with her medications and given the PCI of the LAD last month she was to be on dual antiplatelet therapy. When she spoke to our cardiac Door And Arrival Attendant yesterday she denied knowledge of needing to be on those medications, despite an office visit and teaching while admitted to the hospital last month. She is positive for amphetamine, benzodiazepine and marijuana. Given that she is currently denying chest pain and her medication compliance is questionable at best, will proceed with echocardiogram with and without contrast to further assess cardiovascular status. She is quite hypertensive, we will start her on Precedex infusion. If no improvement will start nitroglycerin infusion. PDMP PDMP Reviewed: Not Reviewed Coding Level of Care Code Acute Code for [employer] [facility] Diagnoses Non-ST elevation (NSTEMI) myocardial infarction I21.4 Hypertensive emergency I16.1 Chest pain R07.9 Systolic heart failure I50.20 History of coronary artery disease Z86.79 Amphetamine use F15.90 Marijuana use F12.90
--- NOTE | 2025-05-28 08:35 | USCV_ITS ---
Katey Romeo Age: 45 Gender: F : 1980 Exam Date: 05/28/2025 08:42 Ordering Phys: Marcelino Lanza M.D ([email or web address]) Technologist: [place] [facility] [place]: ef BP: 159 / 120 HR: Rhythm: Sinus Technical Quality: Adequate MEASUREMENTS (Male / Female) Normal Values 2D ECHO LV Diastolic Diameter PLAX 5.7 cm 4.2 - 5.9 / 3.9 - 5.3 cm IVS Diastolic Thickness 1.3 cm 0.6 - 1.0 / 0.6 - 0.9 cm IVS Systolic Thickness 1.6 cm LVPW Diastolic Thickness 1.3 cm 0.6 - 1.0 / 0.6 - 0.9 cm LVPW Systolic Thickness 1.9 cm LVOT Diameter 2.1 cm LV Ejection Fraction 2D Teich 21.9 % LV Ejection Fraction MOD 4C 36.1 % LV Ejection Fraction MOD 2C 16.4 % LV Ejection Fraction 2C AL 17.0 % LA Diameter 3.9 cm RA Systolic Volume 4C AL 43.3 ml RA Systolic Volume 4C MOD 39.8 ml Aorta at Sinotubular Diameter 2.8 cm M-MODE LA Ao Ratio MM 0.9 AV Cusp Separation MM 2.0 cm FINDINGS Left Ventricle Moderately increased left ventricular cavity size. Severely decreased left ventricular systolic function. Left ventricular ejection fraction is estimated at 20 %. There is mid to distal anterior and apical severe hypokinesis may could represent [place] or stress indice cardiomyopathy which should be include in dfferential diagnosis. Right Ventricle Right Atrium Left Atrium Mitral Valve Aortic Valve Tricuspid Valve Pulmonic Valve Pericardium Aorta IVC CONCLUSIONS Moderately increased left ventricular cavity size. Severely decreased left ventricular systolic function. Left ventricular ejection fraction is estimated at 20 %. There is mid to distal anterior and apical severe hypokinesis may could represent [place] or stress indice cardiomyopathy which should be include in dfferential diagnosis. There is no pericardial effusion. Eula Tucker MD (Electronically Signed) Final Date: 28 May 2025 14:37 S
[2025-05-28] MEDS: thiamine 100 mg/mL 2mL SDV IM (09:25)
[2025-05-28] MEDS: dexmedeTOMIDine 0.9 % NaCL 400 MCG/100 ML PREMIX IV (12:49)
[2025-05-28 14:11] LABS: Partial Thromboplastin Time 105.7 SECONDS (23.9-36.7)
[2025-05-28] MEDS: nitroglycerin drip 50 MG/250 ML PREMIX IV (15:14)
[2025-05-28 21:35] LABS: Partial Thromboplastin Time 59.7 SECONDS (23.9-36.7)
[2025-05-29] VITALS (58 sets, daily range): BP systolic 91–152; BP diastolic 62–112; PULSE 52–113; RESP 8–36; TEMP 36.4–36.5; O2SAT 87–100
--- NOTE | 2025-05-29 01:19 | PC.NURSE ---
Blood Pressure Nitro drip titrated per protocol for systolic blood pressure. Diastolic blood pressure ranging from 96-116. Dr. Amaya notified; no new orders received.
[2025-05-29 04:32] LABS: Platelet Count 354 10^3/cmm (157-399)
--- NOTE | 2025-05-29 04:40 | ECG_ITS ---
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 Measurements Intervals [place] Rate: 54 P: 262 GA: 117 QRS: 192 QRSD: 264 T: -66 QT: 628 QTc: 596 Interpretive Statements HIGH DEGREE AV BLOCK WITH OCCASIONAL VENTRICULAR PREMATURE COMPLEXES RIGHT BUNDLE BRANCH BLOCK [120+ ms QRS DURATION, UPRIGHT V1, 40+ ms S IN I/aVL/V4/V5/V6] ANTEROLATERAL MYOCARDIAL INFARCTION , PROBABLY RECENT [40+ ms Q WAVE IN I/aVL/V3-V6] ST ELEVATION, CONSIDER SEPTAL INJURY [MARKED ST ELEVATION W/O NORMALLY INFLECTED T-WAVE IN V1/V2] PROLONGED QT INTERVAL Compared to ECG 05/28/2025 08:11:52 Ventricular premature complex(es) now present Left posterior fascicular block now present Myocardial infarct finding still present Electronically Signed On 05-30-2025 08:51:15 CDT by Marcelino Lanza M.D. [email or web address]
[2025-05-29 04:42] LABS: Partial Thromboplastin Time 64.4 SECONDS (23.9-36.7)
[2025-05-29 04:46] LABS: Alanine Aminotransferase 111 U/L (0-33); Albumin Level 4.1 g/dL (3.5-5.2); Alkaline Phosphatase 94 U/L (35-105); Anion Gap 20.1 (5-19); Blood Urea Nitrogen 25 mg/dL (6-20); Calcium 9.8 mg/dL (8.5-10.5); Carbon Dioxide 22 mmol/L (22-29); Chloride 99 mmol/L (98-107); Creatinine Clr Calc Pharmacy 62.4482; Globulin 4.3 g/dL (1.3-4.6); Glucose 120 mg/dL (65-115); Magnesium 2.2 mg/dL (1.7-2.3); Osmolality Calculated 290 mOsm/kg (285-295); Potassium 4.1 mmol/L (3.5-5.1); Sodium 137 mmol/L (136-145); Total Protein 8.4 g/dL (6.6-8.7)
[2025-05-29 04:59] LABS: Aspartate Amino Transferase 943 U/L (0-32)
--- NOTE | 2025-05-29 05:37 | XACV_ITS ---
Exam Room: [facility] Ht: 160 cm Wt: 85 kg BSA: 1.98 m2 Gender: Female : 1980 Any Known Allergies: Penicillins Exam Priority: Routine Procedure(s): Procedure Description: Diagnostic procedure Procedure Description: PCI procedure Procedure Description: Left Heart Catheterization Procedure Description: PTCA Procedure Description: Miscellaneous Procedure Description: Angio-Seal Procedure Description: ACT Procedure Description: Coronary Angiography Diagnostic Cath Status: Urgent Diagnostic Findings * INDICATION: NSTEMI/ Transient ST elevations. * Left Main has no significant disease. * Circumflex has mild luminal irregularities. * Proximal Left Anterior Descending : total occlusion, AMADOR: 0 flow. * 1st Diagonal: ostial severe 95-99% stenosis, AMADOR: 3 flow. * Mid Right Coronary Artery: severe 90% stenosis, AMADOR: 3 flow. * Coronary angiography shows right dominance. PCI Status: Urgent PCI Indication: NSTE - ACS Interventional Findings * Procedure detail: We engaged left main artery with XB 3.5 guide catheter. We crossed totally occluded LAD stents and was put in distal vessel. We serially dilated the stents with 2.25 x 30 mm semicompliant balloon and 3.5 x 20 mm NC balloon. Flow was restored.No new stent was placed. We then dilated ostial diagonal artery with 2.25 x 30 mm semicompliant balloon. While performing balloon angioplasty of the LAD stents, patient had thrombus embolization into distal OM. However it is small territory. Plan is to continue Aggrastat for 8 hours. Continue dual antiplatelet therapy. Transfer back to ICU. RCA has severe disease. Plan for medical therapy as PCI will put the territory at risk of stent thrombosis secondary to patient's drug abuse and non-compliance with DAPT. Patient left the Hander In in a stable condition.. * Proximal Left Anterior Descending to Proximal Left Anterior Descendin% stenosis treated with a MDT NC EUPHORA RX 3.80F47FU BALLOON, and AB TREK 2.25X30 RX BALLOON. 0% residual stenosis, AMADOR: 3 flow. * 1st Diagonal: 90% stenosis treated with a AB TREK 2.25X30 RX BALLOON. 0% residual stenosis, AMADOR: 3 flow. Conclusions 1. Total thrombotic occlusion of LAD stents. Status post balloon angioplasty. Flow was restored. No new stents placed secondary to patient's drug abuse history and noncompliance with DAPT which was reason for stent thrombosis. Ostial diagonal artery which is large sized vessel had subtotal occlusion. Status post successful revascularization with balloon angioplasty. Has brisk flow. While performing balloon angioplasty of the LAD stents, patient had thrombus embolization into distal OM. However it is small territory. Plan is to continue Aggrastat for 8 hours. Continue dual antiplatelet therapy. Transfer back to ICU. . 2. Proximal Left Anterior Descending to Proximal Left Anterior Descending was treated with a Balloon, and Balloon. 3. 1st Diagonal was treated with a Balloon. Recommendations * Dual antiplatelet therapy with aspirin and plavix. * High intensity statin therapy. * Outpatient cardiology follow up in 2 weeks. Interventional RX Recommendation: PCI w/o planned CABG Diagnostic RX Recommendation: PCI w/o planned CABG Anticoagulation: Heparin Pressures Phase:Rest AO : 120 / 87 ( 100 ) @ 7:19:00 AM 115 / 89 ( 101 ) @ 7:28:00 AM 119 / 98 ( 109 ) @ 7:31:00 AM 121 / 97 ( 110 ) @ 8:02:00 AM 121 / 89 ( 101 ) @ 8:10:00 AM 121 / 86 ( 99 ) @ 8:10:00 AM LV : 113 / 14 / 23 @ 8:10:00 AM 114 / 12 / 24 @ 8:10:00 AM Valves Phase:DefaultPhase AV : 0.0 @ 7:21:48 AM AV Mean Gradient: 0.0 @ 7:21:48 AM 0.0 @ 7:21:48 AM Clinical Evaluation EBL: 5mL-10mL Procedural Details Pre-Procedure Time Out. Identified patient by full name and date of as verbalized by the patient/guarantor. Does the consent match the physician's order: Yes. Accurate & Complete Informed Consent: Yes. Inpatient/Outpatient History & Physical on Chart: Yes. If H&P is completed, is and addenduem needed: No; If yes, is the addendum complete: N/A. Visualize and Verify Site with Patient/Guarantor: N/A. Relevant Radiology Images available: Yes. Pre-op teaching completed and patient verbalized understanding. The risks, benefits, and alternatives of sedation and/or procedure were discussed by physician. The patient agrees to continue. Procedure started. AP Pads placed on patient. [facility] Clinical Fraility Score: 6: Moderately Frail. Hander In Indications: ACS > 24 hours. Chest Pain Symptom Assessment: Typical Angina Symptoms. Correct patient, site and procedure confirmed by cath team. Current diagnosis: NSTEMI. PERRLA. Strong, equal hand cigarette packer bilaterally. Lungs clear x 5 lobes. IV Site on Arrival: 18 gauge in the left anticubital. IV Fluids: 0.9% NaCl at KVO. 0 mL infused prior to laborer cutting tool. Oxygen started at 2liters/min via nasal canula. bilateral groins was prepped with chloroprep then draped in the usual sterile fashion. Baseline sample Acquired. HR: 53 BPM. Physician arrived. Current Diagnosis : NSTEMI. Physician scrubbed in. Immediate Pre-Procedure Time Out. Correct Patient: Yes; Correct Procedure: Yes; Correct Site: Yes; Correct Patient Position: Yes; Correct Supplies: Yes; Dried Flammable Prep: Yes; Blood Products Available: N/A;. Lidocaine 1% infiltrated to the right groin. Arterial access obtained with micropuncture set. A 5 cook islander JL4 catheter in over wire. Multiple views taken of left coronary artery. Catheter removed over the standard wire. A 5 cook islander JR4 catheter in over wire. Multiple views taken of right coronary artery. Catheter removed over the standard wire. 6 cook islander XB 3.5 guide catheter was inserted over the wire. Runthrough guidewire was advanced through the guide catheter to lesion in the prox LAD. Inflation number : 1 A MDT NC EUPHORA RX 3.93B73IN BALLOON was prepped and advanced across the Prox LAD , then inflated to 12 JOREJ for 0:10 seconds. Inflation number: 2 The MDT NC EUPHORA RX 3.01G53NY BALLOON was reinflated across the Prox LAD, to 18 JORJE for 0:12 seconds. Inflation number: 3 The MDT NC EUPHORA RX 3.26L57PL BALLOON was reinflated across the Prox LAD, to 18 JORJE for 0:11 seconds. Inflation number: 4 The MDT NC EUPHORA RX 3.96Q32IV BALLOON was reinflated across the Prox LAD, to 18 JORJE for 0:13 seconds. Balloon out. Results checked. Inflation number : 5 A AB TREK 2.25X30 RX BALLOON was prepped and advanced across the Prox LAD , then inflated to 8 JORJE for 0:08 seconds. Inflation number: 6 The AB TREK 2.25X30 RX BALLOON was reinflated across the Prox LAD, to 8 JORJE for 0:11 seconds. Inflation number: 7 The AB TREK 2.25X30 RX BALLOON was reinflated across the Prox LAD, to 8 JORJE for 0:08 seconds. Inflation number: 8 The AB TREK 2.25X30 RX BALLOON was reinflated across the Prox LAD, to 8 JORJE for 0:10 seconds. Balloon out. A second Runthrough wire inserted and advanced to the Diag. Inflation number: 1 The AB TREK 2.25X30 RX BALLOON was reinflated across the 1st Diag, to 8 JORJE for 0:25 seconds. Balloon out. Diag wire removed. Inflation number: 9 The MDT NC EUPHORA RX 3.19X40SF BALLOON was reinflated across the Prox LAD, to 8 JORJE for 0:16 seconds. Inflation number: 10 The MDT NC EUPHORA RX 3.14A14CJ BALLOON was reinflated across the Prox LAD, to 12 JORJE for 0:11 seconds. Balloon out. Results checked. Wire redirected to the OM. Wire out. Runthrough guidewire was advanced through the guide catheter to lesion in the OM. Results checked. Wire out. ACT drawn. Results 325 seconds. Therapeutic limits - pre-heparin administration 90-150 seconds and monitoring heparin during a vascular procedure >250 seconds. Guide catheter out. A 5 cook islander JR4 catheter in over wire. EDP Sample taken: LV 113/14,23; HR: 55 BPM; SpO2: 97%. Pullback taken: LV 114/12,24; AO 121/89(101); Mean: 0mmHg, Peak to Peak: 0mmHg, SEP: 3sec/min; HR: 54 BPM; SpO2: 97%. Catheter removed over the standard wire. A Right femoral angiogram was performed to determine safe placement of closure device. Lidocaine 1% infiltrated to the right groin. A Angio-Seal VIP ([facility]) was successful obtaining hemostatsis at the Right Femoral artery insertion site. Post Procedure: Pulses reassessed and unchanged. PERRLA. Strong, equal hand cigarette packer bilaterally. No VTE prophylaxis required. Medication's Wasted: Lidocaine 1% = 10 mL. Medication's Wasted: Other = Fentanyl 25 mcg. Medication's Wasted: Nitro = 49.8 mcg. Medication's Wasted: Heparin = 3000 units. Total IV fluids: 75 mL. Vital chart was stopped. Post-op diagnosis: PTCA of CX and Diag. Complications: None. Estimated blood loss: 5mL-10mL. Responsiveness - Normal response to verbal stimuli; alert and oriented, PERRLA. Airway - Unaffected, no intervention required; spontaneous ventilation. Circulation: W/N/L, pulses unchanged. Nausea/Vomiting: No. Procedure completed. Patient transferred by bed to ICU. Access Site Site: Right Femoral artery Sheath Size: 6 Fr Hemostasis Method: Angio-Seal VIP ([facility]) Hemostasis Success: Successful Procedure Medications Start: 6:12 AM Stop: 6:12 AM Medication: Versed Amount: 1 mg Route: I.V. Start: 6:17 AM Stop: 6:17 AM Medication: Fentanyl Amount: 25 mcg Route: I.V. Start: 6:29 AM Stop: 6:29 AM Medication: Heparin Amount: 6000 units Route: I.V. Start: 6:38 AM Stop: 6:38 AM Medication: Versed Amount: 1 mg Route: I.V. Start: 6:38 AM Stop: 6:38 AM Medication: Fentanyl Amount: 25 mcg Route: I.V. Start: 6:42 AM Stop: 6:42 AM Medication: Heparin Amount: 2000 units Route: I.V. Start: 6:44 AM Stop: 6:44 AM Medication: Versed Amount: 1 mg Route: I.V. Start: 6:53 AM Stop: 6:53 AM Medication: Aggrastat 12.5 mg/250 mL Amount: 42 ml Route: I.V. bolus Start: 6:54 AM Stop: 6:54 AM Medication: Aggrastat 12.5 mg/250 mL Amount: 15.1 ml/hr Route: I.V. drip Start: 6:57 AM Stop: 6:57 AM Medication: Versed 1 mg and Fentanyl 25 mcg Amount: 1 Route: I.V. Start: 7:03 AM Stop: 7:03 AM Medication: Nitrogylcerin Amount: 200 mcg Route: I.C. Start: 7:16 AM Stop: 7:16 AM Medication: Plavix Amount: 300 mg Route: P.O. I, the attending physician, have reviewed and verified all procedure medications. Yes, all medications given per verbal order History/Risk Factors Hypertension: Yes Dyslipidemia: No Peripheral Arterial Disease (PAD): No Myocardial Infarction ([place]): No Obesity: No Renal Disease: No Tobacco Use: Current/Recent(w/in 1 year) Prior Interventions PCI: No CABG: No Valve Surgery: No Report Signatures Finalized by Marcelino Lanza MD on 06/07/2025 12:32 PM
--- NOTE | 2025-05-29 05:54 | ECG_ITS ---
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 Measurements Intervals [place] Rate: 53 P: 0 DC: 0 QRS: 266 QRSD: 209 T: 92 QT: 551 QTc: 519 Interpretive Statements SINUS RHYTHM WITH HIGH GRADE AV BLOCK RIGHT AXIS DEVIATION [QRS AXIS > 100] RIGHT BUNDLE BRANCH BLOCK [120+ ms QRS DURATION, UPRIGHT V1, 40+ ms S IN I/aVL/V4/V5/V6] ANTEROLATERAL MYOCARDIAL INFARCTION , PROBABLY RECENT [40+ ms Q WAVE IN I/aVL/V3-V6] ACUTE [place] INTERPRETATION BASED ON A DEFAULT AGE OF 40 YEARS Compared to ECG 05/29/2025 04:40:32 Ventricular premature complex(es) no longer present Left posterior fascicular block no longer present Electronically Signed On 05-29-2025 18:26:08 CDT by Shani [id number]
--- NOTE | 2025-05-29 06:05 | PC.NURSE ---
Event Organizer At approximately 0440, Cardiac rhythm changes noted on bedside telemetry including a run of SVT and increasing pvc's. Patient awake and alert, noted to be diaphoretic and pale, denies chest pain or nausea. Patient complaining of being hot. All vital signs stable. EKG obtained and sent to Dr. Lanza. Order received to wean off precedex. At around 0500, Dr. Amaya at bedside. Order received to prepare patient for cardiac cath at 0600. Consent obtained. Following that at 0555, Further cardiac rhythm changes noted with what appeared to be ST elevation. Dr. Lanza notified. Patient left unit for sugar laboratory assistant at 0600; heparin stopped at this time.
--- NOTE | 2025-05-29 06:09 | W.PM.OPSUD ---
Surgery/Procedure H&P Update DATE OF PROCEDURE: May 29, 2025 DATE H&P PERFORMED: 05/29/25 H&P UPDATE INFORMATION: I have reviewed H&P completed within last 30 days, I have examined patient prior to procedure and Changes to prior documentation as noted here CHANGES TO PREVIOUS DOCUMENTATION: Patient is more awake. Denies chest pain. However became diaphoretic. EKG showing dynamic changes concerning for transient ST elevations in anterolateral and lateral leads. PREOP DIAGNOSIS: NSTEMI PRIMARY INDICATION FOR PROCEDURE: NSTEMI PLANNED PROCEDURE: Left heart cath with possible percutaneous coronary intervention PATIENT REASSESSED PRIOR TO SEDATION, WITH NO CHANGE NOTED: Yes PHYSICAL EXAM: oriented x 3, clear to auscultation bilaterally and regular rate & rhythm OTHER PERTINENT EXAM FINDINGS: Drowsy but arousable. AIRWAY EVAL/ANESTHESIA PLAN: normal airway, ASA III, Local Anesthesia, Risks, benefits & alternatives of sedation and/or procedure discussed and Patient agrees to continue as planned ADDITIONAL INFORMATION: Moderate sedation
--- NOTE | 2025-05-29 07:24 | PM.PROC ---
Procedure Note: Date of procedure: 05/29/25 Pre-procedure diagnosis: NSTEMI/ Transient ST elevations Post-procedure diagnosis: other (Total thrombotic occlusion of LAD stents. Subtotal occlusion of ostial diagonal artery) Procedure: Total thrombotic occlusion of LAD stents. Status post balloon angioplasty. Flow was restored. No new stents placed secondary to patient's drug abuse history and noncompliance with DAPT which was reason for stent thrombosis. Ostial diagonal artery which is large sized vessel had subtotal occlusion. Status post successful revascularization with balloon angioplasty. Has brisk flow. While performing balloon angioplasty of the LAD stents, patient had thrombus embolization into distal OM. However it is small territory. Plan is to continue Aggrastat for 8 hours. Continue dual antiplatelet therapy. Transfer back to ICU. RCA has severe disease. Plan for medical therapy as PCI will put the territory at risk of stent thrombosis secondary to patient's drug abuse and non-compliance with DAPT. Performing Provider: Marcelino Lanza Estimated blood loss (mL): 10 Complications: None Condition: critical Disposition: ICU Coding Level of Care Code Acute Code for Desiree Gaxiola
--- NOTE | 2025-05-29 07:36 | PC.NURSE ---
Arrived from mobile home laborer, resting comfortably at this time
--- NOTE | 2025-05-29 09:32 | PC.NURSE ---
Patient not being compliant with laying flat supine
[2025-05-29 13:03] LABS: Partial Thromboplastin Time 31.4 SECONDS (23.9-36.7)
--- NOTE | 2025-05-29 14:28 | P.PN_ITS ---
Subjective 2 Subjective: Patient was sleeping during rounds tried to wake her up she was in deep sleep. Patient is status post cardiac catheterization this morning at 6 AM with reopening of the occluded stents to the LAD and a new stent put to diagonal for patient right ventricular.. Patient went into ST elevation early this morning and was sent to [facility] immediately now on Aggrastat IV to complete at 3 PM patient will be out of bed 10 at 3 PM to ambulate. Vitals/I&O/Wt Last Vital Signs Temp 97.7 F 05/29/25 04:30 Pulse 58 L 05/29/25 14:00 Resp 14 05/29/25 14:00 BP 117/95 05/29/25 11:00 Pulse Ox 95 05/29/25 14:00 O2 Del Method Nasal Cannula 05/29/25 07:59 O2 Flow Rate 2 05/29/25 07:59 05/28/25 05/29/25 05/29/25 22:59 06:59 14:59 Intake Total 511.476 / 584.809 250.302 / 835.111 Output Total 300 / 300 250 / 550 Balance 211.476 / 284.809 0.302 / 285.111 Weight last 48 hrs Weight 86 kg Weight 85 kg Weight 821.909 kg Weight 81.647 kg Physical Exam 2 Narrative: Generally patient is sleepy not interactive but breathing well hemodynamically stable vital signs were okay. HEENT normocephalic atraumatic neck neck is supple cardiovascular heart rate is regular lungs are pretty much clear abdomen soft nontender nondistended unremarkable extremities intact no edema has good pulses neurology has no focality lab studies lab studies reviewed and noted. Urinary Catheter Management: Saunders: Cath Placed During This Visit: yes Reason for Continuing Indwelling Catheter: Accurate Measurement of Urinary Output in Critically Ill Patients Urinary Catheter Date of Insertion: 05/28/25 Urinary Catheter Time of Insertion: 07:42 Data 05/29/25 04:23 05/29/25 04:23 A&P Assessment and plan 1. Drug abuse, daily use: Patient was on methamphetamine, benzodiazepine, marijuana all in the urine on admission and patient was very sleepy and was not able to go for cath yesterday. Patient then woke up this morning able to sign consent able to go for cath for patient showed an ST elevation TN and was sent to [facility] for care. 2. Acute alteration in mental status: Acute alteration in mental status secondary to multiple drug abuse and use 3. Systolic heart failure: Patient is with systolic cardiomyopathy with an EF in the 20s. - Continue LifeVest and continue other medication such as carvedilol, JENA inhibitor 4. ST elevation (STEMI) myocardial infarction: Patient status post cardiac catheterization with the opening of 2 stents that we are occluded in the LAD proximal and mid this area where opened and for the RCA stage PCI diagonal was open with a stent placed. Continue Aggrastat drip up to 3 PM per cardiology order If patient continues to do well will think patient will go home tomorrow only tentatively Will follow cardiology recommendation Plan: See above. GI and DVT prophylaxis in place PDMP PDMP Reviewed: Last Reviewed 05/29/25 14:39 by Geri Nieto MD Attestations 2 Medical Necessity Statement*: Patient has just had ST elevation TN and had just undergone this morning open of some stent in LAD that was occluded and also placing a stent in the diagonal branch to optimize left ventricle patient is currently on Aggrastat drip if all things been equal and fails to go well then patient may likely go home tomorrow Coding Level of Care Code 46837 Diagnoses Drug abuse, daily use F19.10 Acute alteration in mental status R41.82 Systolic heart failure I50.20 ST elevation (STEMI) myocardial infarction I21.3 Time Spent (min) 30
--- NOTE | 2025-05-29 17:20 | P.PN_ITS ---
<Statement entered by Marcelino Lanza M.D - 05/30/25 13:04> Patient was cared for in conjunction with an advanced practice practitioner.? I reviewed the chart and all pertinent data including imaging, telemetry, and laboratory results.? I discussed the patient in detail with the advanced practice practitioner.? Please see?their note for progress note, testing results and agreed upon plan of care for the patient. Patient has high degree AV block. Discussed that she will benefit from ICD. Patient refused it. Denies chest pain post procedure. No new stents placed. Secondary to patient's noncompliance with medications and drug abuse, medical therapy is appropriate. Subjective 2 Subjective: Patient underwent coronary angiogram this morning due to transient ST elevations. She had total thrombotic occlusion of LAD stents, treated with balloon angioplasty restoring flow. No new stents were placed due to her history of drug abuse and noncompliance with antiplatelet therapy. The ostial diagonal also had subtotal occlusion and was treated with balloon angioplasty. RCA still has severe disease, will plan for medical management. No complications with right femoral cath site, Angio-Seal was placed. Vitals/I&O/Wt Last Vital Signs Temp 97.7 F 05/29/25 04:30 Pulse 60 05/29/25 16:00 Resp 14 05/29/25 14:00 BP 117/95 05/29/25 11:00 Pulse Ox 98 05/29/25 16:00 O2 Del Method Nasal Cannula 05/29/25 07:59 O2 Flow Rate 2 05/29/25 07:59 05/29/25 05/29/25 05/29/25 06:59 14:59 22:59 Intake Total 250.302 / 835.111 Output Total 250 / 550 Balance 0.302 / 285.111 Weight last 48 hrs Weight 189 lb 9.561 oz Weight 187 lb 6.287 oz Weight 1812 lb Weight 180 lb Physical Exam 2 Const: COMMON NORMALS: no acute distress ORIENTATION/CONSCIOUSNESS: Yes awake Chest: COMMONS NORMALS: normal inspection of the chest and normal palpation of entire chest wall CHEST: Yes Symmetrical chest wall rise Resp: COMMON NORMALS: normal respiratory effort, No retractions, No use of accessory muscles and clear to auscultation bilaterally AUSCULTATION: clear to auscultation bilaterally Cardio: COMMON NORMALS: regular rate, regular rhythm, S1 normal heart sound present, S2 normal heart sound present, No gallops present (Cardio), No clicks present (Cardio), No murmurs present (Cardio) and No rub (Cardio) RATE: r egular rate RHYTHM: regular rhythm HEART SOUNDS: S1 normal heart sound present and S2 normal heart sound present PERIPHERAL PULSES: radial pulses present positive right 2+ and femoral pulses present positive right 2+ Neuro: COMMON NORMALS: moves all extremities Skin: WOUNDS: Yes surgical site (no hematoma palpable) Details: no odor Urinary Catheter Management: Saunders: Cath Placed During This Visit: yes Reason for Continuing Indwelling Catheter: Accurate Measurement of Urinary Output in Critically Ill Patients Urinary Catheter Date of Insertion: 05/28/25 Urinary Catheter Time of Insertion: 07:42 Data 05/29/25 04:23 05/29/25 04:23 A&P Assessment and plan 1. Non-ST elevation (NSTEMI) myocardial infarction: 2. Systolic heart failure: 3. History of coronary artery disease: 4. Benign essential hypertension with target blood pressure below 140/90: 5. Amphetamine use: 6. Drug abuse, daily use: Plan: Appears to be stable from a cardiovascular perspective, no bleeding in the right femoral cath site. Continue aspirin, Plavix, losartan, carvedilol. Heparin, Precedex and nitroglycerin have been weaned off. PDMP PDMP Reviewed: Not Reviewed Attestations 2 Medical Necessity Statement*: PCI of LAD Coding Level of Care Code Acute Code for [facility] Diagnoses Non-ST elevation (NSTEMI) myocardial infarction I21.4 Systolic heart failure I50.20 History of coronary artery disease Z86.79 Benign essential hypertension with target blood pressure below 140/90 I10 Amphetamine use F15.90 Drug abuse, daily use F19.10
--- NOTE | 2025-05-29 18:01 | ECG_ITS ---
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 Measurements Intervals [place] Rate: 55 P: 0 TN: 0 QRS: 270 QRSD: 205 T: 132 QT: 535 QTc: 516 Interpretive Statements HIGH DEGREE AV BLOCK RIGHT BUNDLE BRANCH BLOCK ANTEROLATERAL MYOCARDIAL INFARCTION, AGE INDETERMINATE Compared to ECG 05/29/2025 05:54:59 Idioventricular rhythm now present Sinus rhythm no longer present Right-axis deviation no longer present Right bundle-branch block no longer present Electronically Signed On 05-30-2025 08:45:46 CDT by Marcelino Lanza M.D. [email or web address] [id number]
[2025-05-29] MEDS: ondansetron 2 mg/ML SDV 2 mL 4 MG IVP (18:46)
--- NOTE | 2025-05-29 20:30 | PC.NURSE ---
EKG EKG obtained to fulfill order. EKG machine showing critical results. Patient stating she feels bad. Patient denies chest pain, shortness of breath and nausea, but endorses right shoulder tightness. Patient's HR maintaining in the 50s, all vital signs stable. Dr. Lanza notified of symptoms and picture of EKG sent; order received to hold evening dose of carvedilol, restart heparin drip without an initial bolus, and to disregard EKG unless patient hypotensive or complaining of severe chest pain.
[2025-05-30] VITALS (16 sets, daily range): BP systolic 91–134; BP diastolic 64–90; PULSE 49–83; RESP 8–23; TEMP 36.4; O2SAT 94–99
[2025-05-30] MEDS: heparin drip 25,000 UNIT/500 ML PREMIX 23 UNIT IV (00:58)
[2025-05-30 03:27] LABS: Platelet Count 288 10^3/cmm (157-399)
--- NOTE | 2025-05-30 03:57 | PC.NURSE ---
Diet Patient requesting food. Dr. Amaya contacted and order received for cardiac diet.
[2025-05-30 04:03] LABS: Partial Thromboplastin Time 76.9 SECONDS (23.9-36.7)
--- NOTE | 2025-05-30 05:54 | PC.NURSE ---
Labs Orders received from Dr. Amaya for a cbc and cmp this AM.
--- NOTE | 2025-05-30 10:22 | PM.DCS ---
Discharge Providers Date of Admission: 05/28/25 07:19 Date of Discharge: May 30, 2025 Attending Provider at Admission: Johanna Amaya MD Attending Provider at Discharge: Geri Nieto MD Consults: Cardiology---serjio Sullivan Primary Care Provider: Audelia Kwan DO Diagnoses at Discharge Discharge Diagnosis 1. Non-ST elevation (NSTEMI) myocardial infarction: 2. Systolic heart failure: 3. History of coronary artery disease: 4. Benign essential hypertension with target blood pressure below 140/90: 5. Amphetamine use: 6. Drug abuse, daily use: Reason for Visit Reason for Visit: cp Hospital Course Hospital Course Katey Romeo is a 45 year old female with medical history significant for polysustance abuse, anxiety, nicotine addiction who was recently admitted here in April 2025 for NSTEMI and underwent coronary angiogram on April 27, 2025.she was found to have severe proximal to mid LAD stenosis for which she underwent PCI with 2 stents. Additionally she was also found to have significant stenosis in the RCA which was planned for a staged PCI Hospital course was marked by uncontrolled hypertension for which patient required nitroprusside infusion at that time. She has a life vest in place for last known EF 20-25%. She presented to the ER overnight with chief complaints of altered mental status and complaining of chest pain. She reported alcohol use though alcohol level eventually was negative. Urine drug screen was positive for methamphetamines, marijuana and benzodiazepines. EKGs obatined overnight reveiwed. at 0050, EKG shows bigeminy with VPCs , ST deviation noted on I,AVL. Serial EKGs showing sinus tachycardia with a heart rate of 118 mmHg,noted ST depression involving leads II to III, aVR, V1, V2. Baseline troponin returned at 80, downtrending to 75 at 2 hrs . SHe was noted to be hypertensive with blood pressure 183/121 mmHg , currently at 120/104 after having received labetalol. Hypertensive urgency was controlled in house. Patient was not taking antihypertensive medication that she is supposed to take at home. Patient was very much overdosed with methamphetamine benzo and marijuana at presentation that she could not be awake to sign the consent to go for [facility] for angioplasty and possible stents. Denies today patient finally was awake and had to go to [facility] but at that moment had developed an ST elevation KS and upon getting to [facility] it was found that the proximal and mid LAD that was stented at the recent hospitalization in April 27, 2025 had been restenosed. 2 stents placed in the proximal and mid LAD we have reopened because this were restenosed. Diagonal branch we opened because patient had had a stage RCA territory to be opened because of much stenosis. This was also fixed. Patient was on Aggrenox running along with heparin drip and finally was placed in ICU patient stayed overnight into today post cath to monitor patient hemodynamically and all is well patient is found to be stable. Cardiology signed off of the patient and related that the patient be on Plavix and baby aspirin along with metoprolol. Patient had been on Coreg at home and had been on Coreg in the hospital and I felt that this actually may not patient to be on beta-dalia because today is not needed to start a brand-new medication and especially when cardiology did not say what dose of metoprolol. Patient denies any chest pain and had done remarkably well and now is going home to follow-up with the PCP within a week and with cardiology within 2 weeks Physical Exam Narrative: General Patient is in no apparent distress HEENT normocephalic atraumatic neck neck is supple cardiovascular heart is regular lungs are pretty much clear abdomen soft nontender nondistended unremarkable extremities intact no edema has good pulses neurology has no focality lab studies lab studies reviewed and noted. Urinary Catheter Management: Saunders: Cath Placed During This Visit: yes Reason for Continuing Indwelling Catheter: Accurate Measurement of Urinary Output in Critically Ill Patients Urinary Catheter Date of Insertion: 05/28/25 Urinary Catheter Time of Insertion: 07:42 Discharge Data Studies Completed and Pending Completed Studies During Hospitalization Category Date Time Status XR chest 1V portable [id number] Stat Exams 05/28/25 05:46 Completed CV. 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 Laboratory Results WBC 12.65 10^3/uL (3.29-11.43) H 05/28/25 00:54 RBC 5.38 10^6/uL (3.85-5.65) 05/28/25 00:54 Hgb 15.30 g/dL (11.27-16.99) 05/28/25 00:54 Hct 47.7 % (36-47) H 05/28/25 00:54 MCV 88.7 fl (85-98) 05/28/25 00:54 MCH 28.4 pg (27-33) 05/28/25 00:54 MCHC 32.1 g/dL (30-55) 05/28/25 00:54 RDW 14.3 % (12.1-15.1) 05/28/25 00:54 Plt Count 288 10^3/cmm (157-399) 05/30/25 03:12 MPV 10.1 fL (7.4-10.4) 05/28/25 00:54 Neut % (Auto) 53.0 % 05/28/25 00:54 Lymph % (Auto) 37.8 % 05/28/25 00:54 Winn % (Auto) 7.0 % 05/28/25 00:54 Eos % (Auto) 1.4 % 05/28/25 00:54 Baso % (Auto) 0.5 % 05/28/25 00:54 Neut # (Auto) 6.71 10^3/uL (1.8-7.7) 05/28/25 00:54 Lymph # (Auto) 4.8 10^3/uL (0.8-4.8) 05/28/25 00:54 Winn # (Auto) 0.9 10^3/uL (0.2-0.9) 05/28/25 00:54 Eos # (Auto) 0.2 10^3/uL (0.0-0.8) 05/28/25 00:54 Baso # (Auto) 0.1 10^3/uL (0.0-0.1) 05/28/25 00:54 Nucleated RBC % (auto) 0 % 05/28/25 00:54 Nucleated RBCs # 0.0 /100WBC 05/28/25 00:54 APTT 76.9 SECONDS (23.9-36.7) H D 05/30/25 03:12 Sodium 137 mmol/L (136-145) 05/29/25 04:23 Potassium 4.1 mmol/L (3.5-5.1) 05/29/25 04:23 Chloride 99 mmol/L (98-107) 05/29/25 04:23 Carbon Dioxide 22 mmol/L (22-29) 05/29/25 04:23 Anion Gap 20.1 (5-19) H 05/29/25 04:23 BUN 25 mg/dL (6-20) H 05/29/25 04:23 Creatinine 1.2 mg/dL (0.5-0.9) H 05/29/25 04:23 GFR Calculation 49.0 mL/min (90-130) L 05/29/25 04:23 Glucose 120 mg/dL (65-115) H 05/29/25 04:23 POC Glucose 112 mg/dL (70-110) H 05/28/25 19:44 Calculated Osmolality 290 mOsm/kg (285-295) 05/29/25 04:23 Calcium 9.8 mg/dL (8.5-10.5) 05/29/25 04:23 Magnesium 2.2 mg/dL (1.7-2.3) 05/29/25 04:23 Total Bilirubin 0.8 mg/dL (0.15-1.2) 05/29/25 04:23 AST 943 U/L (0-32) H 05/29/25 04:23 ALT 111 U/L (0-33) H 05/29/25 04:23 Alkaline Phosphatase 94 U/L (35-105) 05/29/25 04:23 Troponin T Baseline 80 ng/L (0-10) H 05/28/25 00:54 Troponin T 120 Minute 75.98 ng/L (0-10) H 05/28/25 02:45 Delta Troponin T -4.02 ABS# (0-10) L 05/28/25 02:45 Troponin T Hi Sens 6Hr 1639 ng/L (0-10) H 05/28/25 06:43 Troponin T Hi Sens 6Hr Delta 1559 ng/L (0-12) H* 05/28/25 06:43 NT-Pro-B Natriuret Pep 1998 pg/mL (0-125) H 05/28/25 02:45 Total Protein 8.4 g/dL (6.6-8.7) 05/29/25 04:23 Albumin 4.1 g/dL (3.5-5.2) 05/29/25 04:23 Globulin 4.3 g/dL (1.3-4.6) 05/29/25 04:23 HCG, Qual Negative (Negative) 05/28/25 01:05 Urine Opiates Screen Negative ng/mL (Negative) 05/28/25 01:05 Ur Barbiturates Screen Negative ng/mL (Negative) 05/28/25 01:05 Ur Phencyclidine Scrn Negative ng/mL (Negative) 05/28/25 01:05 Ur Amphetamines Screen Positive ng/mL (Negative) H 05/28/25 01:05 U Benzodiazepines Scrn Positive ng/mL (Negative) H 05/28/25 01:05 Urine Cocaine Screen Negative ng/mL (Negative) 05/28/25 01:05 U Marijuana (THC) Screen Positive ng/mL (Negative) H 05/28/25 01:05 Ethyl Alcohol < 10 mg/dL (0-10) 05/28/25 00:54 Vitals Last Vital Signs Temp 97.5 F L 05/30/25 04:00 Pulse 75 05/30/25 09:00 Resp 12 05/30/25 09:00 BP 107/79 05/30/25 09:00 Pulse Ox 96 05/30/25 09:00 O2 Del Method Room Air 05/30/25 09:00 O2 Flow Rate 2 05/29/25 07:59 Discharge Plan Discharge Patient Disposition: Home Condition: Stable Prescriptions: Continued amlodipine 10 mg tablet 10 mg PO DAILY Qty: 90 0RF aspirin 81 mg tablet,delayed release (DR/EC) 81 mg PO DAILY 90 Days Qty: 90 3RF carvedilol 12.5 mg tablet 12.5 mg PO Q12H Qty: 180 3RF clopidogrel 75 mg tablet 75 mg PO DAILY Qty: 90 3RF isosorbide mononitrate 30 mg tablet extended release 24 hr 30 mg PO DAILY Qty: 90 0RF losartan 50 mg tablet 75 mg PO DAILY Qty: 90 3RF furosemide [Lasix] 40 mg tablet 40 mg PO QAM PRN (Reason: edema) Qty: 30 0RF hydroxyzine pamoate 25 mg capsule 25 mg PO BID PRN (Reason: anxiety) Qty: 30 0RF fluoxetine 10 mg capsule 10 mg PO DAILY furosemide [Lasix] 40 mg tablet 40 mg PO QAM Qty: 30 0RF bupropion HCl [Wellbutrin XL] 150 mg tablet extended release 24 hr 150 mg PO DAILY Qty: 30 0RF Discontinued potassium chloride 10 mEq capsule, extended release 10 meq PO DAILY Qty: 90 0RF Research Associate Policy OK for DC: Cardiology and Hospitalist Discharge Order = DC NOW: Discharge Order (Routine); Ordered 05/30/25 Ordered By: Geri Nieto Referrals: Audelia Kwan DO [Primary Care Provider, PRODUCTION OPERATIONS INSPECTOR] serjio Sullivan [Other] - 2 weeks Referral Note: Patient to follow-up with a cardiology for posthospitalization follow-up in 2 weeks Discharge Diet: Cardiac Discharge Activity: Resume usual activity Patient Instructions: Opioid Safety, Patient Portal & Polina Instructions Discharge Attestations Time Spent in Discharge Care*: less than 30 min Status at Discharge: Cognitive status at discharge: cognitively intact, Behavioral status at discharge: cooperative, Quality Metrics Clinical Quality Measures [ Acute Myocardial Infaction { Clinical Trial Participant: No; Contraindication to aspirin: None; Aspirin prescribed; Contraindication to statin: None; Statin prescribed;}] Coding Level of Care Code 79937 Diagnoses Non-ST elevation (NSTEMI) myocardial infarction I21.4 Systolic heart failure I50.20 History of coronary artery disease Z86.79 Benign essential hypertension with target blood pressure below 140/90 I10 Amphetamine use F15.90 Drug abuse, daily use F19.10 Time Spent (min) 30
--- NOTE | 2025-05-30 10:38 | P.PN_ITS ---
Subjective 2 Subjective: Patient had balloon angioplasty of occluded LAD stents yesterday. Also had balloon angioplasty of the diagonal artery. She is chest pain-free. Patient is noncooperative. Does not want to respond to any questions. Refused labs today. Vitals/I&O/Wt Last Vital Signs Temp 97.5 F L 05/30/25 04:00 Pulse 75 05/30/25 09:00 Resp 12 05/30/25 09:00 BP 107/79 05/30/25 09:00 Pulse Ox 96 05/30/25 09:00 O2 Del Method Room Air 05/30/25 09:00 O2 Flow Rate 2 05/29/25 07:59 05/29/25 05/30/25 05/30/25 22:59 06:59 14:59 Intake Total 250 / 250 831.000 / 1081.000 233.4 / 233.4 Output Total 275 / 275 Balance 250 / 250 556.000 / 806.000 233.4 / 233.4 Weight last 48 hrs Weight 184 lb 1.376 oz Weight 189 lb 9.561 oz Weight 187 lb 6.287 oz Weight 1812 lb Physical Exam 2 Narrative: GENERAL: Patient is non-cooperative. Does not want to respond to questions. NECK: No jugular vein distension. [] HEENT: No cyanosis. No icterus. No pallor. [] HEART: Regular S1 and S2. LUNGS: Diminished air entry bilaterally CENTRAL NERVOUS SYSTEM: Grossly nonfocal. [] EXTREMITIES: Lower extremities with no edema bilaterally. Urinary Catheter Management: Saunders: Cath Placed During This Visit: yes Reason for Continuing Indwelling Catheter: Accurate Measurement of Urinary Output in Critically Ill Patients Urinary Catheter Date of Insertion: 05/28/25 Urinary Catheter Time of Insertion: 07:42 Data 05/30/25 03:12 05/29/25 04:23 A&P Assessment and plan 1. Non-ST elevation (NSTEMI) myocardial infarction: 2. Systolic heart failure: 3. History of coronary artery disease: 4. Benign essential hypertension with target blood pressure below 140/90: 5. Amphetamine use: 6. Drug abuse, daily use: Plan: Patient had balloon angioplasty of occluded LAD stents and balloon angioplasty of diagonal artery yesterday. Has severe RCA stenosis. We did not place stents as patient is noncompliant and not willing to take medications. She will be at high risk of stent thrombosis in the RCA as well. She is noncooperative. Does not want to answer to any questions. Denies chest pain. Refused labs today. She is in high degree AV block today. She will benefit from ICD placement both for LV dysfunction and underlying high degree AV block. Discussed with her about it yesterday. Refused it. No family available to discuss. Thank you for involving us with care of this patient. Discharge plan per primary team. Patient needs dual antiplatelet therapy. However she is non-compliant with it. PDMP PDMP Reviewed: Not Reviewed Attestations 2 Medical Necessity Statement*: Care expected to cross 2 midnights. Coding Level of Care Code Acute Code for [facility] Diagnoses Non-ST elevation (NSTEMI) myocardial infarction I21.4 Systolic heart failure I50.20 History of coronary artery disease Z86.79 Benign essential hypertension with target blood pressure below 140/90 I10 Amphetamine use F15.90 Drug abuse, daily use F19.10
--- NOTE | 2025-05-30 12:07 | PC.NURSE ---
Dr. Lanza was here to see patient this morning. When he arrived I explained that I was told in report she refused her morning labs and they were going to try again when it was time for her PTT at 10. Dr. Lanza gave orders to stop heparin gtt. Patient refused labs once again when lab came around 10. Discussed this with hospitalist. Patient has discharge orders.
--- NOTE | 2025-05-30 12:11 | PC.NURSE ---
nkight catheter removed intact, patient tolerated well.
== END 2025-05-30 14:30 | disposition home or self-care (01) | DRG 250 ==
LOC: ER 06:23 → ICU 07:20
PROVIDERS: Family Medicine; Internal Medicine; Admitting Provider Student in an Organized Health Care Education/Training Program; Emergency Provider Family Medicine; PCP Family Medicine; Visit Provider Internal Medicine
PROC: 02713ZZ Dilation of Coronary Artery, Two Arteries, Percutaneous Approach (ICD-10-PCS; principal; 2025-05-29 07:00)
PROC: 02713ZZ Dilation of Coronary Artery, Two Arteries, Percutaneous Approach (ICD-10-PCS; 2025-05-29 07:00)
DX: T82.867A Thrombosis due to cardiac prosthetic devices, implants and grafts, initial encounter (principal); I21.A9 Other myocardial infarction type; I50.23 Acute on chronic systolic (congestive) heart failure; I44.2 Atrioventricular block, complete; I16.1 Hypertensive emergency; I97.88 Other intraoperative complications of the circulatory system, not elsewhere classified; T82.855A Stenosis of coronary artery stent, initial encounter; Y71.1 Therapeutic (nonsurgical) and rehabilitative cardiovascular devices associated with adverse incidents; I49.3 Ventricular premature depolarization; T46.4X6A Underdosing of angiotensin-converting-enzyme inhibitors, initial encounter; T45.526A Underdosing of antithrombotic drugs, initial encounter; Z53.29 Procedure and treatment not carried out because of patient's decision for other reasons; R41.82 Altered mental status, unspecified; I25.10 Atherosclerotic heart disease of native coronary artery without angina pectoris; I11.0 Hypertensive heart disease with heart failure; I25.5 Ischemic cardiomyopathy; F41.9 Anxiety disorder, unspecified; F15.10 Other stimulant abuse, uncomplicated; F12.10 Cannabis abuse, uncomplicated; F17.200 Nicotine dependence, unspecified, uncomplicated; I25.2 Old myocardial infarction; Z88.0 Allergy status to penicillin; Z82.49 Family history of ischemic heart disease and other diseases of the circulatory system; Z82.3 Family history of stroke; Z91.148 Patient's other noncompliance with medication regimen for other reason
CPT/HCPCS: 36415; 36416; 51702; 71045; 80048; 80053; 80306; 80307; 81025; 82962; 83735; 83880; 84484; 85025; 85049; 85347; 85730; 92920; 92921; 93005; 93458; 96365; 96367; 96372; 96375; 96376; 99152; 99153; 99285; C1725; C1760; C1769; C1887; C1894; C8924; G0269; J1630; J1644; J1938; J2060; J2250; J2405; J3010; J3411; J3490; J7030; J9999; Q9967

== ENCOUNTER 2025-06-04 20:41 | Inpatient (IN) | payer MEDICAID, SELFPAY ==
[2025-06-04] VITALS (22 sets, daily range): BP systolic 92–154; BP diastolic 68–123; PULSE 89–115; RESP 6–27; O2SAT 90–100; BMI 33.6
--- NOTE | 2025-06-04 20:45 | ECG_ITS ---
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: : 1980 Requested By: Roseann Ortez Order Number: [id number] Reading MD: ANA LAURA BRIDGES Measurements Intervals [place] Rate: 95 P: 29 AK: 168 QRS: -85 QRSD: 202 T: 81 QT: 460 QTc: 579 Interpretive Statements SINUS RHYTHM RIGHT BUNDLE BRANCH BLOCK [120+ ms QRS DURATION, UPRIGHT V1, 40+ ms S IN I/aVL/V4/V5/V6] LEFT ANTERIOR FASCICULAR BLOCK [QRS AXIS <= -45, QR IN I, RS IN II] ANTEROSEPTAL MYOCARDIAL INFARCTION , PROBABLY RECENT [40+ ms Q WAVE IN V1-V4] ACUTE FL Compared to ECG 05/29/2025 20:05:49 Left anterior fascicular block now present Myocardial infarct finding still present Electronically Signed On 06-04-2025 22:16:53 CDT by ANA LAURA BRIDGES [email or web address]
--- NOTE | 2025-06-04 20:45 | XRR_ITS ---
PROCEDURE INFORMATION: Exam: XR Chest Exam date and time: 06/04/2025 9:44 PM Age: 45 years old Clinical indication: Pain; Chest pressure; Additional info: Chest pain TECHNIQUE: Imaging protocol: Radiologic exam of the chest. Views: 1 view. COMPARISON: 1. CR (CHEST, ) 05/28/2025 5:[address] angio chest PE protcl [id number] 04/27/2025 12:13 AM FINDINGS: Tubes, catheters and devices: Multiple leads and electronic devices overlie the chest. Lungs: Left lower lung zone platelike atelectasis. No consolidation. Pleural spaces: Unremarkable. No pleural effusion. No pneumothorax. Heart/Mediastinum: Stable cardiomegaly. Bones/joints: Unremarkable. XR/XR chest 1V portable [id number] IMPRESSION: 1. No acute findings. 2. Stable cardiomegaly.
--- NOTE | 2025-06-04 21:05 | ED_ITS ---
HPI - Chest Pain 2 General: Chief Complaint: Chest Pain Stated Complaint: MYKE carreno alerting Time Seen by Provider: 06/04/25 20:44 History of Present Illness: Is a 45-year-old female with a history of coronary artery disease status post a non-STEMI around a week ago with stenting of her LAD and now with severe congestive heart failure on a LifeVest at home, hypertension, GERD and hyperlipidemia who presents to the emergency room with chest pain. He been having chest pain this afternoon. He says her LifeVest has been saying that something is wrong and then saying it is not going to do anything. She has been tearful. She does states she has been taking all her meds as instructed. Related Data Home Medications ?Medication ?Instructions ?Recorded ?Confirmed fluoxetine 10 mg capsule 10 mg PO DAILY 05/28/2505/06 Previous Rx's ?Medication ?Instructions ?Recorded furosemide 40 mg tablet (Lasix) 40 mg PO QAM #30 tabs 04/27/25 bupropion HCl 150 mg 24 hr tablet, 150 mg PO DAILY #30 tabs 04/29/25 extended release (Wellbutrin XL) furosemide 40 mg tablet (Lasix) 40 mg PO QAM PRN edema #30 tabs 05/03/25 hydroxyzine pamoate 25 mg capsule 25 mg PO BID PRN anx iety #30 caps 05/03/25 amlodipine 10 mg tablet 10 mg PO DAILY #90 tabs 05/05 02/27 aspirin 81 mg tablet,delayed 81 mg PO DAILY 90 days #9 0 tabs 05/18/25 release clopidogrel 75 mg tablet 75 mg PO DAILY #90 tabs 05/05 02/27 isosorbide mononitrate 30 mg 30 mg PO DAILY #90 tabs 0 05/18/25 tablet,extended release 24 hr losartan 50 mg tablet 75 mg (1.5 x 50 mg) PO DAILY #90 05/18/25 tabs Allergies Allergy/AdvReac Type Severity Reaction Status Date / Time morphine Allergy Severe vomiting Verified 05/18/25 13:37 Penicillins Allergy ALGY-Rash Verified 05/18/25 13:37 Review of Systems 2 Narrative: Constitutional symptoms: Negative except as documented in HPI. Skin symptoms: Negative except as documented in HPI. Eye symptoms: Negative except as documented in HPI. ENMT symptoms: Negative except as documented in HPI. Respiratory symptoms: Negative except as documented in HPI. Cardiovascular symptoms: Negative except as documented in HPI. Gastrointestinal symptoms: Negative except as documented in HPI. Genitourinary symptoms: Negative except as documented in HPI. Musculoskeletal symptoms: Negative except as documented in HPI. Neurologic symptoms: Negative except as documented in HPI. Psychiatric symptoms: Negative except as documented in HPI. Endocrine symptoms: Negative except as documented in HPI. PFSH ED 2 PFSH: Medical History (Updated 06/04/25 @ 22:35 by Roseann Emery MD) Sinus tachycardia Lumbar stenosis with neurogenic claudication GERD (gastroesophageal reflux disease) No pertinent past medical history neghx: dm,thyroid,dvt/pe PCP: Lupe Kwan Hx of hyperlipidemia Anxiety Smoking addiction Hypertension Surgical History Hx of section 06/17/2002 01/05/2010 Hx of laparoscopy (~07/30/12) Diagnostic Laparoscopy perfomed by Dr. Nabor Ernst at [facility] in [place], [place]. Diagnosis: abdominal pain, pelvic pain Family History Father CAD (coronary artery disease) quadruple bypass Stroke before 60 Heart disease Hypertension Mother CAD (coronary artery disease) CA and stents Stroke before the age of 60 Heart disease Hypertension Family/Other No problems noted. Denies family history of Colon cancer Ovarian cancer Diabetes Breast cancer Uterine cancer Thyroid disease Social History Smoking and tobacco/nicotine status: current some day tobacco/nicotine user (Social) Alcohol intake: current Alcohol intake frequency: 0-2 Drinks per Day Substance/Drug Use: current Physical Exam 2 Narrative: EXAM NARRATIVE: General: Alert, no acute distress. Skin: Warm, dry. Head: Normocephalic, atraumatic. Neck: Supple, trachea midline. Eye: Extraocular movements are intact. Ears, nose, mouth and throat: mucosa moist. Cardiovascular: Regular, Normal peripheral perfusion. Respiratory: Lungs are clear to auscultation, respirations are non-labored, breath sounds are equal, Symmetrical chest wall expansion. Gastrointestinal: Soft, Nontender, Non distended Musculoskeletal: Normal ROM, no deformity. Neurological: Alert and oriented, No focal neurological deficit observed. Psychiatric: Cooperative, appropriate mood & affect. Course 2 Vital Signs: Vital signs: Vital Signs Pulse Rate 101 H 06/04/25 21:15 Respiratory Rate 18 06/04/25 21:15 Blood Pressure 119/90 06/04/25 21:15 Pulse Oximetry 98 06/04/25 21:15 Oxygen Delivery Me thod Room Air 06/04/25 21:15 MDM - Chest Pain Medical Decision Making Differential diagnosis for patient with chest pain includes but is not limited to and based on the above HPI, review of systems and physical exam: Pneumonia. unstable angina. angina. Acute coronary syndrome / CA. Pulmonary embolism. Costochondritis / musculoskeletal. Pleurisy. Pericarditis. Esophageal spasm. Pancreatis. Cholecystitis. Orders placed to evaluate differential diagnosis based on the above differential, HPI and physical exam EKG: Time 2043. Rate 95. Normal sinus rhythm, diffuse ST changes that are stable compared to previous EKGs, right bundle branch block, left anterior fascicular block., This was reviewed and interpreted by myself the ER physician at 2045 Repeat EKG: Time 2121. Rate 130. Sinus tachycardia, No ST-T changes, no ectopy, normal KS & QRS intervals, This was reviewed and interpreted by myself the ER physician at 2124. This is taken secondary to patient going into a tachyarrhythmia. She was given amiodarone bolus and drip and she converted suddenly back out of this rhythm. Lab Review: Laboratory results were reviewed and interpreted by myself the emergency room physician. My leukocytosis. No anemia. No renal failure. Initial troponin is 6800. proBNP is 17,000. Chest x-ray: Stable cardiomegaly no acute process. No infiltrate. No pneumothorax. This was reviewed and interpreted by myself the emergency room physician. I also reviewed the radiology report. I reviewed the patient's medical record. Patient was discharged just recently. I read through her notes. I also spoke with carpenter helper maintenance on-call. Consultation: I spoke with Dr. Lanza who is on-call for cardiology. He does agree with admission and continuing amnio drip and starting heparin drip. He thinks likely if she is having chest pain etc. this may be related to some cardiomyopathy from recent ischemic event. Consultation: I spoke with Dr. Nieto who is on-call for the hospital service who agrees to admission to the ICU. Reexamination: Patient's blood pressure has remained stable in the 1 teens. Tach arrhythmia has resolved and has not recurred. She remains fairly tearful at times. No increased work of breathing and no oxygen requirements. Assessment and plan: Chest pain Tachycardia Severe congestive heart failure Elevated troponin Coronary artery disease ?Heparin bolus and heparin drip ? Amiodarone bolus and amiodarone drip. -I discussed the patient with the hospitalist on-call who is admitting the patient. - Discussed findings and plan with patient. Answered any questions. - All laboratory values were reviewed and interpreted personally by myself, the ER physician - All imaging was reviewed and interpreted personally by myself, the ER physician. - Evaluation and treatment of this problem were appropriate in the emergency setting Critical Care: -I spent a total of >35 minutes of critical care time managing the patient, independent of any other practitioner. -The time involved in the performance of separately reportable procedures was not counted towards critical care time. Lab Data 06/04/25 21:05 06/04/25 21:05 Radiology Impressions Chest X-Ray 06/04/25 20:45 IMPRESSION: 1. No acute findings. 2. Stable cardiomegaly. Laboratory Results WBC 12.12 10^3/uL (3.29-11.43) H 06/04/25 21:05 RBC 4.19 10^6/uL (3.85-5.65) 06/04/25 21:05 Hgb 11.70 g/dL (11.27-16.99) 06/04/25 21:05 Hct 36.5 % (36-47) 06/04/25 21:05 MCV 87.1 fl (85-98) 06/04/25 21:05 MCH 27.9 pg (27-33) 06/04/25 21:05 MCHC 32.1 g/dL (30-55) 06/04/25 21:05 RDW 14.6 % (12.1-15.1) 06/04/25 21:05 Plt Count 333 10^3/cmm (157-399) 06/04/25 21:05 MPV 10.2 fL (7.4-10.4) 06/04/25 21:05 Neut % (Auto) 72.8 % 06/04/25 21:05 Lymph % (Auto) 20.2 % 06/04/25 21:05 [place] % (Auto) 5.4 % 06/04/25 21:05 Eos % (Auto) 0.7 % 06/04/25 21:05 Baso % (Auto) 0.3 % 06/04/25 21:05 Neut # (Auto) 8.81 10^3/uL (1.8-7.7) H 06/04/25 21:05 Lymph # (Auto) 2.5 10^3/uL (0.8-4.8) 06/04/25 21:05 [place] # (Auto) 0.7 10^3/uL (0.2-0.9) 06/04/25 21:05 Eos # (Auto) 0.1 10^3/uL (0.0-0.8) 06/04/25 21:05 Baso # (Auto) 0.0 10^3/uL (0.0-0.1) 06/04/25 21:05 Nucleated RBC % (auto) 0 % 06/04/25 21:05 Nucleated RBCs # 0.0 /100WBC 06/04/25 21:05 Sodium 134 mmol/L (136-145) L 06/04/25 21:05 Potassium 3.7 mmol/L (3.5-5.1) 06/04/25 21:05 Chloride 96 mmol/L (98-107) L 06/04/25 21:05 Carbon Dioxide 23 mmol/L (22-29) 06/04/25 21:05 Anion Gap 18.7 (5-19) 06/04/25 21:05 BUN 12 mg/dL (6-20) 06/04/25 21:05 Creatinine 0.9 mg/dL (0.5-0.9) 06/04/25 21:05 GFR Calculation 68.3 mL/min (90-130) L 06/04/25 21:05 Glucose 117 mg/dL (65-115) H 06/04/25 21:05 Calculated Osmolality 279 mOsm/kg (285-295) L 06/04/25 21:05 Calcium 9.1 mg/dL (8.5-10.5) 06/04/25 21:05 Total Bilirubin 0.3 mg/dL (0.15-1.2) 06/04/25 21:05 AST 43 U/L (0-32) H 06/04/25 21:05 ALT 74 U/L (0-33) H 06/04/25 21:05 Alkaline Phosphatase 117 U/L (35-105) H 06/04/25 21:05 Troponin T Baseline 6872 ng/L (0-10) H* 06/04/25 21:05 NT-Pro-B Natriuret Pep 51578 pg/mL (0-125) H 06/04/25 21:05 Total Protein 6.7 g/dL (6.6-8.7) 06/04/25 21:05 Albumin 3.6 g/dL (3.5-5.2) 06/04/25 21:05 Globulin 3.1 g/dL (1.3-4.6) 06/04/25 21:05 All radiology interpretation(s) finalized by discharge Discharge Plan Discharge Patient Disposition: Admitted As Inpatient Clinical Impression: Elevated troponin, Tachycardia, Coronary artery disease, Congestive heart failure Chest pain Qualifiers: Chest pain type: unspecified Qualified Code(s): R07.9 - Chest pain, unspecified Condition: Stable Coding Level of Care Code ED Intermediate Designer for Desiree Gaxiola
[2025-06-04 21:11] LABS: Hematocrit 36.5 % (36-47); Hemoglobin 11.70 g/dL (11.27-16.99); Mean Corpuscular HGB Conc 32.1 g/dL (30-55); Mean Corpuscular Hemoglobin 27.9 pg (27-33); Mean Corpuscular Volume 87.1 fl (85-98); Nucleated Red Blood Cells % 0 %; Platelet Count 333 10^3/cmm (157-399); Red Blood Count 4.19 10^6/uL (3.85-5.65); White Blood Count 12.12 10^3/uL (3.29-11.43)
--- NOTE | 2025-06-04 21:24 | ECG_ITS ---
[employer] Test Date: 2025-06-05 Pat Name: Katey Romeo Department: Room: ICU11 Gender: Female [employer] Docent: : 1980 Requested By: Roseann Ortez Order Number: [id number] Rj MD: ANA LAURA BRIDGES Measurements Intervals Scott Rate: 115 P: 0 MT: 0 QRS: 208 QRSD: 199 T: 30 QT: 365 QTc: 507 Interpretive Statements ATRIAL FLUTTER/TACHYCARDIA WITH RAPID VENTRICULAR RESPONSE INDETERMINATE AXIS LEFT BUNDLE BRANCH BLOCK [120+ ms QRS DURATION, 80+ ms Q/S IN V1/V2, 85+ ms R IN I/aVL/V5/V6] LATERAL MYOCARDIAL INFARCTION , OF INDETERMINATE AGE [40+ ms Q WAVE AND/OR ST/T ABNORMALITY IN I/aVL/V5/V6] Compared to ECG 06/04/2025 21:22:37 Indeterminate axis now present Left bundle-branch block now present Junctional tachycardia no longer present Right bundle-branch block no longer present Myocardial infarct finding still present Electronically Signed On 06-08-2025 14:00:44 CDT by ANA LAURA BRIDGES [id number]
[2025-06-04] MEDS: amiodarone 150 MG/100 ML PREMIX 400 MG IV (21:29)
[2025-06-04 21:37] LABS: Troponin(5th) Baseline 6872 ng/L (0-10)
--- NOTE | 2025-06-04 21:40 | PC.NURSE ---
this nurse was in pts room starting an IV. pt stated she was starting to feel funny. bedside monitor alerted that pt was in v-tach. this nurse alerted Dr. Emery who gave verbal orders to give a loading dose of 150mg of IV amiodarone and then an amiodarone drip per protocol. this nurse overrode the medications in the pyxis and started the loading bolus. crash cart at bedside. pt a&ox4 through the event. meds were administered per protocol.
[2025-06-04 21:43] LABS: Alanine Aminotransferase 74 U/L (0-33); Albumin Level 3.6 g/dL (3.5-5.2); Alkaline Phosphatase 117 U/L (35-105); Aspartate Amino Transferase 43 U/L (0-32); Blood Urea Nitrogen 12 mg/dL (6-20); Calcium 9.1 mg/dL (8.5-10.5); Carbon Dioxide 23 mmol/L (22-29); Chloride 96 mmol/L (98-107); Creatinine Clr Calc Pharmacy 83.8664; Globulin 3.1 g/dL (1.3-4.6); Glucose 117 mg/dL (65-115); NT Pro B Type Natriuretic Pept 16668 pg/mL (0-125); Osmolality Calculated 279 mOsm/kg (285-295); Sodium 134 mmol/L (136-145); Total Protein 6.7 g/dL (6.6-8.7)
[2025-06-04 21:48] LABS: Anion Gap 18.7 (5-19); Potassium 3.7 mmol/L (3.5-5.1)
--- NOTE | 2025-06-04 22:45 | ECG_ITS ---
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: : 1980 Requested By: Roseann Ortez Order Number: [id number] Rj MD: ANA LAURA BRIDGES Measurements Intervals [place] Rate: 130 P: 251 SD: 70 QRS: 255 QRSD: 217 T: 78 QT: 395 QTc: 583 Interpretive Statements JUNCTIONAL TACHYCARDIA RIGHT BUNDLE BRANCH BLOCK [120+ ms QRS DURATION, UPRIGHT V1, 40+ ms S IN I/aVL/V4/V5/V6] INFERIOR MYOCARDIAL INFARCTION , POSSIBLY ACUTE [40+ ms Q WAVE AND/OR ST/T ABNORMALITY IN II/aVF] ANTEROLATERAL MYOCARDIAL INFARCTION , PROBABLY RECENT [40+ ms Q WAVE IN I/aVL/V3-V6] ACUTE IN Compared to ECG 06/04/2025 20:44:37 Junctional tachycardia now present Sinus rhythm no longer present L Electronically Signed On 06-04-2025 22:20:39 CDT by ANA LAURA BRIDGES [id number]
[2025-06-05] VITALS (44 sets, daily range): BP systolic 99–137; BP diastolic 66–110; PULSE 76–129; RESP 12–39; TEMP 36.1–36.6; O2SAT 71–100
[2025-06-05] MEDS: heparin drip 25,000 UNIT/500 ML PREMIX 24 UNIT IV (00:12)
[2025-06-05] MEDS: heparin 5,000 unit/mL INJ 1 mL IVP (00:13)
[2025-06-05 00:15] LABS: Troponin 5 2HR 6417 ng/L (0-10); Troponin 5 2HR Delta -455 ABS# (0-10)
--- NOTE | 2025-06-05 01:56 | PM.HP ---
Providers/Chief Complaint Admitting Physician: Geri Nieto MD--patient seen and evaluated before midnight seen in the ICU Primary Care Provider: Audelia Kwan DO Chief Complaint: CP life vest alerting History of Present Illness Katey Romeo is a 45 year old female patient was actually seen and evaluated on the of last month May only to reappear again on the with chest pain and anxiety. Patient rhythm was junctional rhythm accelerated at 130-150 and then goes into A-fib. In the emergency room heparin was initiated and Amio drip was initiated as well. Patient had non-STEMI and was cathed in April and patient had and noted ejection fraction of 15% this presentation to troponin was 6000. Patient is very fidgety acting quite older than the stated age of 45. Cardiology Myla MEDINA was consulted to follow through with care. Patient did not have any further chest pain upon giving medication for anxiety such as half a milligram of Ativan patient complaining of pain Dilaudid was given at 1 mg patient slept well and remained calm through the night. Review of Systems Narrative: Exam review upon 10 organ review with noted to be significant for cardiovascular system patient is currently on heparin drip and on amiodarone because of atypical rhythm of what looks like atrial fibrillation. Medications/Allergies Home Medications ?Medication ?Instructions ?Recorded ?Confirmed ?Last Taken ?Type bupropion HCl 150 mg 24 hr tablet, 150 mg PO DAILY #30 tabs 04/29/25 06/05/25 2 Days Ago Rx extended release (Wellbutrin XL) ~06/03/25 hydroxyzine pamoate 25 mg capsule 25 mg PO BID PRN anxiety #30 caps 05/03/25 06/05/25 2 Days Ago Rx ~06/03/25 amlodipine 10 mg tablet 10 mg PO DAILY #90 tabs 05/18/25 06/05/25 2 Days Ago Rx ~06/03/25 aspirin 81 mg tablet,delayed 81 mg PO DAILY 90 days #90 tabs 05/18/25 06/05/25 2 Days Ago Rx release ~06/03/25 clopidogrel 75 mg tablet 75 mg PO DAILY #90 tabs 05/18/25 06/05/25 2 Days Ago Rx ~06/03/25 isosorbide mononitrate 30 mg 30 mg PO DAILY #90 tabs 05/18/25 06/05/25 2 Days Ago Rx tablet,extended release 24 hr ~06/03/25 losartan 50 mg tablet 75 mg (1.5 x 50 mg) PO DAILY #90 05/18/25 06/05/25 2 Days Ago Rx tabs ~06/03/25 fluoxetine 10 mg capsule 10 mg PO DAILY 05/28/25 06/05/25 2 Days Ago History ~06/03/25 Allergies Allergy/AdvReac Type Severity Reaction Status Date / Time Penicillins Allergy ALGY-Rash Verified 05/18/25 13:37 morphine AdvReac Severe vomiting Verified 06/05/25 02:09 PFSH Acute PFSH: Medical History (Updated 06/04/25 @ 22:35 by Roseann Emery MD) Sinus tachycardia Lumbar stenosis with neurogenic claudication GERD (gastroesophageal reflux disease) No pertinent past medical history neghx: dm,thyroid,dvt/pe PCP: Lupe Kwan Hx of hyperlipidemia Anxiety Smoking addiction Hypertension Surgical History Hx of section 06/17/2002 01/05/2010 Hx of laparoscopy (~07/30/12) Diagnostic Laparoscopy perfomed by Dr. Nabor Ernst at [facility] in [place], [place]. Diagnosis: abdominal pain, pelvic pain Family History Father CAD (coronary artery disease) quadruple bypass Stroke before 60 Heart disease Hypertension Mother CAD (coronary artery disease) OR and stents Stroke before the age of 60 Heart disease Hypertension Family/Other No problems noted. Denies family history of Colon cancer Ovarian cancer Diabetes Breast cancer Uterine cancer Thyroid disease Social History Smoking and tobacco/nicotine status: current some day tobacco/nicotine user (Social) Alcohol intake: current Alcohol intake frequency: 0-2 Drinks per Day Substance/Drug Use: current Vitals/I&O/Wt Last Vital Signs Pulse 115 H 06/05/25 01:38 Resp 16 06/05/25 00:21 BP 137/99 06/05/25 00:21 Pulse Ox 98 06/05/25 00:21 O2 Del Method Room Air 06/05/25 00:23 06/04/25 06/04/25 06/05/25 14:59 22:59 06:59 Intake Total 100 / 100 Balance 100 / 100 Weight last 48 hrs Weight 87.997 kg Weight 86.183 kg Physical Exam Narrative: Patient looks well in no apparent distress at the time of my evaluation was already trying to sleep. HEENT normocephalic/atraumatic neck neck is supple cardiovascular heart rate is regular lungs are pretty much clear abdomen soft nontender nondistended unremarkable extremities are intact no edema has good pulses neurology has no focality lab studies lab studies reviewed and noted. Data 06/05/25 06:12 06/05/25 06:12 A&P Assessment and plan 1. Coronary artery disease: 2. Tachycardia: Patient had what looks like junctional rhythm and then accelerated junctional rhythm and then atrial fibrillation made aware of tacky arrhythmia. Because of this are not A-fib patient was treated accordingly. Patient had chest pains and erratic tachyarrhythmia - Heparin drip initiated - Amiodarone drip initiated - Etiology with Dr. Lanza consulted 3. Elevated troponin: Patient cardiomyopathy had deteriorated so bad troponin elevation very exaggerated at 6000 Patient is on heparin heparin drip and amiodarone drip cardiology consultation 4. Drug abuse, daily use: Case extensively discussed both in prior admission and currently must stop using drugs patient is killing the heart patient is very cardiomyopathy with an EF of 15% patient had a combination of this and also ischemic heart disease Continue current therapy with cardiology consultation 5. Ischemic cardiomyopathy: Ischemic cardiomyopathy continue heparin drip continue amiodarone continue JENA inhibitor, statins 6. Amphetamine use: Patient need drug cessation program Plan: GI and DVT prophylaxis in place PDMP PDMP Reviewed: Last Reviewed 06/05/25 09:15 by Geri Nieto MD Attestations Medical Necessity Statement*: This patient eats in bad shape with the heart patient had a very severe ischemic cardiomyopathy and continuously abused a heart every day with drugs this time coming in with troponin of 6000 with chest pains and erratic rhythm atrial fibrillation with tacky arrhythmia will need at least 2 midnights to optimize care cardiology consulted and on the case Coding Level of Care Code 11090 Diagnoses Coronary artery disease I25.10 Tachycardia R00.0 Elevated troponin R79.89 Drug abuse, daily use F19.10 Ischemic cardiomyopathy I25.5 Amphetamine use F15.90 Time Spent (min) 60
--- NOTE | 2025-06-05 02:28 | PC.NURSE ---
Heparin/NS Dr. Nieto contacted for clarification of multiple heparin orders as well as NS maintenance fluid. Orders received to discontinue subcut heparin and maintain the heparin drip already administering, and discontinue the NS.
[2025-06-05] MEDS: LORazepam 1 MG/0.5 ML injection 0.5 MG IVP (02:33)
[2025-06-05] MEDS: HYDROmorphone 0.5 MG/0.5 ML INJ IVP (02:34)
--- NOTE | 2025-06-05 05:08 | ECG_ITS ---
[facility] Test Date: 2025-06-05 Pat Name: Katey Romeo Department: Room: ICU11 Gender: Female Director Hospice Operations: : 1980 Requested By: Roseann Ortez Order Number: [id number] Reading MD: ANA LAURA BRIDGES Measurements Intervals [place] Rate: 127 P: 0 NC: 0 QRS: 206 QRSD: 174 T: 22 QT: 387 QTc: 565 Interpretive Statements ATRIAL FLUTTER/TACHYCARDIA WITH RAPID VENTRICULAR RESPONSE RIGHT BUNDLE BRANCH BLOCK [120+ ms QRS DURATION, UPRIGHT V1, 40+ ms S IN I/aVL/V4/V5/V6] INFERIOR MYOCARDIAL INFARCTION , PROBABLY OLD [40+ ms Q WAVE AND/OR ST/T ABNORMALITY IN II/aVF] ANTEROLATERAL MYOCARDIAL INFARCTION , PROBABLY RECENT [40+ ms Q WAVE IN I/aVL/V3-V6] ACUTE [place] Compared to ECG 06/05/2025 00:31:15 Right bundle-branch block now present Electronically Signed On 06-08-2025 14:15:52 CDT by NAA LAURA BRIDGES [email or web address] [id number]
[2025-06-05 06:32] LABS: Hematocrit 35.6 % (36-47); Hemoglobin 11.80 g/dL (11.27-16.99); Mean Corpuscular HGB Conc 33.1 g/dL (30-55); Mean Corpuscular Hemoglobin 28.9 pg (27-33); Mean Corpuscular Volume 87.0 fl (85-98); Nucleated Red Blood Cells % 0 %; Platelet Count 351 10^3/cmm (157-399); Red Blood Count 4.09 10^6/uL (3.85-5.65); White Blood Count 11.44 10^3/uL (3.29-11.43)
[2025-06-05 06:55] LABS: Partial Thromboplastin Time 92.5 SECONDS (23.9-36.7)
[2025-06-05 06:57] LABS: Troponin 5 6HR 6203 ng/L (0-10); Troponin 5 6HR Delta -669 ng/L (0-12)
[2025-06-05 07:01] LABS: Alanine Aminotransferase 63 U/L (0-33); Albumin Level 3.3 g/dL (3.5-5.2); Alkaline Phosphatase 122 U/L (35-105); Anion Gap 21.6 (5-19); Aspartate Amino Transferase 36 U/L (0-32); Blood Urea Nitrogen 12 mg/dL (6-20); Calcium 8.5 mg/dL (8.5-10.5); Carbon Dioxide 20 mmol/L (22-29); Chloride 95 mmol/L (98-107); Creatinine Clr Calc Pharmacy 95.4920; Globulin 3.0 g/dL (1.3-4.6); Glucose 118 mg/dL (65-115); Osmolality Calculated 277 mOsm/kg (285-295); Potassium 3.6 mmol/L (3.5-5.1); Sodium 133 mmol/L (136-145); Total Protein 6.3 g/dL (6.6-8.7)
[2025-06-05] MEDS: HYDROcodone-acetaminophen 5-325 mg Tablet 1 TAB PO ×3 (09:39→22:29)
[2025-06-05] MEDS: ondansetron 2 mg/ML SDV 2 mL 4 MG IVP ×2 (09:39→21:28)
--- NOTE | 2025-06-05 11:55 | P.CONIM_ITS ---
<Statement entered by Marcelino Lanza M.D - 06/09/25 08:19> Patient was cared for in conjunction with an advanced practice practitioner.? I reviewed the chart and all pertinent data including imaging, telemetry, and laboratory results.? I discussed the patient in detail with the advanced practice practitioner.? Please see?their note for consult note, testing results and agreed upon plan of care for the patient. Rhythm is consistent with atrial flutter with RVR. On amiodarone. Continue anticoagulation. Troponins are trending down. LAD territory is infarcted. Patient had IV issues and refusing heparin infusion. With history of drug abuse and non-compliance, no plans for revascularization of RCA as can harm with stent thrombosis. Outpatient we will refer for ICD placement evaluation. She has a lifevest. Thank you for involving us with care of this patient. We will continue to follow. Please call with questions. Providers/Reason For Consult 2 Consulting Physician/Specialty*: Dr Lanza, cardiology Reason for Consult*: LifeVest alarms Requesting Physician: Geri Nieto MD Attending Physician: Geri Nieto MD Primary Care Provider: Audelia Kwan DO History of Present Illness History of Present Illness Katey Romeo is a 45 year old female with past medical history of CAD, hyperlipidemia, uncontrolled hypertension, anxiety, substance abuse including methamphetamine, marijuana and tobacco. She had an NSTEMI 04/27/2025, coronary angiogram showed significant LAD stenosis which was treated with 2 stents, also significant RCA stenosis plan was for staged PCI. When she was seen in the clinic 05/18/2025 for follow-up. It was noted she was not taking any of her medications. She was wearing her LifeVest but battery was . She returned to the emergency room 05/28/2025 with altered mental status, complaint of chest pain. She was evaluated again with coronary angiogram 05/29/2025 finding total thrombotic occlusion of LAD stents treated with balloon angioplasty which restored flow, no new stents were placed due to the history of drug abuse and noncompliance with DAPT. Ostial diagonal subtotal occlusion also treated with balloon angioplasty. Known significant RCA disease not intervened upon at that time. She presented to the emergency room last night due to alarms from her LifeVest. She reported taking her medications as directed. She continues to have chest pain it is in the center of her chest, radiating up to her right shoulder. She was started on amiodarone infusion due to tachyarrhythmia, after amiodarone bolus she converted back to sinus rhythm. At that time she was started on heparin infusion. No reports of shortness of breath, nausea or vomiting, diaphoresis, increase in edema. Review of Systems 2 Card: Reports: chest pain Medications/Allergies Home Medications ?Medication ?Instructions ?Recorded ?Confirmed ?Last Taken ?Type bupropion HCl 150 mg 24 hr tablet, 150 mg PO DAILY #30 tabs 04/29/25 06/05/25 2 Days Ago Rx extended release (Wellbutrin XL) ~ hydroxyzine pamoate 25 mg capsule 25 mg PO BID PRN anx iety #30 caps 05/03/25 06/05/25 2 Days Ago Rx ~06/03/25 amlodipine 10 mg tablet 10 mg PO DAILY #90 tabs 05/0506/05/25 2 Days Ago Rx ~06/03/25 aspirin 81 mg tablet,delayed 81 mg PO DAILY 90 days #9 0 tabs 05/18/25 06/05/25 2 Days Ago Rx release ~06/03/25 clopidogrel 75 mg tablet 75 mg PO DAILY #90 tabs 05/0506/05/25 2 Days Ago Rx ~06/03/25 isosorbide mononitrate 30 mg 30 mg PO DAILY #90 tabs 0 05/18/25 06/05/25 2 Days Ago Rx tablet,extended release 24 hr ~ losartan 50 mg tablet 75 mg (1.5 x 50 mg) PO DAILY #90 05/18/25 06/05/25 2 Days Ago Rx tabs ~06/03/25 fluoxetine 10 mg capsule 10 mg PO DAILY 05/28/25 08/11/29 2 Days Ago History ~06/03/25 Allergies Allergy/AdvReac Type Severity Reaction Status Date / Time Penicillins Allergy ALGY-Rash Verified 05/18/25 13:37 morphine AdvReac Severe vomiting Verified 06/05/25 02:09 Current Medications Generic Name Dose Route Start Last Admin Trade Name Freq PRN Reason Stop Dose Admin Hydrocodone Bitart/Acetaminophen 1 tab 06/05/25 09:14 06/05/25 09:39 Hydrocodone-Acetaminophen 5-325 Mg Tablet PO 1 tab Q4H PRN Administration MODERATE TO SEVERE PAIN Aspirin 81 mg 06/05/25 09:00 06/05/25 08:56 Aspirin 81 Mg Ec Tablet PO 81 mg DAILY MAX Administration Clopidogrel Bisulfate 75 mg 06/05/25 09:00 06/05/25 08:56 Clopidogrel 75 Mg Tablet PO 75 mg DAILY MAX Administration Diltiazem HCl 60 mg 06/05/25 05:15 06/05/25 13:14 Diltiazem 60 Mg Tablet PO 60 mg Q6H MAX Administration Docusate Sodium 100 mg 06/05/25 09:00 06/05/25 08:56 Docusate Sodium 100 Mg Capsule PO 100 mg BID MAX Administration Amiodarone HCl/Dextrose 360 mg in 200 mls @ 0 mls/hr 06/04/25 21:30 06/05/25 03:58 Nexterone IV 0.5 mg/min .Q0M MAX 16.67 mls/hr Protocol Administration Per Protocol Heparin Sodium/Sodium Chloride 25,000 unit in 500 mls @ 0 mls/hr 06/04/25 23:45 06/05/25 07:19 Heparin Drip IV 12.18 unit/kg/hr CONT MAX 21 mls/hr Protocol Titration Per Protocol Lorazepam 0.5 mg 06/05/25 09:14 06/05/25 09:39 Lorazepam 0.5 Mg Tablet PO 0.5 mg TID PRN Administration ANXIETY Ondansetron HCl 4 mg 06/05/25 01:44 06/05/25 09:39 Ondansetron 2 Mg/Ml Sdv 2 Ml IVP 4 mg Q8H PRN Administration vomiting, or N/V if npo Pantoprazole Sodium 40 mg 06/05/25 09:00 06/05/25 08:[address] 40 Mg Tablet PO 40 mg DAILY MAX Administration PFSH Acute 2 PFSH: Medical History Sinus tachycardia Lumbar stenosis with neurogenic claudication GERD (gastroesophageal reflux disease) No pertinent past medical history neghx: dm,thyroid,dvt/pe PCP: Lupe Kwan Hx of hyperlipidemia Anxiety Smoking addiction Hypertension Surgical History Hx of section 06/17/2002 01/05/2010 Hx of laparoscopy (~07/30/12) Diagnostic Laparoscopy perfomed by Dr. Nabor Ernst at [facility] in [place], [place]. Diagnosis: abdominal pain, pelvic pain Family History Father CAD (coronary artery disease) quadruple bypass Stroke before 60 Heart disease Hypertension Mother CAD (coronary artery disease) NH and stents Stroke before the age of 60 Heart disease Hypertension Family/Other No problems noted. Denies family history of Colon cancer Ovarian cancer Diabetes Breast cancer Uterine cancer Thyroid disease Social History Smoking and tobacco/nicotine status: current some day tobacco/nicotine user (Social) Alcohol intake: current Alcohol intake frequency: 0-2 Drinks per Day Substance/Drug Use: current Vitals/I&O/Wt Last Vital Signs Temp 97.0 F L 06/05/25 08:00 Pulse 125 H 06/05/25 08:00 Resp 22 H 06/05/25 08:00 BP 114/92 06/05/25 08:00 Pulse Ox 94 06/05/25 08:00 O2 Del Method Room Air 06/05/25 08:00 O2 Flow Rate 4 06/05/25 04:00 06/04/25 06/05/25 06/05/25 22:59 06:59 14:59 Intake Total 100 / 300 200 / 300 170.8 / 170.8 Balance 100 / 300 200 / 300 170.8 / 170.8 Weight last 48 hrs Weight 194 lb 6.4 oz Weight 194 lb Weight 190 lb Physical Exam 2 Const: COMMON NORMALS: no acute distress and patient oriented x3 GENERAL APPEARANCE: cooperative and comfortable ORIENTATION/CONSCIOUSNESS: Yes awake, Yes oriented to person, Yes oriented to place and Yes oriented to time Chest: COMMONS NORMALS: normal inspection of the chest and normal palpation of entire chest wall CHEST: Yes Symmetrical chest wall rise Resp: COMMON NORMALS: normal respiratory effort, No retractions, No use of accessory muscles and clear to auscultation bilaterally EFFORT & INSPECTION: Yes symmetric chest movement AUSCULTATION: clear to auscultation bilaterally Cardio: COMMON NORMALS: regular rate, regular rhythm, S1 normal heart sound present, S2 normal heart sound present, No gallops present (Cardio), No clicks present (Cardio), No murmurs present (Cardio) and No rub (Cardio) RATE: r egular rate RHYTHM: regular rhythm HEART SOUNDS: S1 normal heart sound present and S2 normal heart sound present PERIPHERAL PULSES: radial pulses present Extremity: COMMON NORMALS: no pedal edema Neuro: COMMON NORMALS: patient oriented x3 and moves all extremities S ENSORIUM/ORIENTATION: Yes oriented to person, Yes oriented to place and Yes oriented to time Data 06/05/25 06:12 06/05/25 06:12 A&P Assessment and plan 1. Amphetamine use: 2. Combative behavior: 3. Marijuana use: 4. Congestive heart failure: 5. Tachycardia: 6. Coronary artery disease: 7. Ischemic cardiomyopathy: 8. Drug abuse, daily use: Plan: She continues to have chest pain but now is uncooperative with staff. An IV has become unusable and patient declined to have an IV replaced. It was providing her heparin infusion. Review of the LifeVest data is difficult to interpret but rhythm does not appear to be VT. At this time we will keep VT thresholds settings the same, at 150 bpm. Continue amiodarone which she can take orally. Given that the troponin trend is decreasing and the chest pain is atypical, as well as the known RCA lesion which cannot be intervened upon due to medical noncompliance we could only recommend that she have an ICD placed. However given the above knowledge, a surgeon may find her too high risk for that procedure, given that she still continues to abuse substances. If she continues to refuse treatment she will have a poor prognosis. PDMP PDMP Reviewed: Not Reviewed Coding Level of Care Code Acute Code for Chg Fwd Diagnoses Amphetamine use F15.90 Combative behavior R46.89 Marijuana use F12.90 Congestive heart failure I50.9 Tachycardia R00.0 Coronary artery disease I25.10 Ischemic cardiomyopathy I25.5 Drug abuse, daily use F19.10
--- NOTE | 2025-06-05 13:24 | PM.PN ---
Subjective Subjective: Chest pain, anxiety. Vitals/I&O/Wt Last Vital Signs Temp 97.0 F L 06/05/25 08:00 Pulse 125 H 06/05/25 08:00 Resp 22 H 06/05/25 08:00 BP 114/92 06/05/25 08:00 Pulse Ox 94 06/05/25 08:00 O2 Del Method Room Air 06/05/25 08:00 O2 Flow Rate 4 06/05/25 04:00 06/04/25 06/05/25 06/05/25 22:59 06:59 14:59 Intake Total 100 / 100 200 / 300 170.8 / 170.8 Balance 100 / 100 200 / 300 170.8 / 170.8 Weight last 48 hrs Weight 88.178 kg Weight 87.997 kg Weight 86.183 kg Physical Exam Const: COMMON NORMALS: average body habitus, patient oriented x3 and no limitations HENMT: COMMON NORMALS: normocephalic and atraumatic HEAD & SCALP: normocephalic and atraumatic Eye: COMMON NORMALS: Equal, round and reactive pupils present PUPIL: Yes Equal, round and reactive pupils present Neck/C-Spine: COMMON NORMALS: full ROM and no lymphadenopathy Lymph: LYMPHATIC: no lymphadenopathy noted Chest: CHEST: Yes other (life vest present) Resp: COMMON NORMALS: normal respiratory effort and clear to auscultation bilaterally AUSCULTATION: clear to auscultation bilaterally Cardio: COMMON NORMALS: regular rate, regular rhythm, No gallops present (Cardio) and No murmurs present (Cardio) RATE: regular rate RHYTHM: regular rhythm GI: COMMON NORMALS: Soft to palpation, non-tender and no masses PALPATION: Yes Soft to palpation Extremity: COMMON NORMALS: normal to inspection and no pedal edema Neuro: COMMON NORMALS: patient oriented x3 and CN's II-XII intact bilaterally Psych: COMMON NORMALS: mental status grossly normal, Normal thought process present, normal affect and speech normal SPEECH: Yes normal speech THOUGHT PROCESS: Normal thought process present Skin: COMMON NORMALS: no rashes or lesions noted and no wounds GENERAL SKIN EXAM: no rashes or lesions noted Data 06/05/25 06:12 06/05/25 06:12 A&P Assessment and plan 1. Congestive heart failure: 2. Coronary artery disease: 3. Tachycardia: 4. Elevated troponin: 5. ST elevation (STEMI) myocardial infarction: Plan: 45 year old female presenting with repeat chest pain, anxiety, history of CAD with recent cath in April. H/O meth abuse. NSTEMI - large troponin elevation at 6872, downtrending to 6417 on subsequent draw - recent PCI in April - started on heparin drip and amiodarone drip, however she lost IV access and is refusing further attempts at starting a new line - cardiology is consulted. Discussed with cardiology, difficult case as she is not a candidate for further PCI and she is likely to be noncompliant and instent-stenosis is a major concern. - cardiology is recommending medical management. 1. Coronary artery disease: - Treated for NSTEMI in April and had PCI with 2 stents placed, however per cardiology, these are likely thrombosed now - started on ASA/plavix, statin, however report that she stopped taking these. - staged PCI planned of the RCA, however cardiology now thinking she is not a candidate 2/2 noncompliance with DAPT. 2. Tachycardia: Patient had what looks like junctional rhythm and then accelerated junctional rhythm and then atrial fibrillation made aware of tacky arrhythmia - Heparin drip initiated - Amiodarone drip initiated - unable to continue drips as she is refusing further line placement. - discussed with cardiology: Dr. Lanza 4. Drug abuse, daily use: - on going meth abuse. - Case extensively discussed both in prior admission and currently must stop using drugs 5. Ischemic cardiomyopathy: - severe cardiomyopathy with an EF of 15% - live vest in place - possibility of defibrillator was discussed with the patient per cardiology on prior visit, however she did not want to pursue this at this time, also risk that this would become infected with ongoing drug use and medication noncompliance. - cardiology following. Plan: GI and DVT prophylaxis in place (patient is refusing) Disposition - difficult situation, patient is refusing heparin and further line placement at this time. Not a candidate for further interventions per cardiology as risk of complications outweigh benefit. PDMP PDMP Reviewed: Not Reviewed Attestations Medical Necessity Statement*: INpatient Anticipate > 2 midnights for NSTEMI Time Spent in Patient Care: 16 - 35 minutes (>than 50% of time spent in counselling and/or direct pt care on unit). Coding Level of Care Code Acute Code for [facility] Fwd Diagnoses Congestive heart failure I50.9 Coronary artery disease I25.10 Tachycardia R00.[address] elevation (STEMI) myocardial infarction I21.3
--- NOTE | 2025-06-05 13:32 | PC.NURSE ---
IV to right anticubital infiltrated, heparin drip stopped. Patient refusing to let us restart an IV. Notified Dr. Bautista and Dinh Miranda NP. No new orders given.
--- NOTE | 2025-06-05 16:21 | PC.NURSE ---
patient re-approached about starting a new IV to be able to provide heaparin medication patient refused and said just stop that one to as this nurse was attempting to restart amio drip per titrations patient resting with eyes closed
[2025-06-06] VITALS (47 sets, daily range): BP systolic 91–157; BP diastolic 64–113; PULSE 55–85; RESP 0–30; TEMP 36.4–36.8; O2SAT 87–98
[2025-06-06 00:54] LABS: Partial Thromboplastin Time 55.7 SECONDS (23.9-36.7)
[2025-06-06] MEDS: heparin drip 25,000 UNIT/500 ML PREMIX 21 UNIT IV (04:17)
[2025-06-06 06:06] LABS: Hematocrit 36.5 % (36-47); Hemoglobin 11.60 g/dL (11.27-16.99); Mean Corpuscular HGB Conc 31.8 g/dL (30-55); Mean Corpuscular Hemoglobin 28.1 pg (27-33); Mean Corpuscular Volume 88.4 fl (85-98); Nucleated Red Blood Cells % 0 %; Platelet Count 373 10^3/cmm (157-399); Red Blood Count 4.13 10^6/uL (3.85-5.65); White Blood Count 9.84 10^3/uL (3.29-11.43)
[2025-06-06 06:20] LABS: Partial Thromboplastin Time 56.4 SECONDS (23.9-36.7)
[2025-06-06 06:23] LABS: Alanine Aminotransferase 76 U/L (0-33); Albumin Level 3.1 g/dL (3.5-5.2); Alkaline Phosphatase 146 U/L (35-105); Anion Gap 16.5 (5-19); Aspartate Amino Transferase 57 U/L (0-32); Blood Urea Nitrogen 13 mg/dL (6-20); Calcium 9.2 mg/dL (8.5-10.5); Carbon Dioxide 25 mmol/L (22-29); Chloride 96 mmol/L (98-107); Creatinine Clr Calc Pharmacy 76.0615; Globulin 3.8 g/dL (1.3-4.6); Glucose 111 mg/dL (65-115); Osmolality Calculated 277 mOsm/kg (285-295); Potassium 4.5 mmol/L (3.5-5.1); Sodium 133 mmol/L (136-145); Total Protein 6.9 g/dL (6.6-8.7)
[2025-06-06] MEDS: ondansetron 2 mg/ML SDV 2 mL 4 MG IVP ×2 (06:43→16:49)
--- NOTE | 2025-06-06 08:06 | PC.NURSE ---
Patient is refusing blood pressure check at this time.
[2025-06-06] MEDS: HYDROcodone-acetaminophen 5-325 mg Tablet 1 TAB PO ×3 (10:33→21:35)
--- NOTE | 2025-06-06 11:54 | P.PN_ITS ---
Subjective 2 Subjective: Patient feels fatigued. No significant chest pain. Vitals/I&O/Wt Last Vital Signs Temp 97.6 F 06/06/25 04:00 Pulse 76 06/06/25 09:00 Resp 12 06/06/25 09:00 BP 91/73 06/06/25 08:00 Pulse Ox 95 06/06/25 09:00 O2 Del Method Room Air 06/06/25 09:00 O2 Flow Rate 4 06/05/25 04:00 FiO2 2 06/06/25 04:00 06/05/25 06/06/25 06/06/25 22:59 06:59 14:59 Intake Total 200 / 501.35 695.55 / 1196.90 Output Total 600 / 600 Balance 200 / 501.35 95.55 / 596.90 Weight last 48 hrs Weight 192 lb 12.8 oz Weight 194 lb 6.4 oz Weight 194 lb Weight 190 lb Physical Exam 2 Narrative: GENERAL: Patient is alert and oriented x 3 NECK: No jugular vein distension. [] HEENT: No cyanosis. No icterus. No pallor. [] HEART: Regular S1 and S2. LUNGS: Clear to auscultation bilaterally CENTRAL NERVOUS SYSTEM: Grossly nonfocal. [] EXTREMITIES: Lower extremities with no edema bilaterally. Urinary Catheter Management: Saunders: Cath Placed During This Visit: yes Reason for Continuing Indwelling Catheter: Accurate Measurement of Urinary Output in Critically Ill Patients Urinary Catheter Date of Insertion: 05/28/25 Urinary Catheter Time of Insertion: 07:42 Data 06/06/25 05:59 06/06/25 05:59 A&P Assessment and plan 1. Amphetamine use: 2. Marijuana use: 3. Congestive heart failure: 4. Tachycardia: 5. Coronary artery disease: 6. Ischemic cardiomyopathy: 7. Drug abuse, daily use: 8. Atrial flutter: Plan: Patient has atrial flutter with RVR at presentation. With amiodarone infusion converted back to sinus rhythm. Heart rate is controlled. Can switch heparin to Eliquis. Continue Plavix. Amiodarone will be switched to p.o. Continue lifevest use. As outpatient will refer patient for ICD placement. Patient has infarcted LAD territory. RCA has severe disease however, patient needs to show compliance with medications and stay off the drugs for revascularization of the vessel. Otherwise she is at high risk of stent thrombosis as happened with LAD stents and can cause more harm. Discussed that with patient who agreed with plan. Thank you for involving us with care of this patient. We will continue to follow. Please call with questions. PDMP PDMP Reviewed: Not Reviewed Attestations 2 Medical Necessity Statement*: Care expected to cross 2 midnights. Coding Level of Care Code Acute Code for Chg Fwd Diagnoses Amphetamine use F15.90 Marijuana use F12.90 Congestive heart failure I50.9 Tachycardia R00.0 Coronary artery disease I25.10 Ischemic cardiomyopathy I25.5 Drug abuse, daily use F19.10 Atrial flutter I48.92
[2025-06-06 12:43] LABS: PCP Screen Urine Negative (Negative)
--- NOTE | 2025-06-06 14:55 | PC.NURSE ---
Patient is frequently asking intrusive questions about other patients in the unit. This nurse has attempted to redirect patient from these questions, patient has become tearful and obsessive with inquiry. Patient will press her call button and when answered will loudly state, I HAVE TO KNOW. Patient is beginning to become angry with me. She is also asking other staff members for information on other patients, which has also been denied, this agitates her also.
--- NOTE | 2025-06-06 15:50 | PC.NURSE ---
Call Light - Nurse answered call light. When entering the room the patient asked where the fuck were you . Nurse then asked the patient if there is something he could help with. Patient was wanting this nurse to provide information on the patient in the adjacent room. Nurse explained that we cannot violate other patient's privacy. Patient continued to insist on getting information, stating she is a family friend, but after repeated denials, Katey dropped the issue. Katey then had complaints about food potentially being spoiled and said she was hungry. Nurse offered to get her fresh food, but she refused. After this nurse left them room, patient used her call light again. Another nurse responded and she again was trying to get information on the patient in the adjacent room. Requests for information were again denied.
--- NOTE | 2025-06-06 15:53 | P.PN_ITS ---
Subjective 2 Subjective: chest pain improving. Vitals/I&O/Wt Last Vital Signs Temp 98.3 F 06/06/25 13:40 Pulse 79 06/06/25 14:24 Resp 21 H 06/06/25 12:00 BP 114/83 06/06/25 11:00 Pulse Ox 90 06/06/25 12:00 O2 Del Method Room Air 06/06/25 12:00 O2 Flow Rate 4 06/05/25 04:00 FiO2 2 06/06/25 04:00 06/06/25 06/06/25 06/06/25 06:59 14:59 22:59 Intake Total 695.55 / 1196.90 370.034 / 370.034 Output Total 600 / 600 400 / 400 Balance 95.55 / 596.90 -29.966 / -29.966 Weight last 48 hrs Weight 87.453 kg Weight 88.178 kg Weight 87.997 kg Weight 86.183 kg Physical Exam 2 Const: COMMON NORMALS: average body habitus, patient oriented x3 and no limitations HENMT: COMMON NORMALS: normocephalic and atraumatic HEAD & SCALP: n ormocephalic and atraumatic Eye: COMMON NORMALS: Equal, round and reactive pupils present PUPIL: Yes Equal, round and reactive pupils present Neck/C-Spine: COMMON NORMALS: full ROM and no lymphadenopathy Lymph: LYMPHATIC: no lymphadenopathy noted Chest: CHEST: Yes other (life vest present) Resp: COMMON NORMALS: normal respiratory effort and clear to auscultation bilaterally AUSCULTATION: clear to auscultation bilaterally Cardio: COMMON NORMALS: regular rate, regular rhythm, No gallops present (Cardio) and No murmurs present (Cardio) RATE: regular rate RHYTHM: r egular rhythm GI: COMMON NORMALS: Soft to palpation, non-tender and no masses PALPATION: Yes Soft to palpation Extremity: COMMON NORMALS: normal to inspection and no pedal edema Neuro: COMMON NORMALS: patient oriented x3 and CN's II-XII intact bilaterally Psych: COMMON NORMALS: mental status grossly normal, Normal thought process present, normal affect and speech normal SPEECH: Yes normal speech THOUGHT PROCESS: Normal thought process present Skin: COMMON NORMALS: no rashes or lesions noted and no wounds GENERAL SKIN EXAM: no rashes or lesions noted Data 06/06/25 05:59 06/06/25 05:59 A&P Assessment and plan 1. Congestive heart failure: 2. Coronary artery disease: 3. Tachycardia: 4. Elevated troponin: 5. Drug abuse, daily use: 6. Non-ST elevation (NSTEMI) myocardial infarction: Plan: 45 year old female presenting with repeat chest pain, anxiety, history of CAD with recent cath in April. H/O meth abuse. NSTEMI - large troponin elevation at 6872, downtrending to 6417 on subsequent draw - recent PCI in April - started on heparin drip and amiodarone drip, initially refused line, but now running this AM - stop drips and switch to oral coverage - cardiology is consulted. Discussed with cardiology, difficult case as she is not a candidate for further PCI and she is likely to be noncompliant and instent-stenosis is a major concern. - cardiology is recommending medical management. - cont. amiodarone 400 BID for one week, then 200 mg daily - cont. metoprolol tartrate 25 BID - stop cardizem - start eliquis 5 mg BID with arrhythmia - cont. plavix, stop ASA 1. Coronary artery disease: - Treated for NSTEMI in April and had PCI with 2 stents placed, however per cardiology, these are likely thrombosed now - started on ASA/plavix, statin, however report that she stopped taking these. - staged PCI planned of the RCA, however cardiology now thinking she is not a candidate 2/2 noncompliance with DAPT. 2. Tachycardia: Patient had what looks like junctional rhythm and then accelerated junctional rhythm and then atrial fibrillation made aware of tacky arrhythmia - Heparin drip initiated - amiodarone switched to oral - discussed with cardiology: Dr. Lanza - start eliquis 4. Drug abuse, daily use: - on going meth abuse. - Case extensively discussed both in prior admission and currently must stop using drugs 5. Ischemic cardiomyopathy: - severe cardiomyopathy with an EF of 15% - live vest in place - possibility of defibrillator was discussed with the patient per cardiology on prior visit, however she did not want to pursue this at this time, also risk that this would become infected with ongoing drug use and medication noncompliance. - if she is able to stop drug abuse, may be a candidate for defibrillator placement. - cardiology following. Plan: GI and DVT prophylaxis in place (patient is refusing) Disposition - difficult situation, patient is refusing heparin and further line placement at this time. Not a candidate for further interventions per cardiology as risk of complications outweigh benefit. - likely will discharge in the AM if no other issues. PDMP PDMP Reviewed: Not Reviewed Attestations 2 Medical Necessity Statement*: INpatient Anticipate > 2 midnights for NSTEMI Time Spent in Patient Care: 16 - 35 minutes (>than 50% of time sp ent in counselling and/or direct pt care on unit) . Coding Level of Care Code Acute Code for g Fwd Diagnoses Congestive heart failure I50.9 Coronary artery disease I25.10 Tachycardia R00.0 Elevated troponin R79.89 Drug abuse, daily use F19.10 Non-ST elevation (NSTEMI) myocardial infarction I21.4
[2025-06-06 16:56] LABS: Partial Thromboplastin Time 30.8 SECONDS (23.9-36.7)
--- NOTE | 2025-06-06 17:56 | PC.NURSE ---
Shift note: Patient has had an uneventful shift. Ambulating in room with minimal assistance, exercising normal flexion and sit to stand frequently, does use assistance of furniture for initial stabilization upon standing. Patient complains of diarrhea has had two episodes of this after consuming meals. AOX4, denies pain. Dr. Peña was contacted regarding blood pressure in 150's systolic throughout shift, no new orders. Patient reports she feels better today, and appears more cheerful than previous.
--- NOTE | 2025-06-06 17:57 | PC.NURSE ---
Shift note: Patient has had an uneventful shift. Off amioadrone to PO, off heparin to eliquis at 2100. Patient is mostly compliant with care today. Patient complains meals served are not flavorful and requests substitutions, but will then also refuse substitution. Patient continues to beg staff to answer questions about other patients in the unit and is quite persistent about it. Patient has started becoming minimally aggressive towards staff when information not provided. Patient has ambulated in room without assistance. Patient requires no assistance with meals, no assistance with position change. AOX4 throughout shift, at times will evade answering direct questions, but will voice that she is tired and wants to be left alone to sleep.
[2025-06-07] VITALS (26 sets, daily range): BP systolic 111–133; BP diastolic 78–101; PULSE 70–86; RESP 12–28; TEMP 37.1; O2SAT 90–98
--- NOTE | 2025-06-07 06:27 | PC.NURSE ---
Patient refused lab this am. States i want to sleep !
--- NOTE | 2025-06-07 08:33 | P.PN_ITS ---
Subjective 2 Subjective: Patient is chest pain-free. In sinus rhythm. Vitals/I&O/Wt Last Vital Signs Temp 97.8 F 06/06/25 20:00 Pulse 70 06/07/25 05:47 Resp 16 06/07/25 05:00 BP 119/94 06/07/25 05:00 Pulse Ox 95 06/07/25 05:00 O2 Del Method Room Air 06/07/25 03:30 O2 Flow Rate 4 06/05/25 04:00 FiO2 2 06/06/25 04:00 06/06/25 06/07/25 06/07/25 22:59 06:59 14:59 Intake Total 641.5 / 1011.534 Output Total 450 / 850 Balance 191.5 / 161.534 Weight last 48 hrs Weight 192 lb 12.8 oz Physical Exam 2 Narrative: GENERAL: Patient is alert and oriented x 3 NECK: No jugular vein distension. [] HEENT: No cyanosis. No icterus. No pallor. [] HEART: Regular S1 and S2. LUNGS: Clear to auscultation bilaterally CENTRAL NERVOUS SYSTEM: Grossly nonfocal. [] EXTREMITIES: Lower extremities with no edema bilaterally. Urinary Catheter Management: Saunders: Cath Placed During This Visit: yes Reason for Continuing Indwelling Catheter: Accurate Measurement of Urinary Output in Critically Ill Patients Urinary Catheter Date of Insertion: 05/28/25 Urinary Catheter Time of Insertion: 07:42 Data 06/06/25 05:59 06/06/25 05:59 A&P Assessment and plan 1. Amphetamine use: 2. Marijuana use: 3. Congestive heart failure: 4. Tachycardia: 5. Coronary artery disease: 6. Ischemic cardiomyopathy: 7. Drug abuse, daily use: 8. Atrial flutter: Plan: Patient's rhythm is staying in sinus. Continue p.o. amiodarone. Continue Eliquis. If she stops using all drugs, can consider PCI of RCA in the future. At this time will not be safe to stent it and put her on antiplatelet agents as in recent past she has been noncompliant with medications leading to stent thrombosis of LAD with large infarcted cardiac territory. She has lifevest. Keep using it. Will refer to EP as outpatient for consideration for ICD placement. Thank you for involving us with care of this patient. Patient is stable to be discharged from cardiac standpoint. Outpatient cardiology follow up. Please call with questions. PDMP PDMP Reviewed: Not Reviewed Attestations 2 Medical Necessity Statement*: Care expected to cross 2 midnights. Coding Level of Care Code Acute Code for [facility] Fwd Diagnoses Amphetamine use F15.90 Marijuana use F12.90 Congestive heart failure I50.9 Tachycardia R00.0 Coronary artery disease I25.10 Ischemic cardiomyopathy I25.5 Drug abuse, daily use F19.10 Atrial flutter I48.92
--- NOTE | 2025-06-07 09:36 | P.DS_ITS ---
Discharge Providers Date of Admission: 06/04/25 22:27 Date of Discharge: June 07, 2025 Attending Provider at Admission: Geri Nieto MD Attending Provider at Discharge: Jose David Bautista MD Consults: Cardiology Primary Care Provider: Audelia Kwan DO Diagnoses at Discharge Discharge Diagnosis 1. Amphetamine use: 2. Marijuana use: 3. Congestive heart failure: 4. Tachycardia: 5. Coronary artery disease: 6. Ischemic cardiomyopathy: 7. Drug abuse, daily use: 8. Atrial flutter: Reason for Visit Reason for Visit: CP life vest alerting Brief History: 45 year old female presenting with repea t chest pain, anxiety, history of CAD with recent cath in April. H/O meth abuse. Hospital Course Hospital Course NSTEMI - large troponin elevation at 6872, downtrending to 6417 on subsequent draw - recent PCI in April - started on heparin drip and amiodarone drip, has refused line at times. drips running intermittently. - stop drips and switch to oral coverage - cardiology is consulted. - Discussed with cardiology, difficult case as she is not a candidate for further PCI and she is likely to be noncompliant and instent-stenosis is a major concern. - cardiology is recommending medical management. - cont. amiodarone 400 BID for one week, then 200 mg daily - cont. metoprolol tartrate 25 BID - stop cardizem - start eliquis 5 mg BID with arrhythmia - cont. plavix, stop ASA 1. Coronary artery disease: - Treated for NSTEMI in April and had PCI with 2 stents placed, however per cardiology, these are likely thrombosed now - started on ASA/plavix, statin, however report that she stopped taking these. - staged PCI planned of the RCA, however cardiology now thinking she is not a candidate 2/2 noncompliance with DAPT. 2. Tachycardia: Patient had what looks like junctional rhythm and then accelerated junctional rhythm and then atrial fibrillation made aware of tacky arrhythmia - Heparin drip initiated, now started on eliquis - amiodarone switched to oral with one week induction dosing. - discussed with cardiology: Dr. Lanza 4. Drug abuse, daily use: - on going meth abuse. - Case extensively discussed both in prior admission and currently must stop using drugs 5. Ischemic cardiomyopathy: HFrEF - severe cardiomyopathy with an EF of 15% - cont to keep live vest in place - possibility of defibrillator was discussed with the patient per cardiology on prior visit, however she did not want to pursue this at this time, also risk that this would become infected with ongoing drug use and medication noncompliance. - if she is able to stop drug abuse, may be a candidate for defibrillator placement. - cardiology following. - introduce GDMT as tolerated and as able to take. Follow up as outpatient with cardiology Plan: GI and DVT prophylaxis in place (patient is refusing intermittently). Disposition - difficult situation. Not a candidate for further interventions per cardiology as risk of complications outweigh benefit. - medications changed to oral. Discussed with patient the importance of medication compliance after stent placement and with HFrEF. Physical Exam Const: COMMON NORMALS: average body habitus, patient oriented x3 and no limitations HENMT: COMMON NORMALS: normocephalic and atraumatic HEAD & SCALP: normocephalic and atraumatic Eye: COMMON NORMALS: Equal, round and reactive pupils present PUPIL: Yes Equal, round and reactive pupils present Neck/C-Spine: COMMON NORMALS: full ROM and no lymphadenopathy Lymph: LYMPHATIC: no lymphadenopathy noted Chest: CHEST: Yes other (life vest present) Resp: COMMON NORMALS: normal respiratory effort and clear to auscultation bilaterally AUSCULTATION: clear to auscultation bilaterally Cardio: COMMON NORMALS: regular rate, regular rhythm, No gallops present (Cardio) and No murmurs present (Cardio) RATE: regular rate RHYTHM: regular rhythm GI: COMMON NORMALS: Soft to palpation, non-tender and no masses PALPATION: Yes Soft to palpation Extremity: COMMON NORMALS: normal to inspection and no pedal edema Neuro: COMMON NORMALS: patient oriented x3 and CN's II-XII intact bilaterally Psych: COMMON NORMALS: mental status grossly normal, Normal thought process present, normal affect and speech normal SPEECH: Yes normal speech THOUGHT PROCESS: Normal thought process present Skin: COMMON NORMALS: no rashes or lesions noted and no wounds GENERAL SKIN EXAM: no rashes or lesions noted Urinary Catheter Management: Saunders: Cath Placed During This Visit: yes Reason for Continuing Indwelling Catheter: Accurate Measurement of Urinary Output in Critically Ill Patients Urinary Catheter Date of Insertion: 05/28/25 Urinary Catheter Time of Insertion: 07:42 Discharge Data Studies Completed and Pending Completed Studies During Hospitalization Category Date Time Status XR chest 1V portable [id number] Stat Exams 06/04/25 20:45 Completed Pending at discharge Category Date Time Status BMP [Basic Metabolic Panel] AM LABS Lab 06/07/25 04:00 Ordered CBC Auto Diff [Complete Blood Count w/Auto] AM LABS Lab 06/07/25 04:00 Ordered Radiology Impressions Chest X-Ray 06/04/25 20:45 IMPRESSION: 1. No acute findings. 2. Stable cardiomegaly. Laboratory Results WBC 9.84 10^3/uL (3.29-11.43) 06/06/25 05:59 RBC 4.13 10^6/uL (3.85-5.65) 06/06/25 05:59 Hgb 11.60 g/dL (11.27-16.99) 06/06/25 05:59 Hct 36.5 % (36-47) 06/06/25 05:59 MCV 88.4 fl (85-98) 06/06/25 05:59 MCH 28.1 pg (27-33) 06/06/25 05:59 MCHC 31.8 g/dL (30-55) 06/06/25 05:59 RDW 14.6 % (12.1-15.1) 06/06/25 05:59 Plt Count 373 10^3/cmm (157-399) 06/06/25 05:59 MPV 10.3 fL (7.4-10.4) 06/06/25 05:59 Neut % (Auto) 60.4 % 06/06/25 05:59 Lymph % (Auto) 34.1 % 06/06/25 05:59 Lewis % (Auto) 3.5 % 06/06/25 05:59 Eos % (Auto) 1.1 % 06/06/25 05:59 Baso % (Auto) 0.4 % 06/06/25 05:59 Neut # (Auto) 5.94 10^3/uL (1.8-7.7) 06/06/25 05:59 Lymph # (Auto) 3.4 10^3/uL (0.8-4.8) 06/06/25 05:59 Lewis # (Auto) 0.3 10^3/uL (0.2-0.9) 06/06/25 05:59 Eos # (Auto) 0.1 10^3/uL (0.0-0.8) 06/06/25 05:59 Baso # (Auto) 0.0 10^3/uL (0.0-0.1) 06/06/25 05:59 Nucleated RBC % (auto) 0 % 06/06/25 05:59 Nucleated RBCs # 0.0 /100WBC 06/06/25 05:59 APTT 30.8 SECONDS (23.9-36.7) 06/06/25 16:04 Sodium 133 mmol/L (136-145) L 06/06/25 05:59 Potassium 4.5 mmol/L (3.5-5.1) 06/06/25 05:59 Chloride 96 mmol/L (98-107) L 06/06/25 05:59 Carbon Dioxide 25 mmol/L (22-29) 06/06/25 05:59 Anion Gap 16.5 (5-19) 06/06/25 05:59 BUN 13 mg/dL (6-20) 06/06/25 05:59 Creatinine 1.0 mg/dL (0.5-0.9) H 06/06/25 05:59 GFR Calculation 60.5 mL/min (90-130) L 06/06/25 05:59 Glucose 111 mg/dL (65-115) 06/06/25 05:59 Calculated Osmolality 277 mOsm/kg (285-295) L 06/06/25 05:59 Calcium 9.2 mg/dL (8.5-10.5) 06/06/25 05:59 Phosphorus 4.0 mg/dL (2.5-4.5) 06/05/25 06:12 Total Bilirubin 0.3 mg/dL (0.15-1.2) 06/06/25 05:59 AST 57 U/L (0-32) H 06/06/25 05:59 ALT 76 U/L (0-33) H 06/06/25 05:59 Alkaline Phosphatase 146 U/L (35-105) H 06/06/25 05:59 Troponin T Baseline 6872 ng/L (0-10) H* 06/04/25 21:05 Troponin T 120 Minute 6417 ng/L (0-10) H 06/04/25 23:50 Delta Troponin T -455 ABS# (0-10) L 06/04/25 23:50 Troponin T Hi Sens 6Hr 6203 ng/L (0-10) H 06/05/25 06:12 Troponin T Hi Sens 6Hr Delta -669 ng/L (0-12) L 06/05/25 06:12 NT-Pro-B Natriuret Pep 76363 pg/mL (0-125) H 06/04/25 21:05 Total Protein 6.9 g/dL (6.6-8.7) 06/06/25 05:59 Albumin 3.1 g/dL (3.5-5.2) L 06/06/25 05:59 Globulin 3.8 g/dL (1.3-4.6) 06/06/25 05:59 Urine Opiates Screen Positive ng/mL (Negative) H 06/06/25 12:21 Ur Barbiturates Screen Negative ng/mL (Negative) 06/06/25 12:21 Ur Phencyclidine Scrn Negative ng/mL (Negative) 06/06/25 12:21 Ur Amphetamines Screen Negative ng/mL (Negative) 06/06/25 12:21 U Benzodiazepines Scrn Positive ng/mL (Negative) H 06/06/25 12:21 Urine Cocaine Screen Negative ng/mL (Negative) 06/06/25 12:21 U Marijuana (THC) Screen Positive ng/mL (Negative) H 06/06/25 12:21 Vitals Last Vital Signs Temp 97.8 F 06/06/25 20:00 Pulse 70 06/07/25 05:47 Resp 16 06/07/25 05:00 BP 119/94 06/07/25 05:00 Pulse Ox 95 06/07/25 05:00 O2 Del Method Room Air 06/07/25 03:30 O2 Flow Rate 4 06/05/25 04:00 FiO2 2 06/06/25 04:00 Discharge Plan Discharge Patient Disposition: Home Condition: Stable Prescriptions: New lorazepam 0.5 mg Tablet 0.5 mg PO TID PRN (Reason: Anxiety) Qty: 14 0RF metoprolol tartrate 25 mg Tablet 25 mg PO BID@0900,2100 Qty: 60 2RF Eliquis 5 mg Tablet 5 mg PO BID@0900,2100 Qty: 60 2RF amiodarone 200 mg tablet 200 mg PO DAILY Qty: 30 2RF Rx Instructions: start after one week of 400 BID dosing is complete. amiodarone 400 mg tablet 400 mg PO BID 7 Days Qty: 14 0RF Rx Instructions: Take first until complete, then Take 200 mg daily thereafter. Continued amlodipine 10 mg tablet 10 mg PO DAILY Qty: 90 0RF clopidogrel 75 mg tablet 75 mg PO DAILY Qty: 90 3RF isosorbide mononitrate 30 mg tablet extended release 24 hr 30 mg PO DAILY Qty: 90 0RF losartan 50 mg tablet 75 mg PO DAILY Qty: 90 3RF hydroxyzine pamoate 25 mg capsule 25 mg PO BID PRN (Reason: anxiety) Qty: 30 0RF fluoxetine 10 mg capsule 10 mg PO DAILY bupropion HCl [Wellbutrin XL] 150 mg tablet extended release 24 hr 150 mg PO DAILY Qty: 30 0RF Discontinued aspirin 81 mg tablet,delayed release (DR/EC) 81 mg PO DAILY 90 Days Qty: 90 3RF Discharge Order = DC NOW: Discharge Order (Routine); Ordered 06/07/25 Ordered By: Jose David Bautista Referrals: Audelia Kwan DO [Primary Care Provider, CHEMICAL MILLING PROCESSOR] Discharge Diet: Usual diet Discharge Activity: Resume usual activity Patient Instructions: Opioid Safety, Patient Portal & Polina Instructions Discharge Attestations Time Spent in Discharge Care*: greater than 30 min Status at Discharge: Cognitive status at discharge: cognitively intact , Behavioral status at discharge: cooperative , Quality Metrics Clinical Quality Measures [ No reported AMI, CVA or VTE this stay] Coding Level of Care Code Acute Code for [facility] Fwd Diagnoses Amphetamine use F15.90 Marijuana use F12.90 Congestive heart failure I50.9 Tachycardia R00.0 Coronary artery disease I25.10 Ischemic cardiomyopathy I25.5 Drug abuse, daily use F19.10 Atrial flutter I48.92
--- NOTE | 2025-06-07 09:44 | PC.NURSE ---
Educated patient on importance of wearing Life Vest. Patient states it is too hot, and is difficult to sleep with vest on. Further education provided, patient verbalizes understanding.
--- NOTE | 2025-06-07 11:09 | PC.NURSE ---
Extensive education provided to patient on new, stopped, and continued mediations, admitting diagnoses. Patient instructed to wear her life vest, patient states she will when she wants to. Patient transport has been arranged. IVs removed without difficulty. Patient provided with written education which was reviewed with her.
== END 2025-06-07 11:55 | disposition home or self-care (01) | DRG 281 ==
LOC: ER 22:35 → ICU 23:12
PROVIDERS: Internal Medicine; Admitting Provider Internal Medicine; Emergency Provider Emergency Medicine; PCP Family Medicine; Visit Provider Internal Medicine
DX: T82.855A Stenosis of coronary artery stent, initial encounter (principal); I48.92 Unspecified atrial flutter; I21.4 Non-ST elevation (NSTEMI) myocardial infarction; I50.22 Chronic systolic (congestive) heart failure; Y71.8 Miscellaneous cardiovascular devices associated with adverse incidents, not elsewhere classified; I25.10 Atherosclerotic heart disease of native coronary artery without angina pectoris; F15.10 Other stimulant abuse, uncomplicated; F12.10 Cannabis abuse, uncomplicated; I11.0 Hypertensive heart disease with heart failure; R00.0 Tachycardia, unspecified; I25.5 Ischemic cardiomyopathy; I48.91 Unspecified atrial fibrillation; K21.9 Gastro-esophageal reflux disease without esophagitis; E78.5 Hyperlipidemia, unspecified; M48.062 Spinal stenosis, lumbar region with neurogenic claudication; F17.200 Nicotine dependence, unspecified, uncomplicated; F41.9 Anxiety disorder, unspecified; I25.2 Old myocardial infarction; Z79.02 Long term (current) use of antithrombotics/antiplatelets; Z95.5 Presence of coronary angioplasty implant and graft; Z91.148 Patient's other noncompliance with medication regimen for other reason
CPT/HCPCS: 36415; 71045; 80053; 80306; 83880; 84100; 84484; 85025; 85730; 93005; 96365; 96366; 96367; 99291; A4222; J0283; J1171; J1644; J2060; J2405; J9999

== ENCOUNTER 2025-06-13 01:14 | Emergency (ER) | payer MEDICAID, SELFPAY ==
[2025-06-13] VITALS (13 sets, daily range): BP systolic 97–105; BP diastolic 64–79; PULSE 57–66; RESP 16–22; TEMP 36.8; O2SAT 90–98; BMI 32.8
--- NOTE | 2025-06-13 01:23 | ECG_ITS ---
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1980 Requested By: Saul Marsh Order Number: [id number] Rj MD: ANA LAURA BRIDGES Measurements Intervals [place] Rate: 61 P: 19 AK: 217 QRS: 266 QRSD: 185 T: 68 QT: 527 QTc: 535 Interpretive Statements SINUS RHYTHM WITH FIRST DEGREE AV BLOCK POSSIBLE LEFT ATRIAL ENLARGEMENT [-0.1mV P-WAVE IN V1/V2] RIGHT BUNDLE BRANCH BLOCK [120+ ms QRS DURATION, UPRIGHT V1, 40+ ms S IN I/aVL/V4/V5/V6] INFERIOR MYOCARDIAL INFARCTION , PROBABLY OLD [40+ ms Q WAVE AND/OR ST/T ABNORMALITY IN II/aVF] ANTEROLATERAL MYOCARDIAL INFARCTION , OF INDETERMINATE AGE [40+ ms Q WAVE IN I/aVL/V3-V6] Compared to ECG 06/05/2025 05:08:00 First degree AV block now present Atrial flutter no longer present Myocardial infarct finding still present Electronically Signed On 06-16-2025 18:49:39 CDT by AN ALAURA BRIDGES [email or web address]
--- NOTE | 2025-06-13 01:28 | XRR_ITS ---
PROCEDURE INFORMATION: Exam: XR Chest Exam date and time: 06/13/2025 1:32 AM Age: 45 years old Clinical indication: Shortness of breath; Chest pressure; C/O chest pain with SOB. History of chf. ; Additional info: SOB, cp TECHNIQUE: Imaging protocol: Radiologic exam of the chest. Views: 1 view. COMPARISON: CR (CHEST, ) 06/04/2025 9:44 PM FINDINGS: Tubes, catheters and devices: Stable electronics devices. Lungs: Unremarkable. No consolidation. Pleural spaces: Unremarkable. No pleural effusion. No pneumothorax. Heart/Mediastinum: Stable cardiomegaly. Bones/joints: Unremarkable. XR/XR chest 1V portable [id number] IMPRESSION: No visualized acute cardiopulmonary process.
[2025-06-13 01:58] LABS: Hematocrit 33.8 % (36-47); Hemoglobin 10.70 g/dL (11.27-16.99); Mean Corpuscular HGB Conc 31.7 g/dL (30-55); Mean Corpuscular Hemoglobin 27.4 pg (27-33); Mean Corpuscular Volume 86.7 fl (85-98); Nucleated Red Blood Cells % 0.2 %; Platelet Count 422 10^3/cmm (157-399); Red Blood Count 3.90 10^6/uL (3.85-5.65); White Blood Count 11.02 10^3/uL (3.29-11.43)
[2025-06-13 02:15] LABS: HCG, Serum Qual Negative (Negative)
[2025-06-13 02:22] LABS: Troponin(5th) Baseline 3035 ng/L (0-10)
[2025-06-13 02:29] LABS: INR 1.53 (0.8-1.2); Prothrombin Time 19.40 SECONDS (12.1-14.9)
[2025-06-13 02:30] LABS: Partial Thromboplastin Time 31.3 SECONDS (23.9-36.7)
[2025-06-13 02:43] LABS: Alanine Aminotransferase 376 U/L (0-33); Albumin Level 3.5 g/dL (3.5-5.2); Alkaline Phosphatase 194 U/L (35-105); Aspartate Amino Transferase 84 U/L (0-32); Blood Urea Nitrogen 21 mg/dL (6-20); Calcium 9.2 mg/dL (8.5-10.5); Carbon Dioxide 24 mmol/L (22-29); Chloride 96 mmol/L (98-107); Creatinine Clr Calc Pharmacy 53.1721; Globulin 3.7 g/dL (1.3-4.6); Glucose 137 mg/dL (65-115); Magnesium 2.3 mg/dL (1.7-2.3); NT Pro B Type Natriuretic Pept 9663 pg/mL (0-125); Osmolality Calculated 281 mOsm/kg (285-295); Sodium 133 mmol/L (136-145); Total Protein 7.2 g/dL (6.6-8.7)
[2025-06-13 02:45] LABS: Glucose Urine UA Negative (Normal); Nitrate Urine Negative (Negative); Specific Gravity, Urine 1.011 (1.005-1.030)
[2025-06-13 02:48] LABS: Anion Gap 17.4 (5-19); Potassium 4.4 mmol/L (3.5-5.1)
[2025-06-13 02:50] LABS: Add Urine Microscopic? YES
[2025-06-13] MEDS: fentaNYL 50 mcg/mL INJ 2mL IVP (02:50)
[2025-06-13] MEDS: ondansetron 2 mg/ML SDV 2 mL 4 MG IVP (02:51)
[2025-06-13 02:53] LABS: PCP Screen Urine Negative (Negative)
[2025-06-13 03:02] LABS: UA Slide Review UA Slide Review Perf
--- NOTE | 2025-06-13 04:04 | ECG_ITS ---
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1980 Requested By: Saul Marsh Order Number: [id number] Rj MD: ANA LAURA BRIDGES Measurements Intervals [place] Rate: 57 P: 19 UT: 221 QRS: -85 QRSD: 185 T: 74 QT: 547 QTc: 535 Interpretive Statements SINUS BRADYCARDIA WITH FIRST DEGREE AV BLOCK RIGHT BUNDLE BRANCH BLOCK [120+ ms QRS DURATION, UPRIGHT V1, 40+ ms S IN I/aVL/V4/V5/V6] LEFT ANTERIOR FASCICULAR BLOCK [QRS AXIS <= -45, QR IN I, RS IN II] ANTEROLATERAL MYOCARDIAL INFARCTION , OF INDETERMINATE AGE [40+ ms Q WAVE IN I/aVL/V3-V6] Compared to ECG 06/13/2025 01:23:21 Left anterior fascicular block now present Sinus rhythm no longer present Myocardial infarct finding still present Electronically Signed On 06-16-2025 20:06:18 CDT by ANA LAURA BRIDGES [email or web address]
[2025-06-13 04:13] LABS: Troponin 5 2HR 2927 ng/L (0-10); Troponin 5 2HR Delta -108 ABS# (0-10)
--- NOTE | 2025-06-13 04:32 | ED_ITS ---
HPI - SOB/Dyspnea 2 General: Chief Complaint: Shortness of Breath/Dyspnea Stated Complaint: heart palpataions, legs swollen after 2 laxix Time Seen by Provider: 06/13/25 01:19 History of Present Illness: HPI Narrative: Patient with palpitations, shortness of breath and bilateral leg swelling. Has taken Lasix x 2 with no relief. Comes to hospital for further treatment and assistance. Related Data Home Medications ?Medication ?Instructions ?Recorded ?Confirmed fluoxetine 10 mg capsule 10 mg PO DAILY 05/28/25 0811/29 Previous Rx's ?Medication ?Instructions ?Recorded bupropion HCl 150 mg 24 hr tablet, 150 mg PO DAILY #30 tabs 04/29/25 extended release (Wellbutrin XL) hydroxyzine pamoate 25 mg capsule 25 mg PO BID PRN anx iety #30 caps 05/03/25 amlodipine 10 mg tablet 10 mg PO DAILY #90 tabs 05/05 02/27 clopidogrel 75 mg tablet 75 mg PO DAILY #90 tabs 05/05 02/27 isosorbide mononitrate 30 mg 30 mg PO DAILY #90 tabs 0 05/18/25 tablet,extended release 24 hr losartan 50 mg tablet 75 mg (1.5 x 50 mg) PO DAILY #90 05/18/25 tabs amiodarone 200 mg tablet 200 mg PO DAILY #30 tabs 01/27 amiodarone 400 mg tablet 400 mg PO BID 1 week #14 tab s 06/07/25 apixaban 5 mg tablet (Eliquis) 5 mg PO BID@0900,2100 # 60 tabs 06/07/25 lorazepam 0.5 mg tablet 0.5 mg PO TID PRN Anxiety #1 4 tabs 06/07/25 metoprolol tartrate 25 mg tablet 25 mg PO BID@0900,210 0 #60 tabs 06/07/25 Allergies Allergy/AdvReac Type Severity Reaction Status Date / Time Penicillins Allergy ALGY-Rash Verified 05/18/25 13:37 morphine AdvReac Severe vomiting Verified 06/05/25 02:09 Review of Systems 2 General: Reports: 10 or more systems reviewed and unremarkable except in HPI and below PFSH ED 2 PFSH: Medical History (Updated 06/13/25 @ 04:37 by Saul Marsh MD) Sinus tachycardia Lumbar stenosis with neurogenic claudication GERD (gastroesophageal reflux disease) No pertinent past medical history neghx: dm,thyroid,dvt/pe PCP: Lupe Kwan Hx of hyperlipidemia Anxiety Smoking addiction Hypertension Surgical History Hx of section 06/17/2002 01/05/2010 Hx of laparoscopy (~07/30/12) Diagnostic Laparoscopy perfomed by Dr. Nabor Ernst at [facility] in [place], [place]. Diagnosis: abdominal pain, pelvic pain Family History Father CAD (coronary artery disease) quadruple bypass Stroke before 60 Heart disease Hypertension Mother CAD (coronary artery disease) ID and stents Stroke before the age of 60 Heart disease Hypertension Family/Other No problems noted. Denies family history of Colon cancer Ovarian cancer Diabetes Breast cancer Uterine cancer Thyroid disease Social History Smoking and tobacco/nicotine status: current some day tobacco/nicotine user (Social) Alcohol intake: current Alcohol intake frequency: 0-2 Drinks per Day Substance/Drug Use: current Physical Exam 2 Narrative: EXAM NARRATIVE: 1+ bilateral lower extremity edema, biba silar rales on auscultation. Otherwise as below Const: COMMON NORMALS: no acute distress, patient oriented x3, alert and well nourished GENERAL APPEARANCE: well kempt and well developed HENMT: COMMON NORMALS: normocephalic, atraumatic, external ears normal and moist oral mucous membranes HEAD & SCALP: normocephalic and atraumatic E XTERNAL EAR: Yes external ears normal Eye: COMMON NORMALS: Equal, round and reactive pupils present, EOMs intact bilaterally and conjunctivae normal CONJUNCTIVA: Yes conjunctivae normal P UPIL: Yes Equal, round and reactive pupils present Neck/C-Spine: COMMON NORMALS: full ROM, no lymphadenopathy and supple Chest: CHEST: Yes Symmetrical chest wall rise and No Surgical scars present (Chest) Resp: COMMON NORMALS: normal respiratory effort, No retractions and No use of accessory muscles Cardio: COMMON NORMALS: regular rate, regular rhythm, S1 normal heart sound present, S2 normal heart sound present, No gallops present (Cardio), No clicks present (Cardio), No murmurs present (Cardio) and No rub (Cardio) RATE: r egular rate RHYTHM: regular rhythm HEART SOUNDS: S1 normal heart sound present, S2 normal heart sound present and no murmurs PERIPHERAL PULSES: o ther (Radial pulses 2+ and symmetric) GI: COMMON NORMALS: Soft to palpation, non-tender and no masses INSPECTION: No abdominal distension PALPATION: Yes Soft to palpation, No Guarding due to palpation present (GI) and No Rebound tenderness present : COMMON NORMALS: Yes no CVA tenderness BLADDER/KIDNEY EXAM: Yes no CVA tenderness Back/Pelvis: COMMON NORMALS: no CVA tenderness Extremity: COMMON NORMALS: normal to inspection, full ROM and capillary refill normal Neuro: COMMON NORMALS: patient oriented x3 SENSORIUM/ORIENTATION: Yes alert Psych: APPEARANCE: Yes well kempt Skin: COMMON NORMALS: no rashes or lesions noted, no wounds, turgor normal and no jaundice GENERAL SKIN EXAM: no rashes or lesions noted and turgor normal Course 2 Reevaluation(s): Reevaluation #1: Second troponin came back decreasing. Patient is requiring oxygen. He is to be admitted for hypoxic respiratory failure in the setting of ischemic cardiomyopathy and volume overload. Patient has a very poor EF and has issues with noncompliance during the last admission. Comes back for palpitation, leg swelling and shortness of breath. Patient is requesting transfer to outside hospital initially requested transfer to [facility] however they had no beds. Then she requested transfer to [facility]. They are evaluating the transfer request at this time. Time: 04:15 Reevaluation #2: Dr. Badillo at [facility] accepting. We will contact EMS once a bed is placed. Patient is informed that this will be on her for the transfer cost Time: 05:14 Vital Signs: Vital signs: Vital Signs Temperature 98.2 F 06/13/25 01:24 Pulse Rate 61 06/13/25 05:10 Respiratory Rate 18 06/13/25 04:00 Blood Pressure 97/64 06/13/25 05:10 Pulse Oximetry 92 06/13/25 05:10 Oxygen Delivery Me thod Room Air 06/13/25 05:10 MDM - SOB/Dyspnea Medical Decision Making Patient appears to be in a mild to moderate CHF exacerbation requiring O2. She is likely the tenuous status due to her EF of 15%. Encouragingly she is actually negative for amphetamines at this time. Patient blood pressure is under control. She does have increased leg swelling and complaints of palpitations. Her troponin is quite elevated but appears to be downtrending from last week. Patient is requesting transfer to outside hospital as she wants a more capable facility. Of note for patient is needs we are of equal capabilities at this time. Patient been informed this would be was called a lateral transfer. However due to patient autonomy we will reach out. Reach out to [facility] as patient requested and they declined. Fadia Bustillo is excepting. Dr. Badillo. Lab Data 06/13/25 01:42 06/13/25 01:42 Labs/Radiology: Radiology Impressions Chest X-Ray 06/13/25 01:28 IMPRESSION: No visualized acute cardiopulmonary process. Laboratory Results WBC 11.02 10^3/uL (3.29-11.43) 06/13/25 01:42 RBC 3.90 10^6/uL (3.85-5.65) 06/13/25 01:42 Hgb 10.70 g/dL (11.27-16.99) L 06/13/25 01:42 Hct 33.8 % (36-47) L 06/13/25 01:42 MCV 86.7 fl (85-98) 06/13/25 01:42 MCH 27.4 pg (27-33) 06/13/25 01:42 MCHC 31.7 g/dL (30-55) 06/13/25 01:42 RDW 15.1 % (12.1-15.1) 06/13/25 01:42 Plt Count 422 10^3/cmm (157-399) H 06/13/25 01:42 MPV 10.5 fL (7.4-10.4) H 06/13/25 01:42 Neut % (Auto) 69.6 % 06/13/25 01:42 Lymph % (Auto) 24.0 % 06/13/25 01:42 [place] % (Auto) 4.6 % 06/13/25 01:42 Eos % (Auto) 1.0 % 06/13/25 01:42 Baso % (Auto) 0.3 % 06/13/25 01:42 Neut # (Auto) 7.66 10^3/uL (1.8-7.7) 06/13/25 01:42 Lymph # (Auto) 2.7 10^3/uL (0.8-4.8) 06/13/25 01:42 [place] # (Auto) 0.5 10^3/uL (0.2-0.9) 06/13/25 01:42 Eos # (Auto) 0.1 10^3/uL (0.0-0.8) 06/13/25 01:42 Baso # (Auto) 0.0 10^3/uL (0.0-0.1) 06/13/25 01:42 Nucleated RBC % (auto) 0.2 % 06/13/25 01:42 Nucleated RBCs # 0.0 /100WBC 06/13/25 01:42 PT 19.40 SECONDS (12.1-14.9) H 06/13/25 01:42 INR 1.53 (0.8-1.2) H 06/13/25 01:42 APTT 31.3 SECONDS (23.9-36.7) 06/13/25 01:42 Sodium 133 mmol/L (136-145) L 06/13/25 01:42 Potassium 4.4 mmol/L (3.5-5.1) 06/13/25 01:42 Chloride 96 mmol/L (98-107) L 06/13/25 01:42 Carbon Dioxide 24 mmol/L (22-29) 06/13/25 01:42 Anion Gap 17.4 (5-19) 06/13/25 01:42 BUN 21 mg/dL (6-20) H 06/13/25 01:42 Creatinine 1.4 mg/dL (0.5-0.9) H 06/13/25 01:42 GFR Calculation 41.0 mL/min (90-130) L 06/13/25 01:42 Glucose 137 mg/dL (65-115) H 06/13/25 01:42 Calculated Osmolality 281 mOsm/kg (285-295) L 06/13/25 01:42 Calcium 9.2 mg/dL (8.5-10.5) 06/13/25 01:42 Magnesium 2.3 mg/dL (1.7-2.3) 06/13/25 01:42 Total Bilirubin 0.4 mg/dL (0.15-1.2) 06/13/25 01:42 AST 84 U/L (0-32) H 06/13/25 01:42 ALT 376 U/L (0-33) H 06/13/25 01:42 Alkaline Phosphatase 194 U/L (35-105) H 06/13/25 01:42 Troponin T Baseline 3035 ng/L (0-10) H* 06/13/25 01:42 Troponin T 120 Minute 2927 ng/L (0-10) H 06/13/25 03:44 Delta Troponin T -108 ABS# (0-10) L 06/13/25 03:44 NT-Pro-B Natriuret Pep 9663 pg/mL (0-125) H 06/13/25 01:42 Total Protein 7.2 g/dL (6.6-8.7) 06/13/25 01:42 Albumin 3.5 g/dL (3.5-5.2) 06/13/25 01:42 Globulin 3.7 g/dL (1.3-4.6) 06/13/25 01:42 HCG, Qual Negative (Negative) 06/13/25 01:42 Urine Color Yellow (Yellow) 06/13/25 02:35 Urine Appearance Clear (CLEAR) 06/13/25 02:35 Urine pH 5.5 (5-7) 06/13/25 02:35 Ur Specific [place] 1.011 (1.005-1.030) 06/13/25 02:35 Urine Protein 1+ (Negative) A 06/13/25 02:35 Urine Glucose (UA) Negative (Normal) 06/13/25 02:35 Urine Ketones Negative (Negative) 06/13/25 02:35 Urine Blood Trace (Negative) A 06/13/25 02:35 Urine Nitrate Negative (Negative) 06/13/25 02:35 Urine Bilirubin Negative (Negative) 06/13/25 02:35 Urine Urobilinogen 1.0 mg/dL (Negative) 06/13/25 02:35 Ur Leukocyte Esterase Trace (Negative) A 06/13/25 02:35 Urine RBC 0-2 /hpf (0-2) 06/13/25 02:35 Urine WBC 0-5 /hpf (0-5) 06/13/25 02:35 Ur Squamous Epith Cells 0-5 /hpf (0-5) 06/13/25 02:35 Calcium Oxalate Crystal 5-10 /hpf H 06/13/25 02:35 Amorphous Sediment Not Reportable 06/13/25 02:35 Urine Bacteria Trace /hpf (NONE) 06/13/25 02:35 Hyaline Casts 5.36 /lpf 06/13/25 02:35 Urine Opiates Screen Negative ng/mL (Negative) 06/13/25 02:35 Ur Barbiturates Screen Negative ng/mL (Negative) 06/13/25 02:35 Ur Phencyclidine Scrn Negative ng/mL (Negative) 06/13/25 02:35 Ur Amphetamines Screen Negative ng/mL (Negative) 06/13/25 02:35 U Benzodiazepines Scrn Positive ng/mL (Negative) H 06/13/25 02:35 Urine Cocaine Screen Negative ng/mL (Negative) 06/13/25 02:35 U Marijuana (THC) Screen Positive ng/mL (Negative) H 06/13/25 02:35 All radiology interpretation(s) finalized by discharge Discharge Plan Discharge Patient Disposition: Xfer Short-Term Hosp Clinical Impression: Acute hypoxemic respiratory failure, Acute congestive heart failure, Ischemic cardiomyopathy, Palpitations, Elevated troponin level, Methamphetamine use Condition: Stable Referrals: Audelia Kwan DO [Primary Care Provider, [employer]] Print Language: Frisian Coding Level of Care Code ED Front Office Associate for Desiree Gaxiola
--- NOTE | 2025-06-13 08:03 | PC.PHAR ---
Pt doesn't really know what all she takes. Verified with [facility], the most current medications filled and picked up. It is unknown when she took medications last.
--- NOTE | 2025-06-13 08:08 | PC.NURSE ---
report given to [facility] @0805; pt belongings sent with pt.
== END 2025-06-13 08:12 | disposition short-term general hospital (02) ==
PROVIDERS: Emergency Provider Emergency Medicine; PCP Family Medicine
DX: J96.01 Acute respiratory failure with hypoxia (principal); I25.5 Ischemic cardiomyopathy; R00.2 Palpitations; F15.10 Other stimulant abuse, uncomplicated; E78.5 Hyperlipidemia, unspecified; I11.0 Hypertensive heart disease with heart failure; I50.9 Heart failure, unspecified; R79.89 Other specified abnormal findings of blood chemistry
CPT/HCPCS: 36415; 71045; 80053; 80306; 81001; 83735; 83880; 84484; 84703; 85025; 85610; 85730; 93005; 96374; 96375; 99285; J2405; J3010